=== PATIENT | female | born 1970 | race Caucasian/White ===

== ENCOUNTER 2016-04-27 09:11 | Inpatient (IN) | payer MEDICARE, OTHER ==
[2016-04-27 10:14] LABS: Hematocrit 50 % (35-47); Hemoglobin 16.3 g/dl (12.0-16.0); Mean Corpuscular HGB Conc 33 g/dl (31-36); Mean Corpuscular Hemoglobin 31 pg (27-31); Mean Corpuscular Volume 96 fL (80-97); Mean Platelet Volume 8 um3 (7.4-10.4); Red Blood Count 5.22 10^6/ul (4.0-5.4); Red Cell Distribution Width 15 % (10.5-15)
[2016-04-27 10:30] LABS: Troponin I 0.03 ng/mL (<0.04)
[2016-04-27 10:31] LABS: Albumin 3.7 g/dL (3.2-5.2); BUN/Creatinine Ratio 2.5 (8-20); Calcium 8.3 mg/dL (8.6-10.3); EGFR Non-African American 3.1 (>60); Potassium 3.8 mmol/L (3.5-5.0); Total Bilirubin 0.4 mg/dL (0.2-1.0); Total Protein 7.7 g/dL (6.4-8.9)
--- NOTE | 2016-04-27 10:35 | RAD ---
Indication: Cough. 2 views of the chest including dual energy PA views demonstrate no mediastinal shift. Heart is of normal size and configuration. Lung oneill are clear. When compared to previous exam of June 26, 2015 no significant change is noted. IMPRESSION: No active cardiopulmonary disease is noted.
[2016-04-27] MEDS ORDERED: Iodixanol* (CONTRAST) 320 MG/ML 100 ML SDV IV ONE (12:15)
--- NOTE | 2016-04-27 12:55 | RAD ---
Indication: Shortness of breath. CTA of the chest was performed after IV contrast administration. Coronal and sagittal reconstructed images were obtained. Administered 72.0 ml of VISAPAQUE 320 mgi/ml was given according to hospital protocol. Pulmonary arterial tree is well opacified. There are no filling defects present to suggest embolus. Inferior thyroid lobes are unremarkable. There is small mediastinal lymph nodes in the pretracheal space measuring 8 mm. Right hilar lymph nodes measure up to 14 mm. Infrahilar lymph nodes on the right measuring up to 8 mm. These were present previously and has not significantly changed. Heart is of normal size without pericardial effusion. Trachea and major bronchi appear patent. The lung oneill demonstrate no evidence of alveolar consolidation. No pleural fluid is identified. No definite evidence of interlobular septal thickening is noted. Heart demonstrates no pericardial effusion. The axilla demonstrates no evidence of abnormal adenopathy. Abdominal organs demonstrates a small amount of ascites. IMPRESSION: No evidence of pulmonary emboli is noted. Small mediastinal and right hilar lymph nodes are noted however this is unchanged from previous exam of June 24, 2013.
[2016-04-27] MEDS ORDERED: Albuterol 2.5 MG/3 ML NEB.SOL* (0.083%) INH PRN (13:45)
[2016-04-27] MEDS ORDERED: Benzocaine/Menthol LOZ* 1 LOZENGE MT PRN (13:45)
[2016-04-27] MEDS ORDERED: Ondansetron INJ* 2 MG/ML VIAL IV PRN (13:45)
[2016-04-27] MEDS ORDERED: Dextrose 50% Syringe 50 ML* 25 GM/50 ML SYRINGE IV PUSH PRN (13:52)
[2016-04-27] MEDS ORDERED: Carisoprodol TAB* 350 MG PO PRN (14:27)
[2016-04-27] MEDS ORDERED: diPHENhydraMINE PO* 25 MG PO PRN (14:27)
[2016-04-27] MEDS ORDERED: Zolpidem TAB* 10 MG PO PRN (14:27)
--- NOTE | 2016-04-27 16:05 | ED ---
Shanta Wells Adam, scribed for Aristeo Rogers MD on 04/27/16 at 1054 . Shortness of Breath - HPI Summary HPI Summary: A 45 y/o female presents to the ED c/o SOB for 3 days with associated rhinorrhea , sore throat, fever (99.0), and cough. Per patient, she thinks this is fluid overload (gained 7 pounds in the last week). She is a peritoneal dialysis patient and has been following instructions and not missing any sessions. She denies any abdominal pain or pain/edema in her lower extremities. - History of Current Complaint Chief Complaint: EDShortnessOfBreath Time Seen by Provider: 04/27/16 10:36 Hx Obtained From: Patient Onset/Duration: Gradual Onset, Lasting Days - 3 days Timing: Constant Current Severity: Moderate Dyspnea At: Rest Aggrevating Factors: Movement Associated Signs & Symptoms: Cough (Productive), Fever, Nasal Congestion - Allergy/Home Medications Allergies/Adverse Reactions: Allergies Allergy/AdvReac Type Severity Reaction Status Date / Time Metformin [From Glucophage] Allergy Severe See Comment Verified 05/29/15 13:22 Hydromorphone [From Dilaudid] Allergy Mild Itching Verified 05/29/15 13:22 Verapamil Allergy Hives Verified 05/29/15 13:22 Home Medications: Home Medications Atorvastatin* [Lipitor*] 10 mg PO DAILY 04/27/16 [History Confirmed 04/27/16] Cinacalcet TAB* [Sensipar TAB*] 30 mg PO DAILY 04/27/16 [History Confirmed 04/27] Clobetasol 0.05% OINT* 1 applic TOPICAL BID 04/27/16 [History Confirmed 04/27/16 ] Diphenhydramine HCl 25 mg PO BID 04/27/16 [History Confirmed 04/27/16] Hydrocodone W/ Homatropine [Tussigon 5-1.5 mg] 1 tab PO .Q4-6H PRN 04/27/16 [ History Confirmed 04/27/16] Insulin GLARGINE(*) [Lantus(*)] 25 units SUBCUT BEDTIME 04/27/16 [History Confirmed 04/27/16] Metoprolol Succinate XL TAB* [Toprol XL TAB*] 25 mg PO QPM 04/27/16 [History Confirmed 04/27/16] Nitroglycerin [Nitro-Bid] 0.4 % AR BID 04/27/16 [History Confirmed 04/27/16] Ondansetron HCl [Zofran] 4 mg PO BID PRN 04/27/16 [History Confirmed 04/27/16] Ropinirole TAB* [Requip TAB*] 0.5 mg PO QPM 04/27/16 [History Confirmed 04/27/16 ] Sodium Bicarbonate (ANTACID)* 650 mg PO BID 04/27/16 [History Confirmed 04/27/16 ] Triamcinolone 0.1% CREAM(NF) [Kenalog Cream 0.1%(NF)] 1 applic TOPICAL DAILY 08/08 [History Confirmed 04/27/16] amLODIPine TAB* [Norvasc TAB*] 2.5 mg PO DAILY 04/27/16 [History Confirmed 04/27] glipiZIDE TAB.XL* [Glucotrol XL*] 2.5 mg PO DAILY 04/27/16 [History Confirmed ] PMH/Surg Hx/FS Hx/Imm Hx Endocrine/Hematology History: Reports: Hx Anemia Denies: Hx Diabetes - Denies, Hx Thyroid Disease - Denies Cardiovascular History: Reports: Hx Angina, Hx Congenital Heart Disease, Hx Congestive Heart Failure, Hx Coronary Artery Disease, Hx Hypercholesterolemia, Hx Hypertension, Hx Myocardial Infarction, Hx Peripheral Vascular Disease Denies: Hx Pacemaker/ICD, Hx Valvular Heart Disease, Other Cardiovascular Problems/Disorders Respiratory History: Reports: Hx Chronic Bronchitis Denies: Hx Asthma, Hx Chronic Obstructive Pulmonary Disease (COPD) GI History: Reports: Hx Gall Bladder Disease, Hx Gastroesophageal Reflux Disease , Other GI Disorders - PANCREATITIS History: Reports: Hx Chronic Renal Failure, Hx Dialysis - ESRD WITH PD, Hx Renal Disease, Other Problems/Disorders Musculoskeletal History: Reports: Hx Arthritis, Hx Back Problems Denies: Other Musculoskeletal History Sensory History: Reports: Hx Contacts or Glasses Denies: Hx Hearing Aid Opthamlomology History: Reports: Hx Contacts or Glasses Neurological History: Reports: Hx Migraine Psychiatric History: Denies: Hx Panic Disorder - Cancer History Hx Chemotherapy: No Hx Radiation Therapy: No Hx Palliative Cancer Treatment: No - Surgical History Surgery Procedure, Year, and Place: 05/2011- GALLBLADDER REMOVED. PD CATHETER PLACEMENT. HEART STENT 06/08 Hx Anesthesia Reactions: No - Immunization History Date of Tetanus Vaccine: Up to date Date of Influenza Vaccine: 2013 Infectious Disease History: No Infectious Disease History: Denies: Traveled Outside the [place] in Last 30 Days - Family History Known Family History: Positive: Cardiac Disease - Social History Alcohol Use: None Substance Use Type: Reports: None Smoking Status (MU): Heavy Every Day Tobacco Smoker Type: Cigarettes Amount Used/How Often: 1-2 PPD Length of Time of Smoking/Using Tobacco: 23yrs Have You Smoked in the Last Year: Yes Review of Systems Positive: Fever. Negative: Chills Eyes: Negative Negative: Erythema Positive: Sore Throat, Nasal Discharge Cardiovascular: Negative Negative: Chest Pain Positive: Shortness Of Breath, Cough Gastrointestinal: Negative Negative: Abdominal Pain, Vomiting, Nausea Genitourinary: Negative Negative: dysuria, hematuria Musculoskeletal: Negative Negative: Myalgia Skin: Negative Negative: Rash Neurological: Negative, Other - Negative: Dizziness Psychological: Normal All Other Systems Reviewed And Are Negative: Yes Physical Exam - Summary Physical Exam Summary: Constitutional: Well-developed, Well-nourished, Alert. (-) Distressed Skin: Warm, Dry HENT: Normocephalic; Atraumatic Eyes: Conjunctiva normal Neck: Musculoskeletal ROM normal neck. (-) JVD, (-) Stridor, (-) Tracheal deviation Cardio: Rhythm regular, rate normal, Heart sounds normal; Intact distal pulses; The pedal pulses are 2+ and symmetric. Radial pulses are 2+ and symmetric. (-) Murmur Pulmonary/Chest wall: Effort normal. (-) Respiratory distress, (-) Wheezes, (-) Rales Abd: Soft, (-) Tenderness, Distension with abdominal ascites, (-) Guarding, (-) Rebound Musculoskeletal: (-) Edema Lymph: (-) Cervical adenopathy Neuro: Alert, Oriented x3 Psych: Mood and affect Normal Vital Signs On Initial Exam: Initial Vitals Temp Pulse Resp BP Pulse Ox 97.1 F 95 24 112/64 94 04/27/16 09:12 04/27/16 09:12 04/27/16 09:12 04/27/16 09:12 04/27/16 09:12 - Breanna Coma Scale Coma Scale Total: 15 Diagnostics - Vital Signs Vital Signs Temp Pulse Resp BP Pulse Ox 04/27/16 09:12 97.1 F 95 24 112/64 94 - Laboratory Lab Results: Lab Results 04/27/16 04/27/16 04/27/16 Range/Units 10:00 10:00 10:00 WBC 16.0 H (3.5-10.8) 10^3/ul RBC 5.22 (4.0-5.4) 10^6/ul Hgb 16.3 H (12.0-16.0) g/dl Hct 50 H (35-47) % MCV 96 (80-97) fL MCH 31 (27-31) pg MCHC 33 (31-36) g/dl RDW 15 (10.5-15) % Plt Count 383 (150-450) 10^3/ul MPV 8 (7.4-10.4) um3 Neut % (Auto) 74.8 (38-83) % Lymph % (Auto) 15.4 L (25-47) % [place] % (Auto) 8.2 (1-9) % Eos % (Auto) 0.5 (0-6) % Baso % (Auto) 1.1 (0-2) % Absolute Neuts (auto) 12.0 H (1.5-7.7) 10^3/ul Absolute Lymphs (auto) 2.5 (1.0-4.8) 10^3/ul Absolute Monos (auto) 1.3 H (0-0.8) 10^3/ul Absolute Eos (auto) 0.1 (0-0.6) 10^3/ul Absolute Basos (auto) 0.2 (0-0.2) 10^3/ul Absolute Nucleated RBC 0 10^3/ul Nucleated RBC % 0 INR (Anticoag Therapy) (0.89-1.11) Sodium 132 L (133-145) mmol/L Potassium 3.8 (3.5-5.0) mmol/L Chloride 86 L (101-111) mmol/L Carbon Dioxide 24 (22-32) mmol/L Anion Gap 22 H (2-11) mmol/L BUN 32 H (6-24) mg/dL Creatinine 12.98 H (0.51-0.95) mg/dL Est GFR ( Amer) 4.0 (>60) Est GFR (Non-Af Amer) 3.1 (>60) BUN/Creatinine Ratio 2.5 L (8-20) Glucose 145 H (70-100) mg/dL Calcium 8.3 L (8.6-10.3) mg/dL Total Bilirubin 0.40 (0.2-1.0) mg/dL AST 7 L (13-39) U/L ALT 7 (7-52) U/L Alkaline Phosphatase 112 H (34-104) U/L Troponin I 0.03 (<0.04) ng/mL B-Natriuretic Peptide 42 ( - 100) pg/mL Total Protein 7.7 (6.4-8.9) g/dL Albumin 3.7 (3.2-5.2) g/dL Globulin 4.0 (2-4) g/dL Albumin/Globulin Ratio 0.9 L (1-3) 04/27/16 Range/Units 10:00 WBC (3.5-10.8) 10^3/ul RBC (4.0-5.4) 10^6/ul Hgb (12.0-16.0) g/dl Hct (35-47) % MCV (80-97) fL MCH (27-31) pg MCHC (31-36) g/dl RDW (10.5-15) % Plt Count (150-450) 10^3/ul MPV (7.4-10.4) um3 Neut % (Auto) (38-83) % Lymph % (Auto) (25-47) % [place] % (Auto) (1-9) % Eos % (Auto) (0-6) % Baso % (Auto) (0-2) % Absolute Neuts (auto) (1.5-7.7) 10^3/ul Absolute Lymphs (auto) (1.0-4.8) 10^3/ul Absolute Monos (auto) (0-0.8) 10^3/ul Absolute Eos (auto) (0-0.6) 10^3/ul Absolute Basos (auto) (0-0.2) 10^3/ul Absolute Nucleated RBC 10^3/ul Nucleated RBC % INR (Anticoag Therapy) 0.97 (0.89-1.11) Sodium (133-145) mmol/L Potassium (3.5-5.0) mmol/L Chloride (101-111) mmol/L Carbon Dioxide (22-32) mmol/L Anion Gap (2-11) mmol/L BUN (6-24) mg/dL Creatinine (0.51-0.95) mg/dL Est GFR ( Amer) (>60) Est GFR (Non-Af Amer) (>60) BUN/Creatinine Ratio (8-20) Glucose (70-100) mg/dL Calcium (8.6-10.3) mg/dL Total Bilirubin (0.2-1.0) mg/dL AST (13-39) U/L ALT (7-52) U/L Alkaline Phosphatase (34-104) U/L Troponin I (<0.04) ng/mL B-Natriuretic Peptide ( - 100) pg/mL Total Protein (6.4-8.9) g/dL Albumin (3.2-5.2) g/dL Globulin (2-4) g/dL Albumin/Globulin Ratio (1-3) Result Diagrams: 04/27/16 10:00 04/27/16 10:00 Lab Statement: Any lab studies that have been ordered have been reviewed, and results considered in the medical decision making process. - Radiology CXR Xray Interpretation: No Acute Changes Radiology Interpretation Completed By: Radiologist - CT Chest/Thorac CTA CT Interpretation: No Acute Changes CT Interpretation Completed By: Radiologist - EKG 09:19 Cardiac Rate: NL - 93 EKG Interpretation: Biphasic T-waves in V3-V6. Q waves in V1-V2. No STEMI Course/Dx - Diagnoses Provider Diagnoses: Fluid overload, Shortness of breath - Physician Notifications Discussed Care of Patient With: Dr. Dunlap (Nephrology, 10:45) - States patient can receive IV contrast if necessary. Discharge - Discharge Plan Condition: Guarded Disposition: ADMITTED TO [facility] documentation as recorded by the Shanta barber Adam accurately reflects the service I personally performed and the decisions made by , Aristeo Rogers MD.
[2016-04-27] MEDS: Albuterol/Ipratropium NEB.SOL* Albuterol 2.5 MG/Ipratropium 0.5 MG 3 ML INH SCH ×2 (16:27→19:16)
[2016-04-27] MEDS: Heparin VIAL(*) 5000 UNITS/ML VIAL (FIVE THOUSAND) SUBCUT SCH ×2 (16:34→21:52)
[2016-04-27] MEDS: Azithromycin IV(*) 500 MG in NS 0.9% 250 ML* 250 ML IVPB SCH (16:35)
[2016-04-27] MEDS: Ropinirole TAB* 0.5 MG TAB PO SCH (17:16)
[2016-04-27] MEDS: Metoprolol Succinate XL TAB* 25 MG PO SCH (17:16)
[2016-04-27] MEDS: Acetaminophen TAB* 325 MG PO PRN (17:17)
[2016-04-27] MEDS: Insulin LISPRO* 1 UNITS UNIT SUBCUT SCH (17:26)
--- NOTE | 2016-04-27 18:43 | HP ---
HISTORY AND PHYSICAL: DATE OF ADMISSION: 04/27/16 PRIMARY CARE PROVIDER: Dr. Pan. MY ATTENDING PHYSICIAN WHILE IN THE HOSPITAL: Dr. Tangela Doan* (report being dictated by Kathe Montoya NP). CONSULTING MACHINE SHOP REPAIR TECHNICIAN: Dr. Abarca. CHIEF COMPLAINT: 1. Dyspnea on exertion. 2. Cough. HISTORY OF PRESENTING ILLNESS: Ms. Chavez is a 45-year-old female patient who since Lenore time has been having upper respiratory symptoms. She carries a history of end-stage renal disease, on peritoneal dialysis; history of diabetes ; hypertension; GERD; uremic pericarditis; history of CAD, she had a stent placed in the LAD; she has a history of pancreatitis; history of hyperlipidemia. She states that around Lenore time, she started out with rhinorrhea, sore throat, had a nonproductive cough. She was around her grandchildren who had similar illnesses and symptoms. She says that the cough has progressed and it is becoming worse. She is now noticed that she is having trouble coughing up the phlegm. She says that she has not had any fever but she does admit to feeling chills at times. She does state that her breathing has gotten worse. She has had more progressive worsening shortness of breath particularly with exertion. She said up until about last week, she was continuing to smoke about a half a pack a day. She denied having any chest discomfort. She says she has not any swelling in her legs. She says that she always sleeps on 2 pillows and this has not changed. She says that her dialysate has been clear. She has not had any abdominal discomfort whatsoever. She denies having any nausea or vomiting. She decided to come into the ER today because the cough was not getting any better and she was noticing she was having more dyspnea on exertion and she was coughing all last night. She came into the ER, was evaluated by Dr. Rogers. There was concern for possible fluid overload or URI. Hospitalist service was asked to evaluate for admission. PAST MEDICAL HISTORY: Significant for: 1. End-stage renal disease. 2. Diabetes. 3. Hypertension. 4. GERD. 5. Uremic pericarditis. 6. Coronary artery disease. 7. Pancreatitis. 8. Hyperlipidemia. PAST SURGICAL HISTORY: 1. The patient has had a cardiac catheterization. 2. Laparoscopic cholecystectomy. 3. Peritoneal dialysis catheter. MEDICATIONS: Her home meds are unknown. The last list I have on the computer includes: 1. Requip 2 mg p.o. at bedtime. 2. Benadryl 25 mg every 6 hours as needed. 3. Ambien 10 mg at bedtime as needed. 4. Brilinta 90 mg p.o. b.i.d. 5. Crestor 10 mg p.o. daily. 6. Zofran 4 mg p.o. every 6 hours as needed for nausea or vomiting. 7. [place]-3 fatty acids 1000 mg p.o. b.i.d. 8. Bactroban 1 application topically daily. 9. Metoprolol 50 mg a day. 10. Imodium 2 mg p.o. daily as needed. 11. Glipizide 2.5 mg p.o. daily. 12. Gabapentin 100 mg p.o. b.i.d. 13. Ferric citrate 630 mg p.o. t.i.d. with meals. 14. Nexium 40 mg p.o. b.i.d. 15. B12 1000 mcg p.o. daily. 16. Soma 350 mg p.o. every 8 hours as needed. 17. Calcitriol 0.25 mcg p.o. daily. 18. Aspirin 81 mg daily. 19. Tylenol with Codeine 1 tablet p.o. every 6 hours as needed. ALLERGIES TO MEDICATIONS: Include METFORMIN, VERAPAMIL, and DILAUDID. FAMILY HISTORY: Mother had a history of renal cell carcinoma. Father had a history of diabetes with lung cancer. SOCIAL HISTORY: She is avpc-r-erck-a-day smoker. Surrogate decision maker is Beltran You. She does not drink alcohol. REVIEW OF SYSTEMS: There is no documented fever. She admits to having chills. No significant weight change. There is no double vision. There is no ear discharge. There was rhinorrhea. There was sore throat. There was cough. There is no chest pain. No orthopnea, no nocturnal dyspnea. No abdominal pain. No nausea, no vomiting. No dysuria, no frequency. No loss of consciousness. No pruritus and no skin ulcerations. Review of 14 systems completed, all others negative. PHYSICAL EXAMINATION GENERAL: At this time, Ms. Chavez is a 45-year-old female patient. She is chronically ill-appearing. She does not appear to be in any acute distress. She is sitting in the ER stretcher. VITAL SIGNS: Reveal blood pressure 103/86, pulse 98, respirations 22, O2 sat 98 %, temperature 97.1. HEENT: Head: Atraumatic, normocephalic. Eyes: EOMs are intact. Sclerae are anicteric, not pale. Throat: Oral mucosa appears to be dry. No oropharyngeal erythema. NECK: Supple. LUNGS: She did have upper respiratory rhonchi with wheeze. In the upper lobe, she had equal diaphragmatic expansion. HEART: Heart sounds S1, S2. Regular rate and rhythm. No murmurs, rubs, or gallops. ABDOMEN: Soft, it was flat, nontender. Bowel sounds were present. The PD catheter site appeared to be benign. There was no erythema or discharge noted. EXTREMITIES: Pulses were 2+ throughout. She was able to move all 4 extremities with 5/5 strength. She had no peripheral edema. NEUROLOGIC: She is awake, she is alert, she is oriented x3. Her tongue is midline. She had no gross focal deficits. SKIN: Intact. DIAGNOSTIC STUDIES/LAB DATA: Labs today revealed WBC of 16.0, RBC of 5.22, hemoglobin of platelet count 383. INR was 0.97. Her sodium was 132, potassium 3.8, chloride 86, bicarb 24, BUN 32, creatinine 12.98, glucose 145, lactate 1.8 , calcium 8.3. Total bili 0.4, AST 7, ALT 7, alk phos 112. Troponin 0.03. BNP 42. Albumin is 3.7. Serology was negative for flu. She did have a chest thorax CTA which revealed no evidence of pulmonary emboli is noted. Small mediastinal and right hilar lymph nodes are noted; however, this is unchanged from previous exam. She had a chest x-ray as well which revealed no cardiopulmonary disease is noted. She had an EKG as well which showed a normal sinus rhythm. She had flattening in lead I, V3, V2, and V1, and T waves but no ST elevation. It was reviewed to the previous EKG, the flattening of V3 is now new, but otherwise appears to be unchanged. There was an echo which showed EF 50% to 55% and that was done in 2013. Old medical records were reviewed. ASSESSMENT AND PLAN: Ms. Chavez is 45-year-old female patient coming into the ER today with complaints of cough, dyspnea on exertion. On evaluation on my exam, she appeared to have rhonchi in the upper lobes. In addition to this, did have some upper respiratory wheezing. She will be admitted under observation status for: 1. Upper respiratory infection. I suspect she has laryngitis or bronchitis. She has been having symptoms now for almost 2 weeks. With her underlying medical problems, I think she warrants antibiotics, at least azithromycin. In addition to this, she does have a history of smoking. So, I think Dulera is warranted, and nebs around the clock. I am going to hold off on steroids at this point, because I do not want to cause hyperglycemia and we will continue to monitor her. When she does overcome this illness, I would recommend probably getting PFTs in the outpatient setting. 2. End-stage renal disease. I did touch base with Dr. Abarca. He is in agreement. He will be evaluating the patient at this point. 3. Leukocytosis. I suspect this is leukemoid reaction secondary to the bronchitis. We have pancultured her. She has no abdominal discomfort. Her dialysate appears to be clear. I have a low suspicion that she has peritonitis from the PD dialysis. I will continue to monitor. If she starts spiking fevers or having abdominal discomfort, obviously we will need to reevaluate this. 4. Diabetes. Continue lispro sliding scale. 5. Hypertension. Continue meds as prescribed. 6. Coronary artery disease. We will continue her current medical regime. She is not having any chest discomfort. 7. Gastroesophageal reflux disease. Continue PPI therapy. 8. Pancreatitis. Again, no abdominal pain at this point and we can follow. 9. Hyperlipidemia. Continue meds prescribed. 10. DVT prophylaxis. We will go ahead and place her on heparin subcu. 11. Code status. Full code. 12. Fluids, electrolytes, and nutrition. She will be placed on a heart- healthy diet. TIME SPENT: On this admission was 60 minutes; , greater than half the time was spent [id number] with the patient, obtaining my history of physical; the other half time was spent going over the plan of care with the patient and implementing plan of care. I did discuss the plan of care with my attending, Dr. Doan; she is in agreement. KATHE MONTOYA NP ADDENDUM TO HISTORY AND PHYSICAL: DATE OF ADMISSION: 04/27/16 Mrs. Chavez is a 45-year-old female with history of end-stage renal disease on peritoneal dialysis who presents with bronchitis. The patient is going to be placed on overnight observation and treated for bronchitis with antibiotics. For further details of the patient's presentation and plan, please see history and physical dictated by Kathe Montoya NP, on 04/27/16 with which I agree. Tangela Doan MD CC: Dr. Pan; Dr. Abarca* [id number]/[facility] #: [id number]/[facility] #: [id number] MTDD
[2016-04-27] MEDS: Insulin GLARGINE(*) 1 UNITS UNIT SUBCUT SCH (20:56)
[2016-04-27] MEDS: Sodium Bicarbonate (ANTACID)* 650 MG TAB PO SCH (20:56)
[2016-04-27] MEDS: Gabapentin CAP(*) 100 MG PO SCH (20:56)
[2016-04-27] MEDS: Ticagrelor* 90 MG TAB PO SCH (20:56)
[2016-04-27] MEDS: Omeprazole CAP* 20 MG PO SCH (20:56)
--- NOTE | 2016-04-27 21:12 | HP ---
HISTORY AND PHYSICAL: ADDENDUM: DATE OF ADMISSION: 04/27/16 Mrs. Chavez is a 45-year-old female with history of end-stage renal disease on peritoneal dialysis who presents with bronchitis. The patient is going to be placed on overnight observation and treated f or bronchitis with antibiotics. For further details of the patient's presentation and plan, please see history and physical dictated by Pancho Montoya NP, on 04/27/16 with which I agree. [id number]/[id number] #: [id number]
[2016-04-27] MEDS: Mometasone/Formoter 200/5 MDI INH SCH (21:57)
[2016-04-28] MEDS: Albuterol/Ipratropium NEB.SOL* Albuterol 2.5 MG/Ipratropium 0.5 MG 3 ML INH SCH ×7 (00:07→23:37)
[2016-04-28] MEDS ORDERED: NS 0.9% 1000 ML* 1,000 ML IV ONE (00:27)
[2016-04-28] MEDS: Heparin VIAL(*) 5000 UNITS/ML VIAL (FIVE THOUSAND) SUBCUT SCH ×3 (05:54→21:30)
[2016-04-28 06:47] LABS: Hematocrit 40 % (35-47); Hemoglobin 13.1 g/dl (12.0-16.0); Mean Corpuscular HGB Conc 33 g/dl (31-36); Mean Corpuscular Hemoglobin 32 pg (27-31); Mean Corpuscular Volume 96 fL (80-97); Mean Platelet Volume 8 um3 (7.4-10.4); Red Blood Count 4.16 10^6/ul (4.0-5.4); Red Cell Distribution Width 15 % (10.5-15); White Blood Count 20.4 10^3/ul (3.5-10.8)
[2016-04-28 06:49] LABS: Add Diff/Slide Review? Slide Review Added; Comments Flag Yes
[2016-04-28 07:00] LABS: BUN/Creatinine Ratio 2.5 (8-20); Calcium 7.4 mg/dL (8.6-10.3); EGFR African American 3.9 (>60); Potassium 3.5 mmol/L (3.5-5.0)
[2016-04-28] MEDS: Insulin LISPRO* 1 UNITS UNIT SUBCUT SCH ×3 (07:37→17:22)
[2016-04-28 08:05] LABS: Eosinophils % 1 % (0-6); Immature Granulocytes 1 % (0-9); Neutrophil % 75 % (38-83)
[2016-04-28 08:06] LABS: RBC Morphology Normal (Normal)
[2016-04-28] MEDS: Mometasone/Formoter 200/5 MDI INH SCH ×2 (08:32→20:59)
--- NOTE | 2016-04-28 10:13 | PN ---
Subjective Date of Service: 04/28/16 Interval History: Pt is feeling better but still SOB with exertion. She states her throat is still very sore. Objective Active Medications: Acetaminophen (Tylenol Tab*) 650 mg PO Q4H PRN PRN Reason: FEVER/PAIN Last Admin: 04/27/16 17:17 Dose: 650 mg Albuterol (Ventolin 2.5 Mg/3 Ml Neb.Jade*) 2.5 mg INH Q2H PRN PRN Reason: SOB/WHEEZING Albuterol/Ipratropium (Duoneb Neb.Jade*) 1 neb INH [id number] AWAKE [facility] Last Admin: 04/28/16 08:32 Dose: 1 neb Amlodipine Besylate (Norvasc Tab*) 2.5 mg PO DAILY [facility] Aspirin (Aspirin Ec Low Dose*) 81 mg PO DAILY [facility] Atorvastatin Calcium (Lipitor*) 10 mg PO DAILY [facility] Calcitriol (Rocaltrol Cap*) 0.25 mcg PO DAILY [facility] Carisoprodol (Soma Tab*) 350 mg PO Q8HR PRN PRN Reason: SPASMS - MUSCLE Cinacalcet (Sensipar Tab*) 30 mg PO DAILY [facility] Dextrose (D50w Syringe 50 Ml*) 12.5 gm IV PUSH .FOR FS < 60 - SS PRN PRN Reason: FS < 60 Diphenhydramine HCl (Benadryl Po*) 25 mg PO Q6HR PRN PRN Reason: Allergy Symptoms Gabapentin (Neurontin Cap(*)) 100 mg PO BID [facility] Last Admin: 04/27/16 20:56 Dose: 100 mg Heparin Sodium (Porcine) (Heparin Vial(*)) 5,000 units SUBCUT Q8HR [facility] Last Admin: 04/28/16 05:54 Dose: 5,000 units Azithromycin 500 mg/ Sodium (Chloride) 250 mls @ 250 mls/hr IVPB Q24H [facility] Last Admin: 04/27/16 16:35 Dose: 250 mls/hr Insulin Glargine (Lantus(*)) 25 units SUBCUT BEDTIME [facility] Last Admin: 04/27/16 20:56 Dose: 25 units Insulin Human Lispro (Humalog*) 0 units SUBCUT AC [facility] PRN Reason: Protocol Last Admin: 04/28/16 07:37 Dose: Not Given Metoprolol Succinate (Toprol Xl Tab*) 50 mg PO DAILY [facility] Metoprolol Succinate (Toprol Xl Tab*) 25 mg PO QPM [facility] Last Admin: 04/27/16 17:16 Dose: 25 mg Mometasone Furoate/Formoterol Fumar (Dulera 200/5 Mdi*) 2 puff INH BID [facility] Last Admin: 04/28/16 08:32 Dose: 2 puff Omeprazole (Prilosec Cap*) 20 mg PO BID [facility] PRN Reason: Protocol Last Admin: 04/27/16 20:56 Dose: 20 mg Ondansetron HCl (Zofran Inj*) 4 mg IV Q6H PRN PRN Reason: NAUSEA Ropinirole HCl (Requip Tab*) 0.5 mg PO QPM [facility] Last Admin: 04/27/16 17:16 Dose: 0.5 mg Sodium Bicarbonate (Sodium Bicarbonate (Antacid)*) 650 mg PO BID [facility] Last Admin: 04/27/16 20:56 Dose: 650 mg Throat Lozenges (Chloraseptic Jered*) 1 jered MT Q6H PRN PRN Reason: SORE THROAT Last Admin: 04/27/16 16:34 Dose: 1 jered Ticagrelor (Brilinta*) 90 mg PO BID [facility] Last Admin: 04/27/16 20:56 Dose: 90 mg Zolpidem Tartrate (Ambien Tab*) 10 mg PO BEDTIME PRN PRN Reason: SLEEP Vital Signs 04/27/16 04/27/16 04/27/16 16:20 16:29 16:31 Temperature 100.8 F Pulse Rate 100 92 Respiratory 20 18 Rate Blood Pressure 119/71 (mmHg) O2 Sat by Pulse 94 100 97 Oximetry 04/27/16 04/27/16 04/27/16 17:46 19:17 19:39 Temperature 98.2 F Pulse Rate 92 95 Respiratory 20 16 18 Rate Blood Pressure 102/55 (mmHg) O2 Sat by Pulse 97 96 Oximetry 04/27/16 04/27/16 04/27/16 20:00 20:56 22:56 Temperature Pulse Rate 103 Respiratory 16 15 15 Rate Blood Pressure (mmHg) O2 Sat by Pulse 98 Oximetry 04/28/16 04/28/16 04/28/16 00:00 00:19 02:01 Temperature 98.5 F Pulse Rate 103 105 Respiratory 16 Rate Blood Pressure 88/51 93/61 (mmHg) O2 Sat by Pulse 97 96 Oximetry 04/28/16 04/28/16 03:24 08:33 Temperature 97.5 F Pulse Rate 106 100 Respiratory 16 16 Rate Blood Pressure 109/54 (mmHg) O2 Sat by Pulse 95 95 Oximetry Oxygen Devices in Use Now: None Appearance: Middle aged female standing next to the bed, NAD Eyes: No Scleral Icterus Ears/Nose/Mouth/Throat: Mucous Membranes Moist Respiratory: Symmetrical Chest Expansion and Respiratory Effort, - - diminished breath sounds in all lung oneill Cardiovascular: NL Sounds; No Murmurs; No JVD, RRR, No Edema Abdominal: - - BS+ soft, NT, ND Extremities: No Clubbing, Cyanosis Skin: No Rash or Ulcers, No Nodules or Sclerosis Neurological: Alert and Oriented x 3 Result Diagrams: 04/28/16 06:12 04/28/16 06:12 Additional Lab and Data: Lab Results 04/27/16 04/27/16 04/27/16 Range/Units 10:00 10:00 10:00 WBC 16.0 H (3.5-10.8) 10^3/ul RBC 5.22 (4.0-5.4) 10^6/ul Hgb 16.3 H (12.0-16.0) g/dl Hct 50 H (35-47) % MCV 96 (80-97) fL MCH 31 (27-31) pg MCHC 33 (31-36) g/dl RDW 15 (10.5-15) % Plt Count 383 (150-450) 10^3/ul MPV 8 (7.4-10.4) um3 Neut % (Auto) 74.8 (38-83) % Lymph % (Auto) 15.4 L (25-47) % [place] % (Auto) 8.2 (1-9) % Eos % (Auto) 0.5 (0-6) % Baso % (Auto) 1.1 (0-2) % Absolute Neuts (auto) 12.0 H (1.5-7.7) 10^3/ul Absolute Lymphs (auto) 2.5 (1.0-4.8) 10^3/ul Absolute Monos (auto) 1.3 H (0-0.8) 10^3/ul Absolute Eos (auto) 0.1 (0-0.6) 10^3/ul Absolute Basos (auto) 0.2 (0-0.2) 10^3/ul Absolute Nucleated RBC 0 10^3/ul Nucleated RBC % 0 INR (Anticoag Therapy) (0.89-1.11) Sodium 132 L (133-145) mmol/L Potassium 3.8 (3.5-5.0) mmol/L Chloride 86 L (101-111) mmol/L Carbon Dioxide 24 (22-32) mmol/L Anion Gap 22 H (2-11) mmol/L BUN 32 H (6-24) mg/dL Creatinine 12.98 H (0.51-0.95) mg/dL Est GFR ( Amer) 4.0 (>60) Est GFR (Non-Af Amer) 3.1 (>60) BUN/Creatinine Ratio 2.5 L (8-20) Glucose 145 H (70-100) mg/dL Calcium 8.3 L (8.6-10.3) mg/dL Total Bilirubin 0.40 (0.2-1.0) mg/dL AST 7 L (13-39) U/L ALT 7 (7-52) U/L Alkaline Phosphatase 112 H (34-104) U/L Troponin I 0.03 (<0.04) ng/mL B-Natriuretic Peptide 42 ( - 100) pg/mL Total Protein 7.7 (6.4-8.9) g/dL Albumin 3.7 (3.2-5.2) g/dL Globulin 4.0 (2-4) g/dL Albumin/Globulin Ratio 0.9 L (1-3) 04/27/16 Range/Units 10:00 WBC (3.5-10.8) 10^3/ul RBC (4.0-5.4) 10^6/ul Hgb (12.0-16.0) g/dl Hct (35-47) % MCV (80-97) fL MCH (27-31) pg MCHC (31-36) g/dl RDW (10.5-15) % Plt Count (150-450) 10^3/ul MPV (7.4-10.4) um3 Neut % (Auto) (38-83) % Lymph % (Auto) (25-47) % [place] % (Auto) (1-9) % Eos % (Auto) (0-6) % Baso % (Auto) (0-2) % Absolute Neuts (auto) (1.5-7.7) 10^3/ul Absolute Lymphs (auto) (1.0-4.8) 10^3/ul Absolute Monos (auto) (0-0.8) 10^3/ul Absolute Eos (auto) (0-0.6) 10^3/ul Absolute Basos (auto) (0-0.2) 10^3/ul Absolute Nucleated RBC 10^3/ul Nucleated RBC % INR (Anticoag Therapy) 0.97 (0.89-1.11) Sodium (133-145) mmol/L Potassium (3.5-5.0) mmol/L Chloride (101-111) mmol/L Carbon Dioxide (22-32) mmol/L Anion Gap (2-11) mmol/L BUN (6-24) mg/dL Creatinine (0.51-0.95) mg/dL Est GFR ( Amer) (>60) Est GFR (Non-Af Amer) (>60) BUN/Creatinine Ratio (8-20) Glucose (70-100) mg/dL Calcium (8.6-10.3) mg/dL Total Bilirubin (0.2-1.0) mg/dL AST (13-39) U/L ALT (7-52) U/L Alkaline Phosphatase (34-104) U/L Troponin I (<0.04) ng/mL B-Natriuretic Peptide ( - 100) pg/mL Total Protein (6.4-8.9) g/dL Albumin (3.2-5.2) g/dL Globulin (2-4) g/dL Albumin/Globulin Ratio (1-3) Microbiology and Other Data: Microbiology 04/27/16 20:06 Group A Streptococcus Rapid Screen - Final Throat Specimen received for Rapid Strep A Molecular testing Assess/Plan/Problems-Billing Ms Chavez is a 45 yo F who has a h/o ESRD on PD, DM, HTN and CAD who presented to the ER with c/o cough and SOB. - Patient Problems (1) Bronchitis Current Visit: Yes Status: Acute Code(s): J40 - BRONCHITIS, NOT SPECIFIED ACUTE OR CHRONIC SNOMED Code(s): 38919004 Comment: No pna on CXR. Continue azithromycin. Recheck CBC tomorrow AM. Her breathing is improved but still not quite back to baseline. (2) Type 2 diabetes mellitus Current Visit: No Status: Chronic Comment: Sugars are under good control. Continue lantus and lispro sliding scale. (3) CAD (coronary artery disease) Current Visit: Yes Status: Acute Code(s): I25.10 - ATHSCL HEART DISEASE OF [place] CORONARY ARTERY W/O ANG PCTRS SNOMED Code(s): 76474816 Comment: Asymptomatic. Continue brilinta and aspirin. (4) Hypertension Current Visit: Yes Status: Acute Code(s): I10 - ESSENTIAL (PRIMARY) HYPERTENSION SNOMED Code(s): 36728585 Comment: BP is under good control. Continue to monitor. (5) ESRD on peritoneal dialysis Current Visit: Yes Status: Chronic Code(s): N18.6 - END STAGE RENAL DISEASE ; Z99.2 - DEPENDENCE ON RENAL DIALYSIS SNOMED Code(s): 57103123 Comment: Continue PD. (6) DVT prophylaxis Current Visit: Yes Status: Acute Code(s): ENN8794 - SNOMED Code(s): 725879846 Comment: Heparin SQ (7) Full code status Current Visit: Yes Status: Acute Code(s): Z78.9 - OTHER SPECIFIED HEALTH STATUS SNOMED Code(s): 430482813
[2016-04-28] MEDS: Gabapentin CAP(*) 100 MG PO SCH ×2 (10:40→20:58)
[2016-04-28] MEDS: Sodium Bicarbonate (ANTACID)* 650 MG TAB PO SCH ×2 (10:40→20:57)
[2016-04-28] MEDS: Metoprolol Succinate XL TAB* 50 MG PO SCH (10:41)
[2016-04-28] MEDS: Aspirin EC Low Dose* 81 MG TAB.EC PO SCH (10:41)
[2016-04-28] MEDS: Ticagrelor* 90 MG TAB PO SCH ×2 (10:42→20:58)
[2016-04-28] MEDS: amLODIPine TAB* 5 MG PO SCH (10:42)
[2016-04-28] MEDS: Calcitriol CAP* 0.25 MCG PO SCH (10:42)
[2016-04-28] MEDS: Cinacalcet TAB* 30 MG PO SCH (10:42)
[2016-04-28] MEDS: Atorvastatin* 10 MG TAB PO SCH (10:42)
[2016-04-28] MEDS: Omeprazole CAP* 20 MG PO SCH ×2 (10:42→20:57)
[2016-04-28] MEDS: Acetaminophen TAB* 325 MG PO PRN (11:44)
[2016-04-28] MEDS ORDERED: Benzonatate CAP* 100 MG PO PRN (12:20)
[2016-04-28] MEDS ORDERED: Nicotine Inhaler* 10 MG AMP INH PRN (16:42)
[2016-04-28] MEDS ORDERED: Mouth Piece, Nicotine* 1 EACH CARTRIDGE INH PRN (16:42)
[2016-04-28] MEDS: Metoprolol Succinate XL TAB* 25 MG PO SCH (17:36)
[2016-04-28] MEDS: Azithromycin IV(*) 500 MG in NS 0.9% 250 ML* 250 ML IVPB SCH (17:36)
[2016-04-28] MEDS: Ropinirole TAB* 0.5 MG TAB PO SCH (17:36)
[2016-04-28] MEDS: Insulin GLARGINE(*) 1 UNITS UNIT SUBCUT SCH (21:02)
[2016-04-29] MEDS: Albuterol/Ipratropium NEB.SOL* Albuterol 2.5 MG/Ipratropium 0.5 MG 3 ML INH SCH ×3 (03:27→10:58)
[2016-04-29] MEDS: Heparin VIAL(*) 5000 UNITS/ML VIAL (FIVE THOUSAND) SUBCUT SCH (05:19)
[2016-04-29 06:57] LABS: Hematocrit 39 % (35-47); Hemoglobin 12.8 g/dl (12.0-16.0); Mean Corpuscular HGB Conc 33 g/dl (31-36); Mean Corpuscular Hemoglobin 31 pg (27-31); Mean Corpuscular Volume 95 fL (80-97); Mean Platelet Volume 8 um3 (7.4-10.4); Red Blood Count 4.11 10^6/ul (4.0-5.4); Red Cell Distribution Width 15 % (10.5-15); White Blood Count 15.5 10^3/ul (3.5-10.8)
[2016-04-29] MEDS: Mometasone/Formoter 200/5 MDI INH SCH (07:39)
[2016-04-29] MEDS: Ticagrelor* 90 MG TAB PO SCH (08:07)
[2016-04-29] MEDS: Aspirin EC Low Dose* 81 MG TAB.EC PO SCH (08:07)
[2016-04-29] MEDS: Omeprazole CAP* 20 MG PO SCH (08:07)
[2016-04-29] MEDS: Sodium Bicarbonate (ANTACID)* 650 MG TAB PO SCH (08:07)
[2016-04-29] MEDS: amLODIPine TAB* 5 MG PO SCH (08:07)
[2016-04-29] MEDS: Cinacalcet TAB* 30 MG PO SCH (08:07)
[2016-04-29] MEDS: Atorvastatin* 10 MG TAB PO SCH (08:07)
[2016-04-29] MEDS: Calcitriol CAP* 0.25 MCG PO SCH (08:07)
[2016-04-29] MEDS: Gabapentin CAP(*) 100 MG PO SCH (08:07)
[2016-04-29] MEDS: Insulin LISPRO* 1 UNITS UNIT SUBCUT SCH ×2 (08:08→12:14)
[2016-04-29] MEDS: Metoprolol Succinate XL TAB* 50 MG PO SCH (08:10)
--- NOTE | 2016-04-29 11:00 | PN ---
Subjective Date of Service: 04/29/16 Interval History: Pt is feeling well. Breathing is improved. She states that last night she had some abdominal pain and diarrhea but nothing further. Objective Active Medications: Acetaminophen (Tylenol Tab*) 650 mg PO Q4H PRN PRN Reason: FEVER/PAIN Last Admin: 04/28/16 11:44 Dose: 650 mg Albuterol (Ventolin 2.5 Mg/3 Ml Neb.Jade*) 2.5 mg INH Q2H PRN PRN Reason: SOB/WHEEZING Albuterol/Ipratropium (Duoneb Neb.Jade*) 1 neb INH [id number] AWAKE [facility] Last Admin: 04/29/16 07:39 Dose: 1 neb Amlodipine Besylate (Norvasc Tab*) 2.5 mg PO DAILY [facility] Last Admin: 04/29/16 08:07 Dose: 2.5 mg Aspirin (Aspirin Ec Low Dose*) 81 mg PO DAILY [facility] Last Admin: 04/29/16 08:07 Dose: 81 mg Atorvastatin Calcium (Lipitor*) 10 mg PO DAILY [facility] Last Admin: 04/29/16 08:07 Dose: 10 mg Benzonatate (Tessalon Cap*) 200 mg PO TID PRN PRN Reason: cough Last Admin: 04/28/16 14:08 Dose: 200 mg Calcitriol (Rocaltrol Cap*) 0.25 mcg PO DAILY [facility] Last Admin: 04/29/16 08:07 Dose: 0.25 mcg Carisoprodol (Soma Tab*) 350 mg PO Q8HR PRN PRN Reason: SPASMS - MUSCLE Cinacalcet (Sensipar Tab*) 30 mg PO DAILY [facility] Last Admin: 04/29/16 08:07 Dose: 30 mg Device (Nicotine Mouth Piece*) 1 each INH .USE WITH NICOTROL PRN PRN Reason: CRAVING Last Admin: 04/28/16 17:37 Dose: 1 each Dextrose (D50w Syringe 50 Ml*) 12.5 gm IV PUSH .FOR FS < 60 - SS PRN PRN Reason: FS < 60 Diphenhydramine HCl (Benadryl Po*) 25 mg PO Q6HR PRN PRN Reason: Allergy Symptoms Gabapentin (Neurontin Cap(*)) 100 mg PO BID [facility] Last Admin: 04/29/16 08:07 Dose: 100 mg Heparin Sodium (Porcine) (Heparin Vial(*)) 5,000 units SUBCUT Q8HR [facility] Last Admin: 04/29/16 05:19 Dose: 5,000 units Azithromycin 500 mg/ Sodium (Chloride) 250 mls @ 250 mls/hr IVPB Q24H [facility] Last Admin: 04/28/16 17:36 Dose: 250 mls/hr Insulin Glargine (Lantus(*)) 25 units SUBCUT BEDTIME [facility] Last Admin: 04/28/16 21:02 Dose: 25 units Insulin Human Lispro (Humalog*) 0 units SUBCUT AC [facility] PRN Reason: Protocol Last Admin: 04/29/16 08:08 Dose: Not Given Metoprolol Succinate (Toprol Xl Tab*) 50 mg PO DAILY [facility] Last Admin: 04/29/16 08:10 Dose: 50 mg Metoprolol Succinate (Toprol Xl Tab*) 25 mg PO QPM [facility] Last Admin: 04/28/16 17:36 Dose: 25 mg Mometasone Furoate/Formoterol Fumar (Dulera 200/5 Mdi*) 2 puff INH BID [facility] Last Admin: 04/29/16 07:39 Dose: 2 puff Nicotine (Nicotine Inhaler*) 10 mg INH Q2H PRN PRN Reason: CRAVING Last Admin: 04/28/16 17:37 Dose: 10 mg Omeprazole (Prilosec Cap*) 20 mg PO BID [facility] PRN Reason: Protocol Last Admin: 04/29/16 08:07 Dose: 20 mg Ondansetron HCl (Zofran Inj*) 4 mg IV Q6H PRN PRN Reason: NAUSEA Last Admin: 04/28/16 21:29 Dose: 4 mg Ropinirole HCl (Requip Tab*) 0.5 mg PO QPM [facility] Last Admin: 04/28/16 17:36 Dose: 0.5 mg Sodium Bicarbonate (Sodium Bicarbonate (Antacid)*) 650 mg PO BID [facility] Last Admin: 04/29/16 08:07 Dose: 650 mg Throat Lozenges (Chloraseptic Jered*) 1 jered MT Q6H PRN PRN Reason: SORE THROAT Last Admin: 04/27/16 16:34 Dose: 1 jered Ticagrelor (Brilinta*) 90 mg PO BID [facility] Last Admin: 01/06/17 08:07 Dose: 90 mg Zolpidem Tartrate (Ambien Tab*) 10 mg PO BEDTIME PRN PRN Reason: SLEEP Vital Signs 04/28/16 04/28/16 04/28/16 12:07 12:08 12:40 Temperature Pulse Rate 96 Respiratory 18 20 Rate Blood Pressure (mmHg) O2 Sat by Pulse 100 99 Oximetry 04/28/16 04/28/16 04/28/16 15:08 16:13 20:00 Temperature 97.9 F Pulse Rate 97 68 91 Respiratory 16 18 Rate Blood Pressure 123/65 (mmHg) O2 Sat by Pulse 93 100 94 Oximetry 04/28/16 04/28/16 04/28/16 20:58 22:58 23:41 Temperature 98.6 F Pulse Rate 92 Respiratory 18 17 18 Rate Blood Pressure 121/75 (mmHg) O2 Sat by Pulse 94 Oximetry 04/29/16 04/29/16 04/29/16 00:00 03:27 04:10 Temperature 98.5 F Pulse Rate 90 93 Respiratory 16 16 Rate Blood Pressure 106/55 (mmHg) O2 Sat by Pulse 94 99 99 Oximetry 04/29/16 04/29/16 07:44 08:07 Temperature Pulse Rate 93 Respiratory 16 18 Rate Blood Pressure (mmHg) O2 Sat by Pulse 98 Oximetry Oxygen Devices in Use Now: None Appearance: Middle aged female standing in her room, NAD Eyes: No Scleral Icterus Ears/Nose/Mouth/Throat: Mucous Membranes Moist Respiratory: Symmetrical Chest Expansion and Respiratory Effort, - - few scattered wheezes and ronchi Cardiovascular: NL Sounds; No Murmurs; No JVD, RRR, No Edema Abdominal: - - BS+ soft, ND, NT-pt is insitilling her dialysate at this time Extremities: No Clubbing, Cyanosis Skin: No Rash or Ulcers, No Nodules or Sclerosis Neurological: Alert and Oriented x 3 Result Diagrams: 04/29/16 05:41 04/28/16 06:12 Additional Lab and Data: Lab Results 04/27/16 04/27/16 04/27/16 Range/Units 10:00 10:00 10:00 WBC 16.0 H (3.5-10.8) 10^3/ul RBC 5.22 (4.0-5.4) 10^6/ul Hgb 16.3 H (12.0-16.0) g/dl Hct 50 H (35-47) % MCV 96 (80-97) fL MCH 31 (27-31) pg MCHC 33 (31-36) g/dl RDW 15 (10.5-15) % Plt Count 383 (150-450) 10^3/ul MPV 8 (7.4-10.4) um3 Neut % (Auto) 74.8 (38-83) % Lymph % (Auto) 15.4 L (25-47) % [place] % (Auto) 8.2 (1-9) % Eos % (Auto) 0.5 (0-6) % Baso % (Auto) 1.1 (0-2) % Absolute Neuts (auto) 12.0 H (1.5-7.7) 10^3/ul Absolute Lymphs (auto) 2.5 (1.0-4.8) 10^3/ul Absolute Monos (auto) 1.3 H (0-0.8) 10^3/ul Absolute Eos (auto) 0.1 (0-0.6) 10^3/ul Absolute Basos (auto) 0.2 (0-0.2) 10^3/ul Absolute Nucleated RBC 0 10^3/ul Nucleated RBC % 0 INR (Anticoag Therapy) (0.89-1.11) Sodium 132 L (133-145) mmol/L Potassium 3.8 (3.5-5.0) mmol/L Chloride 86 L (101-111) mmol/L Carbon Dioxide 24 (22-32) mmol/L Anion Gap 22 H (2-11) mmol/L BUN 32 H (6-24) mg/dL Creatinine 12.98 H (0.51-0.95) mg/dL Est GFR ( Amer) 4.0 (>60) Est GFR (Non-Af Amer) 3.1 (>60) BUN/Creatinine Ratio 2.5 L (8-20) Glucose 145 H (70-100) mg/dL Calcium 8.3 L (8.6-10.3) mg/dL Total Bilirubin 0.40 (0.2-1.0) mg/dL AST 7 L (13-39) U/L ALT 7 (7-52) U/L Alkaline Phosphatase 112 H (34-104) U/L Troponin I 0.03 (<0.04) ng/mL B-Natriuretic Peptide 42 ( - 100) pg/mL Total Protein 7.7 (6.4-8.9) g/dL Albumin 3.7 (3.2-5.2) g/dL Globulin 4.0 (2-4) g/dL Albumin/Globulin Ratio 0.9 L (1-3) 04/27/16 Range/Units 10:00 WBC (3.5-10.8) 10^3/ul RBC (4.0-5.4) 10^6/ul Hgb (12.0-16.0) g/dl Hct (35-47) % MCV (80-97) fL MCH (27-31) pg MCHC (31-36) g/dl RDW (10.5-15) % Plt Count (150-450) 10^3/ul MPV (7.4-10.4) um3 Neut % (Auto) (38-83) % Lymph % (Auto) (25-47) % [place] % (Auto) (1-9) % Eos % (Auto) (0-6) % Baso % (Auto) (0-2) % Absolute Neuts (auto) (1.5-7.7) 10^3/ul Absolute Lymphs (auto) (1.0-4.8) 10^3/ul Absolute Monos (auto) (0-0.8) 10^3/ul Absolute Eos (auto) (0-0.6) 10^3/ul Absolute Basos (auto) (0-0.2) 10^3/ul Absolute Nucleated RBC 10^3/ul Nucleated RBC % INR (Anticoag Therapy) 0.97 (0.89-1.11) Sodium (133-145) mmol/L Potassium (3.5-5.0) mmol/L Chloride (101-111) mmol/L Carbon Dioxide (22-32) mmol/L Anion Gap (2-11) mmol/L BUN (6-24) mg/dL Creatinine (0.51-0.95) mg/dL Est GFR ( Amer) (>60) Est GFR (Non-Af Amer) (>60) BUN/Creatinine Ratio (8-20) Glucose (70-100) mg/dL Calcium (8.6-10.3) mg/dL Total Bilirubin (0.2-1.0) mg/dL AST (13-39) U/L ALT (7-52) U/L Alkaline Phosphatase (34-104) U/L Troponin I (<0.04) ng/mL B-Natriuretic Peptide ( - 100) pg/mL Total Protein (6.4-8.9) g/dL Albumin (3.2-5.2) g/dL Globulin (2-4) g/dL Albumin/Globulin Ratio (1-3) Microbiology and Other Data: Microbiology 04/27/16 20:06 Group A Streptococcus Rapid Screen - Final Throat Specimen received for Rapid Strep A Molecular testing Assess/Plan/Problems-Billing Ms Chavez is a 45 yo F who has a h/o ESRD on PD, DM, HTN and CAD who presented to the ER with c/o cough and SOB. - Patient Problems (1) Bronchitis Current Visit: Yes Status: Acute Code(s): J40 - BRONCHITIS, NOT SPECIFIED ACUTE OR CHRONIC SNOMED Code(s): 14544971 Comment: No pna on CXR. Continue azithromycin to treat for 5 days total. Leukocytosis is improved though not normalized today. Breathing is improved today. (2) Type 2 diabetes mellitus Current Visit: Yes Status: Chronic Comment: Sugars are under good control. Continue lantus and lispro sliding scale. (3) CAD (coronary artery disease) Current Visit: Yes Status: Acute Code(s): I25.10 - ATHSCL HEART DISEASE OF [place] CORONARY ARTERY W/O ANG PCTRS SNOMED Code(s): 76704883 Comment: Asymptomatic. Continue brilinta and aspirin. (4) Hypertension Current Visit: Yes Status: Acute Code(s): I10 - ESSENTIAL (PRIMARY) HYPERTENSION SNOMED Code(s): 55178545 Comment: BP is under good control. Continue to monitor. (5) ESRD on peritoneal dialysis Current Visit: Yes Status: Chronic Code(s): N18.6 - END STAGE RENAL DISEASE ; Z99.2 - DEPENDENCE ON RENAL DIALYSIS SNOMED Code(s): 10700502 Comment: Continue PD. (6) DVT prophylaxis Current Visit: Yes Status: Acute Code(s): MGM9692 - SNOMED Code(s): 230212597 Comment: Heparin SQ (7) Full code status Current Visit: Yes Status: Acute Code(s): Z78.9 - OTHER SPECIFIED HEALTH STATUS SNOMED Code(s): 959018661 Status and Disposition: d/c home
[2016-04-29 11:13] VITALS: BP 103/60
--- NOTE | 2016-04-30 15:41 | DS ---
DISCHARGE SUMMARY: DATE OF ADMISSION: 04/27/16 DATE OF DISCHARGE: 04/29/16 PRIMARY CARE PROVIDER: Dr. Pan. RETAIL LEADER: Dr. Abarca. PRINCIPAL DIAGNOSIS: Bronchitis. SECONDARY DIAGNOSES: 1. Type 2 diabetes. 2. End-stage renal disease, on peritoneal dialysis. 3. Tobacco abuse. 4. Probable chronic obstructive pulmonary disease. 5. Coronary artery disease. DISCHARGE MEDICATIONS: 1. Triamcinolone cream apply topically daily. 2. Vitamin B12 1000 mcg SL daily. 3. Sodium bicarbonate 650 mg p.o. b.i.d. 4. Soma 350 mg p.o. q.8 hours p.r.n. spasm. 5. Requip 0.5 mg p.o. daily. 6. Sensipar 30 mg p.o. daily. 7. Zofran 4 mg p.o. b.i.d. p.r.n. nausea. 8. Nitroglycerin 0.4% p.r. b.i.d. 9. Mupirocin 2% ointment apply topically daily p.r.n. 10. Metoprolol XL 50 mg p.o. q.a.m., 25 mg p.o. q.p.m. 11. Nexium 40 mg p.o. b.i.d. 12. Imodium 2 mg p.o. daily p.r.n. diarrhea. 13. Lantus 25 units subcutaneous q.h.s. 14. Tussigon 1 tab p.o. q.4 to 6 hours p.r.n. pain. 15. Glipizide XL 2.5 mg p.o. daily. 16. [place]-3 fatty acid 1000 mg p.o. b.i.d. 17. Gabapentin 100 mg p.o. b.i.d. 18. Diphenhydramine 25 mg p.o. b.i.d. and 25 mg p.o. q.6 hours p.r.n. itching. 19. Clobetasol apply topically b.i.d. 20. Brilinta 90 mg p.o. b.i.d. 21. Calcitriol 0.25 mcg p.o. daily. 22. Amlodipine 2.5 mg p.o. daily. 23. Lipitor 10 mg p.o. daily. 24. Ambien 10 mg p.o. q.h.s. p.r.n. insomnia. 25. Aspirin 81 mg p.o. daily. 26. Tessalon 200 mg p.o. t.i.d. p.r.n. cough (new). 27. Azithromycin 250 mg p.o. daily x3 doses. 28. Albuterol HFA 2 puffs inhaled q.4 hours p.r.n. shortness of breath (new). 29. Albuterol 1 neb inhaled q.2 hours p.r.n. shortness of breath (new). HOSPITAL COURSE: Ms. Chavez is a 45-year-old female with history of type 2 diabetes, coronary artery disease, and end-stage renal disease, as well as tobacco abuse up until approximately [id number] weeks ago, who presents to the emergency room with complaints of shortness of breath. The patient was evaluated by a chest x-ray and not found to have an infiltrate. She was admitted for presumed bronchitis. The patient did have leukocytosis of 16,000 on admission. This was up to 20.4 on 04/28/16, and because of this and continued shortness of breath, the patient was monitored again overnight and on 04/29/16, her white blood cell count was down to 15.5. The patient's breathing is much improved. At this point, she feels that she is stable for discharge home. The patient has been given prescriptions for albuterol, both MDI and neb. The patient may benefit from pulmonary evaluation to determine if she has COPD and if so, the degree of COPD. FOLLOWUP CONCERNS: The patient is being discharged home today, 04/29/16. ACTIVITY LEVEL: As tolerated. DIET: Diabetic, renal. CONDITION ON DISCHARGE: Stable. The patient is to follow up with Dr. Pan on 05/04/16 at 11 a.m. TIME SPENT: Thirty-five minutes was spent discharging this patient. CC: Dr. Pan; Dr. Abarca * [id number]/[facility] #: [id number] MTDD
== END 2016-04-29 13:45 | disposition home or self-care (01) | DRG 190 ==
LOC: ED 09:11 → MED 13:41 → OBSVTOIN 04-28 10:18
PROVIDERS: ADMIT Internal Medicine; ATTEND Hospitalist
PROC: 3E1M39Z Irrigation of Peritoneal Cavity using Dialysate, Percutaneous Approach (ICD-10-PCS; principal; 2016-04-27)
DX: J44.0 Chronic obstructive pulmonary disease with (acute) lower respiratory infection (principal); N18.6 End stage renal disease; I13.2 Hypertensive heart and chronic kidney disease with heart failure and with stage 5 chronic kidney disease, or end stage renal disease; E11.22 Type 2 diabetes mellitus with diabetic chronic kidney disease; I25.10 Atherosclerotic heart disease of native coronary artery without angina pectoris; J44.9 Chronic obstructive pulmonary disease, unspecified; D72.829 Elevated white blood cell count, unspecified; J20.9 Acute bronchitis, unspecified; I50.9 Heart failure, unspecified; E11.51 Type 2 diabetes mellitus with diabetic peripheral angiopathy without gangrene; K21.9 Gastro-esophageal reflux disease without esophagitis; M19.90 Unspecified osteoarthritis, unspecified site; G43.909 Migraine, unspecified, not intractable, without status migrainosus; F17.210 Nicotine dependence, cigarettes, uncomplicated; E78.5 Hyperlipidemia, unspecified; Z99.2 Dependence on renal dialysis; Z79.82 Long term (current) use of aspirin; Z88.8 Allergy status to other drugs, medicaments and biological substances; Z88.5 Allergy status to narcotic agent; I25.2 Old myocardial infarction; Z95.5 Presence of coronary angioplasty implant and graft; Z82.49 Family history of ischemic heart disease and other diseases of the circulatory system; Z85.528 Personal history of other malignant neoplasm of kidney; Z83.3 Family history of diabetes mellitus; Z80.1 Family history of malignant neoplasm of trachea, bronchus and lung; Z79.4 Long term (current) use of insulin; Z79.02 Long term (current) use of antithrombotics/antiplatelets
CPT/HCPCS: 36415; 71020; 71275; 80048; 80053; 83605; 83880; 84484; 85025; 85610; 87040; 87502; 87651; 90945; 93005; 94640; 94760; 99285; 99406; A9270-GY; G0257; G0378; J0456; J1644; J2405; Q9967

== ENCOUNTER 2016-11-04 17:44 | Inpatient (IN) | payer MEDICARE, OTHER ==
[2016-11-04] MEDS ORDERED: Morphine INJ* 2 MG/ML 1 ML SYRINGE IV ONE (20:05)
[2016-11-04] MEDS ORDERED: Ondansetron INJ* 2 MG/ML VIAL IV ONE (20:05)
[2016-11-04] MEDS ORDERED: NS 0.9% 1000 ML* 1,000 ML IV ONE (20:05)
[2016-11-04 20:35] LABS: Hematocrit 46 % (35-47); Hemoglobin 15.2 g/dl (12.0-16.0); Mean Corpuscular HGB Conc 33 g/dl (31-36); Mean Corpuscular Hemoglobin 32 pg (27-31); Mean Corpuscular Volume 97 fL (80-97); Mean Platelet Volume 8 um3 (7.4-10.4); Red Blood Count 4.69 10^6/ul (4.0-5.4); Red Cell Distribution Width 15 % (10.5-15)
--- NOTE | 2016-11-04 20:42 | ED ---
Audelia Wells [place], scribed for Twan Douglas MD on 11/04/16 at 2009 . Complex/Multi-Sys Presentation - HPI Summary HPI Summary: Patient is a 46 y/o F who presents to the ED with concern of pancreatitis. She reports a hx of frequent pancreatitis, approximately twice a year. She states that she seen at her PCPs office yesterday (Danelle), had blood work done, and diagnosed with pancreatitis and hypokalemia. She reports vomiting bile and nausea. Pt receives peritoneal dialysis. - History Of Current Complaint Chief Complaint: EDAbdPain Time Seen by Provider: 11/04/16 20:07 Hx Obtained From: Patient Onset/Duration: Gradual Onset, Still Present Timing: Constant Severity Currently: Moderate Severity Initially: Moderate Aggravating Factor(s): Nothing. Alleviating Factor(s): Nothing. Associated Signs And Symptoms: Positive: Nausea, Vomiting - Allergies/Home Medications Allergies/Adverse Reactions: Allergies Allergy/AdvReac Type Severity Reaction Status Date / Time Metformin [From Glucophage] Allergy Severe See Comment Verified 05/29/15 13:22 Hydromorphone [From Dilaudid] Allergy Mild Itching Verified 05/29/15 13:22 Verapamil Allergy Hives Verified 05/29/15 13:22 Home Medications: Home Medications Ciprofloxacin TAB* [Cipro 750 MG Tab*] 750 mg PO DAILY PRN 11/04/16 [History Confirmed 11/04/16] Lactobacillus [Probiotic] 1 cap PO DAILY 11/04/16 [History Confirmed 11/04/16] Lorcet 5-325 mg 5 - 325 mg PO Q4HR PRN 11/04/16 [History Confirmed 11/04/16] Nystatin SUSPENSION* [Nystatin*] 100,000 unit MT QID 11/04/16 [History Confirmed 11/04/16] PMH/Surg Hx/FS Hx/Imm Hx Endocrine/Hematology History: Reports: Hx Diabetes, Hx Anemia Denies: Hx Thyroid Disease - Denies Cardiovascular History: Reports: Hx Angina, Hx Congenital Heart Disease, Hx Congestive Heart Failure, Hx Coronary Artery Disease, Hx Hypercholesterolemia, Hx Hypertension, Hx Myocardial Infarction, Hx Peripheral Vascular Disease Denies: Hx Pacemaker/ICD, Hx Valvular Heart Disease, Other Cardiovascular Problems/Disorders Respiratory History: Reports: Hx Chronic Bronchitis Denies: Hx Asthma, Hx Chronic Obstructive Pulmonary Disease (COPD) GI History: Reports: Hx Gall Bladder Disease, Hx Gastroesophageal Reflux Disease , Other GI Disorders - PANCREATITIS History: Reports: Hx Chronic Renal Failure, Hx Dialysis - ESRD WITH PD, Hx Renal Disease, Other Problems/Disorders Musculoskeletal History: Reports: Hx Arthritis, Hx Back Problems Denies: Other Musculoskeletal History Sensory History: Reports: Hx Contacts or Glasses Denies: Hx Hearing Aid Opthamlomology History: Reports: Hx Contacts or Glasses Neurological History: Reports: Hx Migraine Psychiatric History: Denies: Hx Panic Disorder - Cancer History Hx Chemotherapy: No Hx Radiation Therapy: No Hx Palliative Cancer Treatment: No - Surgical History Surgery Procedure, Year, and Place: 05/2011- GALLBLADDER REMOVED. PD CATHETER PLACEMENT. HEART STENT 06/08 Hx Anesthesia Reactions: No - Immunization History Date of Tetanus Vaccine: Up to date Date of Influenza Vaccine: 2012 Infectious Disease History: Denies: Traveled Outside the [place] in Last 30 Days - Family History Known Family History: Positive: Cardiac Disease - Social History Alcohol Use: Rare Hx Substance Use: No Substance Use Type: Reports: None Hx Tobacco Use: Yes Smoking Status (MU): Heavy Every Day Tobacco Smoker Type: Cigarettes Amount Used/How Often: 1-2 PPD Length of Time of Smoking/Using Tobacco: 23yrs Have You Smoked in the Last Year: Yes Review of Systems Positive: Other - Hypokalemia. Positive: Vomiting, Nausea, Other - Pancreatitis. All Other Systems Reviewed And Are Negative: Yes Physical Exam Triage Information Reviewed: Yes Vital Signs On Initial Exam: Initial Vitals Temp Pulse Resp BP Pulse Ox 99.0 F 95 20 104/54 98 11/04/16 17:51 11/04/16 17:51 11/04/16 17:51 11/04/16 17:51 11/04/16 17:51 Vital Signs Reviewed: Yes Appearance: Positive: Well-Appearing, Pain Distress - moderate discomfort Skin: Positive: Warm Head/Face: Positive: Normal Head/Face Inspection Eyes: Positive: PINA ENT: Positive: Hearing grossly normal Neck: Positive: Supple Respiratory/Lung Sounds: Positive: Breath Sounds Present Cardiovascular: Positive: RRR Abdomen Description: Positive: Soft, Other: - mild diffuse upper abd tenderness. Negative: Distended, Guarding Bowel Sounds: Positive: Present Musculoskeletal: Positive: Strength/ROM Intact Neurological: Positive: Alert, Oriented to Person Place, Time Diagnostics - Vital Signs Vital Signs Temp Pulse Resp BP Pulse Ox 11/04/16 19:15 98.8 F 95 16 96/60 97 11/04/16 18:46 99.1 F 90 102/56 99 11/04/16 17:51 99.0 F 95 20 104/54 98 - Laboratory Lab Results: Lab Results 11/04/16 Range/Units 20:25 WBC 19.0 H (3.5-10.8) 10^3/ul RBC 4.69 (4.0-5.4) 10^6/ul Hgb 15.2 (12.0-16.0) g/dl Hct 46 (35-47) % MCV 97 (80-97) fL MCH 32 H (27-31) pg MCHC 33 (31-36) g/dl RDW 15 (10.5-15) % Plt Count 376 (150-450) 10^3/ul MPV 8 (7.4-10.4) um3 Neut % (Auto) 80.9 (38-83) % Lymph % (Auto) 11.7 L (25-47) % [place] % (Auto) 6.0 (1-9) % Eos % (Auto) 1.2 (0-6) % Baso % (Auto) 0.2 (0-2) % Absolute Neuts (auto) 15.3 H (1.5-7.7) 10^3/ul Absolute Lymphs (auto) 2.2 (1.0-4.8) 10^3/ul Absolute Monos (auto) 1.1 H (0-0.8) 10^3/ul Absolute Eos (auto) 0.2 (0-0.6) 10^3/ul Absolute Basos (auto) 0 (0-0.2) 10^3/ul Absolute Nucleated RBC 0 10^3/ul Nucleated RBC % 0 Result Diagrams: 11/04/16 20:25 11/04/16 20:25 Diagnostic Studies Comment: Lactic acid: 2.4 Lab Statement: Any lab studies that have been ordered have been reviewed, and results considered in the medical decision making process. - CT Abd/pelvis CT Interpretation Completed By: Radiologist - IMPRESSION: 1. There is scattered ascites throughout the abdomen with more confluent ascites at the low midline abdomen adjacent to the patient's peritoneal dialysis catheter. This was not seen on the previous CT examination. 2. There is hypodensity at the head of the pancreas consistent with cystic change versus edema, but overall this area has decreased in size when compared to the previous CT examination. In addition there are scattered pancreatic calcifications consistent with a history of pancreatitis. 3. Additional chronic, degenerative and iatrogenic findings described in the body the report. Re-Evaluation - Re-Evaluation First Eval Change: Improved - results d/w pt, case d/w hospitalist Complex Multi-Symp Course/Dx Course Of Treatment: 46 y/o F presents with concern of pancreatitis. She reports a hx of frequent pancreatitis, approximately twice a year. She states that she seen at her PCPs office yesterday (Danelle), had blood work done, and diagnosed with pancreatitis and hypokalemia. She reports vomiting bile and nausea. She received fluids, Morphine, and Zofran in ED course. CT abd/pelvis shows, per radiology, IMPRESSION: 1. There is scattered ascites throughout the abdomen with more confluent ascites at the. low midline abdomen adjacent to the patient's peritoneal dialysis catheter. This was not. seen on the previous CT examination. 2. There is hypodensity at the head of the pancreas consistent with cystic change versus edema, but overall this area has decreased in size when compared to the previous CT. examination. In addition there are scattered pancreatic calcifications consistent with a. history of pancreatitis. 3. Additional chronic, degenerative and iatrogenic findings described in the body the. report. Discussed with Dr. Maya. Pt will be admitted. - Diagnoses Provider Diagnoses: Pancreatitis - Physician Notifications Discussed Care Of Patient With: Herman Maya Time Discussed With Above Provider: 22:00 Instructed by Provider To: Admit As Inpatient Admit/Transition Orders Completed By ED Provider: Yes Discharge - Discharge Plan Condition: Fair Disposition: ADMITTED TO [facility] documentation as recorded by the Audelia barber [place] accurately reflects the service I personally performed and the decisions made by , Twan Douglas MD.
[2016-11-04 20:50] LABS: Albumin 3.2 g/dL (3.2-5.2); BUN/Creatinine Ratio 2.9 (8-20); Calcium 8.4 mg/dL (8.6-10.3); EGFR African American 4.6 (>60); EGFR Non-African American 3.6 (>60); Globulin 3.5 g/dL (2-4); Potassium 2.9 mmol/L (3.5-5.0); Total Bilirubin 0.5 mg/dL (0.2-1.0); Total Protein 6.7 g/dL (6.4-8.9)
[2016-11-04] MEDS ORDERED: Iodixanol* (CONTRAST) 320 MG/ML 100 ML SDV IV ONE (21:13)
[2016-11-04] MEDS: KCL 10 MEQ/50 ML IVPREMIX* 10 MEQ/50 ML BAG IV SCH ×2 (22:03→23:25)
--- NOTE | 2016-11-04 22:20 | RAD ---
CLINICAL HISTORY: Nausea and abdominal pain. Relevant surgical history includes cholecystectomy and placement of a peritoneal dialysis catheter COMPARISON: CT abdomen pelvis dated January 10, 2014 TECHNIQUE: Contrast enhanced CT examination of the abdomen and pelvis from the lung bases through the initial tuberosities. The patient received 91 mL Visipaque 320 intravenously prior to imaging.The patient received oral contrast as well prior to imaging. FINDINGS: VISUALIZED LUNG BASES: The visualized lung bases are grossly clear. There is no pleural effusion. ABDOMEN AND PELVIS: Scattered ascites includes perihepatic fluid, perisplenic fluid as well as additional foci of ascites in the upper abdomen. There is a larger collection of ascites in the lower abdomen in the vicinity of the patient's appropriately positioned peritoneal dialysis catheter. The liver, spleen and adrenal glands are grossly normal in appearance. At the body of the pancreas there is a 7 mm hypodensity stable compared to the previous CT examination. At the head of the pancreas there is heterogeneous low-density material along the posterior peripheral margin of the head of the pancreas. A similar appearance was seen on the previous CT examination but the volume has decreased in the interval. There is scattered calcification throughout the pancreas. The gallbladder is surgically absent. The kidneys are atrophic and do not exhibit any cortical enhancement or contrast excretion. The small and large bowel are not distended. The patient's normal appendix is identified in the right lower quadrant with gas in the lumen (coronal image 55). There is no gross retroperitoneal or mesenteric lymphadenopathy. The pelvic viscera is normal in appearance. There is calcified atherosclerosis of the infrarenal abdominal aorta. Calcified atherosclerosis extends into the bilateral common iliac arteries and is also seen at the bilateral femoral arteries. Degenerative changes include multilevel loss of intervertebral disc height involving the lower thoracic and lumbar spine.There are no sinister bone lesions. IMPRESSION: 1. There is scattered ascites throughout the abdomen with more confluent ascites at the low midline abdomen adjacent to the patient's peritoneal dialysis catheter. This was not seen on the previous CT examination. 2. There is hypodensity at the head of the pancreas consistent with cystic change versus edema, but overall this area has decreased in size when compared to the previous CT examination. In addition there are scattered pancreatic calcifications consistent with a history of pancreatitis. 3. Additional chronic, degenerative and iatrogenic findings described in the body the report.
[2016-11-04] MEDS ORDERED: Ondansetron INJ* 2 MG/ML VIAL IV PRN (23:20)
[2016-11-04] MEDS ORDERED: Albuterol HFA INHALER* 8 gm MDI INH PRN (23:34)
[2016-11-04] MEDS ORDERED: Dextrose 50% Syringe 50 ML* 25 GM/50 ML SYRINGE IV PUSH PRN (23:36)
[2016-11-05] MEDS: KCL 10 MEQ/50 ML IVPREMIX* 10 MEQ/50 ML BAG IV SCH (00:46)
[2016-11-05] MEDS: Morphine INJ* 2 MG/ML 1 ML SYRINGE IV PRN ×5 (00:46→21:40)
[2016-11-05] MEDS: Insulin LISPRO* 1 UNITS UNIT SUBCUT SCH ×5 (01:17→17:44)
[2016-11-05] MEDS: Insulin GLARGINE(*) 1 UNITS UNIT SUBCUT SCH ×2 (01:17→23:36)
[2016-11-05] MEDS: NS 0.9% w/ 20 Meq KCL 1000 ML* 1,000 ML IV SCH ×4 (02:19→18:11)
[2016-11-05] MEDS: diPHENhydraMINE IV* 50 MG/ML 1 ml VIAL (BENADRYL) IV PRN ×2 (03:38→15:48)
[2016-11-05 06:13] LABS: Hematocrit 40 % (35-47); Hemoglobin 13.5 g/dl (12.0-16.0); Mean Corpuscular HGB Conc 34 g/dl (31-36); Mean Corpuscular Hemoglobin 33 pg (27-31); Mean Corpuscular Volume 97 fL (80-97); Mean Platelet Volume 8 um3 (7.4-10.4); Red Blood Count 4.13 10^6/ul (4.0-5.4); Red Cell Distribution Width 15 % (10.5-15); White Blood Count 17.3 10^3/ul (3.5-10.8)
[2016-11-05 06:30] LABS: BUN/Creatinine Ratio 2.9 (8-20); Calcium 7.9 mg/dL (8.6-10.3); EGFR African American 4.5 (>60); EGFR Non-African American 3.5 (>60); Magnesium 1.9 mg/dL (1.9-2.7); Potassium 3.7 mmol/L (3.5-5.0)
--- NOTE | 2016-11-05 12:15 | PN ---
Subjective Date of Service: 11/05/16 Interval History: pt reports she feels much better today with less abdominal pain. no nausea. no fever or chills. Denies CP or SOB. She hopes to go home tomorrow. Objective Active Medications: Albuterol (Ventolin Hfa Inhaler*) 2 puff INH Q4H PRN PRN Reason: SOB/WHEEZING Dextrose (D50w Syringe 50 Ml*) 12.5 gm IV PUSH .FOR FS < 60 - SS PRN PRN Reason: FS < 60 Diphenhydramine HCl (Benadryl Iv*) 25 mg IV Q12H PRN PRN Reason: PRURITIS Last Admin: 11/05/16 03:38 Dose: 25 mg Potassium Chloride/Sodium Chloride (Ns 0.9% W/ 20 Meq Kcl 1000 Ml*) 1,000 mls @ 175 mls/hr IV PER RATE EMILY Last Admin: 11/05/16 09:12 Dose: 175 mls/hr Insulin Glargine (Lantus(*)) 12 units SUBCUT Q24H EMILY Last Admin: 11/05/16 01:17 Dose: 12 unit Insulin Human Lispro (Humalog*) 0 units SUBCUT Q6HR EMILY PRN Reason: Protocol Last Admin: 11/05/16 11:48 Dose: Not Given Morphine Sulfate (Morphine Inj (Syringe)*) 2 mg IV Q3H PRN PRN Reason: PAIN Last Admin: 11/05/16 11:42 Dose: 2 mg Mupirocin (Bactroban 2 % Oint*) 1 applic TOPICAL DAILY [facility] Ondansetron HCl (Zofran Inj*) 4 mg IV Q6H PRN PRN Reason: NAUSEA Vital Signs 11/05/16 11/05/16 11/05/16 00:02 00:32 00:40 Temperature 98.4 F 98.8 F Pulse Rate 88 87 Respiratory 16 16 16 Rate Blood Pressure 102/66 110/72 (mmHg) O2 Sat by Pulse 94 100 Oximetry 11/05/16 11/05/16 11/05/16 00:45 00:46 01:46 Temperature 98.8 F Pulse Rate 87 Respiratory 16 16 16 Rate Blood Pressure 110/72 (mmHg) O2 Sat by Pulse 100 Oximetry 11/05/16 11/05/16 11/05/16 03:38 04:38 07:27 Temperature 98.7 F Pulse Rate 85 Respiratory 16 16 18 Rate Blood Pressure 70/37 (mmHg) O2 Sat by Pulse 90 Oximetry 11/05/16 11/05/16 11/05/16 07:29 08:00 09:22 Temperature Pulse Rate 86 Respiratory 18 Rate Blood Pressure 82/40 89/53 (mmHg) O2 Sat by Pulse 95 Oximetry 11/05/16 11:42 Temperature Pulse Rate Respiratory 18 Rate Blood Pressure (mmHg) O2 Sat by Pulse Oximetry Oxygen Devices in Use Now: None Appearance: A+O x3 very pleasent chronically ill female in NAD Eyes: No Scleral Icterus, PERRLA Ears/Nose/Mouth/Throat: NL Teeth, Lips, Gums, Clear Oropharnyx, Mucous Membranes Moist Neck: NL Appearance and Movements; NL JVP Respiratory: Symmetrical Chest Expansion and Respiratory Effort, Clear to Auscultation Cardiovascular: NL Sounds; No Murmurs; No JVD, RRR, No Edema Abdominal: NL Sounds; No Tenderness; No Distention Extremities: No Edema, No Clubbing, Cyanosis Skin: No Rash or Ulcers, No Nodules or Sclerosis Neurological: Alert and Oriented x 3, NL Sensation, NL Muscle Strength and Tone Lines/Tubes/Other Access: Clean, Dry and Intact Peripheral IV, Clean, Dry and Intact Other Access - PD cath intact, no noted erythema or drainage aorund site Nutrition: - - NPO Result Diagrams: 11/05/16 05:55 11/05/16 05:55 Additional Lab and Data: Lab Results 11/04/16 Range/Units 20:25 WBC 19.0 H (3.5-10.8) 10^3/ul RBC 4.69 (4.0-5.4) 10^6/ul Hgb 15.2 (12.0-16.0) g/dl Hct 46 (35-47) % MCV 97 (80-97) fL MCH 32 H (27-31) pg MCHC 33 (31-36) g/dl RDW 15 (10.5-15) % Plt Count 376 (150-450) 10^3/ul MPV 8 (7.4-10.4) um3 Neut % (Auto) 80.9 (38-83) % Lymph % (Auto) 11.7 L (25-47) % [place] % (Auto) 6.0 (1-9) % Eos % (Auto) 1.2 (0-6) % Baso % (Auto) 0.2 (0-2) % Absolute Neuts (auto) 15.3 H (1.5-7.7) 10^3/ul Absolute Lymphs (auto) 2.2 (1.0-4.8) 10^3/ul Absolute Monos (auto) 1.1 H (0-0.8) 10^3/ul Absolute Eos (auto) 0.2 (0-0.6) 10^3/ul Absolute Basos (auto) 0 (0-0.2) 10^3/ul Absolute Nucleated RBC 0 10^3/ul Nucleated RBC % 0 Assess/Plan/Problems-Billing Assessment: Ms. Chavez is a 46 yo female with a PMH ESRD with peritoneal dialysis , Type 2 DM, tobacco abuse, COPD, CAD, hx of recurrent pancreatitis who presented with abdominal pain - Patient Problems (1) Pancreatitis Comment: Recurrent pancreatitis. Abdomen CT showing "scattered ascites throughout abdomen, hypodensity at the head of pancreas consistent with cystic changes vs edema, overall decreased in size compared to previous CT" Lipase trending down. Pain greatly improved but still mildly present. Clinically stable and doing well. Continue NPO. Morphine PRN. Decrease IVF to NS @ 100 ml/hr check labs in am Pt will need f/u with GI as an outpt (2) ESRD on peritoneal dialysis Comment: Continue PD. Normal SBP 80-100. Dialysis nurse following. (3) CAD (coronary artery disease) Comment: s/p stent placement. Asymptomatic. continue Brilinta, ASA, BB (4) Type 2 diabetes mellitus Comment: FSBG Q6 hr, Continue lantus and lispro sliding scale. (5) DVT prophylaxis Comment: Heparin SQ (6) Full code status Status and Disposition: inpatient with Pancreatitis. Home when stable
[2016-11-05] MEDS: Heparin VIAL(*) 5000 UNITS/ML VIAL (FIVE THOUSAND) SUBCUT SCH ×2 (13:50→21:39)
--- NOTE | 2016-11-05 14:47 | HP ---
CC: Dr. Pan; Dr. Abarca * ADMISSION HISTORY AND PHYSICAL: DATE OF ADMISSION: 11/04/16 CHIEF COMPLAINT: Abdominal pain. HISTORY OF PRESENT ILLNESS: Ms. Chavez is a 46-year-old woman with history of recurrent pancreatitis and endstage renal disease who developed epigastric pain , which radiated to her right side of her chest and to her back about four days prior to admission. She states this pain begins with a feeling of something stuck in her stomach and then progresses to radiating pain. She has had this pain at other times since she has had pancreatitis. Pancreatitis seems to occur about every six months. She did see her primary care doctor one day prior to admission and there was some suspicion of constipation as a cause of the pain. However, labs drawn that day, one day prior to admission, showed hypokalemia and elevated lipase. The patient was referred to the emergency department by primary care due to pancreatitis. The patient has had nausea constantly as well as anorexia and some vomiting daily. Last bowel movement was more than 3 days ago. PAST MEDICAL HISTORY: Includes endstage renal disease on peritoneal dialysis, renal failure was due to diabetes. She has been on dialysis for 3 years. She also has recurrent pancreatitis not due to hyperlipidemia or alcohol. She has had extensive workup with gastroenterology including MRCP. She has diabetes mellitus type 2 since age 16. She was managed with oral medications for a time , but now takes insulin. She has GERD; coronary artery disease, status post coronary stent three years ago. She also has hypertension, hyperlipidemia. PAST SURGICAL HISTORY: Laparoscopic cholecystectomy and PV catheter placement. MEDICATIONS ON ADMISSION: 1. Lorcet t.i.d. p.r.n. for pain. 2. Albuterol nebulizer as needed. 3. Albuterol MDI 2 puffs q. 4 hours p.r.n. 4. Aspirin 81 mg p.o. daily. 5. Atorvastatin 10 mg p.o. q.h.s. 6. Calcitriol 0.25 mcg p.o. q.a.m. 7. Soma 350 mg p.o. q. 8 hours p.r.n. 8. Sensipar 30 mg p.o. daily. 9. Cipro 750 mg p.o. daily. 10. Clobetasol ointment topically as needed. 11. Vitamin B12 at 1000 mcg sublingual daily. 12. Nexium 40 mg p.o. b.i.d. 13. Gabapentin 100 mg p.o. b.i.d. 14. Insulin Lantus 25 units subcu q. p.m. 15. Probiotic 1 tab p.o. daily. 16. Loperamide 2 mg p.o. daily. 17. Toprol XL 25 mg p.o. q.a.m. 18. Mupirocin ointment topically as needed. 19. Nystatin suspension 100,000 units/mL swish and swallow 5 times a day as needed for thrush. 20. Omeg-3 fatty acid 1000 mg p.o. daily. 21. Zofran 4 mg p.o. b.i.d. p.r.n. nausea. 22. Ropinirole 0.5 mg p.o. q. p.m. 23. Sodium bicarbonate 650 mg p.o. b.i.d. 24. Brilinta 90 mg p.o. b.i.d. 25. Zolpidem 10 mg p.o. q.h.s. 26. Benadryl 50 mg p.o. q. p.m. 27. Glipizide SL 2.5 mg p.o. daily. ALLERGIES: 1. METFORMIN. 2. VERAPAMIL. 3. DILAUDID. FAMILY HISTORY: Notable for mother and father with diabetes. Mother had kidney cancer. Mother also had hypertension. SOCIAL HISTORY: She is disabled for the last 2 years. She is single. She has no children. She smokes one pack per day. No alcohol or drug use. REVIEW OF SYSTEMS: The patient denies any fevers or weight loss. She has anorexia. The patient denies any cough or shortness of breath. The patient denies any chest pain or palpitations. Remainder of her 14-point review of systems is negative other than that mentioned in the HPI. PHYSICAL EXAMINATION GENERAL: She is well appearing, middle-aged woman in no acute distress. VITAL SIGNS: Temperature is 37.3, pulse 79, respirations 16, blood pressure 118 /76, O2 saturation is 97%. HEENT: Head is normocephalic, atraumatic. Sclerae anicteric. Pupils are equal , round and reactive to light and accommodation. Oropharynx is moist, no lesions. NECK: No JVD. No carotid bruit. No thyromegaly. LUNGS: Clear to auscultation and percussion bilaterally. HEART: Regular rate and rhythm. No murmurs or gallops. ABDOMEN: Soft. There is a PV catheter in the umbilicus. Abdomen is tender in the epigastric and right upper quadrant area. There are no masses. No rigidity. No CVA tenderness. EXTREMITIES: No peripheral edema. Dorsalis pedis pulses are 2+ bilaterally. NEUROLOGIC: Cranial nerves II through XII are intact. Motor strength is 5/5 throughout. Deep tendon reflexes are symmetric. SKIN: No rashes. PSYCHIATRIC: She is alert and oriented x3. No anxiety or depression. LABORATORY DATA: Sodium 123, potassium 2.9, chloride 82, bicarbonate 23, BUN 33, creatinine 11.43, glucose 313, calcium 8.4. AST 6, ALT 6, bilirubin 0.5. Lactic acid 3.4. Lipase is 1274. White count is 19.0, hemoglobin 15.2, hematocrit 46%, and platelets 376. CT abdomen and pelvis shows scattered ascites, pancreatic edema versus cyst in the head. No necrosis. ASSESSMENT AND PLAN: A 46-year-old woman with recurrent pancreatitis which is idiopathic. She will be admitted to the hospital for intravenous fluids, bowel rest as well as antiemetics and pain control. Consideration should be made of referring her to a tertiary or quaternary care center such as [facility] for further workup of pancreatitis. She may have an unusual situation such as a pancreatic divisum or accessory pancreatic duct that is causing recurrent problems. For endstage renal disease, we will continue her on her peritoneal dialysis. I will consult Dr. Topete in the morning to help with management of this. For diabetes, it appears to be type 2, but she may have overlap type 1 given her pancreatic disease. In any case she will be n.p.o., so we will give her half dose of her Lantus and sliding scale Humalog, filling out a dose for insulin sensitive patients. This can be titrated as needed given her positive fingersticks. For electrolytes, she has hyponatremia probably pseudohyponatremia due to the elevated blood sugar. She also has hypokalemia, which will be treated with repletion and rechecking in the morning. Her electrolytes problems will improve also with dialysis. The patient's elevated white count, which she has had in the past with episodes of pancreatitis. I do not believe she is septic with bacterial infection and no antibiotics are indicated. DVT prophylaxis, she is at low risk and she will have HARRIETT stockings and early ambulation for prevention. Code status is full. [id number]/CPS #: [id number] MTDD
[2016-11-05 15:32] LABS: Hematocrit 42 % (35-47); Hemoglobin 13.8 g/dl (12.0-16.0); Mean Corpuscular HGB Conc 33 g/dl (31-36); Mean Corpuscular Hemoglobin 33 pg (27-31); Mean Corpuscular Volume 98 fL (80-97); Mean Platelet Volume 8 um3 (7.4-10.4); Red Blood Count 4.24 10^6/ul (4.0-5.4); Red Cell Distribution Width 16 % (10.5-15); White Blood Count 14.4 10^3/ul (3.5-10.8)
[2016-11-05 15:46] LABS: BUN/Creatinine Ratio 2.8 (8-20); Calcium 8.2 mg/dL (8.6-10.3); EGFR African American 4.9 (>60); EGFR Non-African American 3.8 (>60); Globulin 3.2 g/dL (2-4); Magnesium 1.8 mg/dL (1.9-2.7); Potassium 3.3 mmol/L (3.5-5.0); Total Bilirubin 0.5 mg/dL (0.2-1.0); Total Protein 6.2 g/dL (6.4-8.9)
[2016-11-05] MEDS ORDERED: KCL 10 MEQ/50 ML IVPREMIX* 10 MEQ/50 ML BAG IV ONE (16:46)
[2016-11-05] MEDS ORDERED: NS 0.9% w/ 20 Meq KCL 1000 ML* 1,000 ML IV SCH (19:19)
[2016-11-05] MEDS: Ticagrelor* 90 MG TAB PO SCH (21:41)
[2016-11-06] MEDS: Insulin LISPRO* 1 UNITS UNIT SUBCUT SCH ×4 (00:55→17:31)
[2016-11-06] MEDS: Morphine INJ* 2 MG/ML 1 ML SYRINGE IV PRN (04:34)
[2016-11-06] MEDS: Heparin VIAL(*) 5000 UNITS/ML VIAL (FIVE THOUSAND) SUBCUT SCH ×2 (06:05→16:42)
[2016-11-06 08:46] LABS: Hematocrit 39 % (35-47); Hemoglobin 13.1 g/dl (12.0-16.0); Mean Corpuscular HGB Conc 34 g/dl (31-36); Mean Corpuscular Hemoglobin 32 pg (27-31); Mean Corpuscular Volume 97 fL (80-97); Mean Platelet Volume 8 um3 (7.4-10.4); Red Blood Count 4.04 10^6/ul (4.0-5.4); Red Cell Distribution Width 15 % (10.5-15); White Blood Count 13.3 10^3/ul (3.5-10.8)
[2016-11-06 08:58] LABS: Albumin 2.9 g/dL (3.2-5.2); BUN/Creatinine Ratio 2.8 (8-20); Calcium 8.3 mg/dL (8.6-10.3); EGFR African American 4.9 (>60); EGFR Non-African American 3.8 (>60); Globulin 3.1 g/dL (2-4); Potassium 3.1 mmol/L (3.5-5.0); Total Bilirubin 0.6 mg/dL (0.2-1.0)
[2016-11-06] MEDS ORDERED: Mupirocin 2% OINT* TUBE TOPICAL SCH (09:00)
[2016-11-06] MEDS ORDERED: Aspirin EC Low Dose* 81 MG TAB.EC PO SCH (09:00)
[2016-11-06] MEDS ORDERED: Potassium Chlor TAB* 20 MEQ TAB.ER PO ONE (09:40)
[2016-11-06] MEDS: Ticagrelor* 90 MG TAB PO SCH (09:42)
[2016-11-06] MEDS ORDERED: HYDROcodone/ACETAMIN 5-325 MG* 1 TAB PO PRN ×2 (11:11→11:30)
--- NOTE | 2016-11-06 11:12 | PN ---
Subjective Date of Service: 11/06/16 Interval History: Patient reports abdominal pain is much improved today but continues to have some mild pain across the top of her abdomen. She denies fever or chills. Reports she has been tolerating clears well and would like to go home. She reports she has managed pancreatitis at home several times with bowel rest and pain medications. No nausea, vomiting diarrhea. She reports she has been ambulating and up OOB all day. She denies SOB, orthopnea, cough or CP. at bedside during exam Objective Active Medications: Albuterol (Ventolin Hfa Inhaler*) 2 puff INH Q4H PRN PRN Reason: SOB/WHEEZING Aspirin (Aspirin Ec Low Dose*) 81 mg PO DAILY [facility] Last Admin: 11/06/16 09:42 Dose: 81 mg Dextrose (D50w Syringe 50 Ml*) 12.5 gm IV PUSH .FOR FS < 60 - SS PRN PRN Reason: FS < 60 Diphenhydramine HCl (Benadryl Iv*) 25 mg IV Q12H PRN PRN Reason: PRURITIS Last Admin: 11/05/16 15:48 Dose: 25 mg Heparin Sodium (Porcine) (Heparin Vial(*)) 5,000 units SUBCUT Q8HR [facility] Last Admin: 11/06/16 06:05 Dose: 5,000 units Insulin Glargine (Lantus(*)) 12 units SUBCUT Q24H [facility] Last Admin: 11/05/16 23:36 Dose: 12 unit Insulin Human Lispro (Humalog*) 0 units SUBCUT Q6HR [facility] PRN Reason: Protocol Last Admin: 11/06/16 06:24 Dose: Not Given Mupirocin (Bactroban 2 % Oint*) 1 applic TOPICAL DAILY [facility] Last Admin: 11/06/16 09:43 Dose: Not Given Ondansetron HCl (Zofran Inj*) 4 mg IV Q6H PRN PRN Reason: NAUSEA Last Admin: 11/05/16 15:04 Dose: 4 mg Ticagrelor (Brilinta*) 90 mg PO BID [facility] Last Admin: 11/06/16 09:42 Dose: 90 mg Vital Signs 11/05/16 11/05/16 11/05/16 11:18 11:42 12:42 Temperature 98.8 F Pulse Rate 87 Respiratory 18 18 18 Rate Blood Pressure 106/62 (mmHg) O2 Sat by Pulse 97 Oximetry 11/05/16 11/05/16 11/05/16 15:03 15:48 15:54 Temperature Pulse Rate Respiratory 18 18 18 Rate Blood Pressure (mmHg) O2 Sat by Pulse Oximetry 11/05/16 11/05/16 11/05/16 16:05 16:48 18:24 Temperature 98.8 F Pulse Rate 92 Respiratory 16 12 18 Rate Blood Pressure 118/71 (mmHg) O2 Sat by Pulse 99 Oximetry 11/05/16 11/05/16 11/05/16 19:24 19:40 20:00 Temperature 98.9 F Pulse Rate 93 Respiratory 16 16 16 Rate Blood Pressure 117/65 (mmHg) O2 Sat by Pulse 94 Oximetry 11/05/16 11/05/16 11/05/16 21:40 22:40 23:19 Temperature 98.7 F Pulse Rate 92 Respiratory 16 16 17 Rate Blood Pressure 95/41 (mmHg) O2 Sat by Pulse 99 Oximetry 11/06/16 11/06/16 11/06/16 03:20 03:42 04:34 Temperature 98.2 F Pulse Rate 92 Respiratory 17 18 Rate Blood Pressure 122/70 161/101 (mmHg) O2 Sat by Pulse 99 Oximetry 11/06/16 11/06/16 11/06/16 05:34 07:23 08:00 Temperature 99.1 F Pulse Rate 82 Respiratory 16 16 16 Rate Blood Pressure 121/72 (mmHg) O2 Sat by Pulse 100 Oximetry Oxygen Devices in Use Now: None Appearance: chronically ill appearing female A+O x3 in NAD. Eyes: No Scleral Icterus, PERRLA Ears/Nose/Mouth/Throat: NL Teeth, Lips, Gums, Mucous Membranes Moist Neck: NL Appearance and Movements; NL JVP Respiratory: Symmetrical Chest Expansion and Respiratory Effort, Clear to Auscultation Cardiovascular: NL Sounds; No Murmurs; No JVD, RRR, No Edema Abdominal: - - LUQ mild tenderness to palpation; no guarding, soft - NL BS throughout - PD catheter intact and benign Extremities: No Edema Neurological: Alert and Oriented x 3, NL Sensation, NL Gait, NL Muscle Strength and Tone Lines/Tubes/Other Access: Clean, Dry and Intact Peripheral IV Nutrition: - - ice chips - sips of clear Result Diagrams: 11/06/16 08:26 11/06/16 08:26 Additional Lab and Data: Lab Results 11/04/16 Range/Units 20:25 WBC 19.0 H (3.5-10.8) 10^3/ul RBC 4.69 (4.0-5.4) 10^6/ul Hgb 15.2 (12.0-16.0) g/dl Hct 46 (35-47) % MCV 97 (80-97) fL MCH 32 H (27-31) pg MCHC 33 (31-36) g/dl RDW 15 (10.5-15) % Plt Count 376 (150-450) 10^3/ul MPV 8 (7.4-10.4) um3 Neut % (Auto) 80.9 (38-83) % Lymph % (Auto) 11.7 L (25-47) % [place] % (Auto) 6.0 (1-9) % Eos % (Auto) 1.2 (0-6) % Baso % (Auto) 0.2 (0-2) % Absolute Neuts (auto) 15.3 H (1.5-7.7) 10^3/ul Absolute Lymphs (auto) 2.2 (1.0-4.8) 10^3/ul Absolute Monos (auto) 1.1 H (0-0.8) 10^3/ul Absolute Eos (auto) 0.2 (0-0.6) 10^3/ul Absolute Basos (auto) 0 (0-0.2) 10^3/ul Absolute Nucleated RBC 0 10^3/ul Nucleated RBC % 0 Assess/Plan/Problems-Billing Assessment: Ms. Chavez is a 46 yo female with a PMH ESRD with peritoneal dialysis , Type 2 DM, tobacco abuse, COPD, CAD, hx of recurrent pancreatitis who presented with abdominal pain - Patient Problems (1) Pancreatitis Comment: Recurrent pancreatitis. Abdomen CT showing "scattered ascites throughout abdomen, hypodensity at the head of pancreas consistent with cystic changes vs edema, overall decreased in size compared to previous CT" Leukocytosis trending down, low grade temp (per pt her temp runs 99); Lipase trending down. Pain greatly improved but still mildly present. Clinically stable and doing well - noted to be ambulating in room. Pt will need f/u with GI as an outpt - she plans on following up with PCP and will be referred to Danelle MADRIGAL - we discussed the importance of f/u and she agrees - Hypokalemia - was given oral replacement - plan to check labs tomorrow. (2) ESRD on peritoneal dialysis Comment: Continue PD. Normal SBP 80-100. Dialysis nurse following. (3) CAD (coronary artery disease) Comment: s/p stent placement. Asymptomatic. continue Brilinta, ASA, BB (4) Type 2 diabetes mellitus Comment: FSBG ACHS Continue lantus and lispro sliding scale. (5) DVT prophylaxis Comment: Heparin SQ (6) Full code status Status and Disposition: inpatient with Pancreatitis. Possible DC to home this evening, with close f/u with PCP this week (referral to Danelle MADRIGAL).
[2016-11-06 15:22] VITALS: BP 142/67
--- NOTE | 2016-11-07 04:39 | DS ---
CC: Dr. Pan; Dr. Abarca * DISCHARGE SUMMARY: DATE OF ADMISSION: 11/04/16 DATE OF DISCHARGE: 11/06/16 PROVIDER: MAKENZIE Kaur. ATTENDING PHYSICIAN: Dr. Carrizales * (report dictated by Mecca Dee NP). PRIMARY CARE PROVIDER: Dr. Pan. CHEMICAL PROCESSING SUPERVISOR: Dr. Abarca. DISCHARGE DIAGNOSES: 1. Recurrent pancreatitis. 2. End-stage renal disease, on peritoneal dialysis. 3. Type 2 diabetes. SECONDARY DIAGNOSES: 1. Gastroesophageal reflux disease. 2. History of coronary artery disease, status post stent placement. 3. Hypertension. 4. Hyperlipidemia. DISCHARGE MEDICATIONS: 1. Albuterol nebulizer p.r.n. 2. Aspirin 81 mg p.o. daily. 3. Atorvastatin 10 mg p.o. q.h.s. 4. Calcitriol 0.25 mcg p.o. q.a.m. 5. Soma 350 mg p.o. q.8 hours p.r.n. 6. Sensipar 30 mg p.o. daily. 7. Vitamin B12 1000 mcg daily. 8. Nexium 40 mg p.o. b.i.d. 9. Gabapentin 100 mg p.o. b.i.d. 10. Insulin Lantus 12 units subcu q.p.m. (please note this is cut in half from home dose of 25 units subcu q.p.m., may resume when diet is advanced to full diet). 11. Probiotic 1 tab p.o. daily. 12. Loperamide 2 mg p.o. daily p.r.n. diarrhea. 13. Toprol-XL 25 mg p.o. q.a.m. 14. [place]-3 fatty acid 1000 mg p.o. daily. 15. Zofran 4 mg p.o. b.i.d. p.r.n. nausea. 16. Ropinirole 0.5 mg p.o. q.p.m. 17. Sodium bicarbonate 650 mg p.o. b.i.d. 18. Brilinta 90 mg p.o. b.i.d. 19. Zolpidem 10 mg p.o. q.h.s. 20. Benadryl 50 mg p.o. q.p.m. 21. Glipizide XL 2.5 mg p.o. daily. ALLERGIES: METFORMIN, VERAPAMIL, DILAUDID. HISTORY OF PRESENT ILLNESS AND HOSPITAL COURSE: Please see history and physical by Dr. Herman Maya for full admission details, but in summary, this is a 46-year- old female with a past medical history as stated above, who presents to the emergency department on 11/04/16 with complaints of abdominal pain. She has a history of recurrent pancreatitis. She reports she developed abdominal pain several days prior to presenting to the emergency department and was seen by a physician clinical education assistant in her primary care's office, who elda some labs and noted that her lipase was elevated and referred the patient to the emergency department for further evaluation. On evaluation, the patient was noted to have a lipase of 1274. She was admitted to the hospitalist service. She was started on IV fluids and continued on peritoneal dialysis. She underwent an abdomen and pelvis CT, which showed: "1. There is scattered ascites throughout the abdomen with more confluent ascites at the low midline abdomen adjacent to the patient's peritoneal dialysis catheter. This was not seen on the previous CT examination. 2. There is hypodensity at the head of the pancreas consistent with cystic changes, worse edema, but overall this area has decreased in size when compared to previous CT examination. In addition, there are scattered pancreatic calcifications consistent with a history of pancreatitis. 3. Additional chronic degenerative and iatrogenic findings described in the body of the report." The patient prior to admission had nausea as well as anorexia and vomiting. That resolved the day after admission. Yesterday, I saw the patient and she was doing much better since admission per her report. She wanted to go home yesterday; however, she did stay another night due to her lipase only trending down to 1144 and continued to complain of some abdominal pain. Her IV fluids were weaned to off this morning. She tolerated them well and does not appear to be fluid overloaded. She continued her peritoneal dialysis and has been quite stable. She has had some noted hypokalemia and she was given careful replacement. Her abdominal pain has much improved. She has mild abdominal pain in her left upper quad today. No nausea and has had no fevers or chills. She is noted to be up and ambulating around her room, is in good spirits, appears well and would like to be discharged home today. I think it is reasonable as the patient has been off IV fluids and is tolerating clear liquids. Per the patient, she has managed pancreatitis at home multiple times with her PCP prescribing pain medications and places herself on ice chips. I discussed with the patient that she should follow up with a GI specialist as she has not done since the last time she had pancreatitis, and she should be evaluated if there are any other options for her to avoid pancreatitis in the future. She agrees with this plan of care and will discuss with Dr. Pan this week on her followup to refer her to a [facility] physician. Today, the patient 's lipase is down to 500. Her leukocytosis on admission was 19,000 down to 13, 000 today. Her temperature is noted to be between 98 and 99, which the patient reports is her baseline. In regards to her blood sugars, these have been monitored closely. Her Lantus was cut in half to 12 units q.p.m. and she is continued on the Lantus sliding scale. I have discharged the patient home on half her dosage and she is to monitor her fingerstick closely and as she advances her diet and is on a full diet, may resume her full dose Lantus. The patient reports that she feels very comfortable doing this and has done this before in the past when she has experienced pancreatitis. The patient is stable for discharge to home. Followup tomorrow with labs to be drawn. Per the patient, she has her labs drawn at Dr. Abarca's office. CBC and a BMP to be drawn with results to Dr. Abarca and Dr. Pan to monitor electrolytes. Plan for followup with Dr. Pan this week. The patient was instructed to return to the emergency department with any worsening symptoms. The patient states understanding. TIME SPENT: Approximately 60 minutes was spent on this discharge. This case was discussed with attending physician, Dr. Carrizales, who agrees with the plan of care. MECCA DEE, JOSELINE [id number]/[facility] #: [id number] MTDD
== END 2016-11-06 15:45 | disposition home or self-care (01) | DRG 438 ==
LOC: ED 17:44 → MED 23:18
PROVIDERS: ADMIT Internal Medicine; ATTEND Hospitalist
PROC: 3E1M39Z Irrigation of Peritoneal Cavity using Dialysate, Percutaneous Approach (ICD-10-PCS; principal; 2016-11-05)
DX: K86.1 Other chronic pancreatitis (principal); N18.6 End stage renal disease; E11.22 Type 2 diabetes mellitus with diabetic chronic kidney disease; I13.11 Hypertensive heart and chronic kidney disease without heart failure, with stage 5 chronic kidney disease, or end stage renal disease; I25.10 Atherosclerotic heart disease of native coronary artery without angina pectoris; E78.5 Hyperlipidemia, unspecified; K21.9 Gastro-esophageal reflux disease without esophagitis; E87.6 Hypokalemia; Z79.82 Long term (current) use of aspirin; Z95.5 Presence of coronary angioplasty implant and graft; Z99.2 Dependence on renal dialysis; Z79.4 Long term (current) use of insulin; Z79.899 Other long term (current) drug therapy; Z88.8 Allergy status to other drugs, medicaments and biological substances; Z83.3 Family history of diabetes mellitus; Z82.49 Family history of ischemic heart disease and other diseases of the circulatory system; Z80.51 Family history of malignant neoplasm of kidney; F17.210 Nicotine dependence, cigarettes, uncomplicated
CPT/HCPCS: 36415; 74177; 80048; 80053; 83036; 83605; 83690; 83735; 85025; A9270-GY; J1200; J1644; J2270; J2405; J3480; Q9967

== ENCOUNTER 2017-05-09 11:45 | Inpatient (IN) | payer MEDICARE, OTHER ==
[2017-05-09] MEDS ORDERED: NS 0.9% 250 ML* 250 ML IV ONE (13:51)
[2017-05-09] MEDS ORDERED: Ondansetron INJ* 2 MG/ML VIAL IV ONE (13:51)
[2017-05-09] MEDS ORDERED: Morphine INJ* 4 MG/ML 1 ML CARPUJECT IV ONE ×3 (13:51→16:52)
[2017-05-09 14:01] LABS: ABS Basophils 0.1 10^3/ul (0-0.2); ABS Eosinophils 0.3 10^3/ul (0-0.6); ABS Lymphocytes 2.2 10^3/ul (1.0-4.8); ABS Monocytes 0.8 10^3/ul (0-0.8); ABS Neutrophils 13.8 10^3/ul (1.5-7.7); ABS Nucleated RBC 0 10^3/ul; Hematocrit 32 % (35-47); Hemoglobin 11.2 g/dl (12.0-16.0); Lymphocyte % 12.8 % (25-47); Mean Corpuscular HGB Conc 35 g/dl (31-36); Mean Corpuscular Hemoglobin 32 pg (27-31); Mean Corpuscular Volume 89 fL (80-97); Mean Platelet Volume 7 um3 (7.4-10.4); Nucleated Red Blood Cells % 0; Platelet Count 530 10^3/ul (150-450); Red Blood Count 3.55 10^6/ul (4.0-5.4); Red Cell Distribution Width 13 % (10.5-15); White Blood Count 17.4 10^3/ul (3.5-10.8)
[2017-05-09 14:10] LABS: EGFR Non-African American 3.6 (>60)
[2017-05-09] MEDS ORDERED: KCL 20 MEQ/100 ML IVPREMIX* 20 MEQ/100 ML BAG IV SCH (15:00)
[2017-05-09] MEDS: KCL premix 10MEQ/50 ML x 3 RUNS IV SCH ×4 (15:27→23:13)
[2017-05-09] MEDS ORDERED: Morphine INJ* 4 MG/ML 1 ML CARPUJECT IV PRN (17:03)
[2017-05-09] MEDS: NS 0.9% 1000 ML* 1,000 ML IV SCH (17:21)
[2017-05-09] MEDS: Ondansetron INJ* 2 MG/ML VIAL IV SCH ×2 (17:51→21:19)
[2017-05-09] MEDS: Metoprolol Tartrate IV* 1 MG/ML 5 ML VIAL IV SCH (17:52)
[2017-05-09] MEDS: Insulin GLARGINE(*) 1 UNITS UNIT SUBCUT SCH (21:49)
[2017-05-09] MEDS ORDERED: diPHENhydraMINE PO* 50 MG PO ONE (22:00)
[2017-05-09] MEDS: fentaNYL* 50 MCG/ML 2 ML VIAL (100 MCG VIAL) IV SLOW PU PRN (23:08)
[2017-05-10 00:49] LABS: EGFR Non-African American 3.4 (>60)
[2017-05-10] MEDS: fentaNYL* 50 MCG/ML 2 ML VIAL (100 MCG VIAL) IV SLOW PU PRN ×7 (01:30→21:42)
[2017-05-10] MEDS: Metoprolol Tartrate IV* 1 MG/ML 5 ML VIAL IV SCH ×4 (02:16→16:57)
[2017-05-10] MEDS: Ondansetron INJ* 2 MG/ML VIAL IV SCH ×6 (02:19→22:01)
--- NOTE | 2017-05-10 03:05 | HP ---
ADMISSION HISTORY AND PHYSICAL: DATE OF ADMISSION: 05/09/17 PRIMARY CARE DOCTOR: Dr. Jacob Pan. MY ATTENDING WHILE IN THE HOSPITAL: Dr. Lawrence Rosales.* (DICTATED BY [employer]ER) SENIOR ADMINISTRATIVE ASSISTANT: Dr. Tyrell Abarca. CHIEF COMPLAINT: Abdominal pain since late yesterday. HISTORY OF PRESENT ILLNESS: Ms. Chavez is a 46-year-old female with past medical history significant for recurrent pancreatitis, end-stage renal disease with peritoneal dialysis, poorly controlled diabetes mellitus type 2, GERD, coronary artery disease status post stenting, hypertension, hyperlipidemia, history of uremic pericarditis, who presents to the emergency department with 1 day of pain in her upper abdomen, wrapping around her back and radiating up into her chest. The patient states this pain does not feels like previous episodes of pancreatitis, does not feel like her previous episodes of myocardial infarction. The patient denies fevers, chills. The patient has been vomiting of yellow oily material with no food. The patient has not been able to take anything by mouth. The patient has no appetite. The patient has no recent weight loss or weight gain. The patient has no recent changes in her medications, diet, or oral intake. The patient rates the pain as severe and describes it as burning. The patient denies palliating factors. Provoking factor is eating, which the patient has been avoiding. The patient has had 2 small bowel movements this morning that were formed, which is abnormal for her. She usually has numerous oily bowel movements. The patient is not on any pancreatic replacement therapy. The patient has significant pain at the time of examination from her infusion of potassium. The patient also complains of the cramping pain in her neck and leg similar to when she has previously had low potassium. PAST MEDICAL HISTORY: 1. ESRD with peritoneal dialysis. 2. Recurrent pancreatitis, unknown cause. 3. Diabetes mellitus type 2, uncontrolled on insulin. 4. GERD. 5. Coronary artery disease with stent. 6. Hypertension. 7. Hyperlipidemia. 8. History of uremic pericarditis. PAST SURGICAL HISTORY: 1. Cholecystectomy. 2. Peritoneal dialysis catheter. MEDICATIONS: 1. Brilinta 90 mg p.o. b.i.d. 2. Aspirin low dose 81 mg p.o. daily. 3. Gabapentin 200 mg p.o. b.i.d. 4. Vitamin B12 1000 mcg sublingual daily. 5. Ropinirole 0.5 mg p.o. at bedtime. 6. Sensipar 30 mg p.o. at bedtime. 7. Metoprolol 50 mg p.o. at bedtime. 8. Glipizide 2.5 mg p.o. daily. 9. Loperamide 2 mg p.o. q.a.m. 10. Atorvastatin 10 mg p.o. at bedtime. 11. Benadryl 50 mg p.o. at bedtime. 12. Sodium bicarbonate 650 mg p.o. b.i.d. 13. Calcitriol 2.5 mg p.o. daily. 14. Insulin glargine 30 units subcutaneous at bedtime. ALLERGIES: The patient has allergies to METFORMIN, DILAUDID, and VERAPAMIL. FAMILY HISTORY: The patient's father had lung cancer, diabetes mellitus, and coronary artery disease. The patient's mother had diabetes mellitus, kidney cancer, and hypertension as well as brain cancer. The patient's sister has recurrent lung and colon cancer. SOCIAL HISTORY: The patient is a current 1-pack a day smoker, which was increased recently due to a stress from this pain. The patient does not drink alcohol. Denies illicit drugs. She is disabled, used to work in [employer] , has never and never had any kids. The patient has a partner of 27 years who she would like to be her healthcare proxy. REVIEW OF SYSTEMS: A 14-point review of systems was reviewed and is negative except as stated above. PHYSICAL EXAMINATION GENERAL: The patient is a 46-year-old female, who appears stated age and sitting in the bed doubled over in pain. VITAL SIGNS: Temperature 98.5, pulse rate 74, respiratory rate 16, oxygen saturation 99% on room air, blood pressure 136/82. HEENT: Head: Normocephalic and atraumatic. Sclerae anicteric. No conjunctival injection. Nasal mucosa is moist. Oral mucosa moist. No pharyngeal erythema or discharge. RESPIRATORY: Clear to auscultation bilaterally, diminished. No adventitious lung sounds. CARDIAC: Regular rate and rhythm. No clicks, murmurs, gallops, or rubs. Pulses 2+ in the bilateral dorsalis pedis, posterior tibialis, and radial areas. No edema noted in the bilateral lower extremities. ABDOMEN: Soft. Bowel sounds present and normoactive in all 4 quadrants. No hepatosplenomegaly. Severe tenderness to palpation over the right and left upper quadrants. No abdominal bruits auscultated. Nondistended. GENITOURINARY: No suprapubic tenderness or CVA tenderness. SKIN: Clean, dry, and intact. The patient has a petechial rash on the upper aspect of her left upper extremity from where she was having her blood pressure taken, which the patient states was not there previously. No other rash. NEURO: Cranial nerves II through XII grossly intact. No weakness. No focal deficits. Alert and oriented x3. PSYCHIATRIC: Pleasant and cooperative and markedly anxious with regards to her pain. LABORATORY DATA: White blood cell count 17.4, hemoglobin 11.2, hematocrit 32, MCH 32, RDW 13, platelet count 530, MPV 7. Sodium 127, potassium 2.6, chloride 88, carbon dioxide 25, anion gap 14, BUN 32, creatinine 1.36, glucose 2.4, lactic acid 1.2, calcium 7.7. Bilirubin 0.4, AST 6, ALT 6, alkaline phosphatase 94. CRP 58.81. Total protein 6.3, albumin 3.0, globulin 3.3, albumin-globulin ratio 0.9, lipase . DIAGNOSTIC STUDIES: Electrocardiogram shows normal sinus rhythm, normal axis. No hypertrophy or enlargement. No ST segment changes. No U-waves. No other abnormalities. QTc of 497. IMPRESSION: The patient is a 46-year-old female with a past medical history significant for end-stage renal disease, recurrent pancreatitis, diabetes mellitus type 2, coronary artery disease, who presents with episode of pancreatitis with stereotypical upper abdominal pain and metabolic abnormalities with hypokalemia and the lipase of 2360. The patient does not appear to have an active infection, will be admitted to the hospital n.p.o. for supportive care. ASSESSMENT AND PLAN: 1. Pancreatitis. The patient has a lipase of 2360, we will trend this. The patient will be n.p.o., what medications are able to be converted to IV will be done, appreciate Nephrology consult. The patient will be drained tonight and have her peritoneal dialysis restarted tomorrow. The patient has no signs of necrosis or pseudocyst formation or infection at this time. We will trend CRP, lipase, and white blood cell count and repeat abdominal imaging as needed. We will monitor the patient's vital signs closely. 2. End-stage renal disease. The patient will be continued on peritoneal dialysis while in the hospital. The patient has had no complications with her catheter or from her kidney function recently. The patient does not need to be on buffered at this time. The patient is moderately elevated anion gap likely due to her increased BUN, will be on strict I and O and daily weights. The patient will have fluids at 50 and will not have excessive fluids to avoid pulmonary edema and cardiac overload. 3. Diabetes mellitus type 2. The patient's current blood glucose is 240. The patient will be resumed on 9 units of glargine, which is 30% of her home dose. The patient will also have blood glucose monitoring in q.4 hours with no sliding scale at this point as she is n.p.o. We will check a hemoglobin A1c and adjust medications based on the patient's blood glucose readings. 4. Coronary artery disease. We will hold the patient's Brilinta and aspirin at this time and resume when the patient is no longer n.p.o. The patient has no EKG or physical exam findings suggestive of coronary artery disease at this time. The patient has no signs of congestive heart failure. 5. Gastroesophageal reflux disease. The patient is no longer on antacid medication except for her sodium bicarbonate. We will monitor for signs for gastroesophageal reflux disease and reinstitute as needed. 6. Hypertension. We will change the patient's metoprolol to IV to avoid rebound hypertension. 7. Pancreatic insufficiency. The patient describes numerous bowel movements daily that are oily and frequent. We will consider a pancreatic lipase for the patient on discharge to avoid hypokalemia and other metabolic abnormalities associated with diarrhea. 8. FEN: The patient will be on normal saline at 50 mL an hour. The patient will be n.p.o. 9. DVT prophylaxis: The patient will have SCDs for DVT prophylaxis. She is low risk. 10. Code status: The patient is a full code. The patient's surrogate decision maker is her long time partner. 11. Disposition: The patient is admitted inpatient with an estimated length of stay longer than 2 midnights. TIME SPENT: Approximately 75 minutes was spent on this admission, 30 of which was spent [id number] with the patient obtaining history and physical and discussing treatment plan. MART WEAVER [id number]/[facility] #: [id number] ZHENG
[2017-05-10 05:05] LABS: ABS Basophils 0.2 10^3/ul (0-0.2); ABS Eosinophils 0.3 10^3/ul (0-0.6); ABS Lymphocytes 3.2 10^3/ul (1.0-4.8); ABS Monocytes 1.2 10^3/ul (0-0.8); ABS Neutrophils 12.2 10^3/ul (1.5-7.7); ABS Nucleated RBC 0 10^3/ul; Hematocrit 29 % (35-47); Lymphocyte % 18.6 % (25-47); Mean Corpuscular HGB Conc 34 g/dl (31-36); Mean Corpuscular Hemoglobin 31 pg (27-31); Mean Corpuscular Volume 90 fL (80-97); Mean Platelet Volume 7 um3 (7.4-10.4); Nucleated Red Blood Cells % 0; Platelet Count 493 10^3/ul (150-450); Red Blood Count 3.26 10^6/ul (4.0-5.4); Red Cell Distribution Width 13 % (10.5-15); White Blood Count 17.1 10^3/ul (3.5-10.8)
[2017-05-10 05:19] LABS: EGFR Non-African American 3.4 (>60)
[2017-05-10] MEDS ORDERED: Sodium Bicarbonate (ANTACID)* 650 MG TAB PO SCH (12:00)
[2017-05-10] MEDS: HYDROcodone/ACETAMIN 5-325 MG* 1 TAB PO PRN ×2 (12:11→18:29)
[2017-05-10] MEDS: KCL 10 MEQ/50 ML IVPREMIX* 10 MEQ/50 ML BAG IV SCH ×2 (12:14→14:39)
[2017-05-10] MEDS ORDERED: Mouth Piece, Nicotine* 1 EACH CARTRIDGE INH PRN (14:10)
[2017-05-10] MEDS: Nicotine Inhaler* 10 MG AMP INH PRN (16:56)
[2017-05-10] MEDS: NS 0.9% 1000 ML* 1,000 ML IV SCH (16:56)
[2017-05-10] MEDS: Insulin GLARGINE(*) 1 UNITS UNIT SUBCUT SCH (21:45)
--- NOTE | 2017-05-10 21:51 | PN ---
Subjective Date of Service: 05/10/17 Interval History: Patient complains of continued pain in abdomen which is decreasing but constant in nature and does not fluctuate. Patient in much less distress than yesterday. Patient denies F/C, SOB, CP, MONK, Changes in vision, or other pain. Patient states that she usually takes [place] for this pain and that Morphine was not working but that Fentanyl does, but worries her because she is told it can lower your blood pressure. Patient states she would much rathe be at home if her pain isn't going to be adequately controlled. Family History: Unchanged from Admission Social History: Unchanged from Admission Past Medical History: Unchanged from Admission Objective Active Medications: Hydrocodone Bitart/Acetaminophen ([place] 5-325 Tab*) 1 tab PO Q3H PRN PRN Reason: PAIN - MODERATE Last Admin: 05/10/17 18:29 Dose: 1 tab Device (Nicotine Mouth Piece*) 1 each INH .USE WITH NICOTROL PRN PRN Reason: CRAVING Last Admin: 05/10/17 16:56 Dose: 1 each Diphenhydramine HCl (Benadryl Iv*) 25 mg IV Q6H PRN PRN Reason: PRURITIS Fentanyl Citrate (Fentanyl*) 25 mcg IV SLOW PU Q2H PRN PRN Reason: PAIN Last Admin: 05/10/17 16:57 Dose: 25 mcg Sodium Chloride (Ns 0.9% 1000 Ml*) 1,000 mls @ 50 mls/hr IV .PER RATE [facility] Last Admin: 05/10/17 16:56 Dose: 50 mls/hr Insulin Glargine (Lantus(*)) 9 units SUBCUT BEDTIME [facility] Last Admin: 05/09/17 21:49 Dose: 9 unit Metoprolol Tartrate (Lopressor Iv*) 5 mg IV Q6H [facility] Last Admin: 05/10/17 16:57 Dose: 5 mg Nicotine (Nicotine Inhaler*) 10 mg INH Q2H PRN PRN Reason: CRAVING Last Admin: 05/10/17 16:56 Dose: 10 mg Ondansetron HCl (Zofran Inj*) 4 mg IV Q4H [facility] Last Admin: 05/10/17 16:57 Dose: 4 mg Vital Signs - 8 hr 05/10/17 05/10/17 05/10/17 13:52 14:40 15:04 Temperature Pulse Rate 70 Respiratory 16 20 20 Rate Blood Pressure 128/69 (mmHg) O2 Sat by Pulse 98 Oximetry 05/10/17 05/10/17 05/10/17 15:23 16:57 18:29 Temperature 99.0 F Pulse Rate 74 Respiratory 16 22 18 Rate Blood Pressure 164/81 (mmHg) O2 Sat by Pulse 96 Oximetry 05/10/17 18:31 Temperature Pulse Rate Respiratory 18 Rate Blood Pressure (mmHg) O2 Sat by Pulse Oximetry Oxygen Devices in Use Now: None Appearance: Patient is a 46yo female who appears older than stated age and is sitting in the bed in moderate distress from pain. Eyes: No Scleral Icterus, PERRLA Ears/Nose/Mouth/Throat: NL Teeth, Lips, Gums, Clear Oropharnyx, - - Dry mucus membranes. Neck: NL Appearance and Movements; NL JVP, Trachea Midline Respiratory: Symmetrical Chest Expansion and Respiratory Effort, Clear to Auscultation Cardiovascular: NL Sounds; No Murmurs; No JVD, RRR, No Edema Abdominal: No Hepatosplenomegaly, - - Tenderness to palpation over the B/L Upper quadrants. PD catheter covered by bandage in lower abdomen. Lymphatic: No Cervical Adenopathy Extremities: No Edema, No Clubbing, Cyanosis Skin: No Rash or Ulcers, No Nodules or Sclerosis Neurological: Alert and Oriented x 3, NL Sensation, NL Muscle Strength and Tone Result Diagrams: 05/10/17 04:59 05/10/17 04:59 Assess/Plan/Problems-Billing Assessment: Patient is a 46yo female with a PMH for Recurrent idiopathic pancreatitis, ESRD on PD, DM II, CAD and GERD who presents with pancreatitis and is improving slightly. - Patient Problems (1) Pancreatitis Current Visit: No Status: Acute Code(s): K85.9 - ACUTE PANCREATITIS, UNSPECIFIED * DO NOT USE * SNOMED Code(s): 38693219 Comment: Recurrent pancreatitis. Idiopathic. Leukocytosis trending down, low grade temp (per pt her temp runs 99); Lipase trending down. Pain still severe, continue [place] and Fentanyl. Continued nausea. Failed trial of clears. Anorexia. Continue to monitor. Patient has chronic diarrhea outpatient with oily stool. Consider enzyme replacement at D/C. Likely insufficiency from chronic pancreatitis. (2) CAD (coronary artery disease) Current Visit: No Status: Chronic Code(s): I25.10 - ATHSCL HEART DISEASE OF [place] CORONARY ARTERY W/O ANG PCTRS SNOMED Code(s): 53670864 Comment: s/p stent placement. Asymptomatic. Continue, BB. Hold ASA and Brilinta due to NPO. (3) ESRD on peritoneal dialysis Current Visit: No Status: Chronic Code(s): N18.6 - END STAGE RENAL DISEASE; Z99.2 - DEPENDENCE ON RENAL DIALYSIS SNOMED Code(s): 44481179 Comment: Continue PD daily. Normotensive. Appreciate Nephrology input. MOnitor and replace electrolytes as needed. (4) Hypertension Current Visit: No Status: Chronic Code(s): I10 - ESSENTIAL (PRIMARY) HYPERTENSION SNOMED Code(s): 12642951 Comment: BP under good control. COntinue IV metoprolol. (5) Type 2 diabetes mellitus Current Visit: No Status: Chronic Comment: FSBG ACHS. No SS. COntinue lantus. BS controlled (6) DVT prophylaxis Current Visit: No Status: Acute Code(s): QJD0681 - SNOMED Code(s): 850974521 Comment: Heparin SQ (7) Full code status Current Visit: No Status: Acute Code(s): Z78.9 - OTHER SPECIFIED HEALTH STATUS SNOMED Code(s): 675908066 Status and Disposition: Patient is admitted inpatient. Discharge when able.
[2017-05-10] MEDS: diPHENhydraMINE IV* 50 MG/ML 1 ml VIAL (BENADRYL) IV PRN (21:58)
[2017-05-11] MEDS: Metoprolol Tartrate IV* 1 MG/ML 5 ML VIAL IV SCH ×3 (00:07→13:25)
[2017-05-11] MEDS: Ondansetron INJ* 2 MG/ML VIAL IV SCH ×6 (02:00→21:30)
[2017-05-11] MEDS: fentaNYL* 50 MCG/ML 2 ML VIAL (100 MCG VIAL) IV SLOW PU PRN ×4 (02:08→19:44)
[2017-05-11] MEDS: HYDROcodone/ACETAMIN 5-325 MG* 1 TAB PO PRN ×7 (04:19→23:32)
[2017-05-11 06:27] LABS: ABS Basophils 0.1 10^3/ul (0-0.2); ABS Eosinophils 0.5 10^3/ul (0-0.6); ABS Lymphocytes 2.5 10^3/ul (1.0-4.8); ABS Neutrophils 9.4 10^3/ul (1.5-7.7); ABS Nucleated RBC 0 10^3/ul; Eosinophil % 3.7 % (0-6); Hematocrit 29 % (35-47); Hemoglobin 9.5 g/dl (12.0-16.0); Lymphocyte % 18.7 % (25-47); Mean Corpuscular HGB Conc 33 g/dl (31-36); Mean Corpuscular Hemoglobin 30 pg (27-31); Mean Corpuscular Volume 91 fL (80-97); Mean Platelet Volume 7 um3 (7.4-10.4); Nucleated Red Blood Cells % 0; Platelet Count 440 10^3/ul (150-450); Red Blood Count 3.15 10^6/ul (4.0-5.4); Red Cell Distribution Width 13 % (10.5-15); White Blood Count 13.4 10^3/ul (3.5-10.8)
[2017-05-11 06:43] LABS: EGFR Non-African American 3.8 (>60)
[2017-05-11] MEDS: KCL 10 MEQ/50 ML IVPREMIX* 10 MEQ/50 ML BAG IV SCH ×4 (15:09→22:31)
--- NOTE | 2017-05-11 15:24 | PN ---
Subjective Date of Service: 05/11/17 Interval History: Pt feeling somewhat improved. Some back pain. Lipase improving. asking for fentanyl IV and norco po frequently. did PD yesterday. Has appointment with Shelley Mcclendon) on Monday05/16/17. Scratching herself. Denies every trying creon as an outpatient. Eats "whatever she wants". Family History: Unchanged from Admission Social History: Unchanged from Admission Past Medical History: Unchanged from Admission Objective Active Medications: Hydrocodone Bitart/Acetaminophen ([place] 5-325 Tab*) 1 tab PO Q3H PRN PRN Reason: PAIN - MODERATE Last Admin: 05/11/17 13:31 Dose: 1 tab Device (Nicotine Mouth Piece*) 1 each INH .USE WITH NICOTROL PRN PRN Reason: CRAVING Last Admin: 05/10/17 16:56 Dose: 1 each Diphenhydramine HCl (Benadryl Iv*) 25 mg IV Q6H PRN PRN Reason: PRURITIS Last Admin: 05/10/17 21:58 Dose: 25 mg Fentanyl Citrate (Fentanyl*) 25 mcg IV SLOW PU Q2H PRN PRN Reason: PAIN Last Admin: 05/11/17 10:07 Dose: 25 mcg Sodium Chloride (Ns 0.9% 1000 Ml*) 1,000 mls @ 50 mls/hr IV .PER RATE [facility] Last Admin: 05/10/17 16:56 Dose: 50 mls/hr Potassium Chloride (Potassium Chloride 10 Meq/50 Ml Ivpremix*) 10 meq in 50 mls @ 50 mls/hr IV Q1H [facility] Stop: 05/11/17 18:59 Last Admin: 05/11/17 15:09 Dose: 50 mls/hr Insulin Glargine (Lantus(*)) 9 units SUBCUT BEDTIME [facility] Last Admin: 05/10/17 21:45 Dose: 9 unit Metoprolol Tartrate (Lopressor Iv*) 5 mg IV Q6H [facility] Last Admin: 05/11/17 13:25 Dose: 5 mg Nicotine (Nicotine Inhaler*) 10 mg INH Q2H PRN PRN Reason: CRAVING Last Admin: 05/10/17 16:56 Dose: 10 mg Ondansetron HCl (Zofran Inj*) 4 mg IV Q4H [facility] Last Admin: 05/11/17 13:26 Dose: 4 mg Vital Signs - 8 hr 05/11/17 05/11/17 05/11/17 07:45 08:00 08:42 Temperature 98.2 F Pulse Rate 69 Respiratory 16 16 18 Rate Blood Pressure 119/65 (mmHg) O2 Sat by Pulse 98 Oximetry 05/11/17 05/11/17 05/11/17 10:07 10:08 11:22 Temperature 98.5 F Pulse Rate 75 Respiratory 18 18 16 Rate Blood Pressure 102/62 (mmHg) O2 Sat by Pulse 99 Oximetry 05/11/17 05/11/17 05/11/17 13:16 13:31 15:15 Temperature Pulse Rate Respiratory 18 18 16 Rate Blood Pressure (mmHg) O2 Sat by Pulse Oximetry Oxygen Devices in Use Now: None Appearance: NAD, smiling. Neck: NL Appearance and Movements; NL JVP Respiratory: Symmetrical Chest Expansion and Respiratory Effort, Clear to Auscultation Cardiovascular: NL Sounds; No Murmurs; No JVD, RRR Abdominal: No Hepatosplenomegaly, - - slight epigastric tenderness. No rebound/ guarding. soft, nondistended. Extremities: No Edema, No Clubbing, Cyanosis Skin: - - excoriations diffusely Neurological: Alert and Oriented x 3, NL Sensation, NL Muscle Strength and Tone Result Diagrams: 05/11/17 06:07 05/11/17 06:07 Additional Lab and Data: Laboratory Results - last 24 hr 05/10/17 05/10/17 05/11/17 17:21 21:26 04:39 WBC RBC Hgb Hct MCV MCH MCHC RDW Plt Count MPV Neut % (Auto) Lymph % (Auto) [place] % (Auto) Eos % (Auto) Baso % (Auto) Absolute Neuts (auto) Absolute Lymphs (auto) Absolute Monos (auto) Absolute Eos (auto) Absolute Basos (auto) Absolute Nucleated RBC Nucleated RBC % Sodium Potassium Chloride Carbon Dioxide Anion Gap BUN Creatinine Est GFR ( Amer) Est GFR (Non-Af Amer) BUN/Creatinine Ratio Glucose POC Glucose (mg/dL) 159 H 173 H 105 H Calcium Magnesium Total Bilirubin AST ALT Alkaline Phosphatase C-Reactive Protein Total Protein Albumin Globulin Albumin/Globulin Ratio Triglycerides Cholesterol LDL Cholesterol HDL Cholesterol Lipase 05/11/17 05/11/17 05/11/17 06:07 06:07 07:50 WBC 13.4 H RBC 3.15 L Hgb 9.5 L Hct 29 L MCV 91 MCH 30 MCHC 33 RDW 13 Plt Count 440 MPV 7 L Neut % (Auto) 70.0 Lymph % (Auto) 18.7 L [place] % (Auto) 7.1 Eos % (Auto) 3.7 Baso % (Auto) 0.5 Absolute Neuts (auto) 9.4 H Absolute Lymphs (auto) 2.5 Absolute Monos (auto) 1.0 H Absolute Eos (auto) 0.5 Absolute Basos (auto) 0.1 Absolute Nucleated RBC 0 Nucleated RBC % 0 Sodium 132 L Potassium 3.0 L Chloride 94 L Carbon Dioxide 25 Anion Gap 13 H BUN 31 H Creatinine 11.00 H Est GFR ( Amer) 4.8 Est GFR (Non-Af Amer) 3.8 BUN/Creatinine Ratio 2.8 L Glucose 108 H POC Glucose (mg/dL) 94 Calcium 7.9 L Magnesium 2.0 Total Bilirubin 0.40 AST 6 L ALT 5 L Alkaline Phosphatase 94 C-Reactive Protein 113.31 H Total Protein 6.1 L Albumin 2.9 L Globulin 3.2 Albumin/Globulin Ratio 0.9 L Triglycerides 174 Cholesterol 101 LDL Cholesterol 46 HDL Cholesterol 20.2 Lipase 809 H 05/11/17 11:51 WBC RBC Hgb Hct MCV MCH MCHC RDW Plt Count MPV Neut % (Auto) Lymph % (Auto) [place] % (Auto) Eos % (Auto) Baso % (Auto) Absolute Neuts (auto) Absolute Lymphs (auto) Absolute Monos (auto) Absolute Eos (auto) Absolute Basos (auto) Absolute Nucleated RBC Nucleated RBC % Sodium Potassium Chloride Carbon Dioxide Anion Gap BUN Creatinine Est GFR ( Amer) Est GFR (Non-Af Amer) BUN/Creatinine Ratio Glucose POC Glucose (mg/dL) 105 H Calcium Magnesium Total Bilirubin AST ALT Alkaline Phosphatase C-Reactive Protein Total Protein Albumin Globulin Albumin/Globulin Ratio Triglycerides Cholesterol LDL Cholesterol HDL Cholesterol Lipase Assess/Plan/Problems-Billing Assessment: 46yo female with a PMH for Recurrent idiopathic pancreatitis, ESRD on PD, HLD, HTN, IDDM II, CAD s/p stent, s/p cholecystectomy and GERD who presents with acute on chroinc pancreatitis. TG wnl. Previous w/u included multiple negative RENEE, negative IgG4. No new meds but is on statins which can cause pancreatitis. - Patient Problems (1) Pancreatitis Current Visit: No Status: Acute Code(s): K85.9 - ACUTE PANCREATITIS, UNSPECIFIED * DO NOT USE * SNOMED Code(s): 02143148 Comment: Recurrent pancreatitis. Idiopathic. Leukocytosis trending down, low grade temp (per pt her temp runs 99); Lipase trending down. Pain seems improving but still wanting both [place] and Fentanyl. ADAT to clears again Patient has chronic diarrhea outpatient with oily stool. Will add creon enzyme replacement as tolerates solids. Has never tried. Lipid panel with TG only 174. Has had negative RENEE and IgG4 in past. No new meds. gently IVF given ESRD on HD. GI f/u with Danelle Braga on Monday05/16/17 (2) CAD (coronary artery disease) Current Visit: No Status: Chronic Code(s): I25.10 - ATHSCL HEART DISEASE OF [place] CORONARY ARTERY W/O ANG PCTRS SNOMED Code(s): 02522672 Comment: s/p stent placement. Asymptomatic. Restart metoprolol 50mg po daily (home med), stop IV metop q6 restart ASA 81mg daily and Brilinta BID. (3) ESRD on peritoneal dialysis Current Visit: No Status: Chronic Code(s): N18.6 - END STAGE RENAL DISEASE; Z99.2 - DEPENDENCE ON RENAL DIALYSIS SNOMED Code(s): 54398016 Comment: Continue PD daily. Normotensive. Monitor and replace electrolytes as needed. (4) Hypertension Current Visit: No Status: Chronic Code(s): I10 - ESSENTIAL (PRIMARY) HYPERTENSION SNOMED Code(s): 18454348 Comment: BP under good control. switch to po metoprolol. (5) Type 2 diabetes mellitus Current Visit: No Status: Chronic Comment: FSBG ACHS. Continue at reduced 9U lantus. BS controlled (6) HLD (hyperlipidemia) Current Visit: Yes Status: Acute Code(s): E78.5 - HYPERLIPIDEMIA, UNSPECIFIED SNOMED Code(s): 70198408 Comment: continue to hold home atorvastatin 10mg po daily. Status and Disposition: medicine inpatient.Suspect d/c 05/13 Attending: Michoacano Tom
[2017-05-11] MEDS: Aspirin EC Low Dose* 81 MG TAB.EC PO SCH (16:22)
[2017-05-11] MEDS: NS 0.9% 1000 ML* 1,000 ML IV SCH (19:45)
[2017-05-11] MEDS: Metoprolol Succinate XL TAB* 50 MG PO SCH (21:29)
[2017-05-11] MEDS: Cinacalcet TAB* 30 MG PO SCH (21:29)
[2017-05-11] MEDS: Ticagrelor* 90 MG TAB PO SCH (21:29)
[2017-05-11] MEDS: Insulin GLARGINE(*) 1 UNITS UNIT SUBCUT SCH (21:30)
[2017-05-11] MEDS: diPHENhydraMINE IV* 50 MG/ML 1 ml VIAL (BENADRYL) IV PRN (21:36)
[2017-05-12] MEDS: fentaNYL* 50 MCG/ML 2 ML VIAL (100 MCG VIAL) IV SLOW PU PRN ×7 (01:47→22:28)
[2017-05-12] MEDS: HYDROcodone/ACETAMIN 5-325 MG* 1 TAB PO PRN ×5 (03:23→22:27)
[2017-05-12] MEDS: Ondansetron INJ* 2 MG/ML VIAL IV SCH ×2 (03:24→06:07)
[2017-05-12 06:08] LABS: ABS Basophils 0.1 10^3/ul (0-0.2); ABS Eosinophils 0.6 10^3/ul (0-0.6); ABS Lymphocytes 3.4 10^3/ul (1.0-4.8); ABS Monocytes 1.1 10^3/ul (0-0.8); ABS Neutrophils 8.5 10^3/ul (1.5-7.7); ABS Nucleated RBC 0 10^3/ul; Eosinophil % 4.3 % (0-6); Hematocrit 29 % (35-47); Hemoglobin 9.9 g/dl (12.0-16.0); Lymphocyte % 24.7 % (25-47); Mean Corpuscular HGB Conc 34 g/dl (31-36); Mean Corpuscular Hemoglobin 31 pg (27-31); Mean Corpuscular Volume 90 fL (80-97); Mean Platelet Volume 7 um3 (7.4-10.4); Nucleated Red Blood Cells % 0.1; Platelet Count 456 10^3/ul (150-450); Red Cell Distribution Width 14 % (10.5-15); White Blood Count 13.7 10^3/ul (3.5-10.8)
[2017-05-12 06:23] LABS: EGFR Non-African American 3.8 (>60)
[2017-05-12] MEDS ORDERED: Dextrose 50% Syringe 50 ML* 25 GM/50 ML SYRINGE IV PUSH PRN (07:37)
[2017-05-12] MEDS: Ticagrelor* 90 MG TAB PO SCH ×2 (08:22→20:22)
[2017-05-12] MEDS: Ondansetron INJ* 2 MG/ML VIAL IV PRN ×2 (08:22→19:26)
[2017-05-12] MEDS: Aspirin EC Low Dose* 81 MG TAB.EC PO SCH (08:22)
[2017-05-12] MEDS: Insulin LISPRO* 1 UNITS UNIT SUBCUT SCH ×3 (12:40→20:33)
--- NOTE | 2017-05-12 13:02 | RAD ---
INDICATION: Abdominal and flank pain. History of pancreatitis. End-stage renal disease on peritoneal dialysis. COMPARISON: November 04, 2016 TECHNIQUE: Multidetector CT images were obtained from the lung bases to the ischial tuberosities. Evaluation of the viscera is limited without IV contrast. Multiplanar reformation. REPORT: Images through the inferior thorax are remarkable for extensive coronary artery calcifications and mild bibasilar subsegmental atelectasis. Post cholecystectomy. No focal hepatic lesions or suggestion of intrahepatic biliary dilatation. Ill-defined pancreas with multiple calcifications. Mild inflammatory stranding in the peripancreatic fat. No loculated retroperitoneal fluid collection evident. Small splenule inferior to the dominant normal size spleen. Negative for CT abnormality of the upper GI, small bowel, retrocecal appendix, colon. Tip of the peritoneal dialysis catheter is at the LEFT para midline posterior pelvis. Moderate diffuse ascites. No loculated peritoneal fluid collection evident. Negative for free air or hernias. Normal adrenal glands. Moderately atrophic kidneys with extensive vascular calcifications. Negative for hydronephrosis. No suspicious finding along the course of the nondilated ureters. Decompressed urinary bladder limiting assessment without gross abnormality. Small periaortic lymph nodes measuring up to 0.7 cm short axis within normal limits without change. Atherosclerotic calcification of normal diameter abdominal aorta and iliac arteries. Physiologic distention of the IVC. Negative for suspicious osseous lesions. IMPRESSION: 1. While assessment is limited without IV contrast inflammatory stranding surrounding the pancreas favors acute pancreatitis superimposed on stigmata of chronic pancreatitis. No peripancreatic retroperitoneal fluid collections evident. Correlate with clinical and laboratory assessment. 2. Post cholecystectomy. No biliary dilatation evident. 3. Peritoneal fluid and peritoneal dialysis catheter.
[2017-05-12] MEDS ORDERED: Nicotine Inhaler* 10 MG AMP INH PRN (15:37)
[2017-05-12] MEDS ORDERED: Mouth Piece, Nicotine* 1 EACH CARTRIDGE INH PRN (15:37)
[2017-05-12] MEDS: Nicotine PATCH 21 MG/24 HR* PATCH TRANSDERM SCH (15:57)
--- NOTE | 2017-05-12 16:03 | ED ---
Jakub Wells Gabriel scribed for Aristeo Rogers MD on 05/09/17 at 1350 . Abdominal Pain/Female - HPI Summary HPI Summary: This patient is a 46 year old F presenting to [facility] accompanied by her with a chief complaint of ABD pain since yesterday morning. The patient rates the pain 10/10 in severity. Patient reports vomiting up bile, inability to eat, and nausea. Patient states she gets pancreatitis a couple times a year and believes she has it currently. She had her gallbladder removed in an attempt to stop these episodes of pancreatitis but it has been unsuccessful. She has DM and gets peritoneal dialysis. - History of Current Complaint Chief Complaint: EDAbdPain Stated Complaint: CHEST/ABD PAIN Time Seen by Provider: 05/09/17 13:29 Hx Obtained From: Patient Onset/Duration: Lasting Days - 2, Still Present Timing: Constant Severity Initially: Severe Severity Currently: Severe Pain Intensity: 10 Pain Scale Used: 0-10 Numeric Location: Epigastric Radiates: No Associated Signs and Symptoms: Positive: Decreased Appetite, Nausea, Vomiting Allergies/Adverse Reactions: Allergies Allergy/AdvReac Type Severity Reaction Status Date / Time Metformin [From Glucophage] Allergy Severe See Comment Verified 05/29/15 13:22 Hydromorphone [From Dilaudid] Allergy Mild Itching Verified 05/29/15 13:22 Verapamil Allergy Hives Verified 05/29/15 13:22 Home Medications: Home Medications Albuterol/Ipratropium NEB.KRISH* [Duoneb (Albuterol 2.5 MG/Ipratropium 0.5 MG)] 1 neb INH BID 05/09/17 [History Confirmed 05/09/17] Ferric Citrate TAB(NF) 210 mg PO TID 05/09/17 [History Confirmed 05/09/17] HYDROcodone/ACETAMIN 5-325 MG* [[place] 5-325 TAB*] 1 tab PO Q6HR PRN MDD 4 tablets 05/09/17 [History Confirmed 05/09/17] Insulin GLARGINE(*) [Lantus(*)] 30 units SUBCUT BID 05/09/17 [History Confirmed 05/09/17] Lidocaine 5% OINT* [Xylocaine 5% Oint*] 1 applic TOPICAL DAILY 05/09/17 [ History Confirmed 05/09/17] Triamcinolone 0.1% CREAM (NF) [Kenalog 0.1% Cream (NF)] 1 - 2 gra TOPICAL BID [History Confirmed 05/09/17] PMH/Surg Hx/FS Hx/Imm Hx Endocrine/Hematology History: Reports: Hx Diabetes, Hx Anemia Denies: Hx Thyroid Disease - Denies Cardiovascular History: Reports: Hx Angina, Hx Congenital Heart Disease, Hx Congestive Heart Failure, Hx Coronary Artery Disease, Hx Hypercholesterolemia, Hx Hypertension, Hx Myocardial Infarction, Hx Peripheral Vascular Disease Denies: Hx Pacemaker/ICD, Hx Valvular Heart Disease, Other Cardiovascular Problems/Disorders Respiratory History: Reports: Hx Chronic Bronchitis Denies: Hx Asthma, Hx Chronic Obstructive Pulmonary Disease (COPD) GI History: Reports: Hx Gall Bladder Disease, Hx Gastroesophageal Reflux Disease , Other GI Disorders - PANCREATITIS History: Reports: Hx Chronic Renal Failure, Hx Dialysis - ESRD WITH PD, Hx Renal Disease, Other Problems/Disorders Musculoskeletal History: Reports: Hx Arthritis, Hx Back Problems Denies: Other Musculoskeletal History Sensory History: Reports: Hx Contacts or Glasses Denies: Hx Hearing Aid Opthamlomology History: Reports: Hx Contacts or Glasses Neurological History: Reports: Hx Migraine Psychiatric History: Denies: Hx Panic Disorder - Cancer History Hx Chemotherapy: No Hx Radiation Therapy: No Hx Palliative Cancer Treatment: No - Surgical History Surgery Procedure, Year, and Place: 05/2011- GALLBLADDER REMOVED. PD CATHETER PLACEMENT. HEART STENT 06/08 Hx Anesthesia Reactions: No - Immunization History Date of Tetanus Vaccine: Up to date Date of Influenza Vaccine: 2012 Infectious Disease History: Unable to Obtain/Confirm Infectious Disease History: Denies: Traveled Outside the [place] in Last 30 Days - Family History Known Family History: Positive: Cardiac Disease - Social History Lives: With Family Alcohol Use: None Hx Substance Use: No Substance Use Type: Reports: None Hx Tobacco Use: Yes Smoking Status (MU): Heavy Every Day Tobacco Smoker Type: Cigarettes Amount Used/How Often: 1-2 PPD Length of Time of Smoking/Using Tobacco: 23yrs Have You Smoked in the Last Year: Yes Review of Systems Positive: Other - decreased appetite . Negative: Fever, Chills Negative: Erythema Negative: Sore Throat Negative: Chest Pain Negative: Shortness Of Breath, Cough Positive: Abdominal Pain, Vomiting, Nausea. Negative: Diarrhea Negative: dysuria, hematuria Negative: Myalgia, Edema Negative: Rash Neurological: Negative - dizziness All Other Systems Reviewed And Are Negative: Yes Physical Exam - Summary Physical Exam Summary: Constitutional: Well-developed, Well-nourished, Alert. (-) Distressed Skin: Warm, Dry HENT: Normocephalic; Atraumatic Eyes: Conjunctiva normal Neck: Musculoskeletal ROM normal neck. (-) JVD, (-) Stridor, (-) Tracheal deviation Cardio: Rhythm regular, rate normal, Heart sounds normal; Intact distal pulses; The pedal pulses are 2+ and symmetric. Radial pulses are 2+ and symmetric. (-) Murmur Pulmonary/Chest wall: Effort normal. (-) Respiratory distress, (-) Wheezes, (-) Rales Abd: Soft, (-) Distension, (-) Guarding, (-) Rebound, tenderness in epigastrium and LUQ Musculoskeletal: (-) Edema Lymph: (-) Cervical adenopathy Neuro: Alert, Oriented x3 Psych: Mood and affect Normal Triage Information Reviewed: Yes Vital Signs On Initial Exam: Initial Vitals Temp Pulse Resp BP Pulse Ox 98.5 F 74 16 136/82 99 05/09/17 12:54 05/09/17 12:54 05/09/17 12:54 05/09/17 12:54 05/09/17 12:54 Vital Signs Reviewed: Yes Diagnostics - Vital Signs Vital Signs Temp Pulse Resp BP Pulse Ox 05/09/17 13:30 72 175/86 96 05/09/17 13:23 71 98 05/09/17 13:21 157/59 05/09/17 12:54 98.5 F 74 16 136/82 99 - Laboratory Result Diagrams: 05/09/17 13:44 05/09/17 13:44 Lab Statement: Any lab studies that have been ordered have been reviewed, and results considered in the medical decision making process. - EKG 12:13 Cardiac Rate: NL EKG Rhythm: Sinus Rhythm - at 77 BPM EKG Interpretation: no STEMI Abdominal Pain Fem Course/Dx - Course Course Of Treatment: This patient is a 46 year old F presenting to [facility] accompanied by her with a chief complaint of ABD pain since yesterday morning. The patient rates the pain 10/10 in severity. Patient reports vomiting up bile, inability to eat, and nausea. Patient states she gets pancreatitis a couple times a year and believes she has it currently. She had her gallbladder removed in an attempt to stop these episodes of pancreatitis but it has been unsuccessful. She has DM and gets peritoneal dialysis. An EKG reveals NSR. Test results with no significant abnormalities except for a potassium of 2.6 and a lipase of 2,360. I do not suspect a bowel infection. In the ED course the patient was given Zofran, morphine, and IV fluids. We discussed patient care with Dr. Rosales and he accepted the patient for admission. Patient will be admitted. The patient is agreeable with this plan. - Diagnoses Provider Diagnoses: Pancreatitis, Hypokalemia - Provider Notifications Discussed Care Of Patient With: Lawrence Rosales Time Discussed With Above Provider: 15:00 Instructed by Provider To: Admit As Inpatient - Critical Care Time Critical Care Time: 30-74 min Discharge - Discharge Plan Condition: Fair Disposition: ADMITTED TO [facility] Referrals: Jacob Pan MD [Primary Care Provider] - The documentation as recorded by the Jakub barber Gabriel accurately reflects the service I personally performed and the decisions made by me, Aristeo Rogers MD.
[2017-05-12] MEDS: Nicotine Inhaler* 10 MG AMP INH PRN (16:07)
[2017-05-12] MEDS: NS 0.9% 1000 ML* 1,000 ML IV SCH (17:26)
--- NOTE | 2017-05-12 17:47 | PN ---
Subjective Date of Service: 05/12/17 Interval History: Pt with continued abdominal pain and some right flank pain. Did not drink much clear liquids throughout the day. CT abd/pelvis noncontrast demonstrated acute on chronic pancreatitis, no evidence of hydronephrosis or nephrolithiasis. Had one episode of generalized pruritis previously that was attributed to hyperphosphatemia. Family History: Unchanged from Admission Social History: Unchanged from Admission Past Medical History: Unchanged from Admission Objective Active Medications: Hydrocodone Bitart/Acetaminophen ([place] 5-325 Tab*) 1 tab PO Q3H PRN PRN Reason: PAIN - MODERATE Last Admin: 05/12/17 14:44 Dose: 1 tab Aspirin (Aspirin Ec Low Dose*) 81 mg PO DAILY [facility] Last Admin: 05/12/17 08:22 Dose: 81 mg Cinacalcet (Sensipar Tab*) 30 mg PO BEDTIME [facility] Last Admin: 05/11/17 21:29 Dose: 30 mg Device (Nicotine Mouth Piece*) 1 each INH .USE WITH NICOTROL PRN PRN Reason: CRAVING Last Admin: 05/10/17 16:56 Dose: 1 each Device (Nicotine Mouth Piece*) 1 each INH .USE WITH NICOTROL PRN PRN Reason: CRAVING Dextrose (D50w Syringe 50 Ml*) 12.5 gm IV PUSH .FOR FS < 60 - SS PRN PRN Reason: FS < 60 Diphenhydramine HCl (Benadryl Po*) 25 mg PO Q6H PRN PRN Reason: ITCHING Fentanyl Citrate (Fentanyl*) 25 mcg IV SLOW PU Q2H PRN PRN Reason: PAIN Last Admin: 05/12/17 15:51 Dose: 25 mcg Sodium Chloride (Ns 0.9% 1000 Ml*) 1,000 mls @ 50 mls/hr IV .PER RATE [facility] Last Admin: 05/12/17 17:26 Dose: 50 mls/hr Insulin Human Lispro (Humalog*) 0 units SUBCUT ACHS [facility] PRN Reason: Protocol Last Admin: 05/12/17 12:40 Dose: Not Given Metoprolol Succinate (Toprol Xl Tab*) 50 mg PO BEDTIME [facility] Last Admin: 05/11/17 21:29 Dose: 50 mg Nicotine (Nicotine Inhaler*) 10 mg INH Q2H PRN PRN Reason: CRAVING Last Admin: 05/12/17 16:07 Dose: 10 mg Nicotine (Nicotine Inhaler*) 10 mg INH Q2H PRN PRN Reason: CRAVING Nicotine (Nicotine Patch 21 Mg/24 Hr*) 1 patch TRANSDERM DAILY [facility] Last Admin: 05/12/17 15:57 Dose: 1 patch Ondansetron HCl (Zofran Inj*) 4 mg IV Q4H PRN PRN Reason: NAUSEA Last Admin: 05/12/17 08:22 Dose: 4 mg Pharmacy Profile Note (Nicotine Patch Removal Note*) 1 note PATCH OFF 2099 [facility] Ticagrelor (Brilinta*) 90 mg PO BID [facility] Last Admin: 05/12/17 08:22 Dose: 90 mg Vital Signs - 8 hr 05/12/17 05/12/17 05/12/17 09:42 10:57 11:52 Temperature 98.0 F Pulse Rate 71 Respiratory 16 18 16 Rate Blood Pressure 144/74 (mmHg) O2 Sat by Pulse 100 Oximetry 05/12/17 05/12/17 05/12/17 13:05 14:44 15:46 Temperature Pulse Rate 69 Respiratory 16 16 18 Rate Blood Pressure 140/75 (mmHg) O2 Sat by Pulse 100 Oximetry 05/12/17 05/12/17 15:51 15:59 Temperature 98.0 F Pulse Rate Respiratory 18 Rate Blood Pressure (mmHg) O2 Sat by Pulse Oximetry Oxygen Devices in Use Now: None Appearance: Smiling, does not appear to be in acute distress but itching. Eyes: No Scleral Icterus, PERRLA Ears/Nose/Mouth/Throat: NL Teeth, Lips, Gums Neck: NL Appearance and Movements; NL JVP, Trachea Midline Respiratory: Symmetrical Chest Expansion and Respiratory Effort, Clear to Auscultation Cardiovascular: NL Sounds; No Murmurs; No JVD Abdominal: - - slight epigastric tenderness, no rebound or guarding. peritoneal dialysis cath. Extremities: No Edema, No Clubbing, Cyanosis Skin: - - exoriations Neurological: Alert and Oriented x 3, NL Sensation, NL Muscle Strength and Tone Result Diagrams: 05/12/17 05:39 05/12/17 05:39 Additional Lab and Data: Laboratory Results - last 24 hr 05/11/17 05/12/17 05/12/17 20:44 05:39 05:39 WBC 13.7 H RBC 3.20 L Hgb 9.9 L Hct 29 L MCV 90 MCH 31 MCHC 34 RDW 14 Plt Count 456 H MPV 7 L Neut % (Auto) 62.2 Lymph % (Auto) 24.7 L [place] % (Auto) 8.1 Eos % (Auto) 4.3 Baso % (Auto) 0.7 Absolute Neuts (auto) 8.5 H Absolute Lymphs (auto) 3.4 Absolute Monos (auto) 1.1 H Absolute Eos (auto) 0.6 Absolute Basos (auto) 0.1 Absolute Nucleated RBC 0 Nucleated RBC % 0.1 Sodium 134 Potassium 3.1 L Chloride 97 L Carbon Dioxide 25 Anion Gap 12 H BUN 29 H Creatinine 10.78 H Est GFR ( Amer) 4.9 Est GFR (Non-Af Amer) 3.8 BUN/Creatinine Ratio 2.7 L Glucose 67 L POC Glucose (mg/dL) 153 H Calcium 8.0 L TSH 1.48 05/12/17 05/12/17 05/12/17 06:48 08:05 11:16 WBC RBC Hgb Hct MCV MCH MCHC RDW Plt Count MPV Neut % (Auto) Lymph % (Auto) [place] % (Auto) Eos % (Auto) Baso % (Auto) Absolute Neuts (auto) Absolute Lymphs (auto) Absolute Monos (auto) Absolute Eos (auto) Absolute Basos (auto) Absolute Nucleated RBC Nucleated RBC % Sodium Potassium Chloride Carbon Dioxide Anion Gap BUN Creatinine Est GFR ( Amer) Est GFR (Non-Af Amer) BUN/Creatinine Ratio Glucose POC Glucose (mg/dL) 75 74 98 Calcium TSH Assess/Plan/Problems-Billing Assessment: 46yo female with a PMH for Recurrent idiopathic pancreatitis, ESRD on PD, HLD, HTN, IDDM II, CAD s/p stent, s/p cholecystectomy and GERD who presents with acute on chroinc pancreatitis. TG wnl. Previous w/u included multiple negative RENEE, negative IgG4. No new meds but is on statins which can cause pancreatitis. - Patient Problems (1) Pancreatitis Current Visit: No Status: Acute Code(s): K85.9 - ACUTE PANCREATITIS, UNSPECIFIED * DO NOT USE * SNOMED Code(s): 74066738 Comment: Recurrent pancreatitis. Idiopathic. Leukocytosis trending down, low grade temp (per pt her temp runs 99); Lipase trending down. Pain seems improving but still wanting both Lincoln and Fentanyl. clear liquids but pretty skittish to attempt much Patient has chronic diarrhea outpatient with oily stool. Will add creon enzyme replacement as tolerates solids. Has never tried. Lipid panel with TG only 174. Has had negative RENEE and IgG4 in past. No new meds. gently IVF given ESRD on HD. GI f/u with Danelle Shelley Braga on Monday05/16/17 CT abd/pelvis w/o e/o of psuedocyts or kidney stones. e/o calcifications and ascites. (2) CAD (coronary artery disease) Current Visit: No Status: Chronic Code(s): I25.10 - ATHSCL HEART DISEASE OF [place] CORONARY ARTERY W/O ANG PCTRS SNOMED Code(s): 17332223 Comment: s/p stent placement. Asymptomatic. Continue metoprolol 50mg po daily (home med), stop IV metop q6 continue ASA 81mg daily and Brilinta BID. (3) ESRD on peritoneal dialysis Current Visit: No Status: Chronic Code(s): N18.6 - END STAGE RENAL DISEASE; Z99.2 - DEPENDENCE ON RENAL DIALYSIS SNOMED Code(s): 17946560 Comment: Continue PD daily. Normotensive. Monitor and replace electrolytes as needed. (4) Hypertension Current Visit: No Status: Chronic Code(s): I10 - ESSENTIAL (PRIMARY) HYPERTENSION SNOMED Code(s): 55278280 Comment: BP under good control. continue po metoprolol. (5) Type 2 diabetes mellitus Current Visit: No Status: Chronic Comment: FSBG ACHS. stop lantus 9U due to hypoglycemia and poor po intake. SSI started (6) HLD (hyperlipidemia) Current Visit: Yes Status: Acute Code(s): E78.5 - HYPERLIPIDEMIA, UNSPECIFIED SNOMED Code(s): 83787378 Comment: continue to hold home atorvastatin 10mg po daily. Status and Disposition: medicine inpatient. Attending: Michoacano Tom
[2017-05-12] MEDS: Cinacalcet TAB* 30 MG PO SCH (20:22)
[2017-05-12] MEDS: diPHENhydraMINE PO* 25 MG PO PRN (20:22)
[2017-05-12] MEDS: Metoprolol Succinate XL TAB* 50 MG PO SCH (20:22)
[2017-05-13] MEDS: Ondansetron INJ* 2 MG/ML VIAL IV PRN ×2 (00:26→12:41)
[2017-05-13] MEDS: fentaNYL* 50 MCG/ML 2 ML VIAL (100 MCG VIAL) IV SLOW PU PRN ×4 (00:26→08:20)
[2017-05-13] MEDS: HYDROcodone/ACETAMIN 5-325 MG* 1 TAB PO PRN ×2 (03:21→07:32)
[2017-05-13] MEDS: diPHENhydraMINE PO* 25 MG PO PRN ×4 (03:22→22:14)
[2017-05-13] MEDS: Insulin LISPRO* 1 UNITS UNIT SUBCUT SCH ×4 (08:10→22:07)
[2017-05-13 08:12] LABS: ABS Basophils 0 10^3/ul (0-0.2); ABS Eosinophils 0.6 10^3/ul (0-0.6); ABS Lymphocytes 2.8 10^3/ul (1.0-4.8); ABS Monocytes 0.9 10^3/ul (0-0.8); ABS Neutrophils 7.3 10^3/ul (1.5-7.7); ABS Nucleated RBC 0 10^3/ul; Eosinophil % 5.5 % (0-6); Hematocrit 28 % (35-47); Hemoglobin 9.7 g/dl (12.0-16.0); Lymphocyte % 23.9 % (25-47); Mean Corpuscular HGB Conc 34 g/dl (31-36); Mean Corpuscular Hemoglobin 31 pg (27-31); Mean Corpuscular Volume 90 fL (80-97); Mean Platelet Volume 7 um3 (7.4-10.4); Nucleated Red Blood Cells % 0; Platelet Count 460 10^3/ul (150-450); Red Blood Count 3.13 10^6/ul (4.0-5.4); Red Cell Distribution Width 14 % (10.5-15); White Blood Count 11.7 10^3/ul (3.5-10.8)
[2017-05-13] MEDS: Nicotine PATCH 21 MG/24 HR* PATCH TRANSDERM SCH (08:20)
[2017-05-13] MEDS: Ticagrelor* 90 MG TAB PO SCH ×2 (08:20→21:10)
[2017-05-13] MEDS: Aspirin EC Low Dose* 81 MG TAB.EC PO SCH (08:20)
[2017-05-13 08:24] LABS: EGFR Non-African American 3.9 (>60)
[2017-05-13] MEDS ORDERED: oxyCODONE TAB* 5 MG TAB PO PRN (08:55)
[2017-05-13] MEDS: Morphine INJ* 2 MG/ML 1 ML SYRINGE (TWO MG - NEW SYRINGE VERSION) IV PRN ×4 (11:28→21:03)
[2017-05-13] MEDS ORDERED: Hydrocodone/Acetamin 10/325 1 TAB PO PRN (13:47)
[2017-05-13] MEDS: Gabapentin CAP(*) 100 MG PO SCH ×2 (14:28→21:10)
[2017-05-13] MEDS: Docusate CAP* 100 MG PO SCH (14:29)
[2017-05-13] MEDS: Senna TAB PO SCH (14:29)
--- NOTE | 2017-05-13 14:38 | PN ---
Subjective Date of Service: 05/13/17 Interval History: slept better. itching after benadryl wears off after ~3 hours. Got fentanyl ATC overnight and felt better controlled pain. no vaginal bleeding (had spotting 2 days ago) which had been unusual for her. Wanted trial of morphine instead of fentanyl. Not drinking much of anything. Vomited shortly after got oxycodone 10mg. Family History: Unchanged from Admission Social History: Unchanged from Admission Past Medical History: Unchanged from Admission Objective Active Medications: Hydrocodone Bitart/Acetaminophen ([place] 10/325 (Nf)) 1 tab PO Q6H PRN PRN Reason: PAIN Aspirin (Aspirin Ec Low Dose*) 81 mg PO DAILY [facility] Last Admin: 05/13/17 08:20 Dose: 81 mg Cinacalcet (Sensipar Tab*) 30 mg PO BEDTIME [facility] Last Admin: 05/12/17 20:22 Dose: 30 mg Device (Nicotine Mouth Piece*) 1 each INH .USE WITH NICOTROL PRN PRN Reason: CRAVING Last Admin: 05/10/17 16:56 Dose: 1 each Device (Nicotine Mouth Piece*) 1 each INH .USE WITH NICOTROL PRN PRN Reason: CRAVING Dextrose (D50w Syringe 50 Ml*) 12.5 gm IV PUSH .FOR FS < 60 - SS PRN PRN Reason: FS < 60 Diphenhydramine HCl (Benadryl Po*) 25 mg PO Q6H PRN PRN Reason: ITCHING Last Admin: 05/13/17 09:13 Dose: 25 mg Docusate Sodium (Colace Cap*) 100 mg PO DAILY [facility] Last Admin: 05/13/17 14:29 Dose: 100 mg Gabapentin (Neurontin Cap(*)) 100 mg PO BID [facility] Last Admin: 05/13/17 14:28 Dose: 100 mg Potassium Chloride (Potassium Chloride 10 Meq/50 Ml Ivpremix*) 10 meq in 50 mls @ 50 mls/hr IV Q1H [facility] Stop: 05/13/17 18:59 Insulin Human Lispro (Humalog*) 0 units SUBCUT ACHS [facility] PRN Reason: Protocol Last Admin: 05/13/17 12:01 Dose: Not Given Metoprolol Succinate (Toprol Xl Tab*) 50 mg PO BEDTIME [facility] Last Admin: 05/12/17 20:22 Dose: 50 mg Morphine Sulfate (Morphine Inj (Syringe)*) 2 mg IV Q3H PRN PRN Reason: PAIN - BREAKTHROUGH Last Admin: 05/13/17 14:30 Dose: 2 mg Nicotine (Nicotine Inhaler*) 10 mg INH Q2H PRN PRN Reason: CRAVING Last Admin: 05/12/17 16:07 Dose: 10 mg Nicotine (Nicotine Inhaler*) 10 mg INH Q2H PRN PRN Reason: CRAVING Nicotine (Nicotine Patch 21 Mg/24 Hr*) 1 patch TRANSDERM DAILY [facility] Last Admin: 05/13/17 08:20 Dose: 1 patch Omeprazole (Prilosec Cap*) 20 mg PO BID [facility] Ondansetron HCl (Zofran Inj*) 4 mg IV Q4H PRN PRN Reason: NAUSEA Last Admin: 05/13/17 12:41 Dose: 4 mg Pharmacy Profile Note (Nicotine Patch Removal Note*) 1 note PATCH OFF 2100 [facility] Senna (Senokot Tab*) 1 tab PO DAILY [facility] Last Admin: 05/13/17 14:29 Dose: 1 tab Ticagrelor (Brilinta*) 90 mg PO BID [facility] Last Admin: 05/13/17 08:20 Dose: 90 mg Vital Signs - 8 hr 05/13/17 05/13/17 05/13/17 07:30 07:32 07:33 Temperature Pulse Rate Respiratory 18 18 18 Rate Blood Pressure (mmHg) O2 Sat by Pulse Oximetry 05/13/17 05/13/17 05/13/17 07:50 08:20 09:13 Temperature 98.3 F Pulse Rate 72 Respiratory 16 18 16 Rate Blood Pressure 156/83 (mmHg) O2 Sat by Pulse 100 Oximetry 05/13/17 05/13/17 05/13/17 09:15 11:21 11:28 Temperature 98.2 F Pulse Rate 72 Respiratory 16 16 16 Rate Blood Pressure 139/78 (mmHg) O2 Sat by Pulse 100 Oximetry 05/13/17 05/13/17 05/13/17 11:34 12:40 14:28 Temperature Pulse Rate Respiratory 16 18 18 Rate Blood Pressure (mmHg) O2 Sat by Pulse Oximetry 05/13/17 14:30 Temperature Pulse Rate Respiratory 18 Rate Blood Pressure (mmHg) O2 Sat by Pulse Oximetry Oxygen Devices in Use Now: None Appearance: NAD, smiling. Eyes: No Scleral Icterus, PERRLA Ears/Nose/Mouth/Throat: NL Teeth, Lips, Gums Respiratory: Symmetrical Chest Expansion and Respiratory Effort, Clear to Auscultation Cardiovascular: NL Sounds; No Murmurs; No JVD, RRR Abdominal: - - referred tenderness to epigastric area. Extremities: No Edema, No Clubbing, Cyanosis Skin: - - exoriations diffusely. Neurological: Alert and Oriented x 3, NL Sensation, NL Muscle Strength and Tone Result Diagrams: 05/13/17 08:00 05/13/17 08:00 Additional Lab and Data: Laboratory Results - last 24 hr 05/12/17 05/12/17 05/13/17 17:37 19:57 07:27 WBC RBC Hgb Hct MCV MCH MCHC RDW Plt Count MPV Neut % (Auto) Lymph % (Auto) [place] % (Auto) Eos % (Auto) Baso % (Auto) Absolute Neuts (auto) Absolute Lymphs (auto) Absolute Monos (auto) Absolute Eos (auto) Absolute Basos (auto) Absolute Nucleated RBC Nucleated RBC % Sodium Potassium Chloride Carbon Dioxide Anion Gap BUN Creatinine Est GFR ( Amer) Est GFR (Non-Af Amer) BUN/Creatinine Ratio Glucose POC Glucose (mg/dL) 111 H 95 103 H Calcium Phosphorus 05/13/17 05/13/17 05/13/17 08:00 08:00 11:32 WBC 11.7 H RBC 3.13 L Hgb 9.7 L Hct 28 L MCV 90 MCH 31 MCHC 34 RDW 14 Plt Count 460 H MPV 7 L Neut % (Auto) 62.5 Lymph % (Auto) 23.9 L [place] % (Auto) 7.9 Eos % (Auto) 5.5 Baso % (Auto) 0.2 Absolute Neuts (auto) 7.3 Absolute Lymphs (auto) 2.8 Absolute Monos (auto) 0.9 H Absolute Eos (auto) 0.6 Absolute Basos (auto) 0 Absolute Nucleated RBC 0 Nucleated RBC % 0 Sodium 134 Potassium 2.9 L Chloride 98 L Carbon Dioxide 22 Anion Gap 14 H BUN 27 H Creatinine 10.60 H Est GFR ( Amer) 5.0 Est GFR (Non-Af Amer) 3.9 BUN/Creatinine Ratio 2.5 L Glucose 98 POC Glucose (mg/dL) 121 H Calcium 7.7 L Phosphorus 6.4 H Assess/Plan/Problems-Billing Assessment: 46yo female with a PMH for Recurrent idiopathic pancreatitis, ESRD on PD, HLD, HTN, IDDM II, CAD s/p stent, s/p cholecystectomy and GERD who presents with acute on chroinc pancreatitis. TG wnl. Previous w/u included multiple negative RENEE, negative IgG4. No new meds but is on statins which can cause pancreatitis. - Patient Problems (1) Pancreatitis Current Visit: No Status: Acute Code(s): K85.9 - ACUTE PANCREATITIS, UNSPECIFIED * DO NOT USE * SNOMED Code(s): 42369451 Comment: Recurrent pancreatitis. Idiopathic. Leukocytosis trending down, afebrile. Lipase trended down. Pain seems slowly improving but still wanting IV meds (now trial of morphine instead of fentanyl). clear liquids but pretty skittish to attempt much of anything Patient has chronic diarrhea outpatient with oily stool. Will add creon enzyme replacement as tolerates solids. Has never tried. Lipid panel with TG only 174. Has had negative RENEE and IgG4 in past. No new meds. stop IVF today. GI f/u with Danelle Braga on Monday05/16/17 CT abd/pelvis w/o e/o of psuedocyts or kidney stones. e/o calcifications and ascites. (2) CAD (coronary artery disease) Current Visit: No Status: Chronic Code(s): I25.10 - ATHSCL HEART DISEASE OF [place] CORONARY ARTERY W/O ANG PCTRS SNOMED Code(s): 05984840 Comment: s/p stent placement. Asymptomatic. Continue metoprolol 50mg po daily (home med) continue ASA 81mg daily and Brilinta BID. (3) ESRD on peritoneal dialysis Current Visit: No Status: Chronic Code(s): N18.6 - END STAGE RENAL DISEASE; Z99.2 - DEPENDENCE ON RENAL DIALYSIS SNOMED Code(s): 32300997 Comment: Continue PD daily. Normotensive. Monitor and replace electrolytes as needed. (4) Hypertension Current Visit: No Status: Chronic Code(s): I10 - ESSENTIAL (PRIMARY) HYPERTENSION SNOMED Code(s): 35284154 Comment: BP under good control. continue po metoprolol. (5) Type 2 diabetes mellitus Current Visit: No Status: Chronic Comment: FSBG ACHS. off lantus 9U due to hypoglycemia and poor po intake. continue SSI (6) HLD (hyperlipidemia) Current Visit: Yes Status: Acute Code(s): E78.5 - HYPERLIPIDEMIA, UNSPECIFIED SNOMED Code(s): 72858507 Comment: continue to hold home atorvastatin 10mg po daily. Status and Disposition: medicine inpatient. Attending: Michoacano Tom
[2017-05-13] MEDS: KCL 10 MEQ/50 ML IVPREMIX* 10 MEQ/50 ML BAG IV SCH ×4 (14:58→21:08)
[2017-05-13] MEDS ORDERED: hydrALAZINE IV* 20 MG/ML VIAL IV SLOW PU PRN (16:10)
[2017-05-13] MEDS ORDERED: Gabapentin CAP(*) 100 MG PO SCH (21:00)
[2017-05-13] MEDS ORDERED: Nicotine Patch Removal NOTE PATCH OFF SCH (21:00)
[2017-05-13] MEDS: Omeprazole CAP* 20 MG PO SCH (21:10)
[2017-05-13] MEDS: Metoprolol Succinate XL TAB* 50 MG PO SCH (21:10)
[2017-05-13] MEDS: Cinacalcet TAB* 30 MG PO SCH (22:07)
[2017-05-14 06:17] LABS: ABS Basophils 0.1 10^3/ul (0-0.2); ABS Eosinophils 0.7 10^3/ul (0-0.6); ABS Nucleated RBC 0 10^3/ul; Eosinophil % 6.6 % (0-6); Hematocrit 30 % (35-47); Hemoglobin 10.3 g/dl (12.0-16.0); Lymphocyte % 18.5 % (25-47); Mean Corpuscular HGB Conc 34 g/dl (31-36); Mean Corpuscular Hemoglobin 31 pg (27-31); Mean Corpuscular Volume 92 fL (80-97); Mean Platelet Volume 7 um3 (7.4-10.4); Nucleated Red Blood Cells % 0; Platelet Count 473 10^3/ul (150-450); Red Blood Count 3.29 10^6/ul (4.0-5.4); Red Cell Distribution Width 14 % (10.5-15); White Blood Count 10.7 10^3/ul (3.5-10.8)
[2017-05-14 06:28] LABS: EGFR Non-African American 4.2 (>60)
[2017-05-14] MEDS: Insulin LISPRO* 1 UNITS UNIT SUBCUT SCH ×2 (09:04→12:02)
[2017-05-14] MEDS: Ticagrelor* 90 MG TAB PO SCH (09:05)
[2017-05-14] MEDS: Aspirin EC Low Dose* 81 MG TAB.EC PO SCH (09:05)
[2017-05-14] MEDS: Gabapentin CAP(*) 100 MG PO SCH (09:05)
[2017-05-14] MEDS: Senna TAB PO SCH (09:05)
[2017-05-14] MEDS: Omeprazole CAP* 20 MG PO SCH (09:06)
[2017-05-14] MEDS: Docusate CAP* 100 MG PO SCH (09:06)
[2017-05-14] MEDS: Nicotine PATCH 21 MG/24 HR* PATCH TRANSDERM SCH (09:09)
[2017-05-14] MEDS ORDERED: Pancrelipase CAP* 5,000 UNITS CAP PO SCH (12:00)
[2017-05-14] MEDS: Morphine INJ* 2 MG/ML 1 ML SYRINGE (TWO MG - NEW SYRINGE VERSION) IV PRN (13:01)
[2017-05-14] MEDS: diPHENhydraMINE PO* 25 MG PO PRN (13:22)
[2017-05-14 14:40] VITALS: BP 147/77
--- NOTE | 2017-05-15 05:16 | DS ---
DISCHARGE SUMMARY: DATE OF ADMISSION: 05/09/17 DATE OF DISCHARGE: 05/14/17 ADMITTING PROVIDER: MART Vega. ATTENDING PHYSICIAN: Michoacano Tom MD. PRIMARY CARE DOCTOR: Jacob Pan MD. CHIEF COMPLAINT: Abdominal pain. PRINCIPAL DIAGNOSIS: [id number] pancreatitis, idiopathic. HISTORY OF PRESENT ILLNESS AND HOSPITAL COURSE: Mali Chavez is a 46-year-old female with PMH of recurrent idiopathic pancreatitis, end-stage renal disease, on peritoneal dialysis, insulin-dependent diabetes mellitus type 2, GERD, coronary artery disease, status post stent, hypertension, hyperlipidemia, history of uremic pericarditis, who presented with 1-day of pain in the upper abdomen, wrapping into her bilateral flanks and up in the chest. Denied fever or chills. She also had vomiting of yellow, oily material, with no food. She was unable to tolerate eating by mouth and had no appetite. Pain was severe and burning in nature. She had not been on any pancreatic enzyme replacement therapy. She had a significant number of oily loose stools with eating, and she does not moderate her diet in any way for her history of CAD, pancreatitis, or end-stage renal disease. She is a current smoker. She was found to have elevated lipase of 2360, white count of 17.4, afebrile, normotensive. She was admitted for [id number] pancreatitis. On May 12, she had a CT abdomen and pelvis without contrast, which showed inflammatory stranding surrounding the pancreas, favoring acute pancreatitis superimposed on stigmata of chronic pancreatitis. No peripancreatic retroperitoneal fluid collections were evident. No biliary dilatation was seen. She is status post cholecystectomy. No hydronephrosis or nephrolithiasis. She was put on a modest IV fluid rate given her end-stage renal disease, on peritoneal dialysis; required IV pain medications and Zofran. Pain slowly improved and was able to start tolerating clear liquid diet with sometimes the thought of solid foods made her cramping worse. She was very pruritic and had many excoriations on her skin similar to her previous episode, which have been attributed to hyperphosphatemia; here her phosphorus was 6.4, and she was continued on her Sensipar. She was given nicotine patch given her smoking history, continued on her Brilinta, gabapentin, and given Prilosec exchange for her home Nexium. She is being discharged with instructions to follow with Dr. Pan, and also had an already prearranged appointment on 05/16/17, with Shelley Braga NP., of the [facility]. The patient's lipid levels were checked, triglycerides were 174. The patient has had numerous workup for pancreatitis etiologies in the past, including negative RENEE and IgG for subclass levels. The patient was held on her atorvastatin 20 mg daily while in the hospital, which can rarely cause pancreatitis. She should discuss with Dr. Pan and Shelley Braga given the fact that she has had elevated triglycerides and cholesterol in the past, was recommended to continue it on discharge until further discussion. Her highest triglyceride level was in the 600s back in spring. DISCHARGE MEDICATIONS: Include: 1. Aspirin 81 mg daily. 2. Sensipar 30 mg p.o. q.h.s. 3. Metoprolol succinate 50 mg p.o. q.h.s. 4. Nicotine patch 20 mg daily. 5. Prilosec b.i.d. 6. Brilinta 9 mg p.o. daily. 7. Senna 1 tab p.o. daily p.r.n. 8. Lipitor 10 mg p.o. q.h.s. 9. Calcitriol 0.25 mcg p.o. daily. 10. Vitamin B12 1000 mcg sublingual daily. 11. Benadryl 50 mg p.o. q.h.s. 12. Colace 100 mg p.o. daily. 13. Gabapentin 100 mg p.o. b.i.d. (reduced from 200 mg p.o. b.i.d.) 14. Lantus 30 units subcutaneous q.h.s. (but holding until diet recovers). 15. Creon 1 capsule 6000 units t.i.d. 16. Ropinirole 0.5 mg p.o. b.i.d. 17. Sodium bicarbonate 650 mg p.o. b.i.d. DISCHARGE DIET: Urged to follow a heart-healthy, end-stage renal disease diet, with low fat. ACTIVITY LEVEL: No restrictions. FOLLOWUP: Please follow with Dr. Jacob Pan within 3 to 5 days of discharge and Shelley Braga NP., [facility] of [place], on 05/16/17. [id number]/CPS #: [id number] [facility]
== END 2017-05-14 14:00 | disposition home or self-care (01) | DRG 438 ==
LOC: ED 11:45 → MEDTELE 16:49
PROVIDERS: ADMIT Internal Medicine; ATTEND Internal Medicine
PROC: 3E1M39Z Irrigation of Peritoneal Cavity using Dialysate, Percutaneous Approach (ICD-10-PCS; principal; 2017-05-10)
DX: K85.00 Idiopathic acute pancreatitis without necrosis or infection (principal); N18.6 End stage renal disease; E11.22 Type 2 diabetes mellitus with diabetic chronic kidney disease; I13.11 Hypertensive heart and chronic kidney disease without heart failure, with stage 5 chronic kidney disease, or end stage renal disease; K86.1 Other chronic pancreatitis; K21.9 Gastro-esophageal reflux disease without esophagitis; I25.10 Atherosclerotic heart disease of native coronary artery without angina pectoris; E78.5 Hyperlipidemia, unspecified; F17.210 Nicotine dependence, cigarettes, uncomplicated; E83.39 Other disorders of phosphorus metabolism; E11.65 Type 2 diabetes mellitus with hyperglycemia; Z79.4 Long term (current) use of insulin; Z99.2 Dependence on renal dialysis; I25.2 Old myocardial infarction; Z95.5 Presence of coronary angioplasty implant and graft; Z79.82 Long term (current) use of aspirin; Z79.899 Other long term (current) drug therapy; Z88.8 Allergy status to other drugs, medicaments and biological substances; Z80.1 Family history of malignant neoplasm of trachea, bronchus and lung; Z80.51 Family history of malignant neoplasm of kidney; Z80.0 Family history of malignant neoplasm of digestive organs; Z80.8 Family history of malignant neoplasm of other organs or systems; Z83.3 Family history of diabetes mellitus; Z82.49 Family history of ischemic heart disease and other diseases of the circulatory system; E87.6 Hypokalemia
CPT/HCPCS: 36415; 74176; 80048; 80053; 80061; 83036; 83605; 83690; 83735; 84100; 84443; 85025; 86140; 90945; 93005; 99284; 99406; A9270-GY; G0257; J1200; J2270; J2405; J3010; J3480; J3490

== ENCOUNTER 2018-05-15 12:21 | Emergency (ER) | payer MEDICARE, OTHER ==
[2018-05-15 12:59] LABS: ABS Basophils 0.2 10^3/ul (0-0.2); ABS Eosinophils 0.2 10^3/ul (0-0.6); ABS Lymphocytes 2.6 10^3/ul (1.0-4.8); ABS Monocytes 0.8 10^3/ul (0-0.8); ABS Nucleated RBC 0 10^3/ul; Eosinophil % 1.5 %; Hematocrit 35 % (35-47); Hemoglobin 11.8 g/dl (12.0-16.0); Lymphocyte % 19.1 %; Mean Corpuscular HGB Conc 34 g/dl (31-36); Mean Corpuscular Hemoglobin 29 pg (27-31); Mean Corpuscular Volume 87 fL (80-97); Mean Platelet Volume 7.1 fL (7.4-10.4); Nucleated Red Blood Cells % 0; Platelet Count 522 10^3/ul (150-450); Red Blood Count 4.02 10^6/ul (4.00-5.40); Red Cell Distribution Width 15 % (10.5-15); White Blood Count 13.7 10^3/ul (3.5-10.8)
[2018-05-15] MEDS ORDERED: Albuterol/Ipratropium NEB.SOL* Albuterol 2.5 MG/Ipratropium 0.5 MG 3 ML INH ONE (13:13)
[2018-05-15] MEDS ORDERED: DOXYcycline CAP(*) 100 MG PO ONE (13:13)
[2018-05-15 13:21] LABS: Activated Partial Thrombo Time 30.1 seconds (26.0-36.3); INR 0.92 (0.77-1.02)
[2018-05-15 13:23] LABS: Albumin 4.1 g/dL (3.2-5.2); Albumin/Globulin Ratio 1.1 (1-3); BUN/Creatinine Ratio 3.8 (8-20); Calcium 9.4 mg/dL (8.6-10.3); EGFR Non-African American 3.5 (>60); Globulin 3.7 g/dL (2-4); Potassium 3.8 mmol/L (3.5-5.0); Total Bilirubin 0.4 mg/dL (0.2-1.0); Total Protein 7.8 g/dL (6.4-8.9)
--- NOTE | 2018-05-15 13:27 | ED ---
Shortness of Breath - HPI Summary HPI Summary: This patient is a 47 year old female presenting to the ED c/o SOB that began this morning. The patient states she felt mildly SOB this morning while in the shower and used 2L of O2 for a short amount of time which alleviated sx. She states she has not had to use her O2 in about a year. She is a dialysis patient and was sent down this morning due to her SOB. She has been receiving peritoneal dialysis for 5 years and states she does it at home and that her fluid has been clear. She has had DM since she was a teenager is not IDDM. She also c/o fever, chills, fatigue, and rhinorrhea. She denies recent illness, palpitations, cough, weight gain, and n/v/d. She does not make urine and was at dialysis this morning for fluid on her belly. She is a heavy smoker and smokes 2 PPD, additionally she states her last A1C was 6.4. NKDA. - History of Current Complaint Chief Complaint: EDShortnessOfBreath Time Seen by Provider: 05/15/18 12:58 Hx Obtained From: Patient Onset/Duration: Lasting Hours, Still Present Current Severity: Mild Alleviating Factors: Oxygen Associated Signs & Symptoms: Fever, Chills, Nasal Congestion - Allergy/Home Medications Allergies/Adverse Reactions: Allergies Allergy/AdvReac Type Severity Reaction Status Date / Time hydromorphone [From Dilaudid] Allergy Itching Verified 05/15/18 12:27 metformin Allergy Hives Verified 05/15/18 12:23 verapamil Allergy Hives Verified 05/15/18 12:27 PMH/Surg Hx/FS Hx/Imm Hx Endocrine/Hematology History: Reports: Hx Diabetes, Hx Anemia Denies: Hx Thyroid Disease - Denies Cardiovascular History: Reports: Hx Angina, Hx Congenital Heart Disease, Hx Congestive Heart Failure, Hx Coronary Artery Disease, Hx Hypercholesterolemia, Hx Hypertension, Hx Myocardial Infarction, Hx Peripheral Vascular Disease Denies: Hx Cardiac Arrest, Hx Pacemaker/ICD, Hx Valvular Heart Disease, Other Cardiovascular Problems/Disorders Respiratory History: Reports: Hx Chronic Bronchitis Denies: Hx Asthma, Hx Chronic Obstructive Pulmonary Disease (COPD) GI History: Reports: Hx Gall Bladder Disease, Hx Gastroesophageal Reflux Disease , Other GI Disorders - PANCREATITIS Denies: Hx Diverticulosis History: Reports: Hx Chronic Renal Failure, Hx Dialysis - ESRD WITH PD, Hx Renal Disease, Other Problems/Disorders Musculoskeletal History: Reports: Hx Arthritis, Hx Back Problems Denies: Other Musculoskeletal History Sensory History: Reports: Hx Contacts or Glasses Denies: Hx Eye Injury, Hx Glaucoma, Hx Vision Problem, Hx Hearing Aid Opthamlomology History: Reports: Hx Contacts or Glasses Denies: Hx Eye Injury, Hx Glaucoma, Hx Vision Problem Neurological History: Reports: Hx Migraine Denies: Hx Dementia, Hx Spinal Cord Injury, Hx Transient Ischemic Attacks ( TIA) Psychiatric History: Denies: Hx Panic Disorder, Hx Suicide Attempt - Cancer History Hx Chemotherapy: No Hx Radiation Therapy: No Hx Palliative Cancer Treatment: No - Surgical History Surgery Procedure, Year, and Place: 05/2011- GALLBLADDER REMOVED. PD CATHETER PLACEMENT. HEART STENT 06/08 Hx Anesthesia Reactions: No - Immunization History Date of Tetanus Vaccine: Up to date Date of Influenza Vaccine: 2012 Infectious Disease History: No Infectious Disease History: Denies: Hx Clostridium Difficile, Hx Hepatitis, Hx of Known/Suspected MRSA, Hx Shingles, Hx Tuberculosis, Hx Known/Suspected VRSA, Traveled Outside the [place] in Last 30 Days - Family History Known Family History: Positive: Cardiac Disease - Social History Lives: With Family Alcohol Use: None Hx Substance Use: No Substance Use Type: Reports: None Hx Tobacco Use: Yes Smoking Status (MU): Heavy Every Day Tobacco Smoker Type: Cigarettes Amount Used/How Often: 1-2 PPD Length of Time of Smoking/Using Tobacco: 23yrs Have You Smoked in the Last Year: Yes Review of Systems Positive: Fever, Chills, Fatigue Positive: Nasal Discharge Negative: Palpitations, Chest Pain Positive: Shortness Of Breath. Negative: Cough Gastrointestinal: Negative - weight gain Negative: Vomiting, Diarrhea, Nausea All Other Systems Reviewed And Are Negative: Yes Physical Exam - Summary Physical Exam Summary: Appearance: Well appearing, no pain distress Skin: warm, dry, reflects adequate perfusion Head/face: normal Eyes: EOMI, PINA ENT: clear nasal d/c. Neck: supple, non-tender, no JVD Respiratory: CTA, breath sounds present Cardiovascular: RRR, pulses symmetrical Abdomen: non-tender, soft, PE cath in LLQ, no significant ascites Bowel Sounds: present Musculoskeletal: normal, strength/ROM intact, no LE edema Neuro: normal, sensory motor intact, A&Ox3 Triage Information Reviewed: Yes Vital Signs On Initial Exam: Initial Vitals Temp Pulse Resp BP Pulse Ox 97.9 F 86 16 120/91 100 05/15/18 12:23 05/15/18 12:23 05/15/18 12:23 05/15/18 12:23 05/15/18 12:23 Vital Signs Reviewed: Yes Diagnostics - Vital Signs Vital Signs Temp Pulse Resp BP Pulse Ox 05/15/18 12:23 97.9 F 86 16 120/91 100 - Laboratory Lab Results: Lab Results 05/15/18 05/15/18 Range/Units 12:44 12:47 WBC 13.7 H (3.5-10.8) 10^3/ul RBC 4.02 (4.00-5.40) 10^6/ul Hgb 11.8 L (12.0-16.0) g/dl Hct 35 (35-47) % MCV 87 (80-97) fL MCH 29 (27-31) pg MCHC 34 (31-36) g/dl RDW 15 (10.5-15) % Plt Count 522 H (150-450) 10^3/ul MPV 7.1 L (7.4-10.4) fL Neut % (Auto) 72.7 % Lymph % (Auto) 19.1 % [place] % (Auto) 5.5 % Eos % (Auto) 1.5 % Baso % (Auto) 1.2 % Absolute Neuts (auto) 10.0 H (1.5-7.7) 10^3/ul Absolute Lymphs (auto) 2.6 (1.0-4.8) 10^3/ul Absolute Monos (auto) 0.8 (0-0.8) 10^3/ul Absolute Eos (auto) 0.2 (0-0.6) 10^3/ul Absolute Basos (auto) 0.2 (0-0.2) 10^3/ul Absolute Nucleated RBC 0 10^3/ul Nucleated RBC % 0 Influenza A (Rapid) Negative (Negative) Influenza B (Rapid) Negative (Negative) Result Diagrams: 05/15/18 12:44 05/15/18 12:44 Lab Statement: Any lab studies that have been ordered have been reviewed, and results considered in the medical decision making process. - Radiology CXR Radiology Interpretation Completed By: Radiologist Summary of Radiographic Findings: No active cardiopulmonary disease. ED physician has reviewed this report. Re-Evaluation - Re-Evaluation First Eval Re-Evaluation Time: 13:43 Change: Improved Comment: The patient feels better after breathing tx. Course/Dx - Course Course Of Treatment: Patient with history of end-stage renal disease with also history of dyspnea not diagnosis COPD. She does have home oxygen to use as needed and nebulizer. She was much improved here after nebulizers. She has not been checking blood sugars which are mildly elevated. She has not evidence for pulmonary edema or fluid overload. There is no infiltrate. She is discharged in good condition on nebulizers. Assessment/Plan: Nurses note reviewed. - Diagnoses Differential Diagnosis/HQI/PQRI: Positive: Bronchitis, CHF, COPD Exacerbation, Pneumonia Provider Diagnoses: Dyspnea, End stage renal disease on dialysis Discharge - Sign-Out/Discharge Documenting (check all that apply): Patient Departure - Discharge Plan Condition: Improved Disposition: HOME Prescriptions: Albuterol 2.5MG/3ML (0.083%)* [Ventolin 2.5 MG/3 ML NEB.KRISH*] 2.5 mg INH Q4H #1 box Doxycycline Hyclate 100 mg PO BID #20 tablet Patient Education Materials: Dyspnea (ED) Referrals: Jacob Pan MD [Primary Care Provider] - Additional Instructions: Oxygen as needed. Return with fever, increased difficulty breathing, worse, new symptoms or other concerns. Call your family doctor first thing in the morning to schedule prompt follow-up. - Billing Disposition and Condition Condition: IMPROVED Disposition: Home - Attestation Statements Document Initiated by Toni: Yes Documenting Scribe: Dur Call Provider For Whom Toni is Documenting (Include Credential): Mendez Duarte MD Scribe Attestation: Dru Wells scribed for Mendez Duarte MD on 05/15/18 at 1507. Scribe Documentation Reviewed: Yes Provider Attestation: The documentation as recorded by the Dru barber accurately reflects the service I personally performed and the decisions made by me, Mendez Duarte MD Status of Scribe Document: Viewed
[2018-05-15 14:04] VITALS: BP 135/83
== END 2018-05-15 14:03 | disposition home or self-care (01) ==
LOC: ED 12:21
DX: I12.0 Hypertensive chronic kidney disease with stage 5 chronic kidney disease or end stage renal disease (principal); N18.6 End stage renal disease; Z99.2 Dependence on renal dialysis; I50.9 Heart failure, unspecified; I25.10 Atherosclerotic heart disease of native coronary artery without angina pectoris; E78.00 Pure hypercholesterolemia, unspecified; I25.2 Old myocardial infarction; I73.9 Peripheral vascular disease, unspecified; F17.210 Nicotine dependence, cigarettes, uncomplicated; Z79.84 Long term (current) use of oral hypoglycemic drugs; D64.9 Anemia, unspecified
CPT/HCPCS: 36415; 71046; 80053; 83605; 84484; 85025; 85610; 85730; 87040; 99282; A9270-GY

== ENCOUNTER → 2018-05-18 12:37 | Emergency (ER) | payer MEDICARE, OTHER ==
[~2018-05-18 12:37] MED LIST: Ondansetron ODT TAB* 4 MG PO ONE; diPHENhydraMINE PO* 50 MG PO ONE; hydrOXYzine IM* 50 MG/ML VIAL IM ONE; predniSONE TAB* 20 MG PO ONE
--- NOTE | 2018-05-18 15:37 | ED ---
Neurological HPI - HPI Summary HPI Summary: A 47 y/o female accompanied by her presents to the ED c/o vomiting, nausea and itching. She has had these symptoms since Monday evening since she came home from [facility] ED. As per triage, "Pt states she thinks she is weak and dehydrated, states n/v since 05/15. Pt states she does Periteneal dialysis and last time was last night. Pt also states she feels like she can't get her air". According to the patient, she was the at [facility] ED the other day for breathing, however, it has not cleared up. She thinks she is having something like an allergic reaction as she is itching all over. She is also not vomiting and has nausea. She denies any sores, bumps, rash or diarrhea, but her itching feels like a bee sting and she has never had this before. She is on no medications. She has been taking her nebulizer except today. - History of Current Complaint Chief Complaint: EDGeneral Stated Complaint: SOB/POSS ALLERGIC REACTION Time Seen by Provider: 05/18/18 14:19 Hx Obtained From: Patient Onset/Duration: Sudden Onset, Started days ago, Still Present Timing: Constant Current Severity: None Number of Seizures: 0 Pain Intensity: 0 Pain Scale Used: 0-10 Numeric Character: Weak Syncope Timin Number of Episodes: 0 Aggravating: Nothing Alleviating: Nothing Associated Signs and Symptoms: Positive: Weakness, Nausea/Vomiting. Negative: Diarrhea - Additional Pertinent History Primary Care Physician: JOHN - Allergy/Home Medications Allergies/Adverse Reactions: Allergies Allergy/AdvReac Type Severity Reaction Status Date / Time doxycycline Allergy Itching Verified 05/18/18 19:13 hydromorphone [From Dilaudid] Allergy Itching Verified 05/18/18 14:15 metformin Allergy Hives Verified 05/18/18 14:15 verapamil Allergy Hives Verified 05/18/18 14:15 Home Medications: Home Medications Esomeprazole(NF) [NexIUM(NF)] 40 mg PO DAILY 05/18/18 [History Confirmed ] Metoprolol Tartrate [Lopressor] 50 mg PO DAILY 05/18/18 [History Confirmed 05/18] [place]-3 Fatty Acids/Fish Oil [[place] 3] 1 cap PO BID 05/18/18 [History Confirmed 05/18/18] Ondansetron ODT TAB* [Zofran 4 MG Odt TAB*] 8 mg PO Q12HR PRN 05/18/18 [History Confirmed 05/18/18] Potassium Chlor TAB* [Klor Con ER TAB*] 20 meq PO BID 05/18/18 [History Confirmed 05/18/18] Zolpidem Tartrate [Ambien] 10 mg PO SEE INSTRUCTIONS PRN 05/18/18 [History Confirmed 05/18/18] PMH/Surg Hx/FS Hx/Imm Hx Endocrine/Hematology History: Reports: Hx Diabetes, Hx Anemia Denies: Hx Thyroid Disease - Denies Cardiovascular History: Reports: Hx Angina, Hx Congenital Heart Disease, Hx Congestive Heart Failure, Hx Coronary Artery Disease, Hx Hypercholesterolemia, Hx Hypertension, Hx Myocardial Infarction, Hx Peripheral Vascular Disease Denies: Hx Cardiac Arrest, Hx Pacemaker/ICD, Hx Valvular Heart Disease, Other Cardiovascular Problems/Disorders Respiratory History: Reports: Hx Chronic Bronchitis Denies: Hx Asthma, Hx Chronic Obstructive Pulmonary Disease (COPD) GI History: Reports: Hx Gall Bladder Disease, Hx Gastroesophageal Reflux Disease , Other GI Disorders - PANCREATITIS Denies: Hx Diverticulosis History: Reports: Hx Chronic Renal Failure, Hx Dialysis - ESRD WITH PD, Hx Renal Disease, Other Problems/Disorders Musculoskeletal History: Reports: Hx Arthritis, Hx Back Problems Denies: Other Musculoskeletal History Sensory History: Reports: Hx Contacts or Glasses Denies: Hx Eye Injury, Hx Glaucoma, Hx Vision Problem, Hx Hearing Aid Opthamlomology History: Reports: Hx Contacts or Glasses Denies: Hx Eye Injury, Hx Glaucoma, Hx Vision Problem Neurological History: Reports: Hx Migraine Denies: Hx Dementia, Hx Spinal Cord Injury, Hx Transient Ischemic Attacks ( TIA) Psychiatric History: Denies: Hx Panic Disorder, Hx Suicide Attempt - Cancer History Hx Chemotherapy: No Hx Radiation Therapy: No Hx Palliative Cancer Treatment: No - Surgical History Surgery Procedure, Year, and Place: 05/2011- GALLBLADDER REMOVED. PD CATHETER PLACEMENT. HEART STENT 06/08 Hx Anesthesia Reactions: No - Immunization History Date of Tetanus Vaccine: Up to date Date of Influenza Vaccine: 2012 Infectious Disease History: No Infectious Disease History: Denies: Hx Clostridium Difficile, Hx Hepatitis, Hx of Known/Suspected MRSA, Hx Shingles, Hx Tuberculosis, Hx Known/Suspected VRSA, Traveled Outside the [place] in Last 30 Days - Family History Known Family History: Positive: Cardiac Disease - Social History Alcohol Use: None Hx Substance Use: No Substance Use Type: Reports: Marijuana Substance Use Comment - Amount & Last Used: evening Hx Tobacco Use: Yes Smoking Status (MU): Heavy Every Day Tobacco Smoker Type: Cigarettes Amount Used/How Often: 1-2 PPD Length of Time of Smoking/Using Tobacco: 23yrs Have You Smoked in the Last Year: Yes Review of Systems Negative: Fever, Chills Negative: Erythema Negative: Sore Throat Negative: Chest Pain Positive: Shortness Of Breath Positive: Vomiting, Nausea. Negative: Abdominal Pain, Diarrhea Negative: dysuria, hematuria Negative: Myalgia, Edema Skin: Other - NEGATIVE: SORES AND BUMPS. Negative: Rash Neurological: Other - NEGATIVE: DIZZINESS Positive: Weakness All Other Systems Reviewed And Are Negative: Yes Physical Exam - Summary Physical Exam Summary: Constitutional: Well-developed, Well-nourished, Alert. (-) Distressed Skin: Warm, Dry HENT: Normocephalic; Atraumatic Eyes: Conjunctiva normal Neck: Musculoskeletal ROM normal neck. (-) JVD, (-) Stridor, (-) Tracheal deviation Cardio: Rhythm regular, rate normal, Heart sounds normal; Intact distal pulses; The pedal pulses are 2+ and symmetric. Radial pulses are 2+ and symmetric. (-) Murmur Pulmonary/Chest wall: Effort normal. (-) Respiratory distress, (-) Wheezes, (-) Rales Abd: Soft, (-) epigastric tenderness, (-) Distension, (-) Guarding, (-) Rebound Musculoskeletal: (-) Edema Lymph: (-) Cervical adenopathy Neuro: Alert, Oriented x3 Psych: Mood and affect Normal Triage Information Reviewed: Yes Vital Signs On Initial Exam: Initial Vitals Temp Pulse Resp BP Pulse Ox 98.1 F 100 20 135/96 100 05/18/18 12:43 05/18/18 12:43 05/18/18 12:43 05/18/18 12:43 05/18/18 12:43 Vital Signs Reviewed: Yes Diagnostics - Vital Signs Vital Signs Temp Pulse Resp BP Pulse Ox 05/18/18 15:26 99.3 F 05/18/18 14:18 87 10 97 05/18/18 14:17 147/86 05/18/18 12:43 98.1 F 100 20 135/96 100 - Laboratory Result Diagrams: 05/18/18 17:06 05/18/18 17:06 Lab Statement: Any lab studies that have been ordered have been reviewed, and results considered in the medical decision making process. Re-Evaluation - Re-Evaluation First Eval Re-Evaluation Time: 19:00 Change: Unchanged Comment: PATIENT IS STILL ITCHING. Course/Dx - Course Course Of Treatment: A 47 y/o female accompanied by her presents to the ED c/o vomiting, nausea and itching. According to the patient, she was the at [facility] ED the other day for breathing, however, it has not cleared up. She thinks she is having something like an allergic reaction as she is itching all over. She is also not vomiting and has nausea. She denies any sores, bumps, rash or diarrhea, but her itching feels like a bee sting and she has never had this before. Physical examination was unremarkable. No laboratory scans were done. Hematology and Chemistry screens were done. No significant laboratory abnormalities were found except hyperglycemia of 140 mg/dL. In the ED course, the patient received Benadryl, Hydroxyzine, Zofran, and Deltasone. During re- evaluation, the patient indicated that she has Zofran at home. The patient agrees to Prednisone and Benadryl as she is still itching. The patient revealed multiple times that she would like to go home. The patients elevated WBC count is chronic. Patient reports respiratory symptoms has resolved. I suspect COPD exacerbation has been resolved from visit with Dr. Duarte. Patient will be discharged with a diagnosis of antibiotic rash. Patient will be sent home with prescriptions for Benadryl and Deltasone. She is to take medications as prescribed. Patient is advised to continue her Doxycycline. Patient is to follow up with primary care provider in 3 days. Patient is to return to the ED for any new or worsening symptoms. Patient is agreeable with this plan. - Diagnoses Provider Diagnoses: Antibiotic rash Discharge - Sign-Out/Discharge Documenting (check all that apply): Patient Departure - DISCHARGE - Discharge Plan Condition: Stable Disposition: HOME Prescriptions: diPHENhydraMINE PO* [Benadryl PO 50 MG CAP*] 50 mg PO Q6H PRN #20 cap PRN Reason: Itching predniSONE TAB* [Deltasone 20 MG TAB*] 20 mg PO DAILY #4 tab Patient Education Materials: Acute Rash (ED) Referrals: Jacob Pan MD [Primary Care Provider] - 3 Days Additional Instructions: FOLLOW UP WITH PRIMARY CARE PROVIDER IN 3 DAYS. CONTINUE DOXYCYCLINE. TAKE DELTASONE AND BENADRYL PRESCRIBED. RETURN TO THE ED FOR ANY NEW OR WORSENING SYMPTOMS. - Attestation Statements Document Initiated by Scribe: Yes Documenting Scribe: Jono Casiano Provider For Whom Scribe is Documenting (Include Credential): Aristeo Rogers MD Scribe Attestation: Jono Wells, scribed for Aristeo Rogers MD on 05/18/18 at 1915. Status of Scribe Document: Ready
[2018-05-18 17:17] LABS: Hematocrit 33 % (35-47); Hemoglobin 11.1 g/dl (12.0-16.0); Mean Corpuscular HGB Conc 34 g/dl (31-36); Mean Corpuscular Hemoglobin 29 pg (27-31); Mean Corpuscular Volume 87 fL (80-97); Mean Platelet Volume 7.1 fL (7.4-10.4); Platelet Count 461 10^3/ul (150-450); Red Blood Count 3.81 10^6/ul (4.00-5.40); Red Cell Distribution Width 14 % (10.5-15); White Blood Count 13.1 10^3/ul (3.5-10.8)
[2018-05-18 17:31] LABS: Albumin 3.7 g/dL (3.2-5.2); Albumin/Globulin Ratio 1.1 (1-3); BUN/Creatinine Ratio 4.1 (8-20); Calcium 9.1 mg/dL (8.6-10.3); EGFR African American 4.5 (>60); EGFR Non-African American 3.7 (>60); Globulin 3.4 g/dL (2-4); Potassium 3.9 mmol/L (3.5-5.0); Total Bilirubin 0.3 mg/dL (0.2-1.0); Total Protein 7.1 g/dL (6.4-8.9)
[2018-05-18 19:26] VITALS: BP 0/0
== END | disposition home or self-care (01) ==
LOC: ED 12:37
DX: R21 Rash and other nonspecific skin eruption (principal); R53.1 Weakness; R11.2 Nausea with vomiting, unspecified; F17.210 Nicotine dependence, cigarettes, uncomplicated; R06.02 Shortness of breath
CPT/HCPCS: 36415; 80053; 85027; 99283; A9270-GY; J3410; J7512

== ENCOUNTER 2018-05-31 14:27 | Observation (INO) | payer MEDICARE, OTHER ==
[2018-05-31] MEDS ORDERED: Metoclopramide IV* 5 MG/ML 2 ML VIAL IV ONE (14:59)
[2018-05-31] MEDS ORDERED: Meclizine TAB* 12.5 MG PO ONE (14:59)
[2018-05-31] MEDS ORDERED: NS 0.9% 500 ML* 500 ML IV ONE (14:59)
[2018-05-31] MEDS ORDERED: Nicotine PATCH 21 MG/24 HR* PATCH TRANSDERM ONE (15:00)
--- NOTE | 2018-05-31 15:00 | ED ---
GI/ HPI - HPI Summary HPI Summary: This patient is a 47 year old female presenting to [facility] with a CC of light headedness accompanied by nausea. Pt performs peritoneal dialysis at home and follows up with Dr. Abarca. She states she was seen in the ED on 05-28-18 for the same sx. For the last couple weeks the patient has had increased n/v/d and was given zofran by Dr Abarca, this did not work so the patient pt was given Reglan with relief. She currently has these sx with light headedness. She denies CP, SOB, and palpitations. She took Reglan at 1230 without relief. - History of Current Complaint Time Seen by Provider: 05/31/18 14:39 Stated Complaint: NAUSEA/LIGHT HEADED Hx Obtained From: Patient Onset/Duration: Started Days Ago, Still Present Timing: Constant Severity: Moderate Current Severity: Moderate Pain Intensity: 0 Associated Signs and Symptoms: Positive: Negative - fever, Nausea, Vomiting, Other: - light headedness - Additional Pertinent History Primary Care Physician: JOHN - Allergy/Home Medications Allergies/Adverse Reactions: Allergies Allergy/AdvReac Type Severity Reaction Status Date / Time doxycycline Allergy Itching Verified 05/31/18 14:45 hydromorphone [From Dilaudid] Allergy Itching Verified 05/31/18 14:45 metformin Allergy Hives Verified 05/31/18 14:45 verapamil Allergy Hives Verified 05/31/18 14:45 PMH/Surg Hx/FS Hx/Imm Hx Endocrine/Hematology History: Reports: Hx Diabetes, Hx Anemia Denies: Hx Thyroid Disease - Denies Cardiovascular History: Reports: Hx Angina, Hx Congenital Heart Disease, Hx Congestive Heart Failure, Hx Coronary Artery Disease, Hx Hypercholesterolemia, Hx Hypertension, Hx Myocardial Infarction, Hx Peripheral Vascular Disease Denies: Hx Cardiac Arrest, Hx Pacemaker/ICD, Hx Valvular Heart Disease, Other Cardiovascular Problems/Disorders Respiratory History: Reports: Hx Chronic Bronchitis Denies: Hx Asthma, Hx Chronic Obstructive Pulmonary Disease (COPD) GI History: Reports: Hx Gall Bladder Disease, Hx Gastroesophageal Reflux Disease , Other GI Disorders - PANCREATITIS Denies: Hx Diverticulosis History: Reports: Hx Chronic Renal Failure, Hx Dialysis - ESRD WITH PD, Hx Renal Disease, Other Problems/Disorders Musculoskeletal History: Reports: Hx Arthritis, Hx Back Problems Denies: Other Musculoskeletal History Sensory History: Reports: Hx Contacts or Glasses Denies: Hx Eye Injury, Hx Glaucoma, Hx Vision Problem, Hx Hearing Aid Opthamlomology History: Reports: Hx Contacts or Glasses Denies: Hx Eye Injury, Hx Glaucoma, Hx Vision Problem Neurological History: Reports: Hx Migraine Denies: Hx Dementia, Hx Spinal Cord Injury, Hx Transient Ischemic Attacks ( TIA) Psychiatric History: Denies: Hx Panic Disorder, Hx Suicide Attempt - Cancer History Hx Chemotherapy: No Hx Radiation Therapy: No Hx Palliative Cancer Treatment: No - Surgical History Surgery Procedure, Year, and Place: 05/2011- GALLBLADDER REMOVED. PD CATHETER PLACEMENT. HEART STENT 06/08 Hx Anesthesia Reactions: No - Immunization History Date of Tetanus Vaccine: Up to date Date of Influenza Vaccine: 2012 Infectious Disease History: No Infectious Disease History: Denies: Hx Clostridium Difficile, Hx Hepatitis, Hx of Known/Suspected MRSA, Hx Shingles, Hx Tuberculosis, Hx Known/Suspected VRSA, Traveled Outside the [place] in Last 30 Days - Family History Known Family History: Positive: Cardiac Disease - Social History Alcohol Use: Rare Hx Substance Use: No Substance Use Type: Reports: Marijuana Substance Use Comment - Amount & Last Used: evening Hx Tobacco Use: Yes Smoking Status (MU): Heavy Every Day Tobacco Smoker Type: Cigarettes Amount Used/How Often: 1-2 PPD Length of Time of Smoking/Using Tobacco: 23yrs Have You Smoked in the Last Year: Yes Review of Systems Negative: Palpitations, Chest Pain Negative: Shortness Of Breath Positive: Vomiting, Diarrhea, Nausea Neurological: Other - light headedness All Other Systems Reviewed And Are Negative: Yes Physical Exam - Summary Physical Exam Summary: VITAL SIGNS: Reviewed. GENERAL: Patient is a well-developed and nourished female who is lying comfortable in the stretcher. Patient is not in any acute respiratory distress. HEAD AND FACE: No signs of trauma. No ecchymosis, hematomas or skull depressions. No sinus tenderness. EYES: PERRLA, EOMI x 2, No injected conjunctiva, no nystagmus. EARS: Hearing grossly intact. Ear canals and tympanic membranes are within normal limits. MOUTH: Oropharynx within normal limits. NECK: Supple, trachea is midline, no adenopathy, no JVD, no carotid bruit, no c- spine tenderness, neck with full ROM. CHEST: Symmetric, no tenderness at palpation LUNGS: Clear to auscultation bilaterally. No wheezing or crackles. CVS: Regular rate and rhythm, S1 and S2 present, no murmurs or gallops appreciated. ABDOMEN: Soft, non-tender. No signs of distention. No rebound no guarding, and no masses palpated. Bowel sounds are normal. In lower ABD there is a peritoneal port EXTREMITIES: FROM in all major joints, no edema, no cyanosis or clubbing. NEURO: Alert and oriented x 3. No acute neurological deficits. Speech is normal and follows commands. SKIN: Dry and warm Triage Information Reviewed: Yes Vital Signs On Initial Exam: Initial Vitals Temp Pulse Resp BP Pulse Ox 98.8 F 98 14 153/86 100 05/31/18 14:43 05/31/18 14:43 05/31/18 14:43 05/31/18 14:43 05/31/18 14:43 Vital Signs Reviewed: Yes Diagnostics - Vital Signs Vital Signs Temp Pulse Resp BP Pulse Ox 05/31/18 14:43 98.8 F 98 14 153/86 100 - Laboratory Result Diagrams: 06/01/18 05:58 06/01/18 05:58 Lab Statement: Any lab studies that have been ordered have been reviewed, and results considered in the medical decision making process. - EKG 1611 Cardiac Rate: Tachycardia EKG Rhythm: Sinus Tachycardia - at 105 BPM Summary of EKG Findings: no st elevations, nml axis Re-Evaluation - Re-Evaluation First Eval Re-Evaluation Time: 18:38 Comment: I reviewed the CXR that the patient recieived on 05-28-18. CXR reveals, per radiology, No evidence for acute intrathoracic disease. Small volume of free air is noted beneath the RIGHT hemidiaphragm likely a normal. iatrogenic finding secondary to peritoneal dialysis. Correlate with clinical assessment. GIGU Course/Dx - Course Course Of Treatment: I reviewed the CXR that the patient recieived on 05-28-18. CXR reveals, per radiology, No evidence for acute intrathoracic disease. Small volume of free air is noted beneath the RIGHT hemidiaphragm likely a normal. iatrogenic finding secondary to peritoneal dialysis. Correlate with clinical assessment. Assessment/Plan: Blood work without any significant abnormality except for WBCs of 16.2, hemoglobin 9.9, hematocrit is 30 which is consistent with her usual anemia. 7 about 133, chloride 96, BUN is 34 and creatinine 9.15 similar to her usual end-stage renal disease. Glucose is 190. CRP is 19.7 which has significantly decreased from a previous visit 3 days ago. In the ED course the patient was given IV fluids, Zofran and Reglan for the nausea and vomiting. At this point I discussed my physical exam and findings with and Dr. Abarca and he recommends for the patient to be admitted to the hospital services and she will consult tomorrow morning. I discussed my physical exam and findings with and Dr. Solitario from the hospitalist services who accepted the patient for admission. Patient is hemodynamically stable alert oriented x3. - Diagnoses Provider Diagnoses: Intractable nausea and vomiting - Physician Notifications Discussed Care Of Patient With: Tyrell Abarca Time Discussed With Above Provider: 18:35 Instructed by Provider To: Other - He recommends admission Discharge - Sign-Out/Discharge Documenting (check all that apply): Patient Departure All imaging exams completed and their final reports reviewed: No Patient Received Moderate/Deep Sedation with Procedure: No - Discharge Plan Condition: Guarded Disposition: ADMITTED TO [facility] - Billing Disposition and Condition Condition: GUARDED Disposition: Admitted to [facility] - Attestation Statements Document Initiated by Toni: Yes Documenting Scribe: Dru Call Provider For Whom Vijaye is Documenting (Include Credential): Floyd Whaley MD Scribe Attestation: I, Dru Call , scribed for Floyd Whaley MD on 06/01/18 at 2052. Scribe Documentation Reviewed: Yes Provider Attestation: The documentation as recorded by the Dru barber accurately reflects the service I personally performed and the decisions made by me, Floyd Whaley MD Status of Scribe Document: Viewed Consult Consult: 184: I discussed patient care with Dr zhang and he has agreed to admit the patient
[2018-05-31 16:11] LABS: ABS Basophils 0.1 10^3/ul (0-0.2); ABS Eosinophils 0.3 10^3/ul (0-0.6); ABS Lymphocytes 3.9 10^3/ul (1.0-4.8); ABS Monocytes 1.1 10^3/ul (0-0.8); ABS Neutrophils 10.8 10^3/ul (1.5-7.7); ABS Nucleated RBC 0 10^3/ul; Eosinophil % 1.8 %; Hematocrit 30 % (35-47); Hemoglobin 9.9 g/dl (12.0-16.0); Mean Corpuscular HGB Conc 34 g/dl (31-36); Mean Corpuscular Hemoglobin 29 pg (27-31); Mean Corpuscular Volume 86 fL (80-97); Mean Platelet Volume 6.3 fL (7.4-10.4); Nucleated Red Blood Cells % 0.1; Platelet Count 473 10^3/ul (150-450); Red Blood Count 3.44 10^6/ul (4.00-5.40); Red Cell Distribution Width 14 % (10.5-15); White Blood Count 16.2 10^3/ul (3.5-10.8)
[2018-05-31 16:40] LABS: ALT 15 U/L (7-52); AST 12 U/L (13-39); Albumin 3.2 g/dL (3.2-5.2); Albumin/Globulin Ratio 1.2 (1-3); Alkaline Phosphatase 65 U/L (34-104); Amylase < 10 U/L (29-103); Anion Gap 10 mmol/L (2-11); BUN/Creatinine Ratio 3.7 (8-20); Blood Urea Nitrogen 34 mg/dL (6-24); C Reactive Protein 19.76 mg/L (<8.01); CO2 Carbon Dioxide 27 mmol/L (22-32); Calcium 8.6 mg/dL (8.6-10.3); Chloride 96 mmol/L (101-111); EGFR African American 5.6 (>60); EGFR Non-African American 4.6 (>60); Globulin 2.6 g/dL (2-4); Glucose 190 mg/dL (70-100); Magnesium 1.9 mg/dL (1.9-2.7); Potassium 3.9 mmol/L (3.5-5.0); Sodium 133 mmol/L (135-145); Total Protein 5.8 g/dL (6.4-8.9)
[2018-05-31] MEDS ORDERED: Ondansetron INJ* 2 MG/ML VIAL IV ONE (17:23)
[2018-05-31] MEDS ORDERED: Ondansetron INJ* 2 MG/ML VIAL IV PRN (19:26)
[2018-05-31] MEDS ORDERED: Magnesium Hydroxide LIQ* 30 ML UDC PO PRN (19:26)
[2018-05-31] MEDS ORDERED: Loperamide CAP* 2 MG PO PRN (19:31)
[2018-05-31] MEDS ORDERED: Albuterol HFA INHALER* 8 gm MDI INH PRN (19:31)
[2018-05-31] MEDS ORDERED: Zolpidem TAB* 10 MG PO PRN (19:31)
[2018-05-31] MEDS ORDERED: Metoclopramide IV* 5 MG/ML 2 ML VIAL IV PRN (19:35)
[2018-05-31] MEDS ORDERED: LORazepam TAB(*) 0.5 MG PO PRN (19:49)
[2018-05-31] MEDS ORDERED: Ondansetron INJ* 2 MG/ML VIAL IV SCH (20:00)
[2018-05-31] MEDS ORDERED: hydrALAZINE IV* 20 MG/ML VIAL IV SLOW PU PRN (20:33)
[2018-05-31] MEDS ORDERED: Dextrose 50% Syringe 50 ML* 25 GM/50 ML SYRINGE IV PUSH PRN (20:58)
[2018-05-31] MEDS: amLODIPine TAB* 5 MG PO SCH ×2 (21:00)
[2018-05-31] MEDS: Atorvastatin* 10 MG TAB PO SCH (21:01)
[2018-05-31] MEDS: Gabapentin CAP(*) 300 MG PO SCH (21:01)
[2018-05-31] MEDS: HYDROcodone/ACETAMIN 5-325 MG* 1 TAB PO PRN (21:02)
[2018-05-31] MEDS: diPHENhydraMINE PO* 50 MG PO PRN (21:02)
[2018-05-31] MEDS: Sodium Bicarbonate (ANTACID)* 650 MG TAB PO SCH (21:02)
[2018-05-31] MEDS: Loperamide CAP* 2 MG PO PRN (21:03)
[2018-05-31] MEDS: Potassium Chlor TAB* 20 MEQ TAB.ER PO SCH (21:03)
[2018-05-31] MEDS: Ticagrelor* 90 MG TAB PO SCH (21:03)
[2018-05-31] MEDS: Ropinirole TAB* 0.5 MG TAB PO SCH (21:03)
[2018-05-31] MEDS: Heparin VIAL(*) 5000 UNITS/ML VIAL (FIVE THOUSAND) SUBCUT SCH (21:04)
[2018-05-31] MEDS: Insulin LISPRO* 1 UNITS UNIT SUBCUT SCH (21:14)
[2018-05-31] MEDS: Cinacalcet TAB* 30 MG PO SCH (21:16)
--- NOTE | 2018-06-01 00:48 | HP ---
CC: Dr. Jacob Pan; Dr. Tyrell Abarca * ADMISSION HISTORY AND PHYSICAL: DATE OF ADMISSION: 05/31/18 PRIMARY CARE PROVIDER: Dr. Jacob Pan. ATTENDING FOR THIS ADMISSION: Dr. Zaidi.* (DICTATED BY MANFRED ELIZABETH NP) HEEL PRICKER: Dr. Tyrell Abarca. CHIEF COMPLAINT: Intractable nausea and vomiting. HISTORY OF PRESENT ILLNESS: This is a 47-year-old female patient who has had several visits to the ER in the past few days with a complaint of intractable nausea and vomiting. The patient states that she had received Reglan and some fluids in the emergency department twice and was discharged back to home; however, she still feels she is not able to hold on any food and continues with her symptoms. She also reports subjectively some diarrhea, but she does have soft stools at baseline. The patient does not make urine. She has an end- stage renal disease and on peritoneal dialysis. Again, the patient of Dr. Abarca. Because the patient has has had several visits to ER for the same symptoms, the emergency room reached out to Dr. Abarca, who recommended admission. For these reasons, we were asked to evaluate the patient. PAST MEDICAL HISTORY: 1. Inclusive of end-stage renal disease, on peritoneal dialysis since 2013. 2. Recurrent pancreatitis. 3. 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 4. History of GERD. 5. History of coronary artery disease with stenting. 6. History of hypertension. 7. History of hyperlipidemia. 8. Restless legs syndrome. PAST SURGICAL HISTORY: Cholecystectomy and insertion of PD catheter. HOME MEDICATIONS: Include: 1. Albuterol 2 puffs inhale q.6 hours as needed. 2. Norvasc 2.5 mg b.i.d. plus 10 mg at bedtime. 3. Aspirin 81 mg p.o. daily. 4. Lipitor 10 mg at bedtime. 5. Rocaltrol capsule 0.25 mcg p.o. daily. 6. Sensipar 30 mg p.o. at bedtime. 7. B12 1000 mcg p.o. daily. 8. Benadryl 50 mg p.o. q.6 hours as needed for itching. 9. Gabapentin 300 mg p.o. b.i.d. scheduled. 10. Glipizide 2.5 mg p.o. daily. 11. Ropinirole 0.5 mg at bedtime. 12. Bicarb 650 mg p.o. b.i.d. 13. Brilinta 90 mg p.o. b.i.d. 14. Zolpidem 10 mg p.o. at bedtime as needed. 15. K-Jess 20 mEq p.o. b.i.d. 16. Zofran 4 mg p.o. q.8 hours as needed. 17. [place]-3 fatty acids 1000 mg p.o. daily. 18. Metoprolol tartrate 50 mg p.o. in the evening. 19. Reglan 5 mg p.o. q.6 hours as needed. 20. Imodium 2 mg p.o. in the morning as needed. 21. [place] 5/325 1 tab p.o. q.6 hours as needed. 22. Nexium 40 mg p.o. daily. 23. Auryxia 1 g p.o. t.i.d. with meals. ALLERGIES: The patient states she has allergies to METFORMIN, DILAUDID, VERAPAMIL, and DOXYCYCLINE. FAMILY HISTORY: Father with lung cancer and diabetes. Mother also with diabetes, renal carcinoma, and brain cancer. Sister has lung and colon cancer. SOCIAL HISTORY: The patient is a 1 to 2 packs per day smoker for 23 years. The patient denies alcohol. States she smokes marijuana infrequently. She is currently disabled. Her partner, significant other, is her healthcare proxy. REVIEW OF SYSTEMS: The patient denies any fever, fatigue, or chills. She is complaining of intractable nausea. No current vomiting. Some soft stools. No headache. No chest pains and no further constitutional complaints. PHYSICAL EXAMINATION GENERAL: The patient is alert and not in any current distress. VITAL SIGNS: Blood pressure 177/103, heart rate 108, respiratory rate 16, O2 saturation 100% on room air; temperature 97.8. HEENT: The patient is atraumatic, normocephalic. PERRLA with nonicteric sclerae. Oral mucosa is dry. Tongue is midline. NECK: Supple, nontender. No JVD noted. No carotid bruits auscultated. No thyromegaly appreciated. LUNGS: Clear bilaterally with good air entry. No wheezing, rhonchi, or rales noted. CARDIOVASCULAR: S1, S2 present. Rate is tachycardic. Rhythm is regular. ABDOMEN: Soft, nontender, nondistended. Somewhat obese. Peritoneal dialysis catheter is in place. Dressing is dry and intact. : Deferred. MUSCULOSKELETAL: There is no clubbing, no cyanosis, and no edema. She has +2 distal pulses palpable. She is currently having some spasm-like pain. Tender to palpation, diffuse slightly across her lower extremities. NEUROLOGIC: Grossly intact with no focal deficits. PSYCHIATRIC: Cooperative and appropriate. DIAGNOSTIC STUDIES/LAB DATA: WBCs 16.2, RBCs 3.44, hemoglobin 9.9, hematocrit 30, platelets 473,000. Sodium 133, potassium 3.9, chloride 96, CO2 of 27, BUN 34, creatinine 9.15. GFR is 4.6, glucose 190, lactic acid 1.2, calcium 8.6, magnesium 1.9, bilirubin 0.30, AST 12, ALT 15, alk phos 65, CRP 19.76, BNP is 93 , total protein 5.8, albumin 3.2, globulin 2.6, albumin globulin ratio was 1.2. Amylase is less than 10, lipase is 29. Imaging: The patient did not have imaging at this visit. IMPRESSION: This is a 47-year-old female with a very complex medical history including end-stage renal disease, and coronary artery disease that presents with intractable nausea and vomiting. DIAGNOSES: 1. Intractable nausea, vomiting, and now diarrhea. Per the recommendation of Dr. Abarca, we have admitted the patient. She has received a small bolus of 500 mL of normal saline. We will alternate Zofran and Reglan IV, place her on clear liquid diet. We will advance her diet as tolerated and look to Dr. Abarca for any additional recommendations. 2. History of end-stage renal disease, on peritoneal dialysis. Again, consult has been placed for Dr. Abarca; however, she will have her peritoneal dialysis exchanged in the morning. We will continue her dialysis medications as ordered. 3. History of coronary artery disease with stenting. We will continue her Brilinta and her aspirin. 4. Diabetes mellitus type 2. The patient is currently not taking insulin at home. This will be clarified with her. It seems that at her last admission, she was taking long acting and sliding scale. For now, because the patient is only on clears, we will do Accu-Checks a.c. and h.s., and lispro sliding scale. I am more concerned about putting her on glargine if she is not eating. Again , monitor her blood glucose readings a.c. and h.s. 5. For history of gastroesophageal reflux disease, continue her PPI. 6. History of hypertension. The patient is currently taking metoprolol and amlodipine. She remains hypertensive. We have added hydralazine p.r.n. and we will continue to monitor. 7. Fluid, electrolytes, and nutrition. Again, she has received normal saline bolus. At this point, she does not appear dry. We will continue to give her clears as tolerated. 8. DVT prophylaxis. She will be placed on heparin subcu. 9. Code status: The patient is a full code. 10. Disposition: The patient will be admitted to observation stay. TIME SPENT: 60 minutes interfacing with patient and planning admission plan of care. This plan of care has been discussed with Dr. Zaidi, who is in agreement with the plan. MANFRED ELIZABETH, DIRECTOR OF MANUFACTURING OPERATIONS [id number]/CPS #: [id number] ZHENG
[2018-06-01] MEDS: Heparin VIAL(*) 5000 UNITS/ML VIAL (FIVE THOUSAND) SUBCUT SCH ×3 (04:51→23:35)
[2018-06-01] MEDS: HYDROcodone/ACETAMIN 5-325 MG* 1 TAB PO PRN ×3 (04:52→23:32)
[2018-06-01] MEDS: Loperamide CAP* 2 MG PO PRN (04:52)
[2018-06-01 06:07] LABS: ABS Basophils 0.1 10^3/ul (0-0.2); ABS Eosinophils 0.3 10^3/ul (0-0.6); ABS Lymphocytes 3.2 10^3/ul (1.0-4.8); ABS Monocytes 1.1 10^3/ul (0-0.8); ABS Neutrophils 11.6 10^3/ul (1.5-7.7); ABS Nucleated RBC 0 10^3/ul; Hematocrit 29 % (35-47); Hemoglobin 9.7 g/dl (12.0-16.0); Lymphocyte % 19.6 %; Mean Corpuscular HGB Conc 34 g/dl (31-36); Mean Corpuscular Hemoglobin 29 pg (27-31); Mean Corpuscular Volume 86 fL (80-97); Mean Platelet Volume 6.3 fL (7.4-10.4); Nucleated Red Blood Cells % 0; Platelet Count 460 10^3/ul (150-450); Red Blood Count 3.37 10^6/ul (4.00-5.40); Red Cell Distribution Width 14 % (10.5-15); White Blood Count 16.3 10^3/ul (3.5-10.8)
[2018-06-01 06:25] LABS: Albumin 2.9 g/dL (3.2-5.2); Albumin/Globulin Ratio 1.2 (1-3); BUN/Creatinine Ratio 3.7 (8-20); Calcium 8.7 mg/dL (8.6-10.3); EGFR African American 4.9 (>60); Globulin 2.4 g/dL (2-4); Potassium 4.7 mmol/L (3.5-5.0); Total Bilirubin 0.3 mg/dL (0.2-1.0); Total Protein 5.3 g/dL (6.4-8.9)
[2018-06-01] MEDS: Aspirin EC TAB* 81 MG TAB.EC PO SCH (08:03)
[2018-06-01] MEDS: Potassium Chlor TAB* 20 MEQ TAB.ER PO SCH ×2 (08:03→23:28)
[2018-06-01] MEDS: Sodium Bicarbonate (ANTACID)* 650 MG TAB PO SCH ×2 (08:03→23:28)
[2018-06-01] MEDS: Ticagrelor* 90 MG TAB PO SCH ×2 (08:03→23:30)
[2018-06-01] MEDS: Pantoprazole TAB * 40 MG TAB PO SCH (08:03)
[2018-06-01] MEDS: Cyanocobalamin TAB* 500 MCG PO SCH (08:04)
[2018-06-01] MEDS: Gabapentin CAP(*) 300 MG PO SCH ×2 (08:04→23:33)
[2018-06-01] MEDS: diPHENhydraMINE PO* 50 MG PO PRN ×2 (08:04→23:32)
[2018-06-01] MEDS: FERRIC CITRATE 210 MG PO SCH ×4 (08:04→17:40)
[2018-06-01] MEDS: amLODIPine TAB* 5 MG PO SCH ×3 (08:18→23:34)
[2018-06-01] MEDS: glipiZIDE TAB.XL* 2.5 MG PO SCH (08:18)
[2018-06-01] MEDS: Calcitriol CAP* 0.25 MCG PO SCH (08:18)
[2018-06-01] MEDS: Insulin LISPRO* 1 UNITS UNIT SUBCUT SCH ×4 (08:29→23:34)
[2018-06-01] MEDS: Nicotine PATCH 21 MG/24 HR* PATCH TRANSDERM SCH (11:30)
--- NOTE | 2018-06-01 12:22 | PN ---
Subjective Date of Service: 06/01/18 Interval History: Pt continues to have diarrhea, but states that it is resolved with immodium. She states that her stools are regularly loose and are black to brown. Nausea x1 today, but was relieved with IV medication. Has not vomited [id number]. She was able to eat and keep down jello this morning. Denies CP, SOB, pain in extremities, swelling. She denies abdominal pain and states that her peritoneal dialysis fluid has been clear recently. She denies exposure to ill contacts and denies recent travel. Pt relays that sister at age 49 of colon cancer. Pt saw Dr. Lindsey in the past for diarrhea and had sigmoidoscopy. Pt has h/o chronic pancreatitis and take Creon prn. Spoke with Dr. Abarca regarding peritoneal fluid sample, which revealed + culture with gram positive bacilli. He states that this could be anthrax peritonitis, c perfringes peritonitis, or juan bacterium, although all of this are very unlikely. White cell count was 400, 38% lymph. He states that diabetic gastroparesis is higher on the differential than peritonitis. Objective Active Medications: Hydrocodone Bitart/Acetaminophen ([place] 5-325 Tab*) 1 tab PO Q6H PRN Albuterol (Ventolin Hfa Inhaler*) 2 puff INH Q6H PRN Amlodipine Besylate (Norvasc Tab*) 2.5 mg PO BID EMILY Amlodipine Besylate (Norvasc Tab*) 10 mg PO BEDTIME EMILY Aspirin (Aspirin Ec Tab*) 81 mg PO DAILY SCHg Atorvastatin Calcium (Lipitor*) 10 mg PO BEDTIME EMILY Calcitriol (Rocaltrol Cap*) 0.25 mcg PO DAILY EMILY Cinacalcet (Sensipar Tab*) 30 mg PO BEDTIME EMILY Cyanocobalamin (Vitamin B12 Tab*) 1,000 mcg PO DAILY EMILY Dextrose (D50w Syringe 50 Ml*) 12.5 gm IV PUSH .FOR FS < 60 - SS PRN Diphenhydramine HCl (Benadryl Po*) 50 mg PO Q6H PRN Ferric Citrate (Ferric Citrate Tab(Nf)) 210 mg PO TID WITH MEALS EMILY Gabapentin (Neurontin Cap(*)) 300 mg PO BID EMILY Glipizide (Glucotrol Xl*) 2.5 mg PO DAILY EMILY Heparin Sodium (Porcine) (Heparin Vial(*)) 5,000 units SUBCUT Q8HR EMILY Hydralazine HCl (Apresoline Iv*) 5 mg IV SLOW PU Q6H PRN Insulin Human Lispro (Humalog*) 0 units SUBCUT ACHS EMILY; Protocol Loperamide HCl (Imodium Cap*) 2 mg PO Q6H PRN Lorazepam (Ativan Tab(*)) 0.5 mg PO Q8H PRN Magnesium Hydroxide (Milk Of Magnesia Liq*) 30 ml PO Q4H PRN Metoclopramide HCl (Reglan Iv*) 5 mg IV Q6H PRN Metoprolol Tartrate (Lopressor Tab*) 50 mg PO QPM EMILY Nicotine (Nicotine Patch 21 Mg/24 Hr*) 1 patch TRANSDERM DAILY EMILY Ondansetron HCl (Zofran Inj*) 4 mg IV Q4H PRN Pantoprazole Sodium (Protonix Tab*) 40 mg PO DAILY EMILY; Protocol Pharmacy Profile Note (Nicotine Patch Removal Note*) 1 note FOLLOW UP 2100 EMILY Potassium Chloride (Klor Con Er Tab*) 20 meq PO BID EMILY Ropinirole HCl (Requip Tab*) 0.5 mg PO BEDTIME EMILY Sodium Bicarbonate (Sodium Bicarbonate (Antacid)*) 650 mg PO BID EMILY Ticagrelor (Brilinta*) 90 mg PO BID EMILY Zolpidem Tartrate (Ambien Tab*) 10 mg PO BEDTIME PRN Vital Signs: Temp Pulse Resp BP Pulse Ox 98.5 F 91 18 149/80 100 06/01/18 11:44 06/01/18 11:44 06/01/18 11:44 06/01/18 11:44 06/01/18 11:44 Oxygen Devices in Use Now: None Appearance: Pt is sitting up in bed resting. She appears well. She is receiving peritoneal dialysis at the time of interview. She is in no acute distress. Eyes: No Scleral Icterus, PERRLA Ears/Nose/Mouth/Throat: NL Teeth, Lips, Gums, Clear Oropharnyx, Mucous Membranes Moist Neck: NL Appearance and Movements; NL JVP, Trachea Midline Respiratory: Symmetrical Chest Expansion and Respiratory Effort, Clear to Auscultation Cardiovascular: NL Sounds; No Murmurs; No JVD, RRR, No Edema Abdominal: NL Sounds; No Tenderness; No Distention, No Hepatosplenomegaly, - - LLQ access site for peritoneal dialysis in place. Extremities: No Edema, No Clubbing, Cyanosis, - - Radial pulses weak b/l, pedal pulses 2+ b/l. Neurological: Alert and Oriented x 3 Result Diagrams: 06/01/18 05:58 06/01/18 05:58 Assess/Plan/Problems-Billing Assessment: Pt is a 47yof with PMHx ESRD, recurrent pancreatitis, DM, GERD, CAD with stend, HTN, HLD, and RLS who is admitted for nausea, vomiting, diarrhea. - Patient Problems (1) Nausea & vomiting Comment: -No vomiting x24h, nausea controlled with rx; white count elevated, but appears to be pt's baseline. Differential is ggastroenteritis, diabetic gastroparesis. Bacterial peritonitis unlikely- see History section of this note re: discussion w/Dr. Abarca -Advance diet- renal, low residue -Continue to monitor (2) Diarrhea Comment: -FOB test ordered for personal h/o black stools and FHx colon cancer -Restart Creon with meals (3) End stage renal disease Comment: -Peritoneal dialysis today (4) Diabetes mellitus Comment: -High 179 -Continue glipizide, humalog (5) Hypertension Comment: -BP moderately elevated, SBP high of 149 in last 12h -Continue metoprolol, amlodipine (6) GERD (gastroesophageal reflux disease) Comment: -Protonix (7) DVT prophylaxis Comment: -Heparin SQ (8) Full code status Status and Disposition: Observation. Discharge once medically stable.
[2018-06-01] MEDS: PANCRELIPASE 6000 UNIT PO SCH (17:40)
[2018-06-01] MEDS ORDERED: Metoprolol Tartrate TAB* 50 mg PO SCH (18:00)
[2018-06-01] MEDS ORDERED: Nicotine Patch Removal NOTE FOLLOW UP SCH (21:00)
[2018-06-01] MEDS: Ropinirole TAB* 0.5 MG TAB PO SCH (23:27)
[2018-06-01] MEDS: Cinacalcet TAB* 30 MG PO SCH (23:27)
[2018-06-01] MEDS: Atorvastatin* 10 MG TAB PO SCH (23:31)
[2018-06-02] MEDS: Heparin VIAL(*) 5000 UNITS/ML VIAL (FIVE THOUSAND) SUBCUT SCH (06:07)
[2018-06-02 07:24] VITALS: BP 122/53
[2018-06-02] MEDS: Insulin LISPRO* 1 UNITS UNIT SUBCUT SCH (07:24)
[2018-06-02] MEDS: Nicotine PATCH 21 MG/24 HR* PATCH TRANSDERM SCH (08:45)
[2018-06-02] MEDS: FERRIC CITRATE 210 MG PO SCH (08:45)
[2018-06-02] MEDS: Cyanocobalamin TAB* 500 MCG PO SCH (08:46)
[2018-06-02] MEDS: Gabapentin CAP(*) 300 MG PO SCH (08:46)
[2018-06-02] MEDS: amLODIPine TAB* 5 MG PO SCH (08:46)
[2018-06-02] MEDS: Ticagrelor* 90 MG TAB PO SCH (08:46)
[2018-06-02] MEDS: Potassium Chlor TAB* 20 MEQ TAB.ER PO SCH (08:46)
[2018-06-02] MEDS: Pantoprazole TAB * 40 MG TAB PO SCH (08:46)
[2018-06-02] MEDS: Sodium Bicarbonate (ANTACID)* 650 MG TAB PO SCH (08:46)
[2018-06-02] MEDS: Calcitriol CAP* 0.25 MCG PO SCH (08:46)
[2018-06-02] MEDS: glipiZIDE TAB.XL* 2.5 MG PO SCH (08:47)
[2018-06-02] MEDS: PANCRELIPASE 6000 UNIT PO SCH (08:47)
[2018-06-02] MEDS: Aspirin EC TAB* 81 MG TAB.EC PO SCH (08:47)
--- NOTE | 2018-06-02 12:52 | DS ---
CC: Dr. Pan; Dr. Abarca; Dr. Garzon, Gastroenterology, [place]; Dr. Howard * DISCHARGE SUMMARY: DATE OF ADMISSION: 05/31/18 DATE OF DISCHARGE: 06/02/18 PRIMARY CARE PROVIDER: Dr. Pan. DISCHARGE DIAGNOSIS: Intractable nausea, vomiting, and diarrhea as well as abdominal pain likely due to gastroenteritis. SECONDARY DIAGNOSES: 1. History of end-stage renal disease with peritoneal dialysis. 2. History of recurrent idiopathic pancreatitis with subsequent pancreatic deficiency. 3. History of diabetes type 2. 4. Gastroesophageal reflux disease. 5. Coronary artery disease with stenting in the past. 6. Hypertension. 7. Hyperlipidemia. 8. History of uremic pancreatitis in the past. 9. The patient has peritoneal dialysis catheter in place. 10. The patient is status post cholecystectomy. MEDICATIONS AT DISCHARGE: Unchanged from admission apart from addition of nicotine patch. 1. Nicotine patch 21 mg transdermally daily. 2. Albuterol 2 inhalations every 6 hours p.r.n. 3. Norvasc 10 mg at bedtime and 2.5 mg b.i.d. 4. Aspirin 81 mg daily. 5. Lipitor 10 mg daily. 6. Auryxia 1 g 3 times a day with meals. 7. Sensipar 30 mg at bedtime. 8. Calcitriol 0.25 mcg daily. 9. Vitamin B12 1000 mcg daily. 10. Benadryl on a p.r.n. basis. 11. Nexium 40 mg daily. 12. Gabapentin 300 mg b.i.d. 13. Glipizide XL 2.5 mg daily. 14. Hydrocodone/acetaminophen 5/325 mg 1 tablet every 6 hours p.r.n. 15. Imodium 2 mg on a p.r.n. basis. 16. Metoprolol tartrate 50 mg q.p.m. 17. [place]-3 fatty acids 1000 mg daily. 18. Potassium chloride 20 mEq b.i.d. 19. ReQuip 0.5 mg at bedtime. 20. Sodium bicarbonate 650 mg b.i.d. 21. Brilinta 90 mg b.i.d. 22. Ambien 10 mg at bedtime. 23. Zofran ODT 4 mg every 8 hours p.r.n. The patient is also recommended to continue her pancrelipase/pancreatic enzyme supplement as previously taken at home. The patient does not remember the doses of the pancrelipase she was on at 3 times a day. LABORATORY DATA PERFORMED DURING THE HOSPITAL STAY: Included white blood cell count of 16.3, hemoglobin of 9.7, hematocrit of 29, and platelets of 460. Sodium 133, potassium 4.7, chloride 98, carbon dioxide 38, creatinine of 10.3. Liver function tests, AST of 10, ALT of 14, alkaline phosphatase of 70. The patient's lipase was 29 at admission. Microbiology studies was stool occult blood that was positive. HOSPITAL COURSE: Mali Chavez is a 47-year-old female with a history of end- stage renal disease, on peritoneal dialysis, who presented to the hospital complaining of nausea, vomiting, and diarrhea. The patient stated that initially she came into the hospital because "she couldn't breath" and that was approximately a week prior. She was prescribed an antibiotic and inhaler. She did well with that, but subsequently she developed nausea, vomiting, diarrhea, and some abdominal pain and that was on 05/28/18. She came back to the emergency department on 05/31/18 complaining of the same problems, and at the point, she was admitted. As per my discussion with Dr. Abarca, the patient had peritoneal fluid aspirated into several specimen bottles within the past week for analysis and cultures. That was performed at [facility]. One of the bottles was positive for gram-positive rods. The differential of the peritoneal fluid noted to have approximately 400 total of wbc's with 38% lymphocytes. The differential at that point included contamination or one of commensal organisms. The patient was admitted to the hospital and treated conservatively with antiemetics and intravenous fluids. She did well with her diarrhea resolving and she tolerated full renal diet by the time of discharge. On the day of discharge, her stool occult came back positive for blood. The patient denied any problems with melena or bright red blood per rectum. She did notice that her anus was very "sore" from profuse diarrhea and that she could have some mucosal injury there. The patient's hemoglobin and hematocrit remained stable throughout her hospital stay. Her hemoglobin overall ranges between 9 and 10 and that had been stable. At this point, the patient also is planning to follow up with Dr. Garzon from [place] for gastroenterology evaluation. She is not interested in any further procedures at this point. The patient is going to be discharged home with recommendation to follow up with Dr. Garzon. She is to come back to the hospital if her stool becomes black or bloody or any other worrisome symptoms develop. The patient also recommended to follow up with Dr. Abarca in regards to the patient's peritoneal fluid cultures next week. I asked for the patient to also follow up with Dr. Howard, but that will have to be in conjunction with the peritoneal fluid cultures resolving by that point. Once again, the patient is also recommended to follow up with Dr. Garzon. PHYSICAL EXAMINATION: At the time of discharge, blood pressure of 122/53, heart rate of 76 and regular, respiratory rate 18, oxygen saturation 100% on room air, temperature 98.2. General: The patient is a very pleasant 47-year- old female who is in no acute distress. Alert, awake, and oriented x3. HEENT: Head: Atraumatic, normocephalic. Eyes: Pupils equal, reactive to light and accommodation. Oropharynx is clear. Mucosa moist. Neck: Supple. No JVD. No bruits bilaterally. Cardiovascular: Regular rate and rhythm. No murmur. Respiratory: Clear to auscultation bilaterally. Abdomen: Soft, nontender. Bowel sounds are present in all 4 quadrants. Dialysis catheter in place with no evidence of skin infection at the point of insertion. Extremities: There is no edema. Pulses are +2 bilaterally. No clubbing or cyanosis. On neuro evaluation, speech is clear. Cranial nerves II through XII grossly intact. Motor strength is 5/5 bilaterally. Please note that this is a short summary of the patient's hospitalization. Please refer to further medical records for details. TIME SPENT: Approximately 40 minutes was spent on the patient's discharge. [id number]/[facility] #: [id number] [facility]
== END 2018-06-02 11:55 | disposition home or self-care (01) ==
LOC: ED 14:27 → MED 19:26
PROVIDERS: ADMIT Internal Medicine; ATTEND Internal Medicine
DX: R11.2 Nausea with vomiting, unspecified (principal); R19.7 Diarrhea, unspecified; R10.9 Unspecified abdominal pain; N18.6 End stage renal disease; Z99.2 Dependence on renal dialysis; K86.1 Other chronic pancreatitis; E11.9 Type 2 diabetes mellitus without complications; I25.10 Atherosclerotic heart disease of native coronary artery without angina pectoris; Z95.5 Presence of coronary angioplasty implant and graft; E78.5 Hyperlipidemia, unspecified; Z90.49 Acquired absence of other specified parts of digestive tract; Z79.82 Long term (current) use of aspirin; F17.210 Nicotine dependence, cigarettes, uncomplicated; K21.9 Gastro-esophageal reflux disease without esophagitis; R63.0 Anorexia; I50.9 Heart failure, unspecified; I11.0 Hypertensive heart disease with heart failure; E78.00 Pure hypercholesterolemia, unspecified; I25.2 Old myocardial infarction; I73.9 Peripheral vascular disease, unspecified
CPT/HCPCS: 36415; 80053; 82150; 82272; 83605; 83690; 83735; 83880; 85025; 85730; 86140; 93005; 96372; 96374; 96375; 99284; 99406; A9270-GY; G0378; J1644; J2405; J2765

== ENCOUNTER 2018-06-17 13:57 | Inpatient (IN) | payer MEDICARE, MEDICAID ==
--- NOTE | 2018-06-17 14:56 | ED ---
GI/ HPI - HPI Summary HPI Summary: This patient is a 47 year old F presenting to [facility] accompanied by a male with a chief complaint of weakness since one month ago. Patient reports dark-colored urine, pus-like discharge from dialysis bag, decreased appetite, dehydration, nausea, diffuse abdominal pain, nasal discharge, productive cough, chills, fever , diarrhea, and muscle spasms in the bilateral legs. The patient has dialysis every day and had it earlier today. She is currently carrying the fluid in her body and normally releases it in the evening. The patient has been into the ED several times for these symptoms. The patient gets bloodwork done every couple of weeks. Vitals in the room: HR 97 bpm BP 118/98. - History of Current Complaint Chief Complaint: EDWeakness Time Seen by Provider: 06/17/18 14:22 Stated Complaint: WEAK, LIGHT HEADED Hx Obtained From: Patient Onset/Duration: Started Weeks Ago - 4 Timing: Constant Pain Intensity: 0 Location of Pain: Diffuse Associated Signs and Symptoms: Positive: Weakness, Nausea, Diarrhea, Fever, Change in Appetite, Chills, Abdominal Pain, Cough - Additional Pertinent History Primary Care Physician: JOHN - Allergy/Home Medications Allergies/Adverse Reactions: Allergies Allergy/AdvReac Type Severity Reaction Status Date / Time doxycycline Allergy Itching Verified 05/31/18 14:45 hydromorphone [From Dilaudid] Allergy Itching Verified 05/31/18 14:45 metformin Allergy Hives Verified 05/31/18 14:45 verapamil Allergy Hives Verified 05/31/18 14:45 PMH/Surg Hx/FS Hx/Imm Hx Endocrine/Hematology History: Reports: Hx Diabetes, Hx Anemia Denies: Hx Thyroid Disease - Denies Cardiovascular History: Reports: Hx Angina, Hx Congenital Heart Disease, Hx Congestive Heart Failure, Hx Coronary Artery Disease, Hx Hypercholesterolemia, Hx Hypertension, Hx Myocardial Infarction, Hx Peripheral Vascular Disease Denies: Hx Cardiac Arrest, Hx Pacemaker/ICD, Hx Valvular Heart Disease, Other Cardiovascular Problems/Disorders Respiratory History: Reports: Hx Chronic Bronchitis Denies: Hx Asthma, Hx Chronic Obstructive Pulmonary Disease (COPD) GI History: Reports: Hx Gall Bladder Disease, Hx Gastroesophageal Reflux Disease , Other GI Disorders - PANCREATITIS Denies: Hx Diverticulosis History: Reports: Hx Chronic Renal Failure, Hx Dialysis - ESRD WITH PD, Hx Renal Disease, Other Problems/Disorders Musculoskeletal History: Reports: Hx Arthritis, Hx Back Problems Denies: Other Musculoskeletal History Sensory History: Reports: Hx Contacts or Glasses Denies: Hx Eye Injury, Hx Glaucoma, Hx Vision Problem, Hx Hearing Aid Opthamlomology History: Reports: Hx Contacts or Glasses Denies: Hx Eye Injury, Hx Glaucoma, Hx Vision Problem Neurological History: Reports: Hx Migraine Denies: Hx Dementia, Hx Spinal Cord Injury, Hx Transient Ischemic Attacks ( TIA) Psychiatric History: Denies: Hx Panic Disorder, Hx Suicide Attempt - Cancer History Hx Chemotherapy: No Hx Radiation Therapy: No Hx Palliative Cancer Treatment: No - Surgical History Surgery Procedure, Year, and Place: 05/2011- GALLBLADDER REMOVED. PD CATHETER PLACEMENT. HEART STENT 06/08 Hx Anesthesia Reactions: No - Immunization History Date of Tetanus Vaccine: Up to date Date of Influenza Vaccine: 2012 Infectious Disease History: No Infectious Disease History: Denies: Hx Clostridium Difficile, Hx Hepatitis, Hx of Known/Suspected MRSA, Hx Shingles, Hx Tuberculosis, Hx Known/Suspected VRSA, Traveled Outside the [place] in Last 30 Days - Family History Known Family History: Positive: Cardiac Disease - Social History Alcohol Use: Rare Hx Substance Use: No Substance Use Type: Reports: Marijuana Substance Use Comment - Amount & Last Used: evening Hx Tobacco Use: Yes Smoking Status (MU): Heavy Every Day Tobacco Smoker Type: Cigarettes Amount Used/How Often: 1-2 PPD Length of Time of Smoking/Using Tobacco: 23yrs Have You Smoked in the Last Year: Yes Review of Systems Positive: Fever, Chills Positive: Nasal Discharge Positive: Cough - productive Positive: Abdominal Pain, Diarrhea, Nausea Positive: discharge - dialysis bag, pus, other - dark urine, dehydration Neurological: Other - muscle spasms, legs All Other Systems Reviewed And Are Negative: Yes Physical Exam - Summary Physical Exam Summary: Appearance: The patient is well-nourished in no acute distress and in no acute pain. Skin: The skin is warm and dry and skin color reflects adequate perfusion. HEENT: The head is normocephalic and atraumatic. The pupils are equal and reactive. The conjunctivae are clear and without drainage. Nares are patent and without drainage. Mouth reveals moist mucous membranes and the throat is without erythema and exudate. The external ears are intact. The ear canals are patent and without drainage. The tympanic membranes are intact. Neck: The neck is supple with full range of motion and non-tender. There are no carotid bruits. There is no neck vein distension. Respiratory: Chest is non-tender. Lungs are clear to auscultation and breath sounds are symmetrical and equal. Cardiovascular: Heart is regular rate and rhythm. There is no murmur or rub auscultated. There is no peripheral edema and pulses are symmetrical and equal. Abdomen: The abdomen is soft. Mild epigastric tenderness palpated. There are normal bowel sounds heard in all four quadrants. Musculoskeletal: There is no back tenderness noted. Extremities are non-tender with full range of motion. There is good capillary refill. There is no peripheral edema or calf tenderness elicited. Neurological: Patient is alert and oriented to person, place and time. The patient has symmetrical motor strength in all four extremities. Cranial nerves are grossly intact. Deep tendon reflexes are symmetrical and equal in all four extremities. Psychiatric: The patient has an appropriate affect and does not exhibit any anxiety or depression Triage Information Reviewed: Yes Vital Signs On Initial Exam: Initial Vitals Temp Pulse Resp BP Pulse Ox 97.6 F 98 18 98/72 100 06/17/18 14:07 06/17/18 14:07 06/17/18 14:07 06/17/18 14:07 06/17/18 14:07 Vital Signs Reviewed: Yes Diagnostics - Vital Signs Vital Signs Temp Pulse Resp BP Pulse Ox 06/17/18 14:23 93 100 06/17/18 14:22 95 118/98 100 06/17/18 14:07 97.6 F 98 18 98/72 100 - Laboratory Result Diagrams: 06/17/18 15:08 06/17/18 15:08 Lab Statement: Any lab studies that have been ordered have been reviewed, and results considered in the medical decision making process. - Radiology CXR Radiology Interpretation Completed By: Radiologist Summary of Radiographic Findings: NO EVIDENCE FOR ACUTE DISEASE. ED physician has reviewed this report - Ultrasound No standard instances Ultrasound Interpretation Completed By: Radiologist Summary of Ultrasound Findings: Liver: 1. Likely hepatic cirrhosis. 2. There is moderate ascites in the right upper quadrant, likely related to. hepatic cirrhosis. 3. Suspected nonobstructive right nephrolithiasis. ED physician has reviewed this report. GIGU Course/Dx - Course Course Of Treatment: Ms. Chavez presented to the emergency department with a complaint of abdominal pain and a change in the appearance of her dialysis fluid. She was nontoxic in appearance but appeared to be in pain. Her vital signs are stable and her abdomen was only mild to moderately tender with no rebound. Labs were obtained and revealed a leukocytosis of 15.2 which is at her baseline. Her potassium was slightly elevated and it normally runs low. I asked the hospitalist to evaluate her for continued pain here in the emergency department in spite of treatment. A peritonitis is not out of the question. - Diagnoses Differential Diagnoses - Female: Other - possible peritonitis Provider Diagnoses: Abdominal pain - Physician Notifications Discussed Care Of Patient With: Amparo Smith Time Discussed With Above Provider: 19:12 Instructed by Provider To: Admit As Inpatient Discharge - Sign-Out/Discharge Documenting (check all that apply): Patient Departure - admission Patient Received Moderate/Deep Sedation with Procedure: No - Discharge Plan Condition: Fair Disposition: ADMITTED TO [facility] Referrals: Jacob Pan MD [Primary Care Provider] - - Billing Disposition and Condition Condition: FAIR Disposition: Admitted to [facility] - Attestation Statements Document Initiated by Toni: Yes Documenting Scribe: Edmund Ivey Provider For Whom Toni is Documenting (Include Credential): Carlos Tidwell MD Scribe Attestation: I, Edmund Ivey, scribed for Carlos Tidwell MD on 06/17/18 at 2010. Scribe Documentation Reviewed: Yes Provider Attestation: The documentation as recorded by the Edmund barber accurately reflects the service I personally performed and the decisions made by me, Carlos Tidwell MD Status of Scribe Document: Viewed
[2018-06-17 15:10] LABS: Influenza A Molecular NEGATIVE (Negative); Influenza B Molecular NEGATIVE (Negative)
[2018-06-17 15:16] LABS: ABS Basophils 0.2 10^3/ul (0-0.2); ABS Eosinophils 0.2 10^3/ul (0-0.6); ABS Lymphocytes 2.1 10^3/ul (1.0-4.8); ABS Monocytes 1.1 10^3/ul (0-0.8); ABS Neutrophils 11.8 10^3/ul (1.5-7.7); ABS Nucleated RBC 0 10^3/ul; Eosinophil % 1.1 %; Hematocrit 33 % (35-47); Hemoglobin 10.9 g/dl (12.0-16.0); Lymphocyte % 13.8 %; Mean Corpuscular HGB Conc 33 g/dl (31-36); Mean Corpuscular Hemoglobin 29 pg (27-31); Mean Corpuscular Volume 86 fL (80-97); Mean Platelet Volume 7.1 fL (7.4-10.4); Nucleated Red Blood Cells % 0; Platelet Count 697 10^3/ul (150-450); Red Blood Count 3.82 10^6/ul (4.00-5.40); Red Cell Distribution Width 14 % (10.5-15); White Blood Count 15.3 10^3/ul (3.5-10.8)
[2018-06-17 15:24] LABS: Activated Partial Thrombo Time 34.2 seconds (26.0-36.3); INR 1.02 (0.77-1.02)
[2018-06-17 15:33] LABS: Albumin 3.3 g/dL (3.2-5.2); BUN/Creatinine Ratio 4.3 (8-20); C Reactive Protein 26.67 mg/L (<8.01); Calcium 8.5 mg/dL (8.6-10.3); EGFR African American 7.2 (>60); EGFR Non-African American 5.9 (>60); Globulin 3.3 g/dL (2-4); Total Bilirubin 0.4 mg/dL (0.2-1.0); Total Protein 6.6 g/dL (6.4-8.9)
[2018-06-17 15:34] LABS: Troponin I 0.01 ng/mL (<0.04)
[2018-06-17 15:36] LABS: Potassium 5.4 mmol/L (3.5-5.0)
[2018-06-17] MEDS ORDERED: NS 0.9% 1000 ML** 1,000 ML IV ONE (16:24)
[2018-06-17] MEDS ORDERED: diPHENhydraMINE PO* 50 MG PO ONE (16:55)
[2018-06-17] MEDS ORDERED: diPHENhydraMINE IV* 50 MG/ML 1 ml VIAL (BENADRYL) IV ONE (20:18)
[2018-06-17] MEDS ORDERED: diPHENhydraMINE PO* 50 MG PO PRN (21:37)
[2018-06-17] MEDS ORDERED: NS 0.9% 1000 ML** 1,000 ML IV SCH (21:45)
--- NOTE | 2018-06-17 22:43 | HP ---
HISTORY AND PHYSICAL: DATE OF ADMISSION: 06/17/18 PRIMARY CARE PHYSICIAN: Dr. Jacob Pan. HEALTHCARE PROXY: Her significant other, Yaw. CODE STATUS: Full. CHIEF COMPLAINT: Abdominal pain. SOURCE OF INFORMATION: History is obtained from the patient as well as review of medical charts. The patient is an adequate historian. HISTORY OF PRESENT ILLNESS: A 47-year-old female with past medical history of ESRD, on peritoneal dialysis since 2013, ugi-lxxjmgc-esprohrjy diabetes with chronic nephropathy and gastroparesis, tobacco use, CAD, status post stenting, history of hypertension, history of hyperlipidemia, restless leg syndrome, and history of recurrent pancreatitis who presents to the emergency room with abdominal pain. She reports that for the last 2 to 3 days she has had tender, sore-feeling epigastric area, also has been accompanied by mild nausea without any vomiting. She has of note had several admissions in the last 6 weeks for nausea and vomiting, thought to be related to her gastroparesis though this time feels different because she states she has some epigastric abdominal pain. The patient also states that for the last few days she has had URI like symptoms with runny nose, sore throat, and a cough. She denies any chest pain, no hematemesis, no shortness of breath, no new rashes, no neurologic or MSK complaints. She does not make urine. She also reports that for the last one day, the dialysate that she removed after her nightly PD seemed cloudy and it was more painful to remove. She has subjective fevers and chills although she has been unable to measure her temperature at home. Secondary to all these symptoms, she decided to present to the emergency room, brought in by her significant other. EMERGENCY ROOM COURSE: Blood pressure is 99/55, she is in sinus tachycardia at 100, respiratory rate of 26, she is satting at 100% on room air. The patient had labs notable for white blood cell count of 15, a stable normocytic anemia, mild hyponatremia and hyperkalemia and elevated lactic acid to 2.4. She had a liver ultrasound done that showed evidence of ascites, though most likely this is peritoneal dialysis fluid. Blood cultures were obtained and stool cultures were obtained and we discussed the possibility of sending culture of dialysate as well as with cell count. The case was discussed with Dr. Abarca who thought it would be reasonable to rule the patient out for peritonitis. Above all, secondary to her lab findings and symptoms of abdominal pain, this recurrent nausea, subjective fevers and chills, the hospitalist team is asked to evaluate the patient. PAST MEDICAL HISTORY: 1. ESRD and PD since 2013. 2. Cqj-dnheund-yhbbwgyvr diabetes with neuropathy and gastroparesis. 3. Tobacco use. 4. CAD, status post stenting. 5. History of hypertension. 6. History of hyperlipidemia. 7. Restless leg syndrome. 8. History of recurrent chronic pancreatitis with low lipase levels. PAST SURGICAL HISTORY: She is status post cholecystectomy and peritoneal dialysis catheter placement. MEDICATIONS: 1. Amlodipine 5 mg p.o. q.h.s. 2. Aspirin 81 mg p.o. daily. 3. Atorvastatin 10 mg p.o. q.h.s. 4. Auryxia non-formulary medication 1 g p.o. t.i.d. with meals. 5. Calcitriol 0.25 mcg p.o. daily. 6. Sensipar 30 mg p.o. q.h.s. 7. Cyanocobalamin 1000 mcg sublingual daily. 8. Diphenhydramine 50 mg p.o. q. 6h. 9. Esomeprazole 40 mg p.o. daily. 10. Glipizide 2.5 mg p.o. daily. 11. Hydrocodone/acetaminophen 5/325 one tab p.o. q. 6 hours p.r.n. for pain. 12. Loperamide 2 mg p.o. q.a.m. 13. Metoprolol 50 mg p.o. q.p.m. 14. Ondansetron 4 mg p.o. q. 8 hours p.r.n. 15. Potassium chloride 20 mEq p.o. b.i.d. 16. Ropinirole 0.5 mg p.o. q.h.s. 17. Sodium bicarbonate 650 mg p.o. b.i.d. p.r.n. 18. Ticagrelor 90 mg p.o. b.i.d. 19. Zolpidem 10 mg p.o. q.h.s. p.r.n. ALLERGIES: She is allergic to METFORMIN, DILAUDID, VERAPAMIL, and DOXY. Unknown reactions to this. FAMILY HISTORY: Her father has lung cancer and diabetes. Her mother has diabetes and history of renal cell carcinoma. SOCIAL HISTORY: She is a tobacco user with one pack per day times last 25 years. She does not use alcohol. She uses intermittent marijuana 3 to 4 times a week. REVIEW OF SYSTEMS: Constitutional: Positive for subjective fevers and chills and malaise. HEENT: Denies vision changes, headaches, dysphagia. Cardiovascular: Denies chest pain, palpitations, or orthopnea, Respiratory: Does endorse scant nonproductive cough. Denies shortness of breath or pleuritic chest pain. GI: Does endorse nausea, soft stools, abdominal pain. Denies stefanie diarrhea or vomiting. : She is anuric and denies any dysuria, hematuria, or pelvic pain. Musculoskeletal: Denies myalgias or arthralgias. Does endorse weakness. Skin: Denies rashes or new lesions. Neurologic: She denies focal weakness or numbness. Psych: She denies new depression or anxiety. PHYSICAL EXAMINATION GENERAL: The patient is a well-developed, well-nourished woman in no acute distress, sitting in bed. VITAL SIGNS: At the time of exam, blood pressure 133/90, pulse rate sinus 97, respiratory rate 12, satting 100% on room air. HEENT: She has dry mucus membranes and fair dentition. Her oropharynx is clear. NECK: She has no supraclavicular lymphadenopathy. LUNGS: Clear to auscultation bilaterally. CARDIAC: She has regular rate and rhythm with no murmurs, rubs, or gallops. ABDOMEN: She has a PD catheter in place with the site clean, dry, intact. Her belly is soft, nondistended. Mildly tender to palpation, particularly in right upper and left upper quadrant. She has no rebound or guarding. No hepatosplenomegaly MUSCULOSKELETAL: She has full range of motion in all 4 extremities. NEURO: Cranial nerves II through XII are intact with no focal neurologic deficits. EXTREMITIES: She has 2+ pulses and no evidence of edema. DIAGNOSTIC STUDIES/LABORATORY DATA: She has CBC done with white blood cell count of 15.3, hemoglobin 10.9, hematocrit 33, platelets of 697. INR was done as 1.02. Chemistry shows sodium of 129, potassium 5.4, chloride 89, carbon dioxide 26. BUN 32, creatinine is 7.37. Glucose of 165. Lactic acid elevated at 2.6. Calcium 8.5. LFTs done. AST of 13, ALT of 17 and alkaline phosphatase of 108. CRP is elevated at 26. She had a rapid flu done that was negative. Imaging done on this hospitalization includes liver ultrasound which showed evidence of right upper quadrant ascites as well as hepatic parenchyma that appears nodular consistent with either cirrhosis or late fibrosis. No hepatomegaly. Furthermore, she has suspected non-obstructive right nephrolithiasis on right upper quadrant ultrasound. She also had a chest x-ray done which shows no evidence of acute cardiopulmonary disease. EKG was not obtained. Images are reviewed by myself. ASSESSMENT AND PLAN: This is a 47-year-old female with a past medical history of end stage renal disease, on peritoneal dialysis since 2013, non-insulin- dependent diabetes, coronary artery disease status post stenting, history of hypertension, hyperlipidemia, history of recurrent pancreatitis, who presents to the emergency room with abdominal pain in the setting of recent hospitalizations with nausea and vomiting. Differential diagnosis at this time is concerning for peritonitis given abdominal pain and cloudy dialysate fluid, could also consider chronic pancreatitis or gastroparesis though she has low lipase and is tolerating p.o., Furthermore, she has hyponatremia, hyperkalemia, and mild lactic acidosis. 1. Presumed peritonitis. In discussion with Dr. Abarca, we could offer culture with cell count, culture of dialysate, blood cultures, and discuss with peritoneal dialysis nurse if exchange as needed. We will need to arrange for peritoneal dialysis exchange either way plus/minus intraperitoneal antibiotics. 2. Electrolyte abnormalities as above in the setting of exchange. She does have mild dehydration and she is now status post 1 L of normal saline in the ER. We will hold on further fluids as she is euvolemic on my exam and can do as needed small boluses if hypotensive. 3. End stage renal disease on peritoneal dialysis. We will contact Nephrology and PD nurse to arrange for dialysate exchange. 4. Uew-cfyelvv-tihhdepkw diabetes. We will hold on home meds, plan of care glucose monitoring with lispro sliding scale. 5. Neuropathy. She has moderate pain control with home meds. 6. Coronary artery disease status post stenting. No evidence of new ischemia. Troponin is negative. We will continue with her home meds. She is optimized on a statin and dual antiplatelet therapy as well as beta-collette. 7. Hypertension. We can partially hold some of her home meds for now. 8. FEN. She is a renal diet. 9. DVT prophylaxis. We will continue on subcu heparin. 10. Code status. Full. 11. Disposition: Stable for the medical floor. All diagnoses, plan of care was discussed with the patient, nursing and they are in agreement with the plan. Primary care provider will be contacted. TIME SPENT: 40 minutes was spent in the planning and execution of this admission with over a half of that spent directly at the bedside providing direct care to the patient. [id number]/[facility] #: [id number] [place]ANDLERD
[2018-06-17 22:53] LABS: Body Fluid Mono 6 %
[2018-06-17 22:55] LABS: Body Fluid NRBC 1
[2018-06-17] MEDS ORDERED: Dextrose 50% Syringe 50 ML* 25 GM/50 ML SYRINGE IV PUSH PRN (23:29)
[2018-06-17] MEDS ORDERED: Vancomycin(*) 2,000 MG in NS 0.9% 500 ML* 500 ML IVPB ONE (23:30)
[2018-06-17] MEDS: Loperamide CAP* 2 MG PO PRN (23:46)
[2018-06-17] MEDS: HYDROcodone/ACETAMIN 5-325 MG* 1 TAB PO SCH (23:49)
[2018-06-17] MEDS: Ondansetron INJ* 2 MG/ML VIAL IV PRN (23:55)
[2018-06-17] MEDS: Heparin VIAL(*) 5000 UNITS/ML VIAL (FIVE THOUSAND) SUBCUT SCH (23:57)
[2018-06-18] MEDS ORDERED: Ropinirole TAB* 0.5 MG TAB ONE (00:41)
[2018-06-18] MEDS: Ropinirole TAB* 0.5 MG TAB PO SCH ×2 (00:47→20:13)
[2018-06-18] MEDS ORDERED: Morphine INJ* 2 MG/ML 1 ML SYRINGE (TWO MG - NEW SYRINGE VERSION) IV PRN (01:18)
[2018-06-18] MEDS: Cinacalcet TAB* 30 MG PO SCH ×2 (03:17→21:43)
[2018-06-18] MEDS: Metoprolol Tartrate TAB* 50 mg PO SCH ×2 (03:17→17:50)
[2018-06-18] MEDS: Ticagrelor* 90 MG TAB PO SCH ×3 (03:17→21:43)
[2018-06-18] MEDS: HYDROcodone/ACETAMIN 5-325 MG* 1 TAB PO SCH ×3 (05:27→21:45)
[2018-06-18] MEDS: Heparin VIAL(*) 5000 UNITS/ML VIAL (FIVE THOUSAND) SUBCUT SCH ×3 (05:28→21:44)
[2018-06-18 06:27] LABS: ABS Basophils 0.1 10^3/ul (0-0.2); ABS Eosinophils 0.2 10^3/ul (0-0.6); ABS Monocytes 1.1 10^3/ul (0-0.8); ABS Neutrophils 7.3 10^3/ul (1.5-7.7); ABS Nucleated RBC 0 10^3/ul; Eosinophil % 2.1 %; Hematocrit 26 % (35-47); Hemoglobin 8.5 g/dl (12.0-16.0); Lymphocyte % 25.9 %; Mean Corpuscular HGB Conc 33 g/dl (31-36); Mean Corpuscular Hemoglobin 29 pg (27-31); Mean Corpuscular Volume 87 fL (80-97); Mean Platelet Volume 6.8 fL (7.4-10.4); Nucleated Red Blood Cells % 0.1; Platelet Count 517 10^3/ul (150-450); Red Blood Count 2.99 10^6/ul (4.00-5.40); Red Cell Distribution Width 14 % (10.5-15); White Blood Count 11.7 10^3/ul (3.5-10.8)
[2018-06-18 06:47] LABS: BUN/Creatinine Ratio 4.2 (8-20); Calcium 7.7 mg/dL (8.6-10.3); EGFR Non-African American 5.8 (>60); Potassium 4.8 mmol/L (3.5-5.0)
[2018-06-18] MEDS: Insulin LISPRO* 1 UNITS UNIT SUBCUT SCH ×4 (08:14→20:16)
[2018-06-18] MEDS ORDERED: hydrOXYzine HCL TAB* 25 MG PO PRN (09:09)
[2018-06-18] MEDS: Sodium Bicarbonate (ANTACID)* 650 MG TAB PO SCH ×2 (09:52→20:13)
[2018-06-18] MEDS: Calcitriol CAP* 0.25 MCG PO SCH (09:53)
[2018-06-18] MEDS: Aspirin EC TAB* 81 MG TAB.EC PO SCH (09:53)
[2018-06-18] MEDS ORDERED: Heparin DIALYSIS ONLY(*) 1,000 UNITS/ML VIAL DIALYSIS ONE (10:00)
[2018-06-18] MEDS: Levofloxacin 250 MG IVPREMX(*) 250 MG/50 ML BAG IVPB SCH (10:33)
[2018-06-18] MEDS: Acetaminophen TAB* 325 MG PO PRN (10:39)
--- NOTE | 2018-06-18 13:46 | PN ---
Subjective Date of Service: 06/18/18 Interval History: Patient has had significant improvement in her abdominal pain overnight. Patient states he diarrhea has improved overnight and she has not had a BM in several hours at the time of interview. Patient denies F/C, N/V, CP, SOB. Patient makes no urine. Family History: Unchanged from Admission Social History: Unchanged from Admission Past Medical History: Unchanged from Admission Objective Active Medications: Acetaminophen (Tylenol Tab*) 650 mg PO Q6H PRN PRN Reason: FEVER/PAIN Last Admin: 06/18/18 10:39 Dose: 650 mg Hydrocodone Bitart/Acetaminophen ([place] 5-325 Tab*) 1 tab PO Q8HR [facility] Last Admin: 06/18/18 13:26 Dose: 1 tab Aspirin (Aspirin Ec Tab*) 81 mg PO DAILY [facility] Last Admin: 06/18/18 09:53 Dose: 81 mg Atorvastatin Calcium (Lipitor*) 10 mg PO BEDTIME [facility]ILY Calcitriol (Rocaltrol Cap*) 0.25 mcg PO DAILY [facility] Last Admin: 06/18/18 09:53 Dose: 0.25 mcg Cinacalcet (Sensipar Tab*) 30 mg PO BEDTIME [facility] Last Admin: 06/18/18 03:17 Dose: Not Given Dextrose (D50w Syringe 50 Ml*) 12.5 gm IV PUSH .FOR FS < 60 - SS PRN PRN Reason: FS < 60 Heparin Sodium (Porcine) (Heparin Vial(*)) 5,000 units SUBCUT Q8HR [facility] Last Admin: 06/18/18 13:35 Dose: 5,000 units Hydroxyzine HCl (Atarax Tab*) 25 mg PO Q6H PRN PRN Reason: pruritis Last Admin: 06/18/18 09:52 Dose: 25 mg Levofloxacin/Dextrose (Levaquin 250 Mg Ivpremx(*)) 250 mg in 50 mls @ 50 mls/ hr IVPB Q48H [facility] Last Admin: 06/18/18 10:33 Dose: 50 mls/hr Insulin Human Lispro (Humalog*) 0 units SUBCUT ACHS [facility]; Protocol Last Admin: 06/18/18 13:25 Dose: 4 units Loperamide HCl (Imodium Cap*) 2 mg PO TID PRN PRN Reason: LOOSE STOOLS Last Admin: 06/17/18 23:46 Dose: 2 mg Metoprolol Tartrate (Lopressor Tab*) 50 mg PO QPM [facility] Last Admin: 06/18/18 03:17 Dose: Not Given Morphine Sulfate (Morphine Inj ((Syringe))*) 2 mg IV UC ONCE PRN PRN Reason: PAIN Last Admin: 06/18/18 02:17 Dose: 2 mg Mupirocin (Bactroban 2 % Oint*) 1 applic TOPICAL DAILY [facility] Ondansetron HCl (Zofran Inj*) 4 mg IV Q6H PRN PRN Reason: NAUSEA Last Admin: 06/17/18 23:55 Dose: 4 mg Ropinirole HCl (Requip Tab*) 0.5 mg PO BEDTIME [facility] Last Admin: 06/18/18 00:47 Dose: 0.5 mg Sodium Bicarbonate (Sodium Bicarbonate (Antacid)*) 650 mg PO BID [facility] Last Admin: 06/18/18 09:52 Dose: 650 mg Ticagrelor (Brilinta*) 90 mg PO BID [facility] Last Admin: 06/18/18 09:53 Dose: 90 mg Zolpidem Tartrate (Ambien Tab*) 5 mg PO BEDTIME PRN PRN Reason: INSOMNIA Vital Signs - 8 hr 06/18/18 13:26 Respiratory 18 Rate Oxygen Devices in Use Now: None Appearance: Patient is a 47yo female who appears older than stated age and is sitting in the bed in [facility]. Eyes: No Scleral Icterus, PERRLA Ears/Nose/Mouth/Throat: NL Teeth, Lips, Gums, Clear Oropharnyx, Mucous Membranes Moist Neck: NL Appearance and Movements; NL JVP, Trachea Midline Respiratory: Symmetrical Chest Expansion and Respiratory Effort, Clear to Auscultation Cardiovascular: NL Sounds; No Murmurs; No JVD, RRR, No Edema Abdominal: No Hepatosplenomegaly, - - Distended, no rebound or guarding. PD cath in place, site benign. Lymphatic: No Cervical Adenopathy Extremities: No Edema, No Clubbing, Cyanosis Skin: No Rash or Ulcers, No Nodules or Sclerosis Neurological: Alert and Oriented x 3, NL Sensation, NL Muscle Strength and Tone , - - CN II-XII intact. Result Diagrams: 06/18/18 06:18 06/18/18 06:18 Microbiology and Other Data: Microbiology 06/17/18 21:30 Gram Stain - Final Body Fluid - Peritoneal 06/17/18 14:50 Influenza Types A,B Antigen - Final Nasal Specimen received for Influenza A/B Molecular testing Assess/Plan/Problems-Billing Assessment: Patient is a 47yo female with a PMH for ESRD, DM II, CAD, Chronic Pancreatitis, here with abdominal pain and changes in the consistency of her PD dialysate. Patient has bacteria in peritoneal fluid and is improving on antibiotics. - Patient Problems (1) Peritonitis Current Visit: Yes Status: Acute Code(s): K65.9 - PERITONITIS, UNSPECIFIED SNOMED Code(s): 65766616 Comment: - With abdominal pain and leukocytosis with neutrophilic predominance in peritoneal fluid - Gram Positive Bacilli in fluid - Has received Intraperitoneal vancomycin and systemic levaquin - Improvement in abdominal pain - Appreciate Nephrology input. - Lactic Acidosis Resolved. (2) CAD (coronary artery disease) Current Visit: No Status: Chronic Code(s): I25.10 - ATHSCL HEART DISEASE OF [place] CORONARY ARTERY W/O ANG PCTRS SNOMED Code(s): 35508521 Comment: - No Signs of ACS - History of stent placement - Continue metoprolol 25mg po daily (home med) - continue ASA 81mg daily and Brilinta BID. (3) ESRD on peritoneal dialysis Current Visit: No Status: Chronic Code(s): N18.6 - END STAGE RENAL DISEASE; Z99.2 - DEPENDENCE ON RENAL DIALYSIS SNOMED Code(s): 08245008 Comment: - Continue PD daily. Normotensive. - Monitor and replace electrolytes as needed. - Hydroxazine for itching and Sodium Bicarb PO (4) Hypertension Current Visit: No Status: Chronic Code(s): I10 - ESSENTIAL (PRIMARY) HYPERTENSION SNOMED Code(s): 46007884 Comment: - Borderline hypotensive on admission - Continue metoprolol at reduced dose, hold amlopidipine with active infectionl. (5) Type 2 diabetes mellitus Current Visit: No Status: Chronic Comment: - FSBG ACHS. - SSI and Lantus, Relatively good control. (6) DVT prophylaxis Current Visit: No Status: Acute Code(s): GXW2715 - SNOMED Code(s): 754842015 Comment: -Heparin SQ Status and Disposition: Inpatient for presumed peritonitis, awaiting culture results
[2018-06-18] MEDS: Mupirocin 2% OINT* TUBE TOPICAL SCH (14:15)
[2018-06-18] MEDS: Ondansetron INJ* 2 MG/ML VIAL IV PRN (19:39)
[2018-06-18] MEDS: hydrOXYzine HCL TAB* 50 MG PO PRN (20:12)
[2018-06-18] MEDS: Atorvastatin* 10 MG TAB PO SCH (21:43)
[2018-06-19] MEDS: HYDROcodone/ACETAMIN 5-325 MG* 1 TAB PO SCH ×3 (03:45→22:42)
[2018-06-19] MEDS: Ondansetron INJ* 2 MG/ML VIAL IV PRN ×4 (04:38→22:43)
[2018-06-19] MEDS: Heparin VIAL(*) 5000 UNITS/ML VIAL (FIVE THOUSAND) SUBCUT SCH ×3 (06:10→22:43)
[2018-06-19 07:44] LABS: BUN/Creatinine Ratio 3.7 (8-20); EGFR African American 6.7 (>60); EGFR Non-African American 5.6 (>60); Magnesium 1.5 mg/dL (1.9-2.7); Potassium 4.7 mmol/L (3.5-5.0)
[2018-06-19 07:46] LABS: ABS Basophils 0.1 10^3/ul (0-0.2); ABS Eosinophils 0.2 10^3/ul (0-0.6); ABS Lymphocytes 1.8 10^3/ul (1.0-4.8); ABS Monocytes 1.2 10^3/ul (0-0.8); ABS Neutrophils 9.1 10^3/ul (1.5-7.7); ABS Nucleated RBC 0 10^3/ul; Eosinophil % 1.3 %; Hematocrit 26 % (35-47); Hemoglobin 8.4 g/dl (12.0-16.0); Lymphocyte % 14.9 %; Mean Corpuscular HGB Conc 33 g/dl (31-36); Mean Corpuscular Hemoglobin 28 pg (27-31); Mean Corpuscular Volume 87 fL (80-97); Mean Platelet Volume 7.3 fL (7.4-10.4); Nucleated Red Blood Cells % 0; Platelet Count 539 10^3/ul (150-450); Red Blood Count 2.97 10^6/ul (4.00-5.40); Red Cell Distribution Width 14 % (10.5-15); White Blood Count 12.3 10^3/ul (3.5-10.8)
[2018-06-19] MEDS ORDERED: Magnesium Sulfate 2 GM IV* 2 GM/50 ML BAG IVPB ONE (08:46)
[2018-06-19] MEDS: Insulin LISPRO* 1 UNITS UNIT SUBCUT SCH ×4 (09:36→20:51)
[2018-06-19] MEDS: Calcitriol CAP* 0.25 MCG PO SCH (09:49)
[2018-06-19] MEDS: Aspirin EC TAB* 81 MG TAB.EC PO SCH (09:49)
[2018-06-19] MEDS: Ticagrelor* 90 MG TAB PO SCH ×2 (09:50→20:49)
[2018-06-19] MEDS: Sodium Bicarbonate (ANTACID)* 650 MG TAB PO SCH ×2 (09:50→20:49)
[2018-06-19] MEDS: Mupirocin 2% OINT* TUBE TOPICAL SCH (09:50)
--- NOTE | 2018-06-19 14:21 | PN ---
Subjective Date of Service: 06/19/18 Interval History: Patient seen and examined. States she was nauseous with vomiting yesterday and feels dizzy today but otherwise improving. No fevers or chills, no SOB, no chest pain, no abdominal pain. Family History: Unchanged from Admission Social History: Unchanged from Admission Past Medical History: Unchanged from Admission Objective Active Medications: Acetaminophen (Tylenol Tab*) 650 mg PO Q6H PRN PRN Reason: FEVER/PAIN Last Admin: 06/18/18 10:39 Dose: 650 mg Hydrocodone Bitart/Acetaminophen ([place] 5-325 Tab*) 1 tab PO Q8HR [facility] Last Admin: 06/19/18 13:09 Dose: Not Given Aspirin (Aspirin Ec Tab*) 81 mg PO DAILY [facility] Last Admin: 06/19/18 09:49 Dose: 81 mg Atorvastatin Calcium (Lipitor*) 10 mg PO BEDTIME [facility] Last Admin: 06/18/18 21:43 Dose: 10 mg Calcitriol (Rocaltrol Cap*) 0.25 mcg PO DAILY [facility] Last Admin: 06/19/18 09:49 Dose: 0.25 mcg Cinacalcet (Sensipar Tab*) 30 mg PO BEDTIME [facility] Last Admin: 06/18/18 21:43 Dose: 30 mg Dextrose (D50w Syringe 50 Ml*) 12.5 gm IV PUSH .FOR FS < 60 - SS PRN PRN Reason: FS < 60 Heparin Sodium (Porcine) (Heparin Vial(*)) 5,000 units SUBCUT Q8HR [facility] Last Admin: 06/19/18 13:15 Dose: 5,000 units Hydroxyzine HCl (Atarax Tab*) 50 mg PO Q6H PRN PRN Reason: pruritis Last Admin: 06/18/18 20:12 Dose: 50 mg Levofloxacin/Dextrose (Levaquin 250 Mg Ivpremx(*)) 250 mg in 50 mls @ 50 mls/ hr IVPB Q48H [facility] Last Admin: 06/18/18 10:33 Dose: 50 mls/hr Insulin Human Lispro (Humalog*) 0 units SUBCUT ACHS [facility]; Protocol Last Admin: 06/19/18 13:15 Dose: 1 units Loperamide HCl (Imodium Cap*) 2 mg PO TID PRN PRN Reason: LOOSE STOOLS Last Admin: 06/17/18 23:46 Dose: 2 mg Metoprolol Tartrate (Lopressor Tab*) 50 mg PO QPM [facility] Last Admin: 06/18/18 17:50 Dose: 50 mg Morphine Sulfate (Morphine Inj ((Syringe))*) 2 mg IV UC ONCE PRN PRN Reason: PAIN Last Admin: 06/18/18 02:17 Dose: 2 mg Mupirocin (Bactroban 2 % Oint*) 1 applic TOPICAL DAILY [facility] Last Admin: 06/19/18 09:50 Dose: 1 applic Ondansetron HCl (Zofran Inj*) 4 mg IV Q6H PRN PRN Reason: NAUSEA Last Admin: 06/19/18 09:42 Dose: 4 mg Ropinirole HCl (Requip Tab*) 0.5 mg PO BEDTIME [facility] Last Admin: 06/18/18 20:13 Dose: 0.5 mg Sodium Bicarbonate (Sodium Bicarbonate (Antacid)*) 650 mg PO BID [facility] Last Admin: 06/19/18 09:50 Dose: 650 mg Ticagrelor (Brilinta*) 90 mg PO BID [facility] Last Admin: 06/19/18 09:50 Dose: 90 mg Zolpidem Tartrate (Ambien Tab*) 5 mg PO BEDTIME PRN PRN Reason: INSOMNIA Vital Signs - 8 hr 06/19/18 06/19/18 06/19/18 07:34 08:00 09:57 Temperature 98.9 F 98.0 F Pulse Rate 82 79 Respiratory 18 16 Rate Blood Pressure 125/62 142/67 (mmHg) O2 Sat by Pulse 100 100 Oximetry Oxygen Devices in Use Now: None Appearance: alert, NAD Eyes: No Scleral Icterus, PERRLA Ears/Nose/Mouth/Throat: NL Teeth, Lips, Gums, Clear Oropharnyx, Mucous Membranes Moist Neck: NL Appearance and Movements; NL JVP, Trachea Midline Respiratory: Symmetrical Chest Expansion and Respiratory Effort, Clear to Auscultation Cardiovascular: NL Sounds; No Murmurs; No JVD, RRR, No Edema Abdominal: NL Sounds; No Tenderness; No Distention, No Hepatosplenomegaly, - - PD cath dressed Extremities: No Edema, No Clubbing, Cyanosis Skin: No Rash or Ulcers, No Nodules or Sclerosis Neurological: Alert and Oriented x 3, NL Sensation, NL Gait Nutrition: Taking PO's Result Diagrams: 06/19/18 07:07 06/19/18 07:07 Microbiology and Other Data: Microbiology 06/17/18 21:30 Gram Stain - Final Body Fluid - Peritoneal 06/17/18 14:50 Influenza Types A,B Antigen - Final Nasal Specimen received for Influenza A/B Molecular testing Assess/Plan/Problems-Billing Assessment: Patient is a 47yo female with a PMH for ESRD, DM II, CAD, Chronic Pancreatitis, here with abdominal pain and changes in the consistency of her PD dialysate. Patient has bacteria in peritoneal fluid and is improving on antibiotics. - Patient Problems (1) Peritonitis Code(s): K65.9 - PERITONITIS, UNSPECIFIED SNOMED Code(s): 90043224 Comment: - With abdominal pain and leukocytosis - Gram Positive Bacilli in fluid - Has received Intraperitoneal vancomycin and systemic levaquin, appreciate additional recs from nephrology regarding preferred duration of treatment (2) Diabetes mellitus Code(s): E11.9 - TYPE 2 DIABETES MELLITUS WITHOUT COMPLICATIONS SNOMED Code(s) : 10446832 Comment: - Well controlled, continue glipizide and lispro (3) End stage renal disease Code(s): N18.6 - END STAGE RENAL DISEASE SNOMED Code(s): 93028292 Comment: - Continue PD exchanges per home schedule (4) Nausea & vomiting Code(s): R11.2 - NAUSEA WITH VOMITING, UNSPECIFIED SNOMED Code(s): 61452085 Comment: - Improved today, likely 2/2 acute infection - zofran PRN (5) CAD (coronary artery disease) Code(s): I25.10 - ATHSCL HEART DISEASE OF [place] CORONARY ARTERY W/O ANG PCTRS SNOMED Code(s): 52253508 Comment: - No Signs of ACS - continue metoprolol 25mg, ASA 81mg daily and Brilinta BID (6) Hypertension Code(s): I10 - ESSENTIAL (PRIMARY) HYPERTENSION SNOMED Code(s): 01630034 Comment: - Borderline hypotensive on admission - Continue metoprolol at reduced dose, consider restarting norvasc at DC (7) DVT prophylaxis Code(s): GVV7061 - SNOMED Code(s): 352575598 Comment: - Heparin SQ (8) Full code status Code(s): Z78.9 - OTHER SPECIFIED HEALTH STATUS SNOMED Code(s): 892281677 Status and Disposition: Inpatient for presumed peritonitis, DC home when medically stable
[2018-06-19] MEDS: hydrOXYzine HCL TAB* 50 MG PO PRN ×2 (14:34→20:48)
[2018-06-19] MEDS ORDERED: DIPHENHYDRAMINE 2% TOPICAL PRN (14:37)
[2018-06-19] MEDS: diPHENhydraMINE PO* 25 MG PO PRN ×2 (16:27→22:43)
[2018-06-19] MEDS: Metoprolol Tartrate TAB* 50 mg PO SCH (17:50)
[2018-06-19] MEDS: Atorvastatin* 10 MG TAB PO SCH (20:49)
[2018-06-19] MEDS: Ropinirole TAB* 0.5 MG TAB PO SCH (20:49)
[2018-06-19] MEDS: Cinacalcet TAB* 30 MG PO SCH (20:49)
[2018-06-19] MEDS: traMADol TAB* 50 MG PO PRN (22:45)
[2018-06-19] MEDS: Zolpidem TAB* 5 MG PO PRN (22:49)
[2018-06-19] MEDS ORDERED: traMADol TAB* 50 MG ONE (22:51)
[2018-06-20] MEDS: HYDROcodone/ACETAMIN 5-325 MG* 1 TAB PO SCH ×3 (06:25→22:36)
[2018-06-20] MEDS: Heparin VIAL(*) 5000 UNITS/ML VIAL (FIVE THOUSAND) SUBCUT SCH ×3 (06:25→21:55)
[2018-06-20] MEDS: Insulin LISPRO* 1 UNITS UNIT SUBCUT SCH ×4 (07:46→21:55)
[2018-06-20] MEDS: Ondansetron INJ* 2 MG/ML VIAL IV PRN (08:29)
[2018-06-20] MEDS: Calcitriol CAP* 0.25 MCG PO SCH (09:29)
[2018-06-20] MEDS: Sodium Bicarbonate (ANTACID)* 650 MG TAB PO SCH ×2 (09:29→21:55)
[2018-06-20] MEDS: Aspirin EC TAB* 81 MG TAB.EC PO SCH (09:29)
[2018-06-20] MEDS: Ticagrelor* 90 MG TAB PO SCH ×2 (09:29→21:55)
[2018-06-20] MEDS: Levofloxacin 250 MG IVPREMX(*) 250 MG/50 ML BAG IVPB SCH (09:34)
[2018-06-20] MEDS: Mupirocin 2% OINT* TUBE TOPICAL SCH (09:52)
[2018-06-20] MEDS ORDERED: Heparin DIALYSIS ONLY(*) 1,000 UNITS/ML VIAL DIALYSIS ONE (10:00)
[2018-06-20] MEDS: traMADol TAB* 50 MG PO PRN (10:21)
[2018-06-20] MEDS: diPHENhydraMINE PO* 25 MG PO PRN (11:40)
[2018-06-20] MEDS: Ropinirole TAB* 0.5 MG TAB PO SCH ×2 (11:41→21:55)
[2018-06-20] MEDS: PROCHLORPERAZINE INJ 5 MG/ML 2 ML VIAL IV PRN (12:34)
[2018-06-20] MEDS: hydrOXYzine HCL TAB* 50 MG PO PRN ×2 (13:05→22:35)
[2018-06-20] MEDS: Metoprolol Tartrate TAB* 50 mg PO SCH (17:07)
[2018-06-20] MEDS: Cinacalcet TAB* 30 MG PO SCH (21:55)
[2018-06-20] MEDS: Atorvastatin* 10 MG TAB PO SCH (21:55)
[2018-06-21] MEDS: HYDROcodone/ACETAMIN 5-325 MG* 1 TAB PO SCH ×3 (05:29→21:50)
[2018-06-21] MEDS: PROCHLORPERAZINE INJ 5 MG/ML 2 ML VIAL IV PRN ×2 (05:29→12:09)
[2018-06-21] MEDS: Heparin VIAL(*) 5000 UNITS/ML VIAL (FIVE THOUSAND) SUBCUT SCH ×3 (05:34→21:36)
[2018-06-21] MEDS: Ondansetron INJ* 2 MG/ML VIAL IV PRN ×2 (08:15→21:45)
[2018-06-21] MEDS: Insulin LISPRO* 1 UNITS UNIT SUBCUT SCH ×4 (10:20→21:22)
[2018-06-21] MEDS: Sodium Bicarbonate (ANTACID)* 650 MG TAB PO SCH ×2 (10:45→21:52)
[2018-06-21] MEDS: Aspirin EC TAB* 81 MG TAB.EC PO SCH (10:45)
[2018-06-21] MEDS: Ropinirole TAB* 0.5 MG TAB PO SCH ×2 (10:45→21:49)
[2018-06-21] MEDS: Ticagrelor* 90 MG TAB PO SCH ×2 (10:45→21:50)
[2018-06-21] MEDS: Calcitriol CAP* 0.25 MCG PO SCH (10:45)
[2018-06-21] MEDS: Mupirocin 2% OINT* TUBE TOPICAL SCH (10:51)
[2018-06-21] MEDS: traMADol TAB* 50 MG PO PRN (11:12)
[2018-06-21] MEDS: Loperamide CAP* 2 MG PO PRN ×2 (14:08→16:09)
--- NOTE | 2018-06-21 14:19 | PN ---
Progress Note - Progress Note Date of Service: 06/21/18 SOAP: Subjective: CC: Peritonitis HPI: Ms. Chavez is a 47 yo female with PMH significant for ESRD on peritoneal dialysis, DM, CAD, RLS, HTN, HLD, chronic pancreatitis, tobacco abuse. She presented to the emergency room with complaints of abdominal pain after recently being hospitalized for nausea and vomiting. She reported cloudy dialysis and increased abdominal discomfort during removal of dialysis fluid. Chest xray without acute findings. Liver US with likely hepatic cirrhosis, moderate ascites, suspected nonobstructive right nephrolithiasis. The peritoneal fluid grew Actinomyces Neuii, she has been treated with Denies fever, chills, shortness of breath, abdominal pain, urinary symptoms, or diarrhea. Objective: Vital Signs 06/21/18 11:42 Temperature 97.9 F Temperature Oral Source Pulse Rate 76 Respiratory 18 Rate Blood Pressure 151/68 (mmHg) Blood Pressure 90 Mean O2 Sat by Pulse 99 Oximetry Patient on Room Yes Air Physical Exam: General: NAD, laying in bed Neurological: Alert and Oriented x4 HEENT: Moist mucous membranes, no thrush Cardiovascular: Heart rate regular, no murmur Respiratory: Lung clear bilateral Abdominal: Bowel sounds present. Abdomen soft, tenderness with deep palpation near the PD cath site Skin: Dressing to PD cath site clean, dry and intact. There is also a dressing to the left of the PD cath site that is clean, dry and intact Laboratory Tests 06/17/18 06/17/18 06/19/18 14:58 21:30 07:07 WBC 12.3 H Hgb 8.4 L Hct 26 L Plt Count 539 H Sodium Potassium Chloride BUN Creatinine Glucose Fluid Source Dialysis fluid Fluid Volume 90 Fluid Color Colorless Fluid Appearance Cloudy Fluid WBC 2189 Fluid RBC 394 Fluid Tot Cell Count 100 Fluid Neutrophils 85 Fluid Lymphocytes 9 Fluid Monocytes 6 Fluid Nucleated RBCs 1 Influenza A (Rapid) Negative Influenza B (Rapid) Negative 06/19/18 07:07 WBC Hgb Hct Plt Count Sodium 133 L Potassium 4.7 Chloride 93 L BUN 29 H Creatinine 7.78 H Glucose 139 H Fluid Source Fluid Volume Fluid Color Fluid Appearance Fluid WBC Fluid RBC Fluid Tot Cell Count Fluid Neutrophils Fluid Lymphocytes Fluid Monocytes Fluid Nucleated RBCs Influenza A (Rapid) Influenza B (Rapid) Microbiology 06/21/18 08:33 Stool Stool Lactoferrin - Final 06/19/18 12:45 Abdomen Skin and Soft Tissue MRSA/MSSA (PCR - Final 06/19/18 12:45 Abdomen Gram Stain - Final Mrsa Negative S.aureus Negative 06/17/18 21:30 Peritoneal Fluid Sterile Body Fluid Culture - Final Actinomyces Neuii 06/17/18 21:30 Body Fluid - Peritoneal Gram Stain - Final 06/19/18 12:45 Abdomen Wound Culture - Preliminary Streptococcus Constellatus 06/17/18 21:30 Peritoneal Fluid Sterile Body Fluid Culture - Preliminary 06/17/18 21:30 Peritoneal Fluid No Growth Day 3 06/17/18 15:08 Blood Venous Aerobic Blood Culture - Preliminary 06/17/18 15:08 Blood Venous Anaerobic Blood Culture - Preliminary No Growth Day 3 No Growth Day 3 06/17/18 15:02 Blood Venous Aerobic Blood Culture - Preliminary 06/17/18 15:02 Blood Venous Anaerobic Blood Culture - Preliminary No Growth Day 3 No Growth Day 3 Assessment: 1. Peritonitis. The peritoneal fluid culture has grown Actinomyces Neuii. Afebrile and leukocytosis is improving. US to eval the PD cath has been completed, read is pending. Blood cultures with no growth on day 3. 2. Abdominal wound. Abdominal wound growing Streptococcus Constellatus. 3. End stage renal disease currently on PD 4. Diabetes Plan: 1. Continue Levaquin. Thank you for this consultation. <Renay Man - Last Filed: 06/21/18 14:12> - Progress Note SOAP: Patient seen, examined, and discussed with Debra Rivera NP. I agree with her full note. In addition, assuming catheter removal and no other deeper collection she can transition to PO amoxicillin for 6 week course for discharge . <Lee PEPE,Tello Jama - Last Filed: 06/25/18 09:21>
[2018-06-21] MEDS: hydrOXYzine HCL TAB* 50 MG PO PRN ×2 (16:09→21:51)
[2018-06-21] MEDS: Metoprolol Tartrate TAB* 50 mg PO SCH (17:42)
--- NOTE | 2018-06-21 18:34 | PN ---
Subjective Date of Service: 06/21/18 Interval History: Patient seen and examined. States her pain is improving, no fevers, no vomiting. Tolerating PD exchanges. No further complaints. Family History: Unchanged from Admission Social History: Unchanged from Admission Past Medical History: Unchanged from Admission Objective Active Medications: Acetaminophen (Tylenol Tab*) 650 mg PO Q6H PRN PRN Reason: FEVER/PAIN Last Admin: 06/18/18 10:39 Dose: 650 mg Hydrocodone Bitart/Acetaminophen ([place] 5-325 Tab*) 1 tab PO Q8HR [facility] Last Admin: 06/21/18 13:20 Dose: 1 tab Aspirin (Aspirin Ec Tab*) 81 mg PO DAILY [facility] Last Admin: 06/21/18 10:45 Dose: 81 mg Atorvastatin Calcium (Lipitor*) 10 mg PO BEDTIME [facility] Last Admin: 06/20/18 21:55 Dose: 10 mg Calcitriol (Rocaltrol Cap*) 0.25 mcg PO DAILY [facility] Last Admin: 06/21/18 10:45 Dose: 0.25 mcg Cinacalcet (Sensipar Tab*) 30 mg PO BEDTIME [facility] Last Admin: 06/20/18 21:55 Dose: 30 mg Dextrose (D50w Syringe 50 Ml*) 12.5 gm IV PUSH .FOR FS < 60 - SS PRN PRN Reason: FS < 60 Diphenhydramine HCl (Benadryl Po*) 25 mg PO Q6H PRN PRN Reason: ITCHING Last Admin: 06/20/18 11:40 Dose: 25 mg Heparin Sodium (Porcine) (Heparin Vial(*)) 5,000 units SUBCUT Q8HR [facility] Last Admin: 06/21/18 13:20 Dose: 5,000 units Hydroxyzine HCl (Atarax Tab*) 50 mg PO Q6H PRN PRN Reason: pruritis Last Admin: 06/21/18 16:09 Dose: 50 mg Levofloxacin/Dextrose (Levaquin 250 Mg Ivpremx(*)) 250 mg in 50 mls @ 50 mls/ hr IVPB Q48H [facility] Last Admin: 06/20/18 09:34 Dose: 50 mls/hr Insulin Human Lispro (Humalog*) 0 units SUBCUT ACHS [facility]; Protocol Last Admin: 06/21/18 17:42 Dose: 6 units Loperamide HCl (Imodium Cap*) 2 mg PO TID PRN PRN Reason: LOOSE STOOLS Last Admin: 06/21/18 16:09 Dose: 2 mg Metoprolol Tartrate (Lopressor Tab*) 50 mg PO QPM [facility] Last Admin: 06/21/18 17:42 Dose: 50 mg Morphine Sulfate (Morphine Inj ((Syringe))*) 2 mg IV UC ONCE PRN PRN Reason: PAIN Last Admin: 06/18/18 02:17 Dose: 2 mg Mupirocin (Bactroban 2 % Oint*) 1 applic TOPICAL DAILY [facility] Last Admin: 06/21/18 10:51 Dose: Not Given Ondansetron HCl (Zofran Inj*) 4 mg IV Q6H PRN PRN Reason: NAUSEA Last Admin: 06/21/18 08:15 Dose: 4 mg Prochlorperazine Edisylate (Compazine Inj*) 5 mg IV Q6H PRN PRN Reason: NAUSEA/VOMITING Last Admin: 06/21/18 12:09 Dose: 5 mg Ropinirole HCl (Requip Tab*) 0.5 mg PO BEDTIME [facility] Last Admin: 06/20/18 21:55 Dose: 0.5 mg Ropinirole HCl (Requip Tab*) 0.25 mg PO DAILY [facility] Last Admin: 06/21/18 10:45 Dose: 0.25 mg Sodium Bicarbonate (Sodium Bicarbonate (Antacid)*) 650 mg PO BID [facility] Last Admin: 06/21/18 10:45 Dose: 650 mg Ticagrelor (Brilinta*) 90 mg PO BID [facility] Last Admin: 06/21/18 10:45 Dose: 90 mg Tramadol HCl (Ultram*) 50 mg PO Q12H PRN PRN Reason: DISCOMFORT Last Admin: 06/21/18 11:12 Dose: 50 mg Zinc Acetate/Diphenhydramine (Banophen 2 % Cream (Nf)) 1 applic TOPICAL TID PRN ; Protocol PRN Reason: ITCHING Zolpidem Tartrate (Ambien Tab*) 5 mg PO BEDTIME PRN PRN Reason: INSOMNIA Last Admin: 06/19/18 22:49 Dose: 5 mg Vital Signs - 8 hr 06/21/18 06/21/18 06/21/18 10:51 11:12 11:42 Temperature 97.9 F Pulse Rate 76 Respiratory 16 16 18 Rate Blood Pressure 151/68 (mmHg) O2 Sat by Pulse 99 Oximetry 06/21/18 06/21/18 06/21/18 13:20 13:22 14:08 Temperature Pulse Rate Respiratory 16 18 16 Rate Blood Pressure (mmHg) O2 Sat by Pulse Oximetry 06/21/18 06/21/18 06/21/18 15:57 16:09 18:21 Temperature 97.8 F Pulse Rate 87 Respiratory 20 16 16 Rate Blood Pressure 139/62 (mmHg) O2 Sat by Pulse 100 Oximetry Oxygen Devices in Use Now: None Appearance: alert, NAD Eyes: No Scleral Icterus, PERRLA Ears/Nose/Mouth/Throat: Mucous Membranes Moist Neck: NL Appearance and Movements; NL JVP, Trachea Midline Respiratory: Symmetrical Chest Expansion and Respiratory Effort, - - diminished bases, no wheeze or rhonchi Cardiovascular: NL Sounds; No Murmurs; No JVD, RRR Abdominal: - - soft, non-tender, PD cath dressing CDI Extremities: No Edema, No Clubbing, Cyanosis Skin: No Rash or Ulcers, - - very dry ashy skin with some scratches on left upper arm, scabbed Neurological: Alert and Oriented x 3, NL Gait Nutrition: Taking PO's Result Diagrams: 06/19/18 07:07 06/19/18 07:07 Microbiology and Other Data: Microbiology 06/17/18 21:30 Gram Stain - Final Body Fluid - Peritoneal 06/17/18 14:50 Influenza Types A,B Antigen - Final Nasal Specimen received for Influenza A/B Molecular testing Assess/Plan/Problems-Billing Assessment: Patient is a 47yo female with a PMH for ESRD, DM II, CAD, Chronic Pancreatitis, admitted for bacterial peritonitis. - Patient Problems (1) Peritonitis Code(s): K65.9 - PERITONITIS, UNSPECIFIED SNOMED Code(s): 42784584 Comment: - With abdominal pain and leukocytosis - Actinomyces and Streptococcus in peritoneal fluid - Has received Intraperitoneal vancomycin and systemic levaquin, per ID continue renally dosed levaquin - No abscess on US around the PD cath - Per nephrology, catheter should be pulled tomorrow, then CVC cath inserted Monday in anticipation of starting hemodialysis (2) Diabetes mellitus Code(s): E11.9 - TYPE 2 DIABETES MELLITUS WITHOUT COMPLICATIONS SNOMED Code(s) : 36735230 Comment: - Well controlled, continue glipizide and lispro (3) End stage renal disease Code(s): N18.6 - END STAGE RENAL DISEASE SNOMED Code(s): 30765541 Comment: - Continue PD exchanges per home schedule, plan for HD to start next week (4) Nausea & vomiting Code(s): R11.2 - NAUSEA WITH VOMITING, UNSPECIFIED SNOMED Code(s): 13953154 Comment: - Continued improvement, likely 2/2 acute infection - zofran PRN (5) CAD (coronary artery disease) Code(s): I25.10 - ATHSCL HEART DISEASE OF [place] CORONARY ARTERY W/O ANG PCTRS SNOMED Code(s): 86524507 Comment: - No Signs of ACS - continue metoprolol 25mg, ASA 81mg daily and Brilinta BID (6) Hypertension Code(s): I10 - ESSENTIAL (PRIMARY) HYPERTENSION SNOMED Code(s): 07403615 Comment: - Borderline hypotensive on admission - Continue metoprolol at reduced dose, consider restarting norvasc at DC (7) DVT prophylaxis Code(s): ZII7541 - SNOMED Code(s): 246771886 Comment: - Heparin SQ, hold before having CVC cath inserted next week (8) Full code status Code(s): Z78.9 - OTHER SPECIFIED HEALTH STATUS SNOMED Code(s): 695628584 Status and Disposition: Inpatient for peritonitis, DC home when medically stable.
[2018-06-21] MEDS: Atorvastatin* 10 MG TAB PO SCH (21:37)
[2018-06-21] MEDS: Cinacalcet TAB* 30 MG PO SCH (21:48)
[2018-06-21] MEDS: Zolpidem TAB* 5 MG PO PRN (21:51)
[2018-06-22] MEDS: Heparin VIAL(*) 5000 UNITS/ML VIAL (FIVE THOUSAND) SUBCUT SCH ×3 (06:14→20:24)
[2018-06-22] MEDS: HYDROcodone/ACETAMIN 5-325 MG* 1 TAB PO SCH ×4 (06:14→20:18)
[2018-06-22] MEDS: Insulin LISPRO* 1 UNITS UNIT SUBCUT SCH ×4 (08:15→20:40)
[2018-06-22] MEDS: Ondansetron INJ* 2 MG/ML VIAL IV PRN (09:31)
[2018-06-22] MEDS: Aspirin EC TAB* 81 MG TAB.EC PO SCH (09:35)
[2018-06-22] MEDS: Calcitriol CAP* 0.25 MCG PO SCH (09:35)
[2018-06-22] MEDS: Ticagrelor* 90 MG TAB PO SCH (09:36)
[2018-06-22] MEDS: Ropinirole TAB* 0.5 MG TAB PO SCH ×3 (09:36→20:23)
[2018-06-22] MEDS: Sodium Bicarbonate (ANTACID)* 650 MG TAB PO SCH ×2 (09:36→20:24)
[2018-06-22] MEDS: Mupirocin 2% OINT* TUBE TOPICAL SCH (09:36)
[2018-06-22] MEDS: Levofloxacin 250 MG IVPREMX(*) 250 MG/50 ML BAG IVPB SCH (09:39)
[2018-06-22] MEDS: PROCHLORPERAZINE INJ 5 MG/ML 2 ML VIAL IV PRN ×2 (09:52→15:50)
--- NOTE | 2018-06-22 10:07 | PN ---
Subjective Date of Service: 06/22/18 Interval History: Ms. Chavez is a pleasant 47 yo female, seen in room, currently lying in bed. She endorses nausea but denies fever/chills, chest pain, trouble breathing. She is anxious about the plan of care and having to switch to hemodialysis. She understands the need to have peritoneal dialysis cath pulled today and is in agreement with this. Family History: Unchanged from Admission Social History: Unchanged from Admission Past Medical History: Unchanged from Admission Objective Active Medications: Acetaminophen (Tylenol Tab*) 650 mg PO Q6H PRN PRN Reason: FEVER/PAIN Last Admin: 06/18/18 10:39 Dose: 650 mg Hydrocodone Bitart/Acetaminophen ([place] 5-325 Tab*) 1 tab PO Q8HR [facility] Last Admin: 06/22/18 06:14 Dose: Not Given Aspirin (Aspirin Ec Tab*) 81 mg PO DAILY [facility] Last Admin: 06/22/18 09:35 Dose: Not Given Atorvastatin Calcium (Lipitor*) 10 mg PO BEDTIME [facility] Last Admin: 06/21/18 21:37 Dose: 10 mg Calcitriol (Rocaltrol Cap*) 0.25 mcg PO DAILY [facility] Last Admin: 06/22/18 09:35 Dose: Not Given Cinacalcet (Sensipar Tab*) 30 mg PO BEDTIME [facility] Last Admin: 06/21/18 21:48 Dose: 30 mg Dextrose (D50w Syringe 50 Ml*) 12.5 gm IV PUSH .FOR FS < 60 - SS PRN PRN Reason: FS < 60 Diphenhydramine HCl (Benadryl Po*) 25 mg PO Q6H PRN PRN Reason: ITCHING Last Admin: 06/20/18 11:40 Dose: 25 mg Heparin Sodium (Porcine) (Heparin Vial(*)) 5,000 units SUBCUT Q8HR [facility] Last Admin: 06/22/18 06:14 Dose: Not Given Hydroxyzine HCl (Atarax Tab*) 50 mg PO Q6H PRN PRN Reason: pruritis Last Admin: 06/21/18 21:51 Dose: 50 mg Levofloxacin/Dextrose (Levaquin 250 Mg Ivpremx(*)) 250 mg in 50 mls @ 50 mls/ hr IVPB Q48H [facility] Last Admin: 06/22/18 09:39 Dose: 50 mls/hr Insulin Human Lispro (Humalog*) 0 units SUBCUT ACHS [facility]; Protocol Last Admin: 06/22/18 08:15 Dose: Not Given Loperamide HCl (Imodium Cap*) 2 mg PO TID PRN PRN Reason: LOOSE STOOLS Last Admin: 06/21/18 16:09 Dose: 2 mg Metoprolol Tartrate (Lopressor Tab*) 50 mg PO QPM [facility] Last Admin: 06/21/18 17:42 Dose: 50 mg Morphine Sulfate (Morphine Inj ((Syringe))*) 2 mg IV UC ONCE PRN PRN Reason: PAIN Last Admin: 06/18/18 02:17 Dose: 2 mg Mupirocin (Bactroban 2 % Oint*) 1 applic TOPICAL DAILY [facility] Last Admin: 06/22/18 09:36 Dose: Not Given Ondansetron HCl (Zofran Inj*) 4 mg IV Q6H PRN PRN Reason: NAUSEA Last Admin: 06/22/18 09:31 Dose: 4 mg Prochlorperazine Edisylate (Compazine Inj*) 5 mg IV Q6H PRN PRN Reason: NAUSEA/VOMITING Last Admin: 06/22/18 09:52 Dose: 5 mg Ropinirole HCl (Requip Tab*) 0.5 mg PO BEDTIME [facility] Last Admin: 06/21/18 21:49 Dose: 0.5 mg Ropinirole HCl (Requip Tab*) 0.25 mg PO DAILY [facility] Last Admin: 06/22/18 09:36 Dose: Not Given Sodium Bicarbonate (Sodium Bicarbonate (Antacid)*) 650 mg PO BID [facility] Last Admin: 06/22/18 09:36 Dose: Not Given Ticagrelor (Brilinta*) 90 mg PO BID [facility] Last Admin: 06/22/18 09:36 Dose: Not Given Tramadol HCl (Ultram*) 50 mg PO Q12H PRN PRN Reason: DISCOMFORT Last Admin: 06/21/18 11:12 Dose: 50 mg Zinc Acetate/Diphenhydramine (Banophen 2 % Cream (Nf)) 1 applic TOPICAL TID PRN ; Protocol PRN Reason: ITCHING Zolpidem Tartrate (Ambien Tab*) 5 mg PO BEDTIME PRN PRN Reason: INSOMNIA Last Admin: 06/21/18 21:51 Dose: 5 mg Vital Signs - 8 hr 06/22/18 06/22/18 03:07 07:38 Temperature 97.6 F 98.5 F Pulse Rate 69 74 Respiratory 19 20 Rate Blood Pressure 153/75 161/78 (mmHg) O2 Sat by Pulse 100 99 Oximetry Oxygen Devices in Use Now: None Appearance: Mildly ill appearing female, lying in bed, NAD Eyes: No Scleral Icterus, PERRLA Ears/Nose/Mouth/Throat: Clear Oropharnyx, Mucous Membranes Moist Neck: NL Appearance and Movements; NL JVP Respiratory: Symmetrical Chest Expansion and Respiratory Effort, Clear to Auscultation - mildly diminished in bases Cardiovascular: NL Sounds; No Murmurs; No JVD, RRR, No Edema Abdominal: NL Sounds; No Tenderness; No Distention, - - PD cath to abdomen with c/d/i dressing, no surrounding erythema or drainage Extremities: No Clubbing, Cyanosis Skin: No Rash or Ulcers Neurological: Alert and Oriented x 3, NL Muscle Strength and Tone Lines/Tubes/Other Access: Clean, Dry and Intact Peripheral IV Result Diagrams: 06/19/18 07:07 06/19/18 07:07 Microbiology and Other Data: Microbiology 06/17/18 21:30 Gram Stain - Final Body Fluid - Peritoneal 06/17/18 14:50 Influenza Types A,B Antigen - Final Nasal Specimen received for Influenza A/B Molecular testing Assess/Plan/Problems-Billing Assessment: Ms. Chavez is a 47yo female with a PMH for ESRD, DM II, CAD, Chronic Pancreatitis , admitted for bacterial peritonitis. - Patient Problems (1) Peritonitis Code(s): K65.9 - PERITONITIS, UNSPECIFIED Comment: Plan for CT abd/pelvis today after peritoneal cath removed to evaluate for evidence of abscess Presented with abdominal pain and leukocytosis Actinomyces and Streptococcus in peritoneal fluid Has received Intraperitoneal vancomycin and systemic levaquin, per ID continue renally dosed levaquin No abscess on US around the PD cath Per nephrology, patient will need CVC cath inserted RADHA; CVC placement may be delayed 2/2 to patient being on Brilinta. Plan for cath placement, ideally on Monday so that she can have inpatient dialysis. (2) Diabetes mellitus Code(s): E11.9 - TYPE 2 DIABETES MELLITUS WITHOUT COMPLICATIONS Comment: Well controlled, continue Lispro sliding scale (3) End stage renal disease Code(s): N18.6 - END STAGE RENAL DISEASE Comment: Peritoneal dialysis cath to be pulled. Plan for HD to start next week. (4) Nausea & vomiting Code(s): R11.2 - NAUSEA WITH VOMITING, UNSPECIFIED Comment: Continued improvement, likely 2/2 acute infection Zofran and compazine PRN (5) CAD (coronary artery disease) Current Visit: No Status: Chronic Code(s): I25.10 - ATHSCL HEART DISEASE OF [place] CORONARY ARTERY W/O ANG PCTRS SNOMED Code(s): 05458379 Comment: No signs of ACS Continue metoprolol 25mg, ASA 81mg daily. Will need to hold Brilinta x 1 week (last dose 06/21) in anticipation of having CVC cath placed next week. (6) Hypertension Code(s): I10 - ESSENTIAL (PRIMARY) HYPERTENSION Comment: Borderline hypotensive on admission, now BP is trending back up Continue metoprolol at reduced dose, resume amlodipine with hold parameters (7) DVT prophylaxis Comment: Heparin SQ, hold before having CVC cath inserted next week Status and Disposition: Inpatient for peritonitis, DC home when medically stable. Attending: Jose D Heath
[2018-06-22] MEDS ORDERED: fentaNYL* 50 MCG/ML 2 ML VIAL (100 MCG VIAL) ONE (12:06)
[2018-06-22] MEDS ORDERED: Midazolam* 1 MG/ML 5 ML VIAL (5 MG) ONE (12:06)
--- NOTE | 2018-06-22 12:49 | PN ---
Progress Note - Progress Note Date of Service: 06/22/18 Note: PREOP NOTE 47 yo F with ESRD on PD was admitted with bacterial peritonitis. Pt needs catheter removed. Nature of procedure, I/R/B/A and option of no treatment discussed. Risks explained including, not limited to: bleeding, infection, scarring, pain, risks of anesthesia, blood clots and pneumonia. All questions were answered. She stated understanding and agreed to proceed.
[2018-06-22] MEDS ORDERED: Bupivacaine 0.25% W/EPI* 10 ML SDV ONE (13:02)
[2018-06-22] MEDS ORDERED: DiMENhydriNATE IV* 50 MG/ML VIAL ONE (13:38)
[2018-06-22] MEDS ORDERED: Lidocaine 2% PF * 5 ML VIAL ONE (13:38)
[2018-06-22] MEDS ORDERED: Propofol* 10 MG/ML 20 ML BTL ONE ×2 (13:38→13:39)
[2018-06-22] MEDS ORDERED: Metoprolol Tartrate IV* 1 MG/ML 5 ML VIAL ONE (13:43)
[2018-06-22] MEDS ORDERED: Naloxone* 0.4 MG/ML 1 ML VIAL IV PRN (14:17)
[2018-06-22] MEDS ORDERED: Acetaminophen TAB* 325 MG PO PRN (14:17)
[2018-06-22] MEDS: Metoprolol Tartrate TAB* 50 mg PO SCH (17:22)
[2018-06-22] MEDS ORDERED: Iodixanol* (CONTRAST) 320 MG/ML 100 ML SDV IV ONE (17:46)
[2018-06-22] MEDS: Atorvastatin* 10 MG TAB PO SCH (20:19)
[2018-06-22] MEDS: Loperamide CAP* 2 MG PO PRN (20:19)
[2018-06-22] MEDS: amLODIPine TAB* 5 MG PO SCH (20:20)
[2018-06-22] MEDS: hydrOXYzine HCL TAB* 50 MG PO PRN (20:23)
[2018-06-22] MEDS: Zolpidem TAB* 5 MG PO PRN (20:23)
[2018-06-22] MEDS: Cinacalcet TAB* 30 MG PO SCH (20:23)
--- NOTE | 2018-06-22 20:37 | OP ---
CC: Tyrell Abarca MD; Jacob Pan MD * DATE OF OPERATION: 06/22/18 - ROOM #419 DATE OF : 70 SURGEON: Maciej Rojas MD GRAIN ROASTER: None. ANESTHESIOLOGIST: Dr. Tejada. ANESTHESIA: Local MAC. PRE-OP DIAGNOSIS: Endstage renal disease with infection of peritoneal dialysis catheter. POST-OP DIAGNOSIS: Endstage renal disease with infection of peritoneal dialysis catheter. OPERATIVE PROCEDURE: Removal of peritoneal dialysis catheter. ESTIMATED BLOOD LOSS: Minimal. IV FLUIDS: Crystalloid. SPECIMENS: Wound culture from the peritoneal dialysis catheter tunnel. DRAINS: None. COMPLICATIONS: None. COUNTS: The instrument, needle, and sponge counts were correct. DESCRIPTION OF PROCEDURE: The patient was brought to the operating room, placed on the table supine. Sequential compression devices were placed on both lower extremities. Anesthesia was administered, intravenous sedation. She was prepped and draped in the usual sterile fashion. A time-out was performed. Local anesthetic was infiltrated into the skin and soft tissues overlying the course of the tunnel. During manipulation of the abdominal wall to palpate the catheter's course, pus began draining from the site of the previous scar. This appeared to be emanating from the tunnel of the catheter. It was cultured and submitted to Microbiology. The site was then opened in a transverse direction through the scar, enlarging it slightly to the medial aspect and then subcutaneous tissues were divided with cautery. Blunt and sharp dissections were used to the dissect out the subcutaneous . The catheter was cut within the tunnel and removed. The external portion of the catheter was removed. The tunnel was irrigated with saline until clear. Hemostasis was assured. The wound was packed with the quarter of a 4x4 gauze covered with additional 4x4 gauze and taped in place. The patient tolerated the procedure well, was awaken and transferred to Recovery in stable condition. [id number]/CPS #: [id number] [facility]Mel
[2018-06-23] MEDS: traMADol TAB* 50 MG PO PRN (01:16)
[2018-06-23] MEDS: diPHENhydraMINE PO* 25 MG PO PRN ×3 (01:16→21:58)
[2018-06-23] MEDS: HYDROcodone/ACETAMIN 5-325 MG* 1 TAB PO SCH ×3 (05:38→21:59)
[2018-06-23] MEDS: Heparin VIAL(*) 5000 UNITS/ML VIAL (FIVE THOUSAND) SUBCUT SCH ×3 (05:39→22:01)
[2018-06-23 07:36] LABS: ABS Basophils 0.1 10^3/ul (0-0.2); ABS Eosinophils 0.2 10^3/ul (0-0.6); ABS Lymphocytes 2.5 10^3/ul (1.0-4.8); ABS Monocytes 1.2 10^3/ul (0-0.8); ABS Neutrophils 6.4 10^3/ul (1.5-7.7); ABS Nucleated RBC 0 10^3/ul; Eosinophil % 2.2 %; Hematocrit 23 % (35-47); Hemoglobin 7.8 g/dl (12.0-16.0); Mean Corpuscular HGB Conc 34 g/dl (31-36); Mean Corpuscular Hemoglobin 28 pg (27-31); Mean Corpuscular Volume 84 fL (80-97); Mean Platelet Volume 6.6 fL (7.4-10.4); Nucleated Red Blood Cells % 0; Platelet Count 488 10^3/ul (150-450); Red Blood Count 2.73 10^6/ul (4.00-5.40); Red Cell Distribution Width 13 % (10.5-15); White Blood Count 10.3 10^3/ul (3.5-10.8)
[2018-06-23] MEDS: Insulin LISPRO* 1 UNITS UNIT SUBCUT SCH ×4 (07:56→22:00)
[2018-06-23] MEDS: Ondansetron INJ* 2 MG/ML VIAL IV PRN (09:40)
[2018-06-23] MEDS ORDERED: Morphine INJ* 2 MG/ML 1 ML SYRINGE (TWO MG - NEW SYRINGE VERSION) IV ONE (09:50)
[2018-06-23] MEDS ORDERED: Morphine INJ* 2 MG/ML 1 ML SYRINGE (TWO MG - NEW SYRINGE VERSION) ONE (09:55)
[2018-06-23] MEDS: Calcitriol CAP* 0.25 MCG PO SCH (10:01)
[2018-06-23] MEDS: Aspirin EC TAB* 81 MG TAB.EC PO SCH (10:02)
[2018-06-23] MEDS: Ropinirole TAB* 0.5 MG TAB PO SCH ×2 (10:02→21:59)
[2018-06-23] MEDS: Sodium Bicarbonate (ANTACID)* 650 MG TAB PO SCH ×2 (10:03→22:01)
[2018-06-23] MEDS: Mupirocin 2% OINT* TUBE TOPICAL SCH (10:07)
--- NOTE | 2018-06-23 12:02 | PN ---
Subjective Date of Service: 06/23/18 Interval History: Ms. Chavez seen and examined at bedside. Family in room. She is resting comfortably, reports earlier pain at abdominal site after surgeon changed dressing. She received one time dose of IV morphine with good effect. Reports abdominal tenderness near the surgical site but otherwise denies fever/chills, CP, SOB, or other complaint. Family History: Unchanged from Admission Social History: Unchanged from Admission Past Medical History: Unchanged from Admission Objective Active Medications: Acetaminophen (Tylenol Tab*) 650 mg PO Q6H PRN PRN Reason: FEVER/PAIN Last Admin: 06/18/18 10:39 Dose: 650 mg Hydrocodone Bitart/Acetaminophen ([place] 5-325 Tab*) 1 tab PO Q8HR [facility] Last Admin: 06/23/18 05:38 Dose: 1 tab Amlodipine Besylate (Norvasc Tab*) 5 mg PO BEDTIME [facility] Last Admin: 06/22/18 20:20 Dose: 5 mg Aspirin (Aspirin Ec Tab*) 81 mg PO DAILY [facility] Last Admin: 06/23/18 10:02 Dose: 81 mg Atorvastatin Calcium (Lipitor*) 10 mg PO BEDTIME [facility] Last Admin: 06/22/18 20:19 Dose: 10 mg Calcitriol (Rocaltrol Cap*) 0.25 mcg PO DAILY [facility] Last Admin: 06/23/18 10:01 Dose: 0.25 mcg Cinacalcet (Sensipar Tab*) 30 mg PO BEDTIME [facility] Last Admin: 06/22/18 20:23 Dose: 30 mg Dextrose (D50w Syringe 50 Ml*) 12.5 gm IV PUSH .FOR FS < 60 - SS PRN PRN Reason: FS < 60 Diphenhydramine HCl (Benadryl Po*) 25 mg PO Q6H PRN PRN Reason: ITCHING Last Admin: 06/23/18 01:16 Dose: 25 mg Heparin Sodium (Porcine) (Heparin Vial(*)) 5,000 units SUBCUT Q8HR [facility] Last Admin: 06/23/18 05:39 Dose: 5,000 units Hydroxyzine HCl (Atarax Tab*) 50 mg PO Q6H PRN PRN Reason: pruritis Last Admin: 06/22/18 20:23 Dose: 50 mg Levofloxacin/Dextrose (Levaquin 250 Mg Ivpremx(*)) 250 mg in 50 mls @ 50 mls/ hr IVPB Q48H [facility] Last Admin: 06/22/18 09:39 Dose: 50 mls/hr Insulin Human Lispro (Humalog*) 0 units SUBCUT ACHS [facility]; Protocol Last Admin: 06/23/18 07:56 Dose: Not Given Loperamide HCl (Imodium Cap*) 2 mg PO TID PRN PRN Reason: LOOSE STOOLS Last Admin: 06/22/18 20:19 Dose: 2 mg Metoprolol Tartrate (Lopressor Tab*) 50 mg PO QPM [facility] Last Admin: 06/22/18 17:22 Dose: 50 mg Morphine Sulfate (Morphine Inj ((Syringe))*) 2 mg IV UC ONCE PRN PRN Reason: PAIN Last Admin: 06/18/18 02:17 Dose: 2 mg Mupirocin (Bactroban 2 % Oint*) 1 applic TOPICAL DAILY [facility] Last Admin: 06/23/18 10:07 Dose: Not Given Ondansetron HCl (Zofran Inj*) 4 mg IV Q6H PRN PRN Reason: NAUSEA Last Admin: 06/23/18 09:40 Dose: 4 mg Prochlorperazine Edisylate (Compazine Inj*) 5 mg IV Q6H PRN PRN Reason: NAUSEA/VOMITING Last Admin: 06/22/18 15:50 Dose: 5 mg Ropinirole HCl (Requip Tab*) 0.5 mg PO BEDTIME [facility] Last Admin: 06/22/18 20:23 Dose: 0.5 mg Ropinirole HCl (Requip Tab*) 0.25 mg PO DAILY [facility] Last Admin: 06/23/18 10:02 Dose: 0.25 mg Sodium Bicarbonate (Sodium Bicarbonate (Antacid)*) 650 mg PO BID [facility] Last Admin: 06/23/18 10:03 Dose: 650 mg Tramadol HCl (Ultram*) 50 mg PO Q12H PRN PRN Reason: DISCOMFORT Last Admin: 06/23/18 01:16 Dose: 50 mg Zinc Acetate/Diphenhydramine (Banophen 2 % Cream (Nf)) 1 applic TOPICAL TID PRN ; Protocol PRN Reason: ITCHING Zolpidem Tartrate (Ambien Tab*) 5 mg PO BEDTIME PRN PRN Reason: INSOMNIA Last Admin: 06/22/18 20:23 Dose: 5 mg Vital Signs - 8 hr 06/23/18 06/23/18 06/23/18 05:38 07:57 08:00 Temperature Pulse Rate Respiratory 17 18 18 Rate Blood Pressure (mmHg) O2 Sat by Pulse Oximetry 06/23/18 06/23/18 09:46 09:59 Temperature 98.6 F Pulse Rate 74 Respiratory 16 16 Rate Blood Pressure 147/78 (mmHg) O2 Sat by Pulse 100 Oximetry Oxygen Devices in Use Now: None Appearance: Chronically ill appearing female, lying in bed, pleasant, NAD Eyes: No Scleral Icterus, PERRLA Ears/Nose/Mouth/Throat: Clear Oropharnyx, Mucous Membranes Moist Neck: NL Appearance and Movements; NL JVP Respiratory: Symmetrical Chest Expansion and Respiratory Effort, Clear to Auscultation - mildly diminished Cardiovascular: NL Sounds; No Murmurs; No JVD, RRR Abdominal: - - c/d/i dressing mid abdomen, no surrounding erythema. Mild tenderness to abdomen Extremities: No Edema, No Clubbing, Cyanosis Neurological: Alert and Oriented x 3, NL Muscle Strength and Tone Lines/Tubes/Other Access: Clean, Dry and Intact Peripheral IV Nutrition: Taking PO's Result Diagrams: 06/23/18 07:13 06/19/18 07:07 Microbiology and Other Data: Microbiology 06/17/18 21:30 Gram Stain - Final Body Fluid - Peritoneal 06/17/18 14:50 Influenza Types A,B Antigen - Final Nasal Specimen received for Influenza A/B Molecular testing Assess/Plan/Problems-Billing Assessment: Ms. Chavez is a 47yo female with a PMH for ESRD, DM II, CAD, Chronic Pancreatitis , admitted for bacterial peritonitis. - Patient Problems (1) Peritonitis Code(s): K65.9 - PERITONITIS, UNSPECIFIED Comment: Repeat CT abd/pelvis on 06/23/18 with no evidence of fluid collections or abscess. S/p peritoneal catheter removal, awaiting cultures from procedure. Initially presented with abdominal pain and leukocytosis Actinomyces and Streptococcus in peritoneal fluid Has received Intraperitoneal vancomycin and systemic levaquin, per ID continue renally dosed levaquin Per nephrology, patient will need CVC cath inserted RADHA CVC placement delayed due to patient being on Brilinta (now discontinued). Plan for cath placement, ideally on or by Monday so that she can have inpatient dialysis (only done MWF). (2) Diabetes mellitus Code(s): E11.9 - TYPE 2 DIABETES MELLITUS WITHOUT COMPLICATIONS Comment: Well controlled, continue Lispro sliding scale (3) End stage renal disease Code(s): N18.6 - END STAGE RENAL DISEASE Comment: Peritoneal dialysis cath pulled. Plan for HD to start next week, pending CVC placement. (4) Nausea & vomiting Code(s): R11.2 - NAUSEA WITH VOMITING, UNSPECIFIED Comment: Continued improvement, likely 2/2 acute infection Zofran and compazine PRN (5) CAD (coronary artery disease) Code(s): I25.10 - ATHSCL HEART DISEASE OF [place] CORONARY ARTERY W/O ANG PCTRS Comment: No signs of ACS Continue metoprolol 25mg, ASA 81mg daily. Will need to hold Brilinta for a minimum of 1 week (last dose 06/21) in anticipation of having CVC cath placed next week. (6) Hypertension Code(s): I10 - ESSENTIAL (PRIMARY) HYPERTENSION Comment: Borderline hypotensive on admission, now BP is trending back up Continue metoprolol, amlodipine restarted. Will add prn hydralazine; may require further medication titration until she can resume dialysis. (7) DVT prophylaxis Comment: Heparin SQ, hold before having CVC cath inserted next week Status and Disposition: Inpatient for peritonitis, DC home when medically stable. Attending: Jose D Heath
[2018-06-23 12:23] LABS: Hepatitis B Surface Antigen Nonreactive (Nonreactive)
--- NOTE | 2018-06-23 14:31 | PN ---
Progress Note - Progress Note Date of Service: 06/23/18 Note: Surgery Progress Note S: Patient feels well s/p removal of PD catheter yesterday. No complaints. Objecitve: Vital Signs: Temp Pulse Resp BP Pulse Ox 98.6 F 74 18 147/78 100 06/23/18 09:46 06/23/18 09:46 06/23/18 13:22 06/23/18 09:46 06/23/18 09:46 Laboratory Results - last 24 hr 06/21/18 06/22/18 06/22/18 19:00 14:23 17:02 WBC RBC Hgb Hct MCV MCH MCHC RDW Plt Count MPV Neut % (Auto) Lymph % (Auto) Millard % (Auto) Eos % (Auto) Baso % (Auto) Absolute Neuts (auto) Absolute Lymphs (auto) Absolute Monos (auto) Absolute Eos (auto) Absolute Basos (auto) Absolute Nucleated RBC Nucleated RBC % POC Glucose (mg/dL) 111 H 160 H Hep Bs Antigen Nonreactive 06/22/18 06/23/18 06/23/18 20:30 07:13 07:54 WBC 10.3 RBC 2.73 L Hgb 7.8 L Hct 23 L MCV 84 MCH 28 MCHC 34 RDW 13 Plt Count 488 H D MPV 6.6 L Neut % (Auto) 61.8 Lymph % (Auto) 24.0 Millard % (Auto) 11.4 Eos % (Auto) 2.2 Baso % (Auto) 0.6 Absolute Neuts (auto) 6.4 Absolute Lymphs (auto) 2.5 Absolute Monos (auto) 1.2 H Absolute Eos (auto) 0.2 Absolute Basos (auto) 0.1 Absolute Nucleated RBC 0 Nucleated RBC % 0 POC Glucose (mg/dL) 145 H 117 H Hep Bs Antigen 06/23/18 13:00 WBC RBC Hgb Hct MCV MCH MCHC RDW Plt Count MPV Neut % (Auto) Lymph % (Auto) Millard % (Auto) Eos % (Auto) Baso % (Auto) Absolute Neuts (auto) Absolute Lymphs (auto) Absolute Monos (auto) Absolute Eos (auto) Absolute Basos (auto) Absolute Nucleated RBC Nucleated RBC % POC Glucose (mg/dL) 180 H Hep Bs Antigen Physical exam: abdomen soft, tender around wound where catheter was removed, packing removed with s/s staining and no purulent fluid expressed A/P: 47 F post removal of infected PD catheter. - FU culture from PD catheter - Please have nurses perform daily wet to dry dressing changes to abdominal wound - Spoke to Dr. Burke cotter, who wishes to dialyze patient on Mon. Will tentatively plan for temporary HD catheter placement before that. Patient should remain off Brilanta.
[2018-06-23] MEDS ORDERED: hydrALAZINE IV* 20 MG/ML VIAL IV SLOW PU PRN (16:21)
[2018-06-23] MEDS: Metoprolol Tartrate TAB* 50 mg PO SCH (16:46)
[2018-06-23] MEDS: Zolpidem TAB* 5 MG PO PRN (21:57)
[2018-06-23] MEDS: Cinacalcet TAB* 30 MG PO SCH (21:58)
[2018-06-23] MEDS: amLODIPine TAB* 5 MG PO SCH (21:58)
[2018-06-23] MEDS: Atorvastatin* 10 MG TAB PO SCH (21:58)
[2018-06-24] MEDS: hydrOXYzine HCL TAB* 50 MG PO PRN ×4 (00:09→17:58)
[2018-06-24] MEDS: Heparin VIAL(*) 5000 UNITS/ML VIAL (FIVE THOUSAND) SUBCUT SCH ×3 (05:45→21:26)
[2018-06-24] MEDS: HYDROcodone/ACETAMIN 5-325 MG* 1 TAB PO SCH ×2 (05:48→13:04)
[2018-06-24] MEDS: Insulin LISPRO* 1 UNITS UNIT SUBCUT SCH ×3 (08:02→17:58)
[2018-06-24] MEDS: Aspirin EC TAB* 81 MG TAB.EC PO SCH (09:00)
[2018-06-24] MEDS: Calcitriol CAP* 0.25 MCG PO SCH (09:00)
[2018-06-24] MEDS: Ropinirole TAB* 0.5 MG TAB PO SCH ×2 (09:01→21:23)
[2018-06-24] MEDS: Sodium Bicarbonate (ANTACID)* 650 MG TAB PO SCH ×2 (09:01→21:25)
[2018-06-24] MEDS: Mupirocin 2% OINT* TUBE TOPICAL SCH (09:08)
[2018-06-24] MEDS: Levofloxacin 250 MG IVPREMX(*) 250 MG/50 ML BAG IVPB SCH (09:43)
[2018-06-24] MEDS: Ondansetron INJ* 2 MG/ML VIAL IV PRN (09:43)
[2018-06-24] MEDS: diPHENhydraMINE PO* 25 MG PO PRN ×2 (09:43→21:33)
[2018-06-24 10:12] LABS: Hepatitis B Surface AB Immune (Immune)
[2018-06-24] MEDS: PROCHLORPERAZINE INJ 5 MG/ML 2 ML VIAL IV PRN (13:04)
[2018-06-24] MEDS ORDERED: Senna TAB PO PRN (15:38)
--- NOTE | 2018-06-24 15:39 | PN ---
Subjective Date of Service: 06/24/18 Interval History: No overnight events. Patient sleeping and seems slow to respond to questions and not sure on timeline of events. Denies any pain. No CP or SOB. Not sure when she last had a BM. No abdominal pain. Family History: Unchanged from Admission Social History: Unchanged from Admission Past Medical History: Unchanged from Admission Objective Active Medications: Acetaminophen (Tylenol Tab*) 650 mg PO Q6H PRN PRN Reason: FEVER/PAIN Last Admin: 06/18/18 10:39 Dose: 650 mg Hydrocodone Bitart/Acetaminophen ([place] 5-325 Tab*) 1 tab PO Q12HR PRN PRN Reason: PAIN Amlodipine Besylate (Norvasc Tab*) 5 mg PO BEDTIME [facility] Last Admin: 06/23/18 21:58 Dose: 5 mg Aspirin (Aspirin Ec Tab*) 81 mg PO DAILY [facility] Last Admin: 06/24/18 09:00 Dose: 81 mg Atorvastatin Calcium (Lipitor*) 10 mg PO BEDTIME [facility] Last Admin: 06/23/18 21:58 Dose: 10 mg Calcitriol (Rocaltrol Cap*) 0.25 mcg PO DAILY [facility] Last Admin: 06/24/18 09:00 Dose: 0.25 mcg Cinacalcet (Sensipar Tab*) 30 mg PO BEDTIME [facility] Last Admin: 06/23/18 21:58 Dose: 30 mg Dextrose (D50w Syringe 50 Ml*) 12.5 gm IV PUSH .FOR FS < 60 - SS PRN PRN Reason: FS < 60 Diphenhydramine HCl (Benadryl Po*) 25 mg PO Q6H PRN PRN Reason: ITCHING Last Admin: 06/24/18 09:43 Dose: 25 mg Heparin Sodium (Porcine) (Heparin Vial(*)) 5,000 units SUBCUT Q8HR [facility] Last Admin: 06/24/18 13:03 Dose: 5,000 units Hydralazine HCl (Apresoline Iv*) 5 mg IV SLOW PU Q6H PRN PRN Reason: BLOOD PRESSURE Hydroxyzine HCl (Atarax Tab*) 50 mg PO Q6H PRN PRN Reason: pruritis Last Admin: 06/24/18 11:32 Dose: 50 mg Levofloxacin/Dextrose (Levaquin 250 Mg Ivpremx(*)) 250 mg in 50 mls @ 50 mls/ hr IVPB Q48H [facility] Last Admin: 06/24/18 09:43 Dose: 50 mls/hr Insulin Human Lispro (Humalog*) 0 units SUBCUT ACHS [facility]; Protocol Last Admin: 06/24/18 13:03 Dose: 4 units Loperamide HCl (Imodium Cap*) 2 mg PO TID PRN PRN Reason: LOOSE STOOLS Last Admin: 06/22/18 20:19 Dose: 2 mg Metoprolol Tartrate (Lopressor Tab*) 50 mg PO QPM [facility] Last Admin: 06/23/18 16:46 Dose: 50 mg Mupirocin (Bactroban 2 % Oint*) 1 applic TOPICAL DAILY [facility] Last Admin: 06/24/18 09:08 Dose: Not Given Ondansetron HCl (Zofran Inj*) 4 mg IV Q6H PRN PRN Reason: NAUSEA Last Admin: 06/24/18 09:43 Dose: 4 mg Prochlorperazine Edisylate (Compazine Inj*) 5 mg IV Q6H PRN PRN Reason: NAUSEA/VOMITING Last Admin: 06/24/18 13:04 Dose: 5 mg Ropinirole HCl (Requip Tab*) 0.5 mg PO BEDTIME [facility] Last Admin: 06/23/18 21:59 Dose: 0.5 mg Ropinirole HCl (Requip Tab*) 0.25 mg PO DAILY [facility] Last Admin: 06/24/18 09:01 Dose: 0.25 mg Sodium Bicarbonate (Sodium Bicarbonate (Antacid)*) 650 mg PO BID [facility] Last Admin: 06/24/18 09:01 Dose: 650 mg Tramadol HCl (Ultram*) 50 mg PO Q12H PRN PRN Reason: DISCOMFORT Last Admin: 06/23/18 01:16 Dose: 50 mg Zinc Acetate/Diphenhydramine (Banophen 2 % Cream (Nf)) 1 applic TOPICAL TID PRN ; Protocol PRN Reason: ITCHING Zolpidem Tartrate (Ambien Tab*) 5 mg PO BEDTIME PRN PRN Reason: INSOMNIA Last Admin: 06/23/18 21:57 Dose: 5 mg Vital Signs - 8 hr 06/24/18 06/24/18 06/24/18 08:11 08:44 09:43 Temperature 98.7 F Pulse Rate 81 Respiratory 14 16 16 Rate Blood Pressure 126/74 (mmHg) O2 Sat by Pulse 100 Oximetry 06/24/18 06/24/18 06/24/18 10:46 11:09 12:53 Temperature 98.8 F Pulse Rate 81 Respiratory 16 14 18 Rate Blood Pressure 156/80 (mmHg) O2 Sat by Pulse 100 98 Oximetry 06/24/18 06/24/18 13:04 15:36 Temperature Pulse Rate Respiratory 18 18 Rate Blood Pressure (mmHg) O2 Sat by Pulse Oximetry Oxygen Devices in Use Now: None Ears/Nose/Mouth/Throat: Mucous Membranes Moist Respiratory: Symmetrical Chest Expansion and Respiratory Effort, Clear to Auscultation Cardiovascular: - - systolic murmur, RRR Abdominal: NL Sounds; No Tenderness; No Distention, No Hepatosplenomegaly Extremities: No Edema Skin: - - abdominal wound with packing in place, bandage clean dry and intact Neurological: Alert and Oriented x 3, NL Muscle Strength and Tone, - - Slow to respond, sleepy Result Diagrams: 06/24/18 15:46 06/24/18 15:46 Microbiology and Other Data: Microbiology 06/17/18 21:30 Gram Stain - Final Body Fluid - Peritoneal 06/17/18 14:50 Influenza Types A,B Antigen - Final Nasal Specimen received for Influenza A/B Molecular testing Assess/Plan/Problems-Billing Assessment: Ms. Chavez is a 47yo female with a PMHx of ESRD on peritoneal dialysis who presented from home with weakness and generalized malaise found to have SBP on Abx. - Patient Problems (1) Peritonitis Current Visit: Yes Status: Acute Code(s): K65.9 - PERITONITIS, UNSPECIFIED SNOMED Code(s): 22762753 Comment: A. Peritoneal fluid - Actinomyces - On levaquin Peritoneal catheter removed on 06/22 Continue Levaquin Concern for her somnolence and will check labs now - may need dialysis sooner. Repeat CT abd/pelvis on 06/23/18 with no evidence of fluid collections or abscess. (2) HLD (hyperlipidemia) Current Visit: No Status: Acute Code(s): E78.5 - HYPERLIPIDEMIA, UNSPECIFIED SNOMED Code(s): 93036305 Comment: continue to hold home atorvastatin 10mg po daily. (3) CAD (coronary artery disease) Current Visit: No Status: Chronic Code(s): I25.10 - ATHSCL HEART DISEASE OF [place] CORONARY ARTERY W/O ANG PCTRS SNOMED Code(s): 78464397 Comment: No signs of ACS Continue metoprolol 25mg, ASA 81mg daily. Will need to hold Brilinta for a minimum of 1 week (last dose 06/21) in anticipation of having CVC cath placed next week. (4) Diabetes mellitus Current Visit: No Status: Chronic Code(s): E11.9 - TYPE 2 DIABETES MELLITUS WITHOUT COMPLICATIONS SNOMED Code(s): 56304359 Comment: Well controlled, continue Lispro sliding scale (5) End stage renal disease Current Visit: No Status: Chronic Code(s): N18.6 - END STAGE RENAL DISEASE SNOMED Code(s): 36116861 Comment: A. ESRD on PD - secondary to poorly controlled DM. PD catheter removed on 06/22. Per Surgery notes will place catheter prior to dialysis which is planned for 06/27 Concern she needs dialysis sooner than that as it will be a week before she gets dialysis. Checking labs now. If ok. Will repeat labs in AM. May need catheter and dialysis tomorrow. (6) Hypertension Current Visit: No Status: Chronic Code(s): I10 - ESSENTIAL (PRIMARY) HYPERTENSION SNOMED Code(s): 26376623 Comment: A. Slightly elevated Continue metoprolol and amlodipine (7) Type 2 diabetes mellitus Current Visit: No Status: Chronic Comment: Stable Continue Lispro sliding scale (8) Anemia Current Visit: Yes Status: Acute Code(s): D64.9 - ANEMIA, UNSPECIFIED SNOMED Code(s): 690379424 Comment: H/H slowly trickling down. Will check iron studies and hemoccult (not sure when her last BM was) May benefit from Epo - repeat results continued to trend down - spoke with Dr. Abarca, Epo ordered. Asymptomatic will hold off on blood at this time. Repeat labs in AM Will repeat H/H in AM (9) Full code status Current Visit: No Status: Acute Code(s): Z78.9 - OTHER SPECIFIED HEALTH STATUS SNOMED Code(s): 253343946 (10) DVT prophylaxis Current Visit: No Status: Acute Code(s): RCF8688 - SNOMED Code(s): 508576375 Comment: Order SCDs in setting of H/H dropping Status and Disposition: Inpatient for peritonitis, DC home when medically stable.
[2018-06-24 15:56] LABS: Hematocrit 20 % (35-47); Hemoglobin 6.8 g/dl (12.0-16.0)
[2018-06-24 16:14] LABS: Anion Gap 11 mmol/L (2-11); BUN/Creatinine Ratio 3.2 (8-20); Blood Urea Nitrogen 37 mg/dL (6-24); CO2 Carbon Dioxide 29 mmol/L (22-32); Calcium 7.6 mg/dL (8.6-10.3); Chloride 93 mmol/L (101-111); EGFR African American 4.3 (>60); EGFR Non-African American 3.5 (>60); Glucose 170 mg/dL (70-100); Magnesium 2.1 mg/dL (1.9-2.7); Potassium 4.4 mmol/L (3.5-5.0); Sodium 133 mmol/L (135-145)
[2018-06-24] MEDS ORDERED: EPOETIN ALFA-EPBX * 10,000 UNIT/ML VIAL SUBCUT ONE (16:30)
[2018-06-24 16:32] LABS: % Iron Saturation 36 % (15-55); Iron 57 ug/dL (50-212); Total Iron Binding Capacity 158 mcg/dL (250-450); Transferrin 113 mg/dL (203-362)
[2018-06-24] MEDS: traMADol TAB* 50 MG PO PRN (16:55)
[2018-06-24] MEDS: Metoprolol Tartrate TAB* 50 mg PO SCH (16:55)
[2018-06-24] MEDS: Atorvastatin* 10 MG TAB PO SCH (21:22)
[2018-06-24] MEDS: Cinacalcet TAB* 30 MG PO SCH (21:23)
[2018-06-24] MEDS: amLODIPine TAB* 5 MG PO SCH (21:24)
[2018-06-24] MEDS: Docusate CAP* 100 MG PO SCH (21:25)
[2018-06-24] MEDS: HYDROcodone/ACETAMIN 5-325 MG* 1 TAB PO PRN (21:33)
[2018-06-25] MEDS: Acetaminophen TAB* 325 MG PO PRN ×2 (02:05→23:10)
[2018-06-25] MEDS: hydrOXYzine HCL TAB* 50 MG PO PRN ×4 (02:08→21:01)
[2018-06-25] MEDS: Heparin VIAL(*) 5000 UNITS/ML VIAL (FIVE THOUSAND) SUBCUT SCH ×3 (05:50→21:07)
[2018-06-25 07:15] LABS: ABS Basophils 0.1 10^3/ul (0-0.2); ABS Eosinophils 0.4 10^3/ul (0-0.6); ABS Lymphocytes 2.8 10^3/ul (1.0-4.8); ABS Monocytes 1.3 10^3/ul (0-0.8); ABS Neutrophils 9.6 10^3/ul (1.5-7.7); ABS Nucleated RBC 0 10^3/ul; Eosinophil % 2.5 %; Hematocrit 23 % (35-47); Hemoglobin 7.7 g/dl (12.0-16.0); Lymphocyte % 19.9 %; Mean Corpuscular HGB Conc 34 g/dl (31-36); Mean Corpuscular Hemoglobin 29 pg (27-31); Mean Corpuscular Volume 85 fL (80-97); Mean Platelet Volume 6.3 fL (7.4-10.4); Nucleated Red Blood Cells % 0; Platelet Count 475 10^3/ul (150-450); Red Cell Distribution Width 13 % (10.5-15); White Blood Count 14.1 10^3/ul (3.5-10.8)
[2018-06-25 07:28] LABS: BUN/Creatinine Ratio 3.4 (8-20); Calcium 7.9 mg/dL (8.6-10.3); EGFR Non-African American 3.3 (>60); Magnesium 2.2 mg/dL (1.9-2.7)
[2018-06-25 07:30] LABS: Potassium 5.2 mmol/L (3.5-5.0)
[2018-06-25] MEDS: Ropinirole TAB* 0.5 MG TAB PO SCH ×2 (08:51→21:01)
[2018-06-25] MEDS: Docusate CAP* 100 MG PO SCH ×2 (08:51→20:58)
[2018-06-25] MEDS: Calcitriol CAP* 0.25 MCG PO SCH (08:52)
[2018-06-25] MEDS: Aspirin EC TAB* 81 MG TAB.EC PO SCH (08:52)
[2018-06-25] MEDS: Sodium Bicarbonate (ANTACID)* 650 MG TAB PO SCH ×2 (08:52→21:02)
[2018-06-25] MEDS: Insulin LISPRO* 1 UNITS UNIT SUBCUT SCH ×3 (08:52→17:22)
[2018-06-25] MEDS: Mupirocin 2% OINT* TUBE TOPICAL SCH (09:00)
--- NOTE | 2018-06-25 09:43 | PN ---
Subjective Date of Service: 06/25/18 Interval History: Patient seen and examined at bedside. Denies fever, chills, shortness of breath , chest discomfort, N/V/D. Family History: Unchanged from Admission Social History: Unchanged from Admission Past Medical History: Unchanged from Admission Objective Active Medications: Acetaminophen (Tylenol Tab*) 650 mg PO Q6H PRN Reason: FEVER/PAIN Hydrocodone Bitart/Acetaminophen ([place] 5-325 Tab*) 1 tab PO Q12HR PRN Reason: PAIN Amlodipine Besylate (Norvasc Tab*) 5 mg PO BEDTIME [facility] Aspirin (Aspirin Ec Tab*) 81 mg PO DAILY [facility] Atorvastatin Calcium (Lipitor*) 10 mg PO BEDTIME [facility] Calcitriol (Rocaltrol Cap*) 0.25 mcg PO DAILY [facility] Cinacalcet (Sensipar Tab*) 30 mg PO BEDTIME [facility] Dextrose (D50w Syringe 50 Ml*) 12.5 gm IV PUSH .FOR FS < 60 - SS PRN Reason: FS < 60 Diphenhydramine HCl (Benadryl Po*) 25 mg PO Q6H PRN Reason: ITCHING Docusate Sodium (Colace Cap*) 100 mg PO BID [facility] Heparin Sodium (Porcine) (Heparin Vial(*)) 5,000 units SUBCUT Q8HR [facility] Hydralazine HCl (Apresoline Iv*) 5 mg IV SLOW PU Q6H PRN Reason: BLOOD PRESSURE Hydroxyzine HCl (Atarax Tab*) 50 mg PO Q6H PRN Reason: pruritis Levofloxacin/Dextrose (Levaquin 250 Mg Ivpremx(*)) 250 mg in 50 mls @ 50 mls/ hr IVPB Q48H [facility] Insulin Human Lispro (Humalog*) 0 units SUBCUT AC [facility]; Protocol Loperamide HCl (Imodium Cap*) 2 mg PO TID PRN Reason: LOOSE STOOLS Metoprolol Tartrate (Lopressor Tab*) 50 mg PO QPM [facility] Mupirocin (Bactroban 2 % Oint*) 1 applic TOPICAL DAILY [facility] Ondansetron HCl (Zofran Inj*) 4 mg IV Q6H PRN Reason: NAUSEA Prochlorperazine Edisylate (Compazine Inj*) 5 mg IV Q6H PRN Reason: NAUSEA/ VOMITING Ropinirole HCl (Requip Tab*) 0.5 mg PO BEDTIME [facility] Ropinirole HCl (Requip Tab*) 0.25 mg PO DAILY [facility] Senna (Senokot Tab*) 1 tab PO BEDTIME PRN Reason: CONSTIPATION Sodium Bicarbonate (Sodium Bicarbonate (Antacid)*) 650 mg PO BID [facility] Tramadol HCl (Ultram*) 50 mg PO Q12H PRN Reason: DISCOMFORT Zinc Acetate/Diphenhydramine (Banophen 2 % Cream (Nf)) 1 applic TOPICAL TID PRN ; Protocol Reason: ITCHING Vital Signs - 8 hr 06/25/18 06/25/18 06/25/18 02:34 05:39 08:02 Temperature 98.5 F 98.0 F Pulse Rate 74 73 Respiratory 16 16 18 Rate Blood Pressure 152/71 141/63 (mmHg) O2 Sat by Pulse 97 98 98 Oximetry Oxygen Devices in Use Now: None Appearance: NAD, laying in bed Ears/Nose/Mouth/Throat: Mucous Membranes Moist Respiratory: Symmetrical Chest Expansion and Respiratory Effort, Clear to Auscultation Cardiovascular: NL Sounds; No Murmurs; No JVD, RRR Abdominal: NL Sounds; No Tenderness; No Distention Extremities: No Edema Skin: No Rash or Ulcers Neurological: Alert and Oriented x 3, NL Muscle Strength and Tone Nutrition: Taking PO's Result Diagrams: 06/25/18 06:43 06/26/18 05:58 Microbiology and Other Data: Microbiology 06/17/18 21:30 Gram Stain - Final Body Fluid - Peritoneal 06/17/18 14:50 Influenza Types A,B Antigen - Final Nasal Specimen received for Influenza A/B Molecular testing Assess/Plan/Problems-Billing Assessment: Ms. Chavez is a 47yo female with a PMHx of ESRD on peritoneal dialysis who presented from home with weakness and generalized malaise found to have SBP on Abx. - Patient Problems (1) Peritonitis Code(s): K65.9 - PERITONITIS, UNSPECIFIED SNOMED Code(s): 08053958 Comment: - Peritoneal fluid - Actinomyces - Peritoneal catheter removed on 06/22 - ID consult, input appreciated - Repeat CT abd/pelvis on 06/23/18 with no evidence of fluid collections or abscess - Continue Levaquin (2) End stage renal disease Code(s): N18.6 - END STAGE RENAL DISEASE SNOMED Code(s): 95460311 Comment: - ESRD secondary to poorly controlled DM, has been on PD - PD catheter removed on 06/22 - Per Surgery notes will place HD catheter tomorrow, prior to dialysis which is planned for 06/27 - Potassium is trending up, will recheck in the AM (3) Type 2 diabetes mellitus Comment: - Well controlled, glucose 130-170's - Continue Lispro sliding scale (4) GERD (gastroesophageal reflux disease) Code(s): K21.9 - GASTRO-ESOPHAGEAL REFLUX DISEASE WITHOUT ESOPHAGITIS SNOMED Code(s): 877909204 Comment: - Continue Protonix (5) HLD (hyperlipidemia) Code(s): E78.5 - HYPERLIPIDEMIA, UNSPECIFIED SNOMED Code(s): 57291258 Comment: - Continue to hold home atorvastatin (6) CAD (coronary artery disease) Code(s): I25.10 - ATHSCL HEART DISEASE OF [place] CORONARY ARTERY W/O ANG PCTRS SNOMED Code(s): 26931845 Comment: - No signs of ACS, denies chest pain - Continue to hold Brilinta for a minimum of 1 week (last dose 06/21) in anticipation of having CVC cath placed next week - Continue metoprolol 25mg, ASA 81mg daily (7) Hypertension Code(s): I10 - ESSENTIAL (PRIMARY) HYPERTENSION SNOMED Code(s): 20393268 Comment: - SBP 120-150's - Continue metoprolol and amlodipine (8) DVT prophylaxis Code(s): MNO2926 - SNOMED Code(s): 291378197 Comment: - SCDs in setting of H/H dropping, hold chemical DVT prophylaxis (9) DNR (do not resuscitate) Status and Disposition: Inpatient for peritonitis, DC home when medically stable.
[2018-06-25] MEDS: diPHENhydraMINE PO* 25 MG PO PRN ×2 (10:49→17:21)
[2018-06-25] MEDS: Ondansetron INJ* 2 MG/ML VIAL IV PRN (12:01)
[2018-06-25] MEDS: HYDROcodone/ACETAMIN 5-325 MG* 1 TAB PO PRN ×2 (12:13→21:02)
--- NOTE | 2018-06-25 12:53 | PN ---
Progress Note - Progress Note Date of Service: 06/25/18 Note: Surgery Progress Note Per discussion with Dr. Abarca last week patient requires hemodialysis on . Plan for temporary vs. tunnelled catheter to be placed tomorrow in OR, time is pending as case is an add on. Please make patient NPO after midnight. Case to be done by Dr. Martell or available surgeon. Discussed plan with hospitalist team.
[2018-06-25] MEDS: traMADol TAB* 50 MG PO PRN (13:35)
[2018-06-25] MEDS: Metoprolol Tartrate TAB* 50 mg PO SCH (17:21)
[2018-06-25] MEDS: amLODIPine TAB* 5 MG PO SCH (21:01)
[2018-06-25] MEDS: Atorvastatin* 10 MG TAB PO SCH (21:01)
[2018-06-25] MEDS: Cinacalcet TAB* 30 MG PO SCH (21:45)
[2018-06-26] MEDS: Zolpidem TAB* 5 MG PO PRN ×2 (00:43→23:19)
[2018-06-26] MEDS: diPHENhydraMINE PO* 25 MG PO PRN ×3 (00:43→22:01)
[2018-06-26] MEDS: traMADol TAB* 50 MG PO PRN (00:44)
[2018-06-26] MEDS: Heparin VIAL(*) 5000 UNITS/ML VIAL (FIVE THOUSAND) SUBCUT SCH ×3 (06:15→22:03)
[2018-06-26 06:35] LABS: BUN/Creatinine Ratio 3.2 (8-20); Calcium 7.9 mg/dL (8.6-10.3); EGFR African American 3.5 (>60); EGFR Non-African American 2.9 (>60); Potassium 4.9 mmol/L (3.5-5.0)
[2018-06-26] MEDS: Insulin LISPRO* 1 UNITS UNIT SUBCUT SCH ×3 (07:49→16:48)
[2018-06-26] MEDS: Ondansetron INJ* 2 MG/ML VIAL IV PRN ×2 (08:58→14:33)
[2018-06-26] MEDS: Levofloxacin 250 MG IVPREMX(*) 250 MG/50 ML BAG IVPB SCH (10:16)
[2018-06-26] MEDS: Docusate CAP* 100 MG PO SCH ×2 (10:17→21:58)
[2018-06-26] MEDS: Sodium Bicarbonate (ANTACID)* 650 MG TAB PO SCH ×2 (10:17→21:58)
[2018-06-26] MEDS: PROCHLORPERAZINE INJ 5 MG/ML 2 ML VIAL IV PRN ×3 (10:17→23:19)
[2018-06-26] MEDS: Aspirin EC TAB* 81 MG TAB.EC PO SCH (10:17)
[2018-06-26] MEDS: Ropinirole TAB* 0.5 MG TAB PO SCH ×2 (10:17→21:58)
[2018-06-26] MEDS: Calcitriol CAP* 0.25 MCG PO SCH (10:21)
[2018-06-26] MEDS: Mupirocin 2% OINT* TUBE TOPICAL SCH (10:47)
--- NOTE | 2018-06-26 13:16 | PN ---
Subjective Date of Service: 06/26/18 Interval History: Patient seen and examined at bedside. Denies fever, chills, shortness of breath , chest discomfort, N/V/D. She states that she has not moved her bowels since Monday, 3 days. Family History: Unchanged from Admission Social History: Unchanged from Admission Past Medical History: Unchanged from Admission Objective Active Medications: Acetaminophen (Tylenol Tab*) 650 mg PO Q6H PRN Reason: FEVER/PAIN Hydrocodone Bitart/Acetaminophen ([place] 5-325 Tab*) 1 tab PO Q8HR PRN Reason: PAIN Amlodipine Besylate (Norvasc Tab*) 5 mg PO BEDTIME [facility]ILY Aspirin (Aspirin Ec Tab*) 81 mg PO DAILY [facility]ILY Atorvastatin Calcium (Lipitor*) 10 mg PO BEDTIME [facility] Calcitriol (Rocaltrol Cap*) 0.25 mcg PO DAILY [facility]ILY Cinacalcet (Sensipar Tab*) 30 mg PO BEDTIME [facility]ILY Dextrose (D50w Syringe 50 Ml*) 12.5 gm IV PUSH .FOR FS < 60 - SS PRN Reason: FS < 60 Diphenhydramine HCl (Benadryl Po*) 25 mg PO Q6H PRN Reason: ITCHING Docusate Sodium (Colace Cap*) 100 mg PO BID EMILY Heparin Sodium (Porcine) (Heparin Vial(*)) 5,000 units SUBCUT Q8HR [facility] Hydralazine HCl (Apresoline Iv*) 5 mg IV SLOW PU Q6H PRN Reason: BLOOD PRESSURE Hydroxyzine HCl (Atarax Tab*) 50 mg PO Q6H PRN Reason: pruritis Levofloxacin/Dextrose (Levaquin 250 Mg Ivpremx(*)) 250 mg in 50 mls @ 50 mls/ hr IVPB Q48H [facility] Insulin Human Lispro (Humalog*) 0 units SUBCUT AC EMILY; Protocol Loperamide HCl (Imodium Cap*) 2 mg PO TID PRN Reason: LOOSE STOOLS Metoprolol Tartrate (Lopressor Tab*) 50 mg PO QPM [facility]ILY Mupirocin (Bactroban 2 % Oint*) 1 applic TOPICAL DAILY [facility] Ondansetron HCl (Zofran Inj*) 4 mg IV Q6H PRN Reason: NAUSEA Prochlorperazine Edisylate (Compazine Inj*) 5 mg IV Q6H PRN Reason: NAUSEA/ VOMITING Ropinirole HCl (Requip Tab*) 0.5 mg PO BEDTIME EMILY Ropinirole HCl (Requip Tab*) 0.25 mg PO DAILY EMILY Senna (Senokot Tab*) 1 tab PO BEDTIME PRN Reason: CONSTIPATION Sodium Bicarbonate (Sodium Bicarbonate (Antacid)*) 650 mg PO BID EMILY Tramadol HCl (Ultram*) 50 mg PO Q12H PRN Reason: DISCOMFORT Zinc Acetate/Diphenhydramine (Banophen 2 % Cream (Nf)) 1 applic TOPICAL TID PRN ; Protocol Reason: ITCHING Zolpidem Tartrate (Ambien Tab*) 5 mg PO BEDTIME PRN Reason: INSOMNIA Vital Signs - 8 hr 06/26/18 06/26/18 06/26/18 06:30 07:25 09:12 Temperature 98.1 F Pulse Rate 69 Respiratory 16 18 16 Rate Blood Pressure 150/72 (mmHg) O2 Sat by Pulse 96 Oximetry 06/26/18 06/26/18 09:30 11:51 Temperature 98.4 F Pulse Rate 73 Respiratory 16 16 Rate Blood Pressure 133/61 (mmHg) O2 Sat by Pulse 96 100 Oximetry Oxygen Devices in Use Now: None Appearance: NAD, laying in bed Ears/Nose/Mouth/Throat: Mucous Membranes Moist Respiratory: Symmetrical Chest Expansion and Respiratory Effort, Clear to Auscultation Cardiovascular: NL Sounds; No Murmurs; No JVD, RRR Abdominal: NL Sounds; No Tenderness; No Distention Extremities: No Edema Skin: No Rash or Ulcers Neurological: Alert and Oriented x 3, NL Muscle Strength and Tone Nutrition: Taking PO's Result Diagrams: 06/25/18 06:43 06/26/18 05:58 Microbiology and Other Data: Microbiology 06/17/18 21:30 Gram Stain - Final Body Fluid - Peritoneal 06/17/18 14:50 Influenza Types A,B Antigen - Final Nasal Specimen received for Influenza A/B Molecular testing Assess/Plan/Problems-Billing Assessment: Ms. Chavez is a 47yo female with a PMHx of ESRD on peritoneal dialysis who presented from home with weakness and generalized malaise found to have SBP on Abx. - Patient Problems (1) Peritonitis Code(s): K65.9 - PERITONITIS, UNSPECIFIED SNOMED Code(s): 32175237 Comment: - Peritoneal fluid - Actinomyces - Peritoneal catheter removed on 06/22 - ID consult, input appreciated - Repeat CT abd/pelvis on 06/23/18 with no evidence of fluid collections or abscess - Discussed with ID and recommend Amoxicillin for 4 weeks (500 mg PO daily) - Change from Levaquin to Amoxicillin (2) End stage renal disease Code(s): N18.6 - END STAGE RENAL DISEASE SNOMED Code(s): 30857575 Comment: - ESRD secondary to poorly controlled DM, has been on PD - PD catheter removed on 06/22 - Per Surgery will place HD catheter tomorrow - Hyperkalemia resolved (3) Constipation Code(s): K59.00 - CONSTIPATION, UNSPECIFIED SNOMED Code(s): 72648191 Comment: - No BM for 3 days - Will start bowel medications (4) Type 2 diabetes mellitus Comment: - Well controlled, glucose 90-170's - Continue Lispro sliding scale (5) GERD (gastroesophageal reflux disease) Code(s): K21.9 - GASTRO-ESOPHAGEAL REFLUX DISEASE WITHOUT ESOPHAGITIS SNOMED Code(s): 288074712 Comment: - Continue Protonix (6) HLD (hyperlipidemia) Code(s): E78.5 - HYPERLIPIDEMIA, UNSPECIFIED SNOMED Code(s): 81981706 Comment: - Continue to hold home atorvastatin (7) CAD (coronary artery disease) Code(s): I25.10 - ATHSCL HEART DISEASE OF [place] CORONARY ARTERY W/O ANG PCTRS SNOMED Code(s): 41650645 Comment: - No signs of ACS, denies chest pain - Continue to hold Brilinta for a minimum of 1 week (last dose 06/21) in anticipation of having CVC cath placed next week - Continue metoprolol 25mg, ASA 81mg daily (8) Hypertension Code(s): I10 - ESSENTIAL (PRIMARY) HYPERTENSION SNOMED Code(s): 18414255 Comment: - SBP 130-150's - Continue metoprolol and amlodipine (9) DVT prophylaxis Code(s): HXV3983 - SNOMED Code(s): 875644705 Comment: - SQ heparin (10) DNR (do not resuscitate) Status and Disposition: Inpatient for peritonitis, DC home when medically stable. Attending: Lawrence Rosales
[2018-06-26] MEDS: HYDROcodone/ACETAMIN 5-325 MG* 1 TAB PO PRN ×2 (14:27→21:58)
[2018-06-26] MEDS: hydrOXYzine HCL TAB* 50 MG PO PRN (14:33)
[2018-06-26] MEDS: Metoprolol Tartrate TAB* 50 mg PO SCH (16:36)
[2018-06-26] MEDS ORDERED: Polyethylene Glycol 3350* 17 GM PACKET PO PRN (19:53)
[2018-06-26] MEDS: Atorvastatin* 10 MG TAB PO SCH (21:58)
[2018-06-26] MEDS: amLODIPine TAB* 5 MG PO SCH (21:59)
[2018-06-26] MEDS: Cinacalcet TAB* 30 MG PO SCH (21:59)
[2018-06-27] MEDS: hydrOXYzine HCL TAB* 50 MG PO PRN ×2 (04:37→20:06)
[2018-06-27 06:04] LABS: ABS Basophils 0.2 10^3/ul (0-0.2); ABS Eosinophils 0.3 10^3/ul (0-0.6); ABS Lymphocytes 3.2 10^3/ul (1.0-4.8); ABS Monocytes 1.2 10^3/ul (0-0.8); ABS Nucleated RBC 0 10^3/ul; Eosinophil % 2.2 %; Hematocrit 23 % (35-47); Hemoglobin 7.8 g/dl (12.0-16.0); Lymphocyte % 23.1 %; Mean Corpuscular HGB Conc 33 g/dl (31-36); Mean Corpuscular Hemoglobin 29 pg (27-31); Mean Corpuscular Volume 86 fL (80-97); Mean Platelet Volume 6.2 fL (7.4-10.4); Nucleated Red Blood Cells % 0.1; Platelet Count 471 10^3/ul (150-450); Red Blood Count 2.74 10^6/ul (4.00-5.40); Red Cell Distribution Width 13 % (10.5-15); White Blood Count 13.9 10^3/ul (3.5-10.8)
[2018-06-27] MEDS: PROCHLORPERAZINE INJ 5 MG/ML 2 ML VIAL IV PRN ×2 (06:11→20:05)
[2018-06-27] MEDS: Heparin VIAL(*) 5000 UNITS/ML VIAL (FIVE THOUSAND) SUBCUT SCH ×3 (06:12→21:54)
[2018-06-27] MEDS: diPHENhydraMINE PO* 25 MG PO PRN (06:12)
[2018-06-27 06:27] LABS: Calcium 7.7 mg/dL (8.6-10.3); EGFR African American 3.6 (>60)
[2018-06-27 06:30] LABS: Potassium 5.3 mmol/L (3.5-5.0)
[2018-06-27] MEDS ORDERED: Lidocain 1% EPI 1:100,000 * 30 ML MDV ONE ×2 (07:02→10:17)
[2018-06-27] MEDS: Insulin LISPRO* 1 UNITS UNIT SUBCUT SCH ×3 (08:04→17:27)
[2018-06-27] MEDS: Ondansetron INJ* 2 MG/ML VIAL IV PRN ×2 (09:31→19:22)
[2018-06-27] MEDS ORDERED: Ondansetron INJ* 2 MG/ML VIAL ONE ×2 (09:31→11:36)
[2018-06-27] MEDS ORDERED: Heparin DIALYSIS ONLY(*) 1,000 UNITS/ML VIAL ONE (10:17)
[2018-06-27] MEDS ORDERED: ceFAZolin 2 GM PREMIX in ORs 2 GM/50 ML BAG IVPB ONE (10:29)
[2018-06-27] MEDS ORDERED: Heparin VIAL(*) 5000 UNITS/ML VIAL (FIVE THOUSAND) ONE (10:41)
[2018-06-27] MEDS ORDERED: Midazolam* 1 MG/ML 10 ML VIAL (10 MG) ONE (10:46)
[2018-06-27] MEDS ORDERED: fentaNYL* 50 MCG/ML 2 ML VIAL (100 MCG VIAL) ONE (10:58)
[2018-06-27] MEDS ORDERED: Lidocaine 2% PF * 5 ML VIAL ONE (11:36)
[2018-06-27] MEDS ORDERED: Propofol* 10 MG/ML 20 ML BTL ONE (11:36)
--- NOTE | 2018-06-27 11:57 | BRIEFOPN ---
Brief Operative Note - Surgery Procedures: Procedures Pre-OP Diagnoses: ESRD Post-op Diagnosis: same Procedure: placement of bioflo duramax hemodialysis catheter Surgeon: Jasbir Asst: none Anethesia: local, MAC EBL: minimal IVF: minimal Specimen: none Drains: 28cm catheter placed via R IJ vein
[2018-06-27] MEDS ORDERED: Ondansetron INJ* 2 MG/ML VIAL IV PRN (12:00)
[2018-06-27] MEDS ORDERED: fentaNYL* 50 MCG/ML 2 ML VIAL (100 MCG VIAL) IV PRN (12:00)
[2018-06-27] MEDS ORDERED: Naloxone* 0.4 MG/ML 1 ML VIAL IV PRN (12:00)
--- NOTE | 2018-06-27 12:47 | OP ---
AMENDED REPORT NOW INCLUDE DATE OF OPERATION - ESIGNED BEFORE ADJUSTMENTS * CC: Primary Care Doctor; Dr. Abarca, Nephrology * DATE OF OPERATION: 06/27/18 DATE OF : 70 SURGEON: Wai Martell MD FISHING VESSEL CAPTAIN: None. ANESTHESIOLOGIST: Dr. Cartwright. ANESTHESIA: Local MAC. PRE-OP DIAGNOSIS: End-stage renal disease with failed peritoneal dialysis catheter. POST-OP DIAGNOSIS: End-stage renal disease with failed peritoneal dialysis catheter. OPERATIVE PROCEDURE: Insertion of a tunneled hemodialysis catheter. ESTIMATED BLOOD LOSS: Minimal. FLUIDS: Minimal crystalloid fluid given. SPECIMEN: None. DESCRIPTION OF PROCEDURE: The patient was identified in the preoperative area. I discussed the case with her going over the risks, benefits, and alternatives of the procedure. We spoke about the possible complications which included, but not limited to bleeding, infection, hemothorax, pneumothorax, infection, need for removal. The patient signed consent. She was marked, brought to the operating room, placed on the operating table in supine position. Preoperative antibiotics were given. Sequential devices were placed on the bilateral lower extremities. Gentle sedation was given. The patient's right upper chest and neck were prepped and draped in standard surgical fashion and time-out was performed. Injection of lidocaine along the proposed stick site was carried out. The right IJ vein was accessed and wire inserted. This was passed with some difficulty and I abandoned this. I stuck the vein again somewhat lateral to this and the wire would not thread and on all these attempts we got to the vessel. Glidewire was then inserted successfully. Fluoroscopy was utilized to see its positioning. We then dilated it with the given dilators. I tunneled a 28 cm BioFlo DuraMax catheter from a separate stab site on the right chest. We then inserted this through the split-away catheter and under fluoroscopy assured its positioning. The catheter was sutured to the skin with 3-0 Prolene sutures and the stick at the neck was closed with 4-0 Monocryl subcuticular suture. Sterile dressing was applied. Both lumens were aspirated, blood with ease and injectable saline was placed. I did not place heparin due to the fact that the patient will be going to dialysis shortly. [id number]/[facility] #: [id number] [facility]
[2018-06-27] MEDS: Docusate CAP* 100 MG PO SCH ×2 (13:14→20:42)
[2018-06-27] MEDS: Ropinirole TAB* 0.5 MG TAB PO SCH ×2 (13:25→21:24)
[2018-06-27] MEDS: Calcitriol CAP* 0.25 MCG PO SCH (13:25)
[2018-06-27] MEDS: Aspirin EC TAB* 81 MG TAB.EC PO SCH (13:25)
[2018-06-27] MEDS: Amoxicillin PO (*) 500 MG CAP PO SCH (13:25)
[2018-06-27] MEDS: Sodium Bicarbonate (ANTACID)* 650 MG TAB PO SCH ×2 (13:40→21:13)
[2018-06-27] MEDS: Mupirocin 2% OINT* TUBE TOPICAL SCH (13:40)
[2018-06-27] MEDS ORDERED: EPOETIN ALFA-EPBX * 10,000 UNIT/ML VIAL IV ONE (16:00)
[2018-06-27] MEDS: HYDROcodone/ACETAMIN 5-325 MG* 1 TAB PO PRN (17:24)
--- NOTE | 2018-06-27 18:17 | PN ---
Subjective Date of Service: 06/27/18 Interval History: patient reports that she is feeling well. denies chest pain or shortness of breath. denies abd pain n/v/d. denies fever or chills. Family History: Unchanged from Admission Social History: Unchanged from Admission Past Medical History: Unchanged from Admission Objective Active Medications: Acetaminophen (Tylenol Tab*) 650 mg PO Q6H PRN PRN Reason: FEVER/PAIN Last Admin: 06/25/18 23:10 Dose: 650 mg Hydrocodone Bitart/Acetaminophen ([place] 5-325 Tab*) 1 tab PO Q8HR PRN PRN Reason: PAIN Last Admin: 06/27/18 17:24 Dose: 1 tab Amlodipine Besylate (Norvasc Tab*) 5 mg PO BEDTIME [facility] Last Admin: 06/26/18 21:59 Dose: 5 mg Amoxicillin (Amoxicillin Po (*)) 500 mg PO DAILY [facility] Last Admin: 06/27/18 13:25 Dose: 500 mg Aspirin (Aspirin Ec Tab*) 81 mg PO DAILY [facility] Last Admin: 06/27/18 13:25 Dose: 81 mg Atorvastatin Calcium (Lipitor*) 10 mg PO BEDTIME [facility] Last Admin: 06/26/18 21:58 Dose: 10 mg Calcitriol (Rocaltrol Cap*) 0.25 mcg PO DAILY [facility] Last Admin: 06/27/18 13:25 Dose: 0.25 mcg Cinacalcet (Sensipar Tab*) 30 mg PO BEDTIME [facility] Last Admin: 06/26/18 21:59 Dose: 30 mg Dextrose (D50w Syringe 50 Ml*) 12.5 gm IV PUSH .FOR FS < 60 - SS PRN PRN Reason: FS < 60 Diphenhydramine HCl (Benadryl Po*) 25 mg PO Q6H PRN PRN Reason: ITCHING Last Admin: 06/27/18 06:12 Dose: 25 mg Docusate Sodium (Colace Cap*) 100 mg PO BID [facility] Last Admin: 06/27/18 13:14 Dose: Not Given Heparin Sodium (Porcine) (Heparin Vial(*)) 5,000 units SUBCUT Q8HR [facility] Last Admin: 06/27/18 14:19 Dose: 5,000 units Hydralazine HCl (Apresoline Iv*) 5 mg IV SLOW PU Q6H PRN PRN Reason: BLOOD PRESSURE Hydroxyzine HCl (Atarax Tab*) 50 mg PO Q6H PRN PRN Reason: pruritis Last Admin: 06/27/18 04:37 Dose: 50 mg Insulin Human Lispro (Humalog*) 0 units SUBCUT AC [facility]; Protocol Last Admin: 06/27/18 17:27 Dose: Not Given Loperamide HCl (Imodium Cap*) 2 mg PO TID PRN PRN Reason: LOOSE STOOLS Last Admin: 06/22/18 20:19 Dose: 2 mg Metoprolol Tartrate (Lopressor Tab*) 50 mg PO QPM [facility] Last Admin: 06/26/18 16:36 Dose: 50 mg Mupirocin (Bactroban 2 % Oint*) 1 applic TOPICAL DAILY [facility] Last Admin: 06/27/18 13:40 Dose: Not Given Ondansetron HCl (Zofran Inj*) 4 mg IV Q6H PRN PRN Reason: NAUSEA Last Admin: 06/27/18 09:31 Dose: 4 mg Polyethylene Glycol/Electrolytes (Miralax*) 17 gm PO DAILY PRN PRN Reason: CONSTIPATION Prochlorperazine Edisylate (Compazine Inj*) 5 mg IV Q6H PRN PRN Reason: NAUSEA/VOMITING Last Admin: 06/27/18 06:11 Dose: 5 mg Ropinirole HCl (Requip Tab*) 0.5 mg PO BEDTIME [facility] Last Admin: 06/26/18 21:58 Dose: 0.5 mg Ropinirole HCl (Requip Tab*) 0.25 mg PO DAILY [facility] Last Admin: 06/27/18 13:25 Dose: 0.25 mg Senna (Senokot Tab*) 1 tab PO BEDTIME PRN PRN Reason: CONSTIPATION Sodium Bicarbonate (Sodium Bicarbonate (Antacid)*) 650 mg PO BID [facility] Last Admin: 06/27/18 13:40 Dose: Not Given Tramadol HCl (Ultram*) 50 mg PO Q12H PRN PRN Reason: DISCOMFORT Last Admin: 06/26/18 00:44 Dose: 50 mg Zinc Acetate/Diphenhydramine (Banophen 2 % Cream (Nf)) 1 applic TOPICAL TID PRN ; Protocol PRN Reason: ITCHING Zolpidem Tartrate (Ambien Tab*) 5 mg PO BEDTIME PRN PRN Reason: INSOMNIA Last Admin: 06/26/18 23:19 Dose: 5 mg Vital Signs - 8 hr 06/27/18 06/27/18 06/27/18 11:50 11:52 11:55 Temperature Pulse Rate 87 87 84 Respiratory Rate Blood Pressure 123/65 126/68 (mmHg) O2 Sat by Pulse 97 98 98 Oximetry 06/27/18 06/27/18 06/27/18 12:00 12:05 12:15 Temperature Pulse Rate 83 81 81 Respiratory Rate Blood Pressure 127/68 129/67 128/70 (mmHg) O2 Sat by Pulse 99 97 95 Oximetry 06/27/18 06/27/18 06/27/18 13:09 14:31 15:09 Temperature 98.2 F 97.4 F Pulse Rate 79 101 Respiratory 16 16 16 Rate Blood Pressure 148/70 157/79 (mmHg) O2 Sat by Pulse 94 100 Oximetry 06/27/18 06/27/18 06/27/18 16:01 16:13 17:24 Temperature 97.1 F Pulse Rate 84 Respiratory 18 Rate Blood Pressure (mmHg) O2 Sat by Pulse 100 100 Oximetry Oxygen Devices in Use Now: None Appearance: appears comfortable sitting on the edge of the bed. Eyes: No Scleral Icterus Ears/Nose/Mouth/Throat: Clear Oropharnyx, Mucous Membranes Moist Neck: NL Appearance and Movements; NL JVP, Trachea Midline Respiratory: Symmetrical Chest Expansion and Respiratory Effort, Clear to Auscultation Cardiovascular: NL Sounds; No Murmurs; No JVD, No Edema Abdominal: NL Sounds; No Tenderness; No Distention Extremities: No Edema, No Clubbing, Cyanosis Skin: - - rigth chest cath site with drainage , steri strips noted to right neck Neurological: Alert and Oriented x 3 Nutrition: Taking PO's Result Diagrams: 06/27/18 05:37 06/27/18 05:46 Microbiology and Other Data: Microbiology 06/17/18 21:30 Gram Stain - Final Body Fluid - Peritoneal 06/17/18 14:50 Influenza Types A,B Antigen - Final Nasal Specimen received for Influenza A/B Molecular testing Assess/Plan/Problems-Billing Assessment: Ms. Chavez is a 47yo female with a PMHx of ESRD on peritoneal dialysis who presented from home with weakness and generalized malaise found to have SBP on Abx. - Patient Problems (1) End stage renal disease Current Visit: No Status: Chronic Code(s): N18.6 - END STAGE RENAL DISEASE SNOMED Code(s): 51055218 Comment: - ESRD secondary to poorly controlled DM, has been on PD - PD catheter removed on 06/22 - place HD catheter today - will have dialysis today - will be discahrged to hemo dialysis tomorrow - Hyperkalemia prior to dialysis (2) Anemia Current Visit: Yes Status: Acute Code(s): D64.9 - ANEMIA, UNSPECIFIED SNOMED Code(s): 101777883 Comment: H/H low but stable received EPO today - will consult Dr. Abarca in regards to further dosing (3) Peritonitis Current Visit: Yes Status: Acute Code(s): K65.9 - PERITONITIS, UNSPECIFIED SNOMED Code(s): 16115142 Comment: - Peritoneal fluid - Actinomyces - Peritoneal catheter removed on 06/22 - ID consult, input appreciated - Repeat CT abd/pelvis on 06/23/18 with no evidence of fluid collections or abscess - Discussed with ID and recommend Amoxicillin for 4 weeks (500 mg PO daily) - continue Amoxicillin (4) HLD (hyperlipidemia) Current Visit: No Status: Chronic Code(s): E78.5 - HYPERLIPIDEMIA, UNSPECIFIED SNOMED Code(s): 86729202 Comment: - Continue to hold home atorvastatin (5) Hypertension Current Visit: No Status: Chronic Code(s): I10 - ESSENTIAL (PRIMARY) HYPERTENSION SNOMED Code(s): 41702041 Comment: - SBP 120's-150's - Continue metoprolol and amlodipine (6) Type 2 diabetes mellitus Current Visit: No Status: Chronic Comment: - Well controlled, - Continue Lispro sliding scale (7) CAD (coronary artery disease) Current Visit: No Status: Chronic Code(s): I25.10 - ATHSCL HEART DISEASE OF [place] CORONARY ARTERY W/O ANG PCTRS SNOMED Code(s): 88724522 Comment: - No signs of ACS, denies chest pain - Continue to hold Brilinta for a minimum of 1 week (last dose 06/21) in anticipation of having CVC cath placed next week- will check with surgery in the Am as when brilinta can be restarted - Continue metoprolol 25mg, ASA 81mg daily (8) DVT prophylaxis Current Visit: No Status: Acute Code(s): PYT5865 - SNOMED Code(s): 328373345 Comment: - SQ heparin (9) DNR (do not resuscitate) Current Visit: Yes Status: Acute Status and Disposition: Inpatient for peritonitis, DC home when medically stable likely tomorrow
[2018-06-27] MEDS: Metoprolol Tartrate TAB* 50 mg PO SCH ×2 (19:22→19:26)
[2018-06-27] MEDS: traMADol TAB* 50 MG PO PRN (19:57)
[2018-06-27] MEDS: Loperamide CAP* 2 MG PO PRN (20:06)
[2018-06-27] MEDS: Zolpidem TAB* 5 MG PO PRN (21:23)
[2018-06-27] MEDS ORDERED: Morphine INJ* 2 MG/ML 1 ML SYRINGE (TWO MG - NEW SYRINGE VERSION) IV ONE (21:24)
[2018-06-27] MEDS: Cinacalcet TAB* 30 MG PO SCH (21:24)
[2018-06-27] MEDS: amLODIPine TAB* 5 MG PO SCH (21:51)
[2018-06-27] MEDS: Atorvastatin* 10 MG TAB PO SCH (21:51)
[2018-06-28] MEDS: HYDROcodone/ACETAMIN 5-325 MG* 1 TAB PO PRN (03:36)
[2018-06-28] MEDS: Ondansetron INJ* 2 MG/ML VIAL IV PRN (05:41)
[2018-06-28] MEDS: Heparin VIAL(*) 5000 UNITS/ML VIAL (FIVE THOUSAND) SUBCUT SCH (05:43)
[2018-06-28 07:44] VITALS: BP 151/77
[2018-06-28] MEDS: Aspirin EC TAB* 81 MG TAB.EC PO SCH (08:07)
[2018-06-28] MEDS: Calcitriol CAP* 0.25 MCG PO SCH (08:07)
[2018-06-28] MEDS: Ropinirole TAB* 0.5 MG TAB PO SCH (08:07)
[2018-06-28] MEDS: Sodium Bicarbonate (ANTACID)* 650 MG TAB PO SCH (08:07)
[2018-06-28] MEDS: Amoxicillin PO (*) 500 MG CAP PO SCH (08:07)
[2018-06-28] MEDS: traMADol TAB* 50 MG PO PRN (08:15)
[2018-06-28] MEDS: Insulin LISPRO* 1 UNITS UNIT SUBCUT SCH (08:21)
[2018-06-28] MEDS: diPHENhydraMINE PO* 25 MG PO PRN (08:32)
[2018-06-28] MEDS: Docusate CAP* 100 MG PO SCH (08:48)
[2018-06-28] MEDS ORDERED: Ticagrelor* 90 MG TAB PO SCH (09:00)
[2018-06-28] MEDS: Mupirocin 2% OINT* TUBE TOPICAL SCH (10:55)
--- NOTE | 2018-06-29 02:27 | DS ---
CC: Dr. Abarca; Dr. Howard; Dr. Jacob Pan* DISCHARGE SUMMARY: DATE OF ADMISSION: 06/17/18 DATE OF DISCHARGE: 06/28/18 PROVIDER: Vandana Mansfield NP ATTENDING PHYSICIAN WHILE IN THE HOSPITAL: Dr. Tangela Doan* (dictated by Vandana Mansfield NP). PRIMARY CARE PROVIDER: Dr. Jacob Pan. PRIMARY DIAGNOSIS: Peritonitis. SECONDARY DIAGNOSES: 1. Type 2 diabetes. 2. Gastroesophageal reflux disease. 3. Hyperlipidemia. 4. Coronary artery disease. 5. End-stage renal disease. 6. Hypertension. STUDIES COMPLETED WHILE IN THE HOSPITAL: She had a chest x-ray on 06/17/18, radiologist's impression: No evidence of acute disease. She had a liver ultrasound on 06/17/18, radiologist's impression: 1. Likely hepatic cirrhosis. 2. Moderate ascites in the right upper quadrant, likely related to hepatic cirrhosis. 3. Suspected nonobstructing right nephrolithiasis. She had an abdominal ultrasound on 06/21/18, radiologist's impression: No evidence of loculated fluid collection noted along the peritoneal dialysis catheter track. She had a CT of the abdomen and pelvis, near complete resolution of ascites since prior ultrasound, small amount of fluid seen only in the pelvis. No bowel obstruction, obstructive uropathy or inflammatory changes in the abdomen. DISCHARGE MEDICATIONS: New medications: Amoxicillin 500 mg p.o. daily x6 weeks , 40 more doses. Discontinued home medications: Brilinta. Continued home medications: 1. Aspirin 81 mg p.o. daily. 2. Nexium 40 mg p.o. daily. 3. Vitamin B12 1000 mcg p.o. daily. 4. Sensipar 30 mg p.o. at bedtime. 5. Rocaltrol 0.25 mcg p.o. daily. 6. Atorvastatin 10 mg p.o. at bedtime. 7. Zofran 4 mg p.o. q.8 hours as needed. 8. Metoprolol 50 mg p.o. q.p.m. 9. Hydrocodone/acetaminophen 1 tablet p.o. q.6 hours as needed. 10. Amlodipine 5 mg p.o. at bedtime. 11. Ambien 10 mg p.o. at bedtime as needed for insomnia. 12. Sodium bicarbonate antacid 650 mg p.o. b.i.d. 13. Requip 0.5 mg p.o. at bedtime. 14. Glipizide 2.5 mg p.o. daily. 15. Benadryl 50 mg p.o. q.6 hours as needed for itching. 16. Acetaminophen 650 mg q.6 hours as needed for pain. HISTORY OF PRESENT ILLNESS AND HOSPITAL COURSE: Ms. Chavez is a 47-year-old female with a history of type 2 diabetes; end-stage renal disease, initially on peritoneal dialysis since 2013; history of gastroparesis; CAD, status post stenting in 2013; history of hypertension, hyperlipidemia, restless leg syndrome ; history of recurrent pancreatitis, who presented to the emergency room with complaints of abdominal pain. She reports for the past 2 to 3 days, she has had tender, sore feeling in the epigastric area accompanied by mild nausea without vomiting. She has had several admissions in the last 6 weeks for nausea and vomiting, though it was related to her gastroparesis. At this time, she feels different because she states it is more epigastric abdominal pain with her initial complaint. During the hospitalization, she had a culture taken from her peritoneal dialysis catheter, which was found to have Actinomyces neuii bacteria present. Her wound was also found to have Streptococcus constellatus and Bifidobacterium species. Due to the infected bacteria noted in the peritoneal fluid, the patient had her peritoneal dialysis catheter removed. She received antibiotic therapy while in the hospital and was then converted to amoxicillin p.o. daily. She was seen in consultation by Infectious Disease, who has recommended that the patient continue on amoxicillin 500 mg p.o. daily x6 weeks for peritonitis. The patient subsequently had a hemodialysis catheter placed. She was started on hemodialysis and follows with Dr. Abarca. Dr. Westbrook placed the hemodialysis catheter in the right chest. At this time, the patient is stable for discharge home. Vital signs are as follows: Blood pressure was 151/77, heart rate was 97, respirations 18, O2 saturation 98% on room air, temperature of 98.0. REVIEW OF SYSTEMS: The patient denies any fever, chills, nausea, vomiting or diarrhea. Denies any abdominal pain. Denies any chest pain or shortness of breath. The patient reports that she is ready to return home. PHYSICAL EXAMINATION: General: At this time, Ms. Chavez is a 47-year-old female , she is sitting on the edge of the bed. Her color is pale. Her skin is warm and dry. She is alert and oriented x3. HEENT: Head is atraumatic and normocephalic. Eyes: EOMs are intact. Sclerae anicteric and not pale. Oral mucosa appeared to be moist. Neck is supple. Lungs are clear to auscultation bilaterally. No wheezes, rales, or rhonchi. Cardiac: S1 and S2. Regular rate and rhythm. No murmurs, rubs or gallops. Abdomen is soft and nontender. Bowel sounds are present x4. She does have a dressing noted to her abdomen that is dry and intact. Extremities: She is able to move all 4 extremities with 4/5 strength. Neurologic: She is awake, alert, and oriented x3. Speech is clear. Thought process is intact. There are no gross focal deficits. Skin: She has a dressing dry and intact to her abdomen. She has Steri-Strips intact to her right neck. She has dialysis catheter to the right chest with a dressing over top of this, again dry and intact. DISCHARGE PLAN: Ms. Chavez will be discharged home. Activity as tolerated. She should continue on a renal diet. 1. Peritonitis. The patient was diagnosed with peritonitis. She had a peritoneal dialysis catheter removed. She should continue on amoxicillin 500 mg p.o. daily times a total of 6 weeks, she needs 40 more doses. She should follow up with Dr. Howard from Infectious Disease in 1 to 2 weeks. She will need to repeat CBC, CMP, and CRP prior to following up with Dr. Howard. The patient was instructed to watch for any signs of increased drainage, increased redness, fever, chills, nausea, vomiting or any other concerning symptoms or drainage from the abdomen. 2. Diabetes. The patient should resume her glipizide medications as previously prescribed at home. 3. End-stage renal disease. The patient will continue with hemodialysis at this time with Dr. Abarca. She should follow up with Dr. Abarca as per his recommendations. 4. Anemia. The patient was anemic and did have blood counts that were trending down. She did receive Epogen as ordered by Dr. Abarca. She will continue to have lab work with a repeat CBC to trend her H and H and watch it closely. The patient denies any vomiting or bloody, black or tarry stools. There was no obvious acute blood loss. I suspect the anemia is related to her end-stage renal disease. 5. History of coronary artery disease. The patient has a history of a drug- eluting stent placed in 2013. She did follow up with Cardiology, but her last followup was in 2014. The patient has been on Brilinta 90 mg p.o. b.i.d. since 2013. I did discuss this with Dr. Dobson, who has recommended that we stop the Brilinta and continue her on aspirin 81 mg p.o. daily. It was also recommended that she follow up with Dr. Almendarez from Cardiology for further recommendations. The patient was instructed to follow up with her mold filler. She verbalized understanding. 6. Hypertension. She should continue on her Norvasc as previously prescribed. 7. Gastroesophageal reflux disease. She should continue on Nexium. 8. Hyperlipidemia. She will continue on Lipitor 10 mg p.o. daily. FOLLOWUP: 1. The patient should follow up with Dr. Abarca. As directed by Dr. Abarca, she will go for hemodialysis Monday, , and Monday. 2. She should follow up with Dr. Howard in 1 to 2 weeks. She should follow up with her primary care provider Dr. Jacob Pan in 4 to 7 days. She should follow up with Dr. Almendarez in 1 to 2 weeks. The patient was instructed to return to the emergency room for any increased shortness of breath, chest pain, nausea, vomiting, diarrhea, or any other concerning symptoms. This is a summarization of her hospitalization. If further details are needed, please see the entire medical record. TIME SPENT: Time spent on this discharge was 60 minutes, greater than half that time was spent at the bedside discussing discharge plans and instructions. CONDITION ON DISCHARGE: Stable. DISPOSITION: Home. I have discussed this with my attending, Dr. Tangela Doan; she is in agreement with my plan. VANDANA RANI, CHARGE RN [id number]/[facility] #: [id number] [facility]
== END 2018-06-28 10:20 | disposition home or self-care (01) | DRG 981 ==
LOC: ED 13:57 → MED 22:12
PROVIDERS: ADMIT Internal Medicine; ATTEND Internal Medicine
PROC: 0WPG03Z Removal of Infusion Device from Peritoneal Cavity, Open Approach (ICD-10-PCS; principal; 2018-06-22 12:00)
PROC: 0JH60XZ Insertion of Tunneled Vascular Access Device into Chest Subcutaneous Tissue and Fascia, Open Approach (ICD-10-PCS; 2018-06-27)
PROC: 02H633Z Insertion of Infusion Device into Right Atrium, Percutaneous Approach (ICD-10-PCS; 2018-06-27)
PROC: B214YZZ Fluoroscopy of Right Heart using Other Contrast (ICD-10-PCS; 2018-06-27)
PROC: 5A1D70Z Performance of Urinary Filtration, Intermittent, Less than 6 Hours Per Day (ICD-10-PCS; 2018-06-27)
DX: T82.7XXA Infection and inflammatory reaction due to other cardiac and vascular devices, implants and grafts, initial encounter (principal); N18.6 End stage renal disease; K65.2 Spontaneous bacterial peritonitis; I13.2 Hypertensive heart and chronic kidney disease with heart failure and with stage 5 chronic kidney disease, or end stage renal disease; E87.1 Hypo-osmolality and hyponatremia; R18.8 Other ascites; E87.2 Acidosis; K86.1 Other chronic pancreatitis; E11.22 Type 2 diabetes mellitus with diabetic chronic kidney disease; E11.51 Type 2 diabetes mellitus with diabetic peripheral angiopathy without gangrene; I50.9 Heart failure, unspecified; I25.10 Atherosclerotic heart disease of native coronary artery without angina pectoris; E11.40 Type 2 diabetes mellitus with diabetic neuropathy, unspecified; Y82.8 Other medical devices associated with adverse incidents; M19.90 Unspecified osteoarthritis, unspecified site; J42 Unspecified chronic bronchitis; F17.210 Nicotine dependence, cigarettes, uncomplicated; E11.21 Type 2 diabetes mellitus with diabetic nephropathy; E11.43 Type 2 diabetes mellitus with diabetic autonomic (poly)neuropathy; D64.9 Anemia, unspecified; E87.5 Hyperkalemia; K31.84 Gastroparesis; G25.81 Restless legs syndrome; E78.5 Hyperlipidemia, unspecified; B95.4 Other streptococcus as the cause of diseases classified elsewhere; B96.89 Other specified bacterial agents as the cause of diseases classified elsewhere; K21.9 Gastro-esophageal reflux disease without esophagitis; K59.00 Constipation, unspecified; Z66 Do not resuscitate; G43.909 Migraine, unspecified, not intractable, without status migrainosus; Z90.49 Acquired absence of other specified parts of digestive tract; Z95.5 Presence of coronary angioplasty implant and graft; Z88.1 Allergy status to other antibiotic agents; Z99.2 Dependence on renal dialysis; Z88.6 Allergy status to analgesic agent; I25.2 Old myocardial infarction; Q24.9 Congenital malformation of heart, unspecified; Z88.8 Allergy status to other drugs, medicaments and biological substances; Z82.49 Family history of ischemic heart disease and other diseases of the circulatory system; Z80.1 Family history of malignant neoplasm of trachea, bronchus and lung; Z83.3 Family history of diabetes mellitus; Z80.51 Family history of malignant neoplasm of kidney; Y92.9 Unspecified place or not applicable; Z79.82 Long term (current) use of aspirin; Z79.84 Long term (current) use of oral hypoglycemic drugs
CPT/HCPCS: 36415; 71045; 74177; 76000; 76705; 80048; 80053; 82728; 83540; 83550; 83605; 83630; 83690; 83735; 84484; 85014; 85018; 85025; 85610; 85730; 86140; 86706; 87040; 87045; 87046; 87070; 87076; 87077; 87186; 87205; 87340; 87640; 87641; 87899; 89051; 90935; 90945; 99284; 99406; A9270-GY; C1750; G0257; J0690; J0780; J1200; J1240; J1644; J1956; J2250; J2270; J2405; J2704; J3010; J3370; J3475; J3490; Q5106; Q9967

== ENCOUNTER → 2018-11-02 08:05 | Day surgery (SDC) | payer MEDICARE, MEDICAID ==
--- NOTE | 2018-10-31 12:37 | HP ---
HISTORY AND PHYSICAL: DATE OF ADMISSION: 11/02/18 DATE OF SURGERY: She is scheduled for surgery at [facility] on 11/02. DATE OF HISTORY AND PHYSICAL EXAM: 10/17/18 ATTENDING PHYSICIAN: Dr. Tyalor.* (DICTATED BY DAYAMI BELLE NP) CHIEF COMPLAINT: Brachiocephalic fistula of the left arm that is deep and has not totally matured. HISTORY OF PRESENT ILLNESS: Mali Chavez is a 48-year-old female, who underwent on 07/27/18 arteriovenous brachiocephalic fistula of the left arm. The fistula has a layer of fat on it and has not totally matured as there are branches that are stealing outflow from the fistula. Dr. Taylor has discussed the nature and course of ligating the branches and superficializing the fistula , has discussed the material risks and relevant alternatives to surgery. These are reviewed with the patient at her preoperative appointment including, but not limited to, infection, bleeding, clotting, failure of the graft. The patient will sign on admission an informed consent for left arm superficialization of the arteriovenous anastomosis. PAST MEDICAL HISTORY: End-stage renal disease, [id number] diabetes, hypertension, anemia, kidney disease, cholecystectomy in 2013, history of intermittent claudication, and tobacco use. MEDICATIONS: 1. Amlodipine besylate 5 mg, take 2 tablets once daily. 2. Atorvastatin calcium 10 mg 1 tablet daily. 3. Diphenhydramine HCl 50 mg 1 p.r.n. 4. Glipizide 5 mg daily. 5. Hydroxyzine HCl 25 mg. 6. Metoclopramide HCl 10 mg, take half a tablet every 6 hours as needed for nausea. 7. Metoprolol tartrate 25 mg 1 tablet twice a day. 8. Zofran 8 mg p.r.n. 9. 81 mg aspirin 1 tablet daily. 10. Ropinirole HCl 0.5 mg, take 1 tablet twice a day. 11. Sodium bicarbonate 650 mg. 12. Veltassa 8.4 g 1 packet as directed. 13. Zolpidem tartrate 10 mg p.r.n. ALLERGIES: VERAPAMIL, DOXYCYCLINE, and GLUCOPHAGE. FAMILY HISTORY: Parents and 2 sisters with a history of cancer that includes lung, brain, bone, and colon. SOCIAL HISTORY: The patient is disabled. She does have a history of tobacco use, approximately 2 packs a day. She has rare alcohol use. PHYSICAL EXAMINATION GENERAL: Mali Chavez is a 48-year-old female, well developed, well nourished , in no acute distress. VITAL SIGNS: Blood pressure 154/63, height 5 feet, weight 135, pulse 82, respirations 18. HEENT: Within normal limits. Teeth are in good repair. NECK: Supple. Full range of motion. Thyroid nonpalpable. SPINE: Normal curvature. CHEST: Lungs clear. HEART: S1, S2. Regular rate and rhythm. No extra heart sounds, murmurs, clicks, or rubs. ABDOMEN: Soft, nontender. Positive bowel sounds. Positive tympany. No masses or organomegaly. EXTREMITIES: +2 symmetrical radial pulses. Local exam shows left arm arteriovenous brachiocephalic fistula. NEURO: Alert and oriented x3. The rest of the exam was grossly intact. IMPRESSION: Immature arteriovenous brachiocephalic fistula of the left arm. PLAN: Same-day surgery admission to Dr. Taylor's service for left arm superficialization of the arteriovenous anastomosis. DAYAMI BELLE NP [id number]/CPS #: [id number] ZHENG
[~2018-11-02 08:05] MED LIST changes: +Buffered Lidocaine 1% SYRIN* 1 ML/SYRINGE INTRADERM ONE; +Bupivacaine 0.25% W/EPI* 10 ML SDV ONE; +DiMENhydriNATE IV* 50 MG/ML VIAL IV PUSH ONE; +DiMENhydriNATE IV* 50 MG/ML VIAL ONE; +EPHEDrine (Pressors)* 50 MG/ML VIAL ONE; +Famotidine IV* 10 MG/ML 2 ML (20 mg) IV ONE; +Famotidine IV* 10 MG/ML 2 ML (20 mg) ONE; +Heparin 2 UNITS/ML IVPREMIX* 1,000 ML IV ONE; +Heparin DIALYSIS ONLY(*) 1,000 UNITS/ML VIAL ONE; +Heparin VIAL(*) 5000 UNITS/ML VIAL (FIVE THOUSAND) ONE; +KETAMINE HCL* 50 MG/ML 10 ML VIAL ONE; +Lactated Ringers 1000 ML Bag* 1,000 ML IV SCH; +Lidocaine 1% INJ* 10 MG/ML 30 ML SDV ONE; +Midazolam* 1 MG/ML 5 ML VIAL (5 MG) ONE; +Morphine 4 MG/ML VIAL (1 ml) 4 MG/ML VIAL IV PRN; +NS 0.45% 1000 ML BAG* 1,000 ML IV SCH; +Naloxone* 0.4 MG/ML 1 ML VIAL IV PRN; +Ondansetron ODT TAB* 4 MG ONE; +PROCHLORPERAZINE INJ 5 MG/ML 2 ML VIAL IV PRN; +Phenylephrine 10 MG/ML VIAL* 1 ML VIAL ONE; +Propofol* 500 MG/50 ML BTL ONE; +ceFAZolin 2 GM in NS PREMIX(*) 2 GM/100 ML BAG IVPB ONE; -diPHENhydraMINE PO* 50 MG PO ONE; +fentaNYL* 50 MCG/ML 2 ML VIAL (100 MCG VIAL) IV PRN; +fentaNYL* 50 MCG/ML 2 ML VIAL (100 MCG VIAL) ONE; -hydrOXYzine IM* 50 MG/ML VIAL IM ONE; +oxyCODONE/Acetamin 5/325 MG* TAB PO PRN; -predniSONE TAB* 20 MG PO ONE
[2018-11-02 12:36] VITALS: BP 137/82
--- NOTE | 2018-11-02 14:05 | OP ---
DATE OF OPERATION: 11/02/18 - [facility] DATE OF : 70 SURGEON: Saurabh Taylor MD. MOTTLER MACHINE FEEDER: Jasmine Lynn NP. ANESTHESIA: Local plus MAC. PRE-OP DIAGNOSIS: Deep left brachiocephalic fistula. POST-OP DIAGNOSIS: Deep left brachiocephalic fistula. OPERATIVE PROCEDURE: Left arm superficialization (elevation) of the left brachiocephalic arteriovenous fistula. ESTIMATED BLOOD LOSS: None. INDICATIONS: The patient is a 48-year-old female with end-stage renal disease who underwent left brachiocephalic fistula approximately 10 weeks ago. The patient has had an increase in the size of the fistula. However, the fistula appears to be too deep with fatty tissue in between the skin and the subcutaneous tissue; therefore, not accessible for venipuncture. For this reason, the patient is being brought in for superficialization of the fistula and ligation of collaterals. DESCRIPTION OF PROCEDURE: The patient was taken to the procedure room. She underwent ultrasound mapping prior to the surgery. One large branch was noted 5 cm above the elbow crease. This was marked for ligation. The mapping of the tract of the vein was done as well, and after this was done and proper identification of the patient's site of surgery, the patient was placed in the supine position. A proper time-out was performed. She was under sedation. Lidocaine 1% was used to infiltrate approximately 5 cm proximal to the arteriovenous anastomosis on the left arm. A transverse incision was performed. The incision was carried down to the skin and subcutaneous tissue. Bleeders were controlled by electrocoagulation. Identification of the cephalic vein was done. This was then encircled in vessel loops. We then proceeded to continue infiltrating tumescent local anesthesia around the cephalic vein. After this was done, we then identified a large branch on the lateral aspect of the fistula. This was then ligated with 3-0 silk proximally and distally and divided. Other minor branches were identified along the way. They were clipped proximally and distally and divided. After the vein was encircled in vessel loops, then we proceeded to remove the fat between the skin and the fistula itself, until one could see a very thin layer of fat and this was done throughout the length of the fistula from the anastomosis up to the proximal arm for a distance of at least 15 cm. After this was done and the fat had been removed, we then proceeded to suture the edges of the fat behind the vein in order to lift the vein up even closer to the skin and this was done with interrupted 4-0 Vicryl sutures. At this point, one could feel very well the thrill and the vein to be superficial. We then proceeded to place a [place] drain because of the amount of fatty tissue that was removed in order to avoid seromas , and the [place] drain was brought out through a separate incision on the lower inner part of the arm. After this was completed, the incisions were closed with interrupted 4-0 Vicryl suture and the skin was closed with subcuticular Monocryl and interrupted 4-0 Prolene. The drain was fixed in place with 4-0 Prolene. The patient tolerated procedure well and she was taken in good condition to the recovery room. [id number]/CPS #: [id number] ZHENG
== END | disposition home or self-care (01) ==
LOC: OR 08:05
PROVIDERS: ATTEND Surgery
DX: T82.898A Other specified complication of vascular prosthetic devices, implants and grafts, initial encounter (principal); N18.6 End stage renal disease; E11.22 Type 2 diabetes mellitus with diabetic chronic kidney disease; I12.0 Hypertensive chronic kidney disease with stage 5 chronic kidney disease or end stage renal disease; F17.210 Nicotine dependence, cigarettes, uncomplicated; Z79.84 Long term (current) use of oral hypoglycemic drugs; D64.9 Anemia, unspecified; Z99.2 Dependence on renal dialysis
CPT/HCPCS: A9270-GY; J0690; J1240; J1644; J2250; J2704; J3010

== ENCOUNTER 2019-07-02 05:54 | Inpatient (IN) | payer MEDICARE, MEDICAID ==
--- OUTSIDE RECORDS SUMMARY | 2019-07-02 06:02 | XMS REPORT | Summary of Care ---
:1970 Author Organization [facility] Address [address] [place] [address] Care Team Providers Name Role Phone Jacob Pan Primary Care Provider Reason for Visit Reason Comments Follow Up pt presents for follow up Encounter Details Date Type Department Care Team Description 06/05/2019 Office Visit [facility] Jacob Pan MD Diabetic nephropathy associated with type 2 diabetes mellitus (HCC) (Primary Dx); Practice [address] [place] [address] Encounter for screening mammogram for breast cancer; [address] [place] [address] Essential hypertension; [place] [address] Tobacco use disorder; [phone] Chronic kidney disease, stage V (HCC); RLS (restless legs syndrome) Allergies Active Allergy Reactions Severity Noted Date Comments Metronidazole Other 07/14/2016 Thrush Metformin Hydrochloride Other 10/17/2007 Pancreatites Vancomycin Other 07/14/2016 Thrush Verapamil GI Reaction 02/22/2011 documented as of this encounter (statuses as of 06/05/2019) Medications Medication Sig Dispensed Refills Start Date End Date Status Pen [place] 09/06" 1 Each by Does 100 Each 0 07/15/2015 Active 30G X 8 MM Does not apply not apply Misc route EVERY BEDTIME. triamcinolone 1 g by Topical 454 g 0 11/12/2015 Active (KENALOG,ARISTOCOR route TWICE T) 0.1 % Apply DAILY. Apply externally Cream to itchy areas metoprolol Take 2 Tabs by 30 Tab 0 01/20/2018 Active succinate (TOPROL mouth DAILY. XL) 25 MG Oral TABLET SR 24 HR loperamide Take 1 Cap by 20 Cap 0 01/20/2018 Active (IMODIUM) 2 MG mouth Oral Cap NEEDED for diarrhea. esomeprazole Take 40 mg by 60 Cap 5 01/20/2018 Active magnesium (NEXIUM) mouth TWICE 40 MG Oral CAPSULE DAILY. DELAYED RELEASE pancrelipase, Take 1 Cap by 270 Cap 0 04/12/2018 Active [id number], mouth THREE (CREON) 6000 units TIMES DAILY Oral CAPSULE WITH MEALS. ENTERIC COATED PARTICLES Blood Glucose 1 Device by 1 Device 0 2018 Active Monitor Software Does not apply Does not apply route Device DIRECTED. . Brand: Insurance preferred E11.21 last OV 07/02/18 Lancets Does not by Does not 100 Each 3 07/06/2018 Active apply Misc apply route FOUR TIMES DAILY. Brand: one touch Mediafly 2 Dx:E11.9 Test Blood Glucose 4 time(s) A DAY Glucose Blood 1 Each by In 100 Strip 5 08/15/2018 Active (BLOOD GLUCOSE Vitro route TEST STRIPS) In THREE TIMES Vitro Strip DAILY. E11.21 Last OV 07/02/18 lisinopril Take 40 mg by 0 Active (PRINIVIL, mouth DAILY. ZESTRIL) 40 MG Oral Tab ropinirole TAKE 1 TABLET 90 Tab 5 03/01/2019 Active (REQUIP) 1 MG Oral BY MOUTH THREE TabIndications: TIMES DAILY Diabetic nephropathy associated with type 2 diabetes mellitus (HCC) glipiZIDE Take 0.5 Tabs 30 Tab 1 03/06/2019 Active (GLUCOTROL) 5 MG by mouth Oral Tab DAILY. HYDROcodone-acetam Take 1 Tab by 30 Tab 0 05/13/2019 Active inophen (NORCO) mouth EVERY 5-325 MG Oral Tab SIX HOURS NEEDED (chronic pain). Max Daily Amount: 4 Tabs. zolpidem (AMBIEN) Take 1 Tab by 30 Tab 0 05/13/2019 Active 10 MG Oral Tab mouth EVERY BEDTIME NEEDED (insomnia). Max Daily Amount: 10 mg. atorvastatin TAKE 1 TABLET 90 Tab 0 06/04/2019 Active (LIPITOR) 10 MG BY MOUTH ONCE Oral Tab DAILY. hydrOXYzine HCL Take 1 Tab by 60 Tab 1 06/04/2019 Active (ATARAX) 25 MG mouth EVERY Oral Tab EIGHT HOURS NEEDED (itching). NIFEdipine TK 1 T PO D IN 0 05/17/2019 Active (PROCARDIA XL) 60 THE MORNING MG Oral TABLET SR 24 HR ondansetron by Does not 0 05/20/2015 Active (ZOFRAN) 8 MG Oral apply route. Tab aspirin 81 MG Oral Take 1 Tab by 30 Tab 5 06/05/2019 Active Chew Tab mouth DAILY. nicotine Place 1 Patch 30 Patch 0 06/05/2019 Active transdermal onto skin patch-daily DAILY. (NICODERM) 21 MG/24HR Transdermal PATCH 24 HR amitriptyline Take 1 Tab by 30 Tab 0 06/05/2019 Active (ELAVIL, ENDEP) 10 mouth EVERY MG Oral Tab BEDTIME. amLodipine take 2 tablets 60 Tab 1 05/08/2018 Discontinued (NORVASC) 5 MG by mouth once 0 (Alternative Oral Tab daily Therapy) RA ALLERGY RELIEF TAKE 1 CAPSULE 60 Cap 0 09/03/2018 Discontinued 25 MG Oral Cap BY MOUTH TWICE 0 (Therapy A DAY Completed) RA ASPIRIN ADULT chew and 30 Tab 5 10/05/2018 Discontinued LOW STRENGTH 81 MG swallow 1 0 (Duplicate Oral Chew Tab tablet by Order) mouth once daily sodium bicarbonate TAKE 1 TABLET 56 Tab 0 01/31/2019 Discontinued 650 MG Oral Tab BY MOUTH TWICE 0 (Therapy A DAY Completed) ALPRAZolam (XANAX) Take 1 Tab by 15 Tab 0 02/06/2019 Discontinued (No 0.5 MG Oral Tab mouth EVERY 0 longer OTHER DAY. Max clinically Daily Amount: indicated) 0.5 mg. For dialysis aspirin 81 MG Oral CHEW AND 30 Tab 5 04/23/2019 Discontinued Chew Tab SWALLOW 1 0 (Reorder) TABLET BY MOUTH ONCE DAILY. documented as of this encounter (statuses as of 06/05/2019) Active Problems Problem Noted Date Combined forms of age-related cataract of both eyes 12/20/2017 Open angle with borderline findings, high risk, bilateral 12/20/2017 [place]usen of macula, left 12/20/2017 Optic disc hemorrhage, right 12/20/2017 Chronic pancreatitis 10/17/2017 Chronic kidney disease, stage V 01/16/2012 BMI 31.0-31.9,adult 11/01/2010 Overview: This patient's BMI has been calculated and is above average, and BMI management plan is completed. General patient education discussion including: weight loss link to reduction of risk factors for car diac and other diseases, importance of long-term maintenance treatment in weight loss and is managed by self. Essential hypertension 01/22/2010 Diabetic nephropathy 12/24/2009 Tobacco use disorder 02/11/2008 Type 2 diabetes mellitus with diabetic chronic kidney disease 10/17/2007 Overview: Not very well controlled gerd 10/17/2007 Dyslipidemia 10/17/2007 bilateral forearm pain 10/17/2007 Overview: Foot pain and also knee and ankle pain CAD (coronary artery disease) Overview: FL stent LAD documented as of this encounter (statuses as of 06/05/2019) Resolved Problems Problem Noted Date Resolved Date Pain in joint, ankle and foot 12/24/2009 12/24/2009 documented as of this encounter (statuses as of 06/05/2019) Immunizations Name Administration Dates Next Due Influenza (IM) Preservative Free 12/23/2016, 02/26/2010, 01/23/2009, 01/24/2008 Influenza Vaccine Whole 01/31/2018, 02/12/2007, 02/17/2006 PNEUMOCOCCAL POLYSACCHARIDE VACCINE 02/17/2006 documented as of this encounter Social History Tobacco Use Types Packs/Day Years Used Date Current Every Day Smoker Cigarettes 1 22 Smokeless Tobacco: Never Used Tobacco Cessation: Ready to Quit: No; Counseling Given: Yes Alcohol Use Drinks/Week oz/Week Comments No 0 Standard drinks or equivalent 0.0 Sex Assigned at Date Recorded Not on file documented as of this encounter Last Filed Vital Signs Vital Sign Reading Time Taken Comments Blood Pressure 128/78 06/05/2019 1:32 PM EST Pulse 76 06/05/2019 1:32 PM EST Temperature - - Respiratory Rate - - Oxygen Saturation 100% 06/05/2019 1:32 PM EST Inhaled Oxygen Concentration - - Weight 57 kg (125 lb 9.6 oz) 06/05/2019 1:32 PM EST Height 152.4 cm (5') 06/05/2019 1:32 PM EST Body Mass Index 24.53 06/05/2019 1:32 PM EST documented in this encounter Progress Notes Jacob Pan MD - 06/05/2019 1:20 PM EST PATIENT: Mali Chavez : 1970 DATE OF SERVICE: 06/05/2019 CHIEF COMPLAINT: Chief Complaint Patient presents with ? Follow Up pt presents for follow up Subjective HISTORY OF PRESENT ILLNESS: Mali Chavez is a 48-y.o. female. in for follow up of diabetes mellitus. /She has dialysis now and gets a1c there as she has a fistula /Reports foot complaints of burning pain Tried neurontin and lyrica in the past and not help Vicks helps Denies , chest pain, shortness of breath, or edema. She is no longer on insulin Her a1c was 6.8 in May Other labs I see recently K 4.2 GhGB 11.5 Phos 10 They think that is the cause of the itch . She is not taking the full dose of binders Her legs feel stronger and walking more but still takes norco 2 a day However still has RLS type symptoms at night despite requip In for follow up of hypertension. Is checking home BP at dialysis and was high till they changed her to procardia . She has not had her lipids checked Past Medical History: Diagnosis Date ? bilateral forearm pain 10/17/2007 ? circulatory ? CAD (coronary artery disease) FL stent LAD ? Cirrhosis of liver (HCC) ? CKD (chronic kidney disease) peritoneal dialysis change to hemodialysis 2018 ? Diabetic retinopathy (HCC) 07/05 ? Diarrhea ? DM 10/17/2007 ? Esophagitis 2015 found during EUS ? Gastritis 2011 egd mild BRYSON test negative 2011 ? gerd 10/17/2007 ? Hyperlipidemia 10/17/2007 intolerant to statin ? Hypoxia, sleep related qualifies 08/07 ? Left ventricular outflow obstruction dyschronized septum ? Leg pain ? statin ? Nephropathy, diabetic (HCC) ? Nephrotic syndrome ? Pain in joint, ankle and foot 12/24/2009 ? Postmenopausal ? Thyroid goiter ? Tobacco abuse ? Unspecified essential hypertension ? Uremic pericarditis 2013 ? Vitamin D deficiency Family History Problem Relation Age of Onset ? Diabetes Mother ? Hypertension Mother ? Stroke Mother ? Diabetes Father Current Outpatient Medications Medication Sig ? amitriptyline (ELAVIL, ENDEP) 10 MG Oral Tab Take 1 Tab by mouth EVERY BEDTIME. ? aspirin 81 MG Oral Chew Tab Take 1 Tab by mouth DAILY. ? atorvastatin (LIPITOR) 10 MG Oral Tab TAKE 1 TABLET BY MOUTH ONCE DAILY. ? Blood Glucose Monitor Software Does not apply Device 1 Device by Does not apply route DIRECTED. . Brand: Insurance preferred E11.21 last OV ? esomeprazole magnesium (NEXIUM) 40 MG Oral CAPSULE DELAYED RELEASE Take 40 mg by mouth TWICEDAILY. ? glipiZIDE (GLUCOTROL) 5 MG Oral Tab Take 0.5 Tabs by mouth DAILY. ? Glucose Blood (BLOOD GLUCOSE TEST STRIPS) In Vitro Strip 1 Each by In Vitro route THREE TIMES DAILY. E11.21 Last OV 07/02/18 ? HYDROcodone-acetaminophen (NORCO) 5-325 MG Oral Tab Take 1 Tab by mouth EVERY SIX HOURS NEEDED (chronic pain). Max Daily Amount: 4 Tabs. ? hydrOXYzine HCL (ATARAX) 25 MG Oral Tab Take 1 Tab by mouth EVERY EIGHT HOURS NEEDED (itching). ? Lancets Does not apply Misc by Does not apply route FOUR TIMES DAILY. Brand: one touch Mediafly 2 Dx:E11.9 Test Blood Glucose 4 time(s) A DAY ? lisinopril (PRINIVIL, ZESTRIL) 40 MG Oral Tab Take 40 mg by mouth DAILY. ? loperamide (IMODIUM) 2 MG Oral Cap Take 1 Cap by mouth NEEDED for diarrhea. ? metoprolol succinate (TOPROL XL) 25 MG Oral TABLET SR 24 HR Take 2 Tabs by mouth DAILY. ? nicotine transdermal patch-daily (NICODERM) 21 MG/24HR Transdermal PATCH [address] 1 Patchonto skin DAILY. ? NIFEdipine (PROCARDIA XL) 60 MG Oral TABLET SR 24 HR TK 1 T PO D IN THE MORNING ? ondansetron (ZOFRAN) 8 MG Oral Tab by Does not apply route. ? pancrelipase, [id number]-fzuw-[id number], (CREON) 6000 units Oral CAPSULE ENTERIC COATED PARTICLES Take 1Cap by mouth THREE TIMES DAILY WITH MEALS. ? Pen [place] 5/16" 30G X 8 MM Does not apply Misc 1 Each by Does not apply route EVERY BEDTIME. ? ropinirole (REQUIP) 1 MG Oral Tab TAKE 1 TABLET BY MOUTH THREE TIMES DAILY ? triamcinolone (KENALOG,ARISTOCORT) 0.1 % Apply externally Cream 1 g by Topical route TWICE DAILY. Apply to itchy areas ? zolpidem (AMBIEN) 10 MG Oral Tab Take 1 Tab by mouth EVERY BEDTIME NEEDED (insomnia). MaxDaily Amount: 10 mg. No current facility-administered medications for this visit. Allergies Allergen Reactions ? Flagyl [Metronidazole] Other Thrush ? Glucophage [Metformin Hydrochloride] Other Pancreatites ? Vancomycin Other Thrush ? Verapamil GI Reaction Social History Socioeconomic History ? Marital status: Single Spouse name: Not on file ? Number of children: Not on file ? Years of education: Not on file ? Highest education level: Not on file Occupational History ? Not on file Social Needs ? Financial resource strain: Not on file ? Food insecurity Worry: Not on file Inability: Not on file ? Transportation needs Medical: Not on file Non-medical: Not on file Tobacco Use ? Smoking status: Current Every Day Smoker Packs/day: 1.00 Years: 22.00 Pack years: 22.00 Types: Cigarettes ? Smokeless tobacco: Never Used Substance and Sexual Activity ? Alcohol use: No Alcohol/week: 0.0 standard drinks ? Drug use: No ? Sexual activity: Yes Partners: Male Lifestyle ? Physical activity Days per week: Not on file Minutes per session: Not on file ? Stress: Not on file Relationships ? Social connections Talks on phone: Not on file Gets together: Not on file Attends pentecostalism service: Not on file Active member of club or organization: Not on file Attends meetings of clubs or organizations: Not on file Relationship status: Not on file ? Intimate partner violence Fear of current or ex partner: Not on file Emotionally abused: Not on file Physically abused: Not on file Forced sexual activity: Not on file Other Topics Concern ? Back Care Not Asked ? Bike Helmet Not Asked ? Blood Transfusions Not Asked ? Caffeine Concern Not Asked ? Exercise Not Asked ? Hobby Hazards Not Asked ? International Travel Not Asked ? Service Not Asked ? Occupational Exposure Not Asked ? Seat Belt Not Asked ? Self-Exams Not Asked ? Sleep Concern Not Asked ? Special Diet Not Asked ? Stress Concern Not Asked ? Weight Concern Not Asked Social History Narrative ? Not on file REVIEW OF SYSTEMS: Review of Systems Gastrointestinal: Elaina is rare She thinks the dairy causes diarrhea Skin: Positive for itching (been bad ). Objective PHYSICAL EXAM: VITALS: BP 128/78 (BP Location: Right arm, Patient Position: Sitting) | Pulse 76 | Ht 5' (1.524 m) | Wt 125 lb 9.6 oz (57 kg) | LMP 09/12/2012 | SpO2 100 % | BMI 24.53 kg/m Body mass index is 24.53 kg/m. Physical Exam Vitals signs reviewed. Constitutional: General: She is not in acute distress. Appearance: She is ill-appearing. She is not toxic-appearing. Comments: Weight down further Cardiovascular: Rate and Rhythm: Normal rate and regular rhythm. Heart sounds: Murmur present. Pulmonary: Effort: Pulmonary effort is normal. Breath sounds: Normal breath sounds. Musculoskeletal: Right lower leg: No edema. Left lower leg: No edema. Psychiatric: Mood and Affect: Mood normal. ASSESSMENT / IMPRESSION: ICD-9-CM ICD-10-CM 1. Diabetic nephropathy associated with type 2 diabetes mellitus (HCC) a1c ok on minimal medicine . She not eat much, She needs lipids checked 250.40 E11.21 GLYCOHEMOGLOBIN A1C 583.81 LIPID PROFILE 2. Encounter for screening mammogram for breast cancer V76.12 Z12.31 MAMMO SCREENING TOMOSYNTHESIS BILATERAL 3. Essential hypertension BP ok , although norvasc and procardia same family 401.9 I10 4. Tobacco use disorder .she will try to quit smoking again with patches 305.1 F17.200 5. Chronic kidney disease, stage V (HCC) The phosphorous and maybe norco causing the itching 585.5 N18.5 6. RLS (restless legs syndrome) trying elavil for RLS and neuropathy hold on raising the requip 333.94 G25.81 Plan Author: Jacob Pan MD 06/05/2019 14:08 documented in this encounter Plan of Treatment Date Type Specialty Care Team Description 06/25/2019 Ancillary Procedure Radiology Name Type Priority Associated Diagnoses Order Schedule MAMMO SCREENING Imaging Routine Encounter for Expected: TOMOSYNTHESIS BILATERAL screening mammogram 06/05/2019, for breast cancer Expires: 09/02/2020 GLYCOHEMOGLOBIN A1C Lab Routine Diabetic nephropathy Ordered: 06/05/2019 associated with type 2 diabetes mellitus (HCC) LIPID PROFILE Lab Routine Diabetic nephropathy Expected: associated with type 2 06/05/2019 diabetes mellitus (Approximate), (HCC) Expires: 06/05/2020 Health Maintenance Due Date Last Done Comments MEDICARE ANNUAL WELLNESS 1970 VISIT DTaP/Tdap/Td Vaccines (1 - 1981 Tdap) PAP SMEAR 07/04/1991 PNEUMOCOCCAL 0-64 YRS (2 of 02/17/2007 02/17/2006 3 - PCV13) FOOT EXAM 10/17/2018 10/17/2017, 10/17/2017, 11/15/2016, Additional history exists MAMMOGRAM (SCREENING) 10/30/2018 10/30/2017, 11/22/2016, 09/12/2012 INFLUENZA VACCINE (#1) 2018 01/31/2018, 12/23/2016, 02/26/2010, Additional history exists HEMOGLOBIN A1C 2019 01/02/2019, 06/08/2018, 02/01/2018, Additional history exists Diabetic Eye Exam 12/21/2019 12/20/2017, 12/20/2017, 12/20/2017, Additional history exists DEPRESSION SCREENING 01/03/2020 01/02/2019 LIPID DISORDER SCREENING 06/04/2020 06/04/2019, 06/08/2018, 05/19/2017, Additional history exists HEPATITIS A IMMUNIZATION Aged Out No longer eligible SERIES based on patient's age to complete this topic HPV IMMUNIZATION SERIES Aged Out No longer eligible based on patient's age to complete this topic MENINGOCOCCAL VACCINE IMM Aged Out No longer eligible based on patient's age to complete this topic documented as of this encounter Goals Goal Patient Goal Associated Recent Patient-Stated? Author Type Problems Progress Blood Pressure Blood Pressure 128/78 No Viviane, < 140/90 (06/05/2019 MD Jacob 1:32 PM EST) Note: This is an individualized treatment (blood pressure) goal for Madoline A Chavez: Displayed above (on the left) is your goal for blood pressure control. Your most recent blood pressure is also shown above, on the right. You should try to achieve blood pressures that are lower than your goal listed above (on the left). Glycohemoglobin A1c < 7.0 Diabetes 6.5 (01/02/2019 1:39 PM Jacob Christianson MD EDT) Note: This is an individualized treatment (diabetes control, HgbA1C) goal for Madoline A Chavez: Displayed above is your progress towards your HgbA1C goal. Your goal is shown above (on the left); your most recent HgbA1C is shown on the right. Note that lower numbers are better. Weight loss vs. 18 mo Lifestyle 22.4 (06/05/2019 1:32 PM Jacob Christianson MD max (lbs) >= 10 EST) Note: This is an individualized lifestyle goal for Madoline A Chavez: Your body mass index (BMI) is more than 30. You should lose weight. A reasonable starting goal is to lose 10 pounds. Displayed above is how many pounds you have lost thus far towards your 10 pound weight loss goal. Keep immunizations current Lifestyle No Jacob Pan MD Note: This is an individualized lifestyle goal for Mali Chavez: Please be sure to keep up-to-date on recommended immunizations. For example, this would include a yearly influenza vaccine. Immunization status can be seen by looking at the Health Maintenance sections of your [facility], Plan of Care, and any After Visit Summaries. Take all prescribed medications as directed Self-management No Jacob Pan MD Note: This is an individualized self-management goal for Mali Chavez: Please take all prescribed medications as directed. 1. Do not skip doses. If you cannot afford your medications, talk with your doctor. 2. Use a pill reminder system such as a pill box if needed. Your pharmacist can help you with this. 3. Contact your Pharmacy 5 days before your medication runs out. If you cannot take your medications for any reasons, talk with your doctor. 4. Please bring all of your medication bottles and inhalers (or a list of all your medications/inhalers) with you to every visit. Potential barriers to meeting all of your care plan goals will continue to be addressed on an ongoing basis. documented as of this encounter Procedures Procedure Name Priority Date/Time Associated Diagnosis Comments DIABETES FOOT EXAM Routine 06/05/2019 GLYCO A1C (EXTERNAL) Routine 05/29/2019 documented in this encounter Results DIABETES FOOT EXAM (06/05/2019) FOOT EXAM abnormal [facility] PO[facility] Performing Organization Address [facility] Number [facility] [address] [address] GLYCO A1C (EXTERNAL) (05/29/2019) Glyco A1c (External) 6.8 [facility] PO[facility] Performing Organization Address [facility] Phone Number [facility] [address] [address] [place] [address] documented in this encounter Visit Diagnoses Diagnosis Encounter for screening mammogram for breast cancer Diabetic nephropathy associated with type 2 diabetes mellitus (HCC) Essential hypertension Unspecified essential hypertension Tobacco use disorder Chronic kidney disease, stage V (HCC) Chronic kidney disease, Stage V RLS (restless legs syndrome) Restless legs syndrome (RLS) documented in this encounter Insurance Payer Benefit Plan / Subscriber ID Effective Dates Phone Address Type Group MEDICARE MEDICARE PART A [id number] 2012-Present Medicare & B MEDICAID [facility] [id number] 2018-Present Medicaid [place] MEDICAID Guarantor Name Account Type Relation to Date of Phone Billing Address Patient Mali Chavez Personal/Famil 1970 [phone] [id number] [phone] [address] ([place]) [place] [address] documented as of this encounter Advance Directives Type Date Recorded Patient Converting Technician Explanation LORENZO 07/20/2018 9:03 AM GISELLA MEZA [facility]
[2019-07-02] MEDS ORDERED: methylPREDNISolone SOD 40 MG* 1 ML VIAL IV ONE (06:10)
[2019-07-02] MEDS ORDERED: Morphine 4 MG/ML VIAL (1 ml) 4 MG/ML VIAL IV ONE (06:10)
[2019-07-02] MEDS ORDERED: Nitroglycerin TAB 0.4 MG* 0.4 MG TAB SL ONE (06:10)
[2019-07-02] MEDS ORDERED: Albuterol/Ipratropium NEB.SOL* Albuterol 2.5 MG/Ipratropium 0.5 MG 3 ML INH ONE (06:16)
[2019-07-02 06:30] LABS: ABS Basophils 0.2 10^3/ul (0-0.2); ABS Eosinophils 0.3 10^3/ul (0-0.6); ABS Lymphocytes 2.7 10^3/ul (1.0-4.8); ABS Monocytes 0.8 10^3/ul (0-0.8); ABS Neutrophils 10.5 10^3/ul (1.5-7.7); Eosinophil % 2.1 %; Hematocrit 35 % (35-47); Lymphocyte % 18.5 %; Mean Corpuscular HGB Conc 34 g/dL (31-36); Mean Corpuscular Hemoglobin 30 pg (27-31); Mean Corpuscular Volume 87 fL (80-97); Mean Platelet Volume 7.2 fL (7.4-10.4); Nucleated Red Blood Cells % 0.1; Platelet Count 350 10^3/uL (150-450); Red Blood Count 4.07 10^6 /uL (3.70-4.87); Red Cell Distribution Width 14 % (10-15); White Blood Count 14.5 10^3/uL (3.5-10.8)
[2019-07-02 06:40] LABS: INR 0.9 (0.82-1.09)
[2019-07-02 06:47] LABS: ALT 40 U/L (7-52); AST 21 U/L (13-39); Albumin 4.2 g/dL (3.2-5.2); Albumin/Globulin Ratio 1.5 (1-3); Alkaline Phosphatase 115 U/L (34-104); Anion Gap 16 mmol/L (2-11); BUN/Creatinine Ratio 8.4 (8-20); Blood Urea Nitrogen 71 mg/dL (6-24); C Reactive Protein 5.22 mg/L (<8.01); CO2 Carbon Dioxide 26 mmol/L (22-32); Calcium 9.5 mg/dL (8.6-10.3); Chloride 93 mmol/L (101-111); EGFR African American 6.1 (>60); Globulin 2.8 g/dL (2-4); Glucose 151 mg/dL (70-100); Magnesium 2.9 mg/dL (1.9-2.7); Sodium 135 mmol/L (135-145)
[2019-07-02 06:54] LABS: Influenza A Molecular Negative (Negative); Influenza B Molecular Negative (Negative)
[2019-07-02 06:58] LABS: Troponin I 0.13 ng/mL (<0.03)
[2019-07-02] MEDS ORDERED: Aspirin 81 mg CHEW TAB* 81 MG TAB.CHEW PO ONE (06:59)
[2019-07-02] MEDS ORDERED: Labetalol IV* 5 MG/ML 20 ML VIAL IV PUSH ONE ×2 (07:04→08:59)
--- NOTE | 2019-07-02 07:30 | ED ---
Shortness of Breath - HPI Summary HPI Summary: Pt is a 48yo F with a hx of ESRD secondary to DMII and HTN presenting to the ED with acute onset SOB starting yesterday at 3pm. She has been more fatigued lately and states she went to be at 12:30pm in the afternoon, awoke with SOB at 3pm and her SOB continued to worsen despite placing herself on O2 at home (for the first time in over 1 year.) She has had similar complaint in the past, was found to have pulmonary edema, and on 1 occasion has needed ICU placement. Patient does not make urine. Unsure if she had weight gain. Pt arrives in respiratory distress and immediately placed on face mask 15L. 68 % noted at triage which increased to 74% and within 5 minutes to 95%. Pt denies any recent illness, cough or congestion. She did have a cough upon wakening this morning around 5am which prompted the worsening SOB. No cough currently. No back pain, urinary symptoms, N/V/D. Does endorse some constipation. She is currently on dialysis T// x 1 year. Previously 7 year hx of PD. She had too many complications with this as she had a low dialysate bag. Denies any CP. She has been in the ICU for same before. She is a patient of Dr. Hernandez's. Last stress test and ECHO 2013. - History of Current Complaint Chief Complaint: EDShortnessOfBreath Time Seen by Provider: 07/02/19 06:00 Hx Obtained From: Patient Onset/Duration: Sudden Onset Timing: Constant Alleviating Factors: Bronchodilators, Upright Position - Risk Factors Pulmonary Embolism: Negative Cardiac: Negative Pseudomonas: Negative Tuberculosis: Negative - Allergy/Home Medications Allergies/Adverse Reactions: Allergies Allergy/AdvReac Type Severity Reaction Status Date / Time doxycycline Allergy Severe Itching Verified 07/02/19 06:00 hydromorphone [From Dilaudid] Allergy Severe Itching Verified 07/02/19 06:00 metformin Allergy Severe Hives Verified 07/02/19 06:00 verapamil Allergy Severe Hives Verified 07/02/19 06:00 Home Medications: Home Medications Aspirin EC TAB* [Ecotrin EC Low Dose 81 MG*] 81 mg PO DAILY 09/26/13 [History Confirmed 07/02/19] Ropinirole TAB* [Requip TAB*] 1 mg PO TID 04/27/16 [History Confirmed 07/02/19] glipiZIDE TAB.XL* [Glucotrol Xl*] 2.5 mg PO DAILY 04/27/16 [History Confirmed ] Atorvastatin* [Lipitor 10 MG*] 10 mg PO DAILY 05/09/17 [History Confirmed ] Esomeprazole(NF) [Nexium(NF)] 40 mg PO BID 05/18/18 [History Confirmed 07/02/19] HYDROcodone/ACETAMIN 5-325 MG* [Gillett 5-325 TAB*] 1 tab PO Q6HR PRN MDD 4 tabs 05/28/18 [History Confirmed 07/02/19] Loperamide CAP* [Imodium CAP*] 2 mg PO QAM PRN 05/28/18 [History Confirmed 07/01] Zolpidem TAB* [Ambien*] 10 mg PO BEDTIME PRN MDD 1 tab 05/28/18 [History Confirmed 07/02/19] Amitriptyline TAB* [Elavil TAB*] 10 mg PO BEDTIME 07/02/19 [History Confirmed ] Metoprolol Succinate XL TAB* [Toprol XL TAB*] 50 mg PO DAILY 07/02/19 [History Confirmed 07/02/19] NIFEdipine ER TAB* [Procardia Xl TAB*] 60 mg PO QAM 07/02/19 [History Confirmed 07/02/19] Nicotine PATCH 21 MG/24 HR* 21 mg TRANSDERM DAILY 07/02/19 [History Confirmed ] Ondansetron ODT TAB* [Zofran 4 MG Odt TAB*] 8 mg PO Q8H PRN 07/02/19 [History Confirmed 07/02/19] Pancrelipase (NF) [Creon (NF)] 6,000 units PO TID WITH MEALS 07/02/19 [History Confirmed 07/02/19] Triamcinolone 0.1% CREAM (NF) [Kenalog 0.1% Cream (NF)] 1 applic TOPICAL BID 02/10 [History Confirmed 07/02/19] hydrOXYzine HCL TAB* [Atarax 25 MG TAB*] 25 mg PO Q8H PRN 07/02/19 [History Confirmed 07/02/19] lisinopriL [Lisinopril] 40 mg PO DAILY 07/02/19 [History Confirmed 07/02/19] PMH/Surg Hx/FS Hx/Imm Hx Previously Healthy: No - ESRD Endocrine/Hematology History: Reports: Hx Diabetes - on medication, Hx Anemia Denies: Hx Thyroid Disease - Denies Cardiovascular History: Reports: Hx Angina, Hx Congenital Heart Disease, Hx Congestive Heart Failure, Hx Coronary Artery Disease - Cardiac stent placed 2013 , Hx Hypercholesterolemia, Hx Hypertension - on medication, Hx Myocardial Infarction, Hx Peripheral Vascular Disease - Per H&P, Other Cardiovascular Problems/Disorders - Hyperlipidemia, Temporary dialysis catheter right internal jugular Denies: Hx Cardiac Arrest, Hx Pacemaker/ICD, Hx Valvular Heart Disease Respiratory History: Reports: Hx Chronic Bronchitis Denies: Hx Asthma, Hx Chronic Obstructive Pulmonary Disease (COPD), Other Respiratory Problems/Disorders GI History: Reports: Hx Gall Bladder Disease, Hx Gastroesophageal Reflux Disease - on medication, Hx Irritable Bowel - diarrhea with certain foods, Other GI Disorders - Gastroparesis Denies: Hx Diverticulosis History: Reports: Hx Chronic Renal Failure, Hx Dialysis - ESRD WITH PD, Hx Renal Disease Denies: Hx Kidney Stones, Other Problems/Disorders Musculoskeletal History: Reports: Hx Arthritis - generalized, Hx Back Problems Denies: Hx Tendonitis, Other Musculoskeletal History Sensory History: Reports: Hx Contacts or Glasses - Glasses Denies: Hx Eye Injury, Hx Glaucoma, Hx Vision Problem, Hx Hearing Aid Opthamlomology History: Reports: Hx Contacts or Glasses - Glasses Denies: Hx Eye Injury, Hx Glaucoma, Hx Vision Problem Neurological History: Reports: Hx Headaches - hasn't had recently, Hx Migraine - once in a while, Hx Nerve Disease - restless leg syndrome, peripheral neuropathy Denies: Hx Dementia, Hx Spinal Cord Injury, Hx Transient Ischemic Attacks ( TIA), Other Neuro Impairments/Disorders Psychiatric History: Denies: Hx Panic Disorder, Hx Suicide Attempt - Cancer History Hx Chemotherapy: No Hx Radiation Therapy: No Hx Palliative Cancer Treatment: No - Surgical History Surgery Procedure, Year, and Place: 05/2011- GALLBLADDER REMOVED. PD CATHETER PLACEMENT. CARDIAC STENT 06/07. [facility] 2019 Hx Anesthesia Reactions: No - Immunization History Date of Tetanus Vaccine: Up to date Date of Influenza Vaccine: 2012 Hx Pertussis Vaccination: No Immunizations Up to Date: Yes Infectious Disease History: Denies: Hx Clostridium Difficile, Hx Hepatitis, Hx of Known/Suspected MRSA, Hx Shingles, Hx Tuberculosis, Hx Known/Suspected VRSA, Traveled Outside the [place] in Last 30 Days - Family History Known Family History: Positive: Cardiac Disease - Social History Occupation: Employed Part-time Lives: With Family Alcohol Use: None Hx Substance Use: No Substance Use Type: Reports: None Substance Use Comment - Amount & Last Used: evening Hx Tobacco Use: Yes Smoking Status (MU): Heavy Every Day Tobacco Smoker Type: Cigarettes Amount Used/How Often: 1 PPD --- 1-2 PPD FOR 20 years Length of Time of Smoking/Using Tobacco: 23yrs Have You Smoked in the Last Year: Yes Review of Systems Negative: Fever, Chills, Fatigue, Skin Diaphoresis Negative: Dental Pain, Sore Throat Negative: Chest Pain Positive: Shortness Of Breath, Cough Negative: Abdominal Pain, Vomiting, Diarrhea, Nausea Negative: Arthralgia, Myalgia Negative: Rash, Bruising Positive: Headache All Other Systems Reviewed And Are Negative: Yes Physical Exam Triage Information Reviewed: Yes Vital Signs On Initial Exam: Initial Vitals Temp Pulse Resp BP Pulse Ox 96.4 F 103 37 253/117 96 07/02/19 05:58 07/02/19 05:58 07/02/19 05:58 07/02/19 05:58 07/02/19 05:58 Vital Signs Reviewed: Yes Appearance: Positive: Ill-Appearing Skin: Positive: Warm, Skin Color Reflects Adequate Perfusion Head/Face: Positive: Normal Head/Face Inspection Eyes: Positive: EOMI, PINA, Conjunctiva Clear Neck: Positive: Supple, Nontender Respiratory/Lung Sounds: Positive: Other - crackles Cardiovascular: Positive: RRR, Pulses are Symmetrical in both Upper and Lower Extremities. Negative: Leg Edema Left, Leg Edema Right Musculoskeletal: Positive: Strength/ROM Intact Neurological: Positive: Sensory/Motor Intact, Speech Normal Psychiatric: Positive: Affect/Mood Appropriate AVPU Assessment: Alert Procedures - Sedation Patient Received Moderate/Deep Sedation with Procedure: No Diagnostics - Vital Signs Vital Signs Temp Pulse Resp BP Pulse Ox 07/02/19 06:45 95 18 184/83 99 07/02/19 06:34 96 28 180/88 96 07/02/19 06:29 96 27 93 07/02/19 06:25 96 36 178/90 92 07/02/19 06:14 30 07/02/19 05:58 96.4 F 103 37 253/117 96 - Laboratory Lab Results: Lab Results 07/02/19 07/02/19 07/02/19 Range/Units 06:15 06:15 06:15 WBC 14.5 H (3.5-10.8) 10^3/uL RBC 4.07 (3.70-4.87) 10^6 /uL Hgb 12.0 (12.0-16.0) g/dL Hct 35 (35-47) % MCV 87 (80-97) fL MCH 30 (27-31) pg MCHC 34 (31-36) g/dL RDW 14 (10-15) % Plt Count 350 (150-450) 10^3/uL MPV 7.2 L (7.4-10.4) fL Neut % (Auto) 72.5 % Lymph % (Auto) 18.5 % F[place]ardo % (Auto) 5.8 % Eos % (Auto) 2.1 % Baso % (Auto) 1.1 % Absolute Neuts (auto) 10.5 H (1.5-7.7) 10^3/ul Absolute Lymphs (auto) 2.7 (1.0-4.8) 10^3/ul Absolute Monos (auto) 0.8 (0-0.8) 10^3/ul Absolute Eos (auto) 0.3 (0-0.6) 10^3/ul Absolute Basos (auto) 0.2 (0-0.2) 10^3/ul Absolute Nucleated RBC 0.0 10^3/ul Nucleated RBC % 0.1 INR (Anticoag Therapy) (0.82-1.09) D-Dimer, Quantitative (Less Than 230) ng/mL Sodium 135 (135-145) mmol/L Potassium 5.0 (3.5-5.0) mmol/L Chloride 93 L (101-111) mmol/L Carbon Dioxide 26 (22-32) mmol/L Anion Gap 16 H (2-11) mmol/L BUN 71 H (6-24) mg/dL Creatinine 8.50 H (0.51-0.95) mg/dL Est GFR ( Amer) 6.1 (>60) Est GFR (Non-Af Amer) 5.0 (>60) BUN/Creatinine Ratio 8.4 (8-20) Glucose 151 H (70-100) mg/dL Lactic Acid 2.0 (0.5-2.0) mmol/L Calcium 9.5 (8.6-10.3) mg/dL Magnesium 2.9 H (1.9-2.7) mg/dL Total Bilirubin 0.60 (0.2-1.0) mg/dL AST 21 (13-39) U/L ALT 40 (7-52) U/L Alkaline Phosphatase 115 H (34-104) U/L Troponin I 0.13 H* (<0.03) ng/mL C-Reactive Protein 5.22 (<8.01) mg/L B-Natriuretic Peptide (<=100) pg/mL Total Protein 7.0 (6.4-8.9) g/dL Albumin 4.2 (3.2-5.2) g/dL Globulin 2.8 (2-4) g/dL Albumin/Globulin Ratio 1.5 (1-3) Influenza A (Rapid) (Negative) Influenza B (Rapid) (Negative) 07/02/19 07/02/19 07/02/19 Range/Units 06:15 06:15 06:25 WBC (3.5-10.8) 10^3/uL RBC (3.70-4.87) 10^6 /uL Hgb (12.0-16.0) g/dL Hct (35-47) % MCV (80-97) fL MCH (27-31) pg MCHC (31-36) g/dL RDW (10-15) % Plt Count (150-450) 10^3/uL MPV (7.4-10.4) fL Neut % (Auto) % Lymph % (Auto) % [place]ardo % (Auto) % Eos % (Auto) % Baso % (Auto) % Absolute Neuts (auto) (1.5-7.7) 10^3/ul Absolute Lymphs (auto) (1.0-4.8) 10^3/ul Absolute Monos (auto) (0-0.8) 10^3/ul Absolute Eos (auto) (0-0.6) 10^3/ul Absolute Basos (auto) (0-0.2) 10^3/ul Absolute Nucleated RBC 10^3/ul Nucleated RBC % INR (Anticoag Therapy) 0.90 (0.82-1.09) D-Dimer, Quantitative 294 H (Less Than 230) ng/mL Sodium (135-145) mmol/L Potassium (3.5-5.0) mmol/L Chloride (101-111) mmol/L Carbon Dioxide (22-32) mmol/L Anion Gap (2-11) mmol/L BUN (6-24) mg/dL Creatinine (0.51-0.95) mg/dL Est GFR ( Amer) (>60) Est GFR (Non-Af Amer) (>60) BUN/Creatinine Ratio (8-20) Glucose (70-100) mg/dL Lactic Acid (0.5-2.0) mmol/L Calcium (8.6-10.3) mg/dL Magnesium (1.9-2.7) mg/dL Total Bilirubin (0.2-1.0) mg/dL AST (13-39) U/L ALT (7-52) U/L Alkaline Phosphatase (34-104) U/L Troponin I (<0.03) ng/mL C-Reactive Protein (<8.01) mg/L B-Natriuretic Peptide > 1300 H (<=100) pg/mL Total Protein (6.4-8.9) g/dL Albumin (3.2-5.2) g/dL Globulin (2-4) g/dL Albumin/Globulin Ratio (1-3) Influenza A (Rapid) Negative (Negative) Influenza B (Rapid) Negative (Negative) Result Diagrams: 07/02/19 06:15 07/02/19 06:15 Lab Statement: Any lab studies that have been ordered have been reviewed, and results considered in the medical decision making process. Course/Dx - Course Course Of Treatment: Pt arrives in respiratory distress and immediately placed on face mask 15L. 68% noted at triage which increased to 74% and within 5 minutes to 95%. Pt denies any recent illness, cough or congestion. She did have a cough upon wakening this morning around 5am which prompted the worsening SOB. No cough currently. Crackles in bases on lung exam. RRR. BP elevated at 253/117. She is given labetolol, nitro, morphine and solumedrol 40mg IV and a baby aspirin on arrival. BP recheck at 178/90. Pt states she feels improved. O2 titrated down to NC at 5L. Sat dropped to 85%. She was placed on 13L and now sat at 92%. Lung sounds improved. Troponin 0.13, Likely this is secondary to LV heart strain. This has been elevated during her previous pulmonary edema visits. BNP > 1300. BUN 71 and Cr 8.50. Glucose 151. Dimer 294. No hx of clots. WBC 14.5. Influenza negative. CXR shows likely pulmonary edema, read by QUAN Kruse in ED. Will await official read. Discussed with Dr. Trevino. Discussed with Dr. Hernandez. Will admit to ICU. Nephrology will consult. - Diagnoses Differential Diagnosis/HQI/PQRI: Positive: Other Provider Diagnoses: Shortness of breath, Elevated troponin, Hypertension, ESRD on peritoneal dialysis - Physician Notifications Discussed Care of Patient With: Adan Trevino - and Dr. Hernandez Instructed by Provider To: Admit As Inpatient - Critical Care Time Critical Care Time: 30-74 min Discharge ED - Sign-Out/Discharge Documenting (check all that apply): Patient Departure - Discharge Plan Condition: Fair Disposition: ADMITTED TO [facility] - Billing Disposition and Condition Condition: FAIR Disposition: Admitted to [facility] - Attestation Statements Provider Attestation: I agree w [facility] documentation, briefly this is a 48 y/o F w ESRD p/w volume overload and hypertensive emergency. On NC, defer BiPAP at this time. Needs dialysis. Admit to ICU. Kimani Quintero MD
[2019-07-02] MEDS ORDERED: hydrOXYzine HCL TAB* 25 MG PO ONE (09:59)
[2019-07-02 10:55] LABS: Troponin I 0.17 ng/mL (<0.03)
[2019-07-02] MEDS ORDERED: Zolpidem TAB* 10 MG PO PRN (11:45)
[2019-07-02] MEDS ORDERED: Pancrelipase (NF) 6,000 UNITS CAP.DR PO SCH (12:00)
[2019-07-02] MEDS ORDERED: Heparin DIALYSIS ONLY(*) 1,000 UNITS/ML VIAL DIALYSIS ONE (12:00)
--- NOTE | 2019-07-02 12:39 | HP ---
History of Present Illness - History of Present Illness Reason for Visit: Shortness of breath History of Present Illness: Mali Chavez is a 48 y/o female with history of ESRD on hemodialysis on , , Mon, past MS with one stent, HTN, DM, current smoker, presented with shortness of breath to ED yesterday. She had been progressively gaining weight despite usual dialysis. Her dry weight is 55kg, she didn't reach her dry weight for about 1-2 weeks due to intradialysis low BP according to [facility] staff. Her last dialysis is last Mon, on Monday she had this worsening SOB, she had to put on her home O2 that prepared for emergency. She denied any fluid indiscretion, compliant with medication, she had one episode of pulmonary edema in the past that needed ICU admission. She was on PD for 7 years before changing to HD, she is using her left AVF for dialysis without problems. She denied new cough, recent URTI, fever, chest pain, palpitation. She was found to be hypoxic with O2 sat 68% at triage when she arrived in ED. She was noted to have pulmonary edema in CXR, also she was found to have elevated trop at 0.13, BNP>1300 with no new ischemic changes in EKG . Therefore she was admitted to ICU and had been arranged to have a dialysis this morning by dry kiln feeder. Patient was 30min into hemodialysis when I saw her, she felt comfortable, no more SOB. She is 60kg today, which is 5kg above her dry weight. She is on oxy mask 5L with O2 sat 100%, she did have high BP 214/94mmhg, HR 85, but she is asymptomatic, no headache, no vision changes. She does have a goal of UF 4.4L today. - Past Medical History Past Medical History: 1. End stage renal disease 2. Non insulin dependent diabetes 3. Hypertension 4. MS s/p stent in 2013 5. hyperlipidemia 6. Tobacco use - Past Surgical History Past Surgical History: 1. Cholecystectomy in 2013 2. AVF creation in 2019 3. Past peritoneal dialysis catheter insertion - Past Family History Past Family History: Parents and 2 sisters with a history of cancer includes lung, brain, bone and colon. - Past Social History Past Social History: , disabled.d Using tobacco actively 2 pack per day for 20+ years. Occasional alcohol use. Medications: Home Medications Medication Instructions Recorded Confirmed Type Aspirin EC TAB* [Ecotrin EC Low 81 mg PO DAILY 09/26/13 07/02/19 History Dose 81 MG*] Ropinirole TAB* [Requip TAB*] 1 mg PO TID 04/27/16 07/02/19 History glipiZIDE TAB.XL* [Glucotrol Xl*] 2.5 mg PO DAILY 04/27/16 07/02/19 History Atorvastatin* [Lipitor 10 MG*] 10 mg PO DAILY 05/09/17 07/02/19 History Esomeprazole(NF) [Nexium(NF)] 40 mg PO BID 05/18/18 07/02/19 History HYDROcodone/ACETAMIN 5-325 MG* 1 tab PO Q6HR PRN MDD 4 tabs 05/28/18 07/02/19 History [[place] 5-325 TAB*] Loperamide CAP* [Imodium CAP*] 2 mg PO QAM PRN 05/28/18 07/02/19 History Zolpidem TAB* [Ambien*] 10 mg PO BEDTIME PRN MDD 1 tab 05/28/18 07/02/19 History Amitriptyline TAB* [Elavil TAB*] 10 mg PO BEDTIME 07/02/19 07/02/19 History Metoprolol Succinate XL TAB* 50 mg PO DAILY 07/02/19 07/02/19 History [Toprol XL TAB*] NIFEdipine ER TAB* [Procardia Xl 60 mg PO QAM 07/02/19 07/02/19 History TAB*] Nicotine PATCH 21 MG/24 HR* 21 mg TRANSDERM DAILY 07/02/19 07/02/19 History Ondansetron ODT TAB* [Zofran 4 MG 8 mg PO Q8H PRN 07/02/19 07/02/19 History Odt TAB*] Pancrelipase (NF) [Creon (NF)] 6,000 units PO TID WITH MEALS 07/02/19 07/02/19 History Triamcinolone 0.1% CREAM (NF) 1 applic TOPICAL BID 07/02/19 07/02/19 History [Kenalog 0.1% Cream (NF)] hydrOXYzine HCL TAB* [Atarax 25 MG 25 mg PO Q8H PRN 07/02/19 07/02/19 History TAB*] lisinopriL [Lisinopril] 40 mg PO DAILY 07/02/19 07/02/19 History Allergies/Adverse Reactions: Allergies Allergy/AdvReac Type Severity Reaction Status Date / Time doxycycline Allergy Severe Itching Verified 07/02/19 06:00 hydromorphone [From Dilaudid] Allergy Severe Itching Verified 07/02/19 06:00 metformin Allergy Severe Hives Verified 07/02/19 06:00 verapamil Allergy Severe Hives Verified 07/02/19 06:00 Review of Systems - Review of Systems Constitutional: Negative: Fever, Chills, Sweats, Weakness, Malaise, Other Eyes: Negative: Pain, Vision Change, Conjunctivae Inflammation, Eyelid Inflammation, Redness, Other ENT: Negative: Ear Pain, Ear Discharge, Nose Pain, Nose Discharge, Nose Congestion, Mouth Pain, Mouth Swelling, Throat Pain, Throat Swelling, Other Respiratory: Negative: Cough, Dry, Hemoptysis, SOB with Excertion, Pleuritic Pain, Sputum, Wheezing Cardiovascular: Positive: Orthopnea. Negative: Chest Pain, Palpitations, Paroxysmal Noc. Dyspnea, Edema, Light Headedness, Other Gastrointestinal: Negative: Nausea, Vomiting, Abdominal Pain, Diarrhea, Constipation, Melena, Hematochezia, Other Genitourinary: Negative: Dysuria, Frequency, Incontinence, Hematuria, Retention , Other Musculoskeletal: Negative: Neck Pain, Shoulder Pain, Arm Pain, Back Pain, Hand Pain, Leg Pain, Foot Pain, Other Skin: Negative: Rash, Lesions, Justin, Bruising, Other Neurological/Mental Status: Negative: Weakness, Numbness, Incoordination, Change in Speech, Confusion, Seizures, Other Exam Vital Signs: Vital Signs (72 hours) 07/02/19 07/02/19 07/02/19 05:58 06:14 06:25 Temperature 96.4 F Pulse Rate 103 96 Respiratory 37 30 36 Rate Blood Pressure 253/117 178/90 (mmHg) O2 Sat by Pulse 96 92 Oximetry 07/02/19 07/02/19 07/02/19 06:29 06:34 06:45 Temperature Pulse Rate 96 96 95 Respiratory 27 28 18 Rate Blood Pressure 180/88 184/83 (mmHg) O2 Sat by Pulse 93 96 99 Oximetry 07/02/19 07/02/19 07/02/19 06:57 07:00 07:27 Temperature Pulse Rate 91 94 90 Respiratory 33 22 9 Rate Blood Pressure 197/92 197/92 (mmHg) O2 Sat by Pulse 98 98 99 Oximetry 07/02/19 07/02/19 07/02/19 07:40 07:55 08:00 Temperature Pulse Rate 84 81 84 Respiratory 20 20 21 Rate Blood Pressure 189/86 187/85 (mmHg) O2 Sat by Pulse 99 95 95 Oximetry 07/02/19 07/02/19 07/02/19 08:10 08:25 08:40 Temperature Pulse Rate 85 84 84 Respiratory 19 17 22 Rate Blood Pressure 182/81 192/90 171/88 (mmHg) O2 Sat by Pulse 86 95 97 Oximetry 07/02/19 07/02/19 07/02/19 08:56 09:00 09:10 Temperature Pulse Rate 84 82 85 Respiratory 17 19 7 Rate Blood Pressure 199/94 192/93 (mmHg) O2 Sat by Pulse 100 99 100 Oximetry 07/02/19 07/02/19 07/02/19 09:26 10:00 10:22 Temperature Pulse Rate 83 83 84 Respiratory 19 18 Rate Blood Pressure 192/71 197/92 (mmHg) O2 Sat by Pulse 99 99 100 Oximetry 07/02/19 07/02/19 07/02/19 10:57 10:58 11:00 Temperature 98.3 F Pulse Rate 84 87 88 Respiratory 20 20 21 Rate Blood Pressure 184/141 184/141 201/92 (mmHg) O2 Sat by Pulse 99 96 100 Oximetry 07/02/19 07/02/19 07/02/19 11:08 11:15 11:30 Temperature 98.6 F Pulse Rate 89 83 84 Respiratory 22 14 18 Rate Blood Pressure 195/83 197/84 195/83 (mmHg) O2 Sat by Pulse 100 98 94 Oximetry 07/02/19 07/02/19 11:32 11:38 Temperature 99.2 F Pulse Rate Respiratory 20 Rate Blood Pressure (mmHg) O2 Sat by Pulse Oximetry Exam: Constitutional: awake, alert, no distress, wearing oxy mask Head: normocephalic, atraumatic Eyes: no pallor, no icterus ENT: moist mucous membranes Neck: soft, supple, no jvd, no stridor CVS: normal rate, regular, no murmur Chest/Resp: bilateral air entry, clear mostly, occ crackles Abdomen/GI: soft, nontender, nondistended, BS+ Ext/Msk: warm, pulses+, no edema Skin: intact, warm Neuro: awake, alert, orientedx 4, moving all extremities, no gross focal deficit Psych: normal affect Result Diagrams: 07/02/19 06:15 07/02/19 06:15 Additional Lab and Data: Lab Results 07/02/19 07/02/19 07/02/19 Range/Units 06:15 06:15 06:15 WBC 14.5 H (3.5-10.8) 10^3/uL RBC 4.07 (3.70-4.87) 10^6 /uL Hgb 12.0 (12.0-16.0) g/dL Hct 35 (35-47) % MCV 87 (80-97) fL MCH 30 (27-31) pg MCHC 34 (31-36) g/dL RDW 14 (10-15) % Plt Count 350 (150-450) 10^3/uL MPV 7.2 L (7.4-10.4) fL Neut % (Auto) 72.5 % Lymph % (Auto) 18.5 % Williams % (Auto) 5.8 % Eos % (Auto) 2.1 % Baso % (Auto) 1.1 % Absolute Neuts (auto) 10.5 H (1.5-7.7) 10^3/ul Absolute Lymphs (auto) 2.7 (1.0-4.8) 10^3/ul Absolute Monos (auto) 0.8 (0-0.8) 10^3/ul Absolute Eos (auto) 0.3 (0-0.6) 10^3/ul Absolute Basos (auto) 0.2 (0-0.2) 10^3/ul Absolute Nucleated RBC 0.0 10^3/ul Nucleated RBC % 0.1 INR (Anticoag Therapy) (0.82-1.09) D-Dimer, Quantitative (Less Than 230) ng/mL Sodium 135 (135-145) mmol/L Potassium 5.0 (3.5-5.0) mmol/L Chloride 93 L (101-111) mmol/L Carbon Dioxide 26 (22-32) mmol/L Anion Gap 16 H (2-11) mmol/L BUN 71 H (6-24) mg/dL Creatinine 8.50 H (0.51-0.95) mg/dL Est GFR ( Amer) 6.1 (>60) Est GFR (Non-Af Amer) 5.0 (>60) BUN/Creatinine Ratio 8.4 (8-20) Glucose 151 H (70-100) mg/dL Lactic Acid 2.0 (0.5-2.0) mmol/L Calcium 9.5 (8.6-10.3) mg/dL Magnesium 2.9 H (1.9-2.7) mg/dL Total Bilirubin 0.60 (0.2-1.0) mg/dL AST 21 (13-39) U/L ALT 40 (7-52) U/L Alkaline Phosphatase 115 H (34-104) U/L Troponin I 0.13 H* (<0.03) ng/mL C-Reactive Protein 5.22 (<8.01) mg/L B-Natriuretic Peptide (<=100) pg/mL Total Protein 7.0 (6.4-8.9) g/dL Albumin 4.2 (3.2-5.2) g/dL Globulin 2.8 (2-4) g/dL Albumin/Globulin Ratio 1.5 (1-3) Influenza A (Rapid) (Negative) Influenza B (Rapid) (Negative) 07/02/19 07/02/19 07/02/19 Range/Units 06:15 06:15 06:25 WBC (3.5-10.8) 10^3/uL RBC (3.70-4.87) 10^6 /uL Hgb (12.0-16.0) g/dL Hct (35-47) % MCV (80-97) fL MCH (27-31) pg MCHC (31-36) g/dL RDW (10-15) % Plt Count (150-450) 10^3/uL MPV (7.4-10.4) fL Neut % (Auto) % Lymph % (Auto) % Williams % (Auto) % Eos % (Auto) % Baso % (Auto) % Absolute Neuts (auto) (1.5-7.7) 10^3/ul Absolute Lymphs (auto) (1.0-4.8) 10^3/ul Absolute Monos (auto) (0-0.8) 10^3/ul Absolute Eos (auto) (0-0.6) 10^3/ul Absolute Basos (auto) (0-0.2) 10^3/ul Absolute Nucleated RBC 10^3/ul Nucleated RBC % INR (Anticoag Therapy) 0.90 (0.82-1.09) D-Dimer, Quantitative 294 H (Less Than 230) ng/mL Sodium (135-145) mmol/L Potassium (3.5-5.0) mmol/L Chloride (101-111) mmol/L Carbon Dioxide (22-32) mmol/L Anion Gap (2-11) mmol/L BUN (6-24) mg/dL Creatinine (0.51-0.95) mg/dL Est GFR ( Amer) (>60) Est GFR (Non-Af Amer) (>60) BUN/Creatinine Ratio (8-20) Glucose (70-100) mg/dL Lactic Acid (0.5-2.0) mmol/L Calcium (8.6-10.3) mg/dL Magnesium (1.9-2.7) mg/dL Total Bilirubin (0.2-1.0) mg/dL AST (13-39) U/L ALT (7-52) U/L Alkaline Phosphatase (34-104) U/L Troponin I (<0.03) ng/mL C-Reactive Protein (<8.01) mg/L B-Natriuretic Peptide > 1300 H (<=100) pg/mL Total Protein (6.4-8.9) g/dL Albumin (3.2-5.2) g/dL Globulin (2-4) g/dL Albumin/Globulin Ratio (1-3) Influenza A (Rapid) Negative (Negative) Influenza B (Rapid) Negative (Negative) Assessment/Plan - Assessment/Plan Assessment: Mali Chavez is 48 y/o female with history of ESRD on hemodialysis on , , Mon, past MS with one stent, HTN, DM, current smoker, presented with worsening shortness of breath after failing to reach dry weight for 2 weeks. She was found to have hypoxic respiratory failure, with 5kg above dry weight, pulmonary edema in CXR, and elevated trop and BNP. Plan: 1. Acute hypoxic respiratory failure in the setting of ESRF on HD - she definitely has pulmonary edema, whch is caused by fluid accumulation over time due to insufficient UF - Hemodialysis ongoing with a goal of UF 4.4L - we will watch her symptoms after hemodialysis - other differential including PE, COPD in an active smoker - PE is still concerning but less likely for now. If her SOB or O2 requirement not improving, with her elevated D-dimer, consider CTA to rule out PE 2. Hypertensive urgency - Result of fluid overload - will hold off antihypertensive during hemodialysis for now as we do want to reach high UF unless pt turns symptomatic - She is on quite a lot of antihypertensives, she does have intradialysis hypotension which affected her fluid removal. I feel it may be beneficial to lower down her antihypertensives to allow her reaching dry weight. I don't have access to her dialysis record, so I will leave this to dry kiln feeder to look into. - will restart her antihypertensives after dialysis 3.Elevated trop and bnp - will continue to trend - EKG no acute ischemic changes - not likely ACS - echocardiogram to look for structural abnormalities. 4. DM - restart old med glipizide 5. Current smoker - 1ppd for 30 years - nicotine patch 6. DVT prophylaxis - SCD - ambulate as tolerated Dispo: patient will be monitored in ICU for dialysis. She could be sent back to tele floor after dialysis when her blood pressure is better controlled and absence of respiratory or cardiac sx. Attestation Documenting Resident: Karissa Keene Supervising Physician: Adan Trevino Attending/Supervising Physician Comment: 48y F w/pmhx of ESRD on HD (t-th-sat), HTN, DM, current smoker, CAD/PCI; admitted 07/01 for shortness of breath x1 day, increasing weight gain. in ER she was hypoxic 60s, BP elevated. She denies fever/chills/sick contacts. CXR demonstrated bilateral pulm congestion. wbc 14, afebrile. nontoxic appearing. Physical Exam: Constitutional: awake, alert, no distress, no diaphoresis Head: normocephalic, atraumatic Eyes: no pallor, no icterus ENT: moist mucous membranes Neck: soft, supple, no jvd, no stridor CVS: normal rate, regular, no murmur Chest/Resp: bilateral air entry, mild scattered rhales+, no wheeze, no rhonchi, no acc muscle use Abdomen/GI: soft, nontender, nondistended, BS+ Ext/Msk: warm, pulses+, no edema Skin: intact, warm Neuro: awake, alert, orientedx3, moving all extremities, no gross focal deficit Psych: normal affect Labs - reviewed Assessment - acute hypoxic resp failure acute pulmonary edema acute decompensated LV diastolic heart failure Hypertensive urgency ESRD on HD Plan- patient for emergent HD session today. K okay. ongoing HD. on oximask 2-3L; no distress sats 100%, HR 80s, BP 170s. She is clinically improved. removing 4 L, her weight is 4-5kg over her dry weight. cont antihypertensive medications, BP imrpoved with HD and volume removal. At this time, she has imrpoved after HD since I last saw her in [place]. Sats holding on low NC requirements. Plan for possible repeat HD tomorrow for more volume removal. cont BG management. Plan for possible transfer to medical floor later today. I personally supervised the resident in evaluation, management of the patient. Total Critical Care time 40min, not including procedures/teaching. Adan Trevino MD Glass Pul[employer] Equipment Operator Attestation: This service has been performed in part by a resident under the direction of a teaching physician.I, Adan Trevino, performed the service, or was physically present during the critical, or johnson portions of the service, furnished by the resident. I participated in the management of the patient.
[2019-07-02] MEDS: Metoprolol Succinate XL TAB* 50 MG PO SCH (15:41)
[2019-07-02] MEDS: NIFEdipine ER TAB* 60 MG PO SCH (15:41)
[2019-07-02] MEDS: Lisinopril TAB* 10 MG PO SCH (15:42)
[2019-07-02] MEDS ORDERED: hydrOXYzine HCL TAB* 25 MG PO PRN (15:46)
[2019-07-02] MEDS: Ropinirole TAB* 0.5 MG TAB PO SCH ×2 (15:48→22:10)
--- NOTE | 2019-07-02 16:35 | ECHO ---
*[facility]* [place] [address] Fax #: [phone] Transthoracic Echocardiogram Patient: Mali Chavez : 1970 Study Date: 07/02/2019 Age: 48 Gender: F HR: 90 bpm Height: 60 in /152.4 cm BSA: 1.53 m^2 Weight: 124.7 lb /56.7 kg BMI: 24.4 kg/m^2 *Intermediate Teacher: * Renay Garnica [facility] *Referring Physician: * Karissa Keene *Reading Physician: * Nik Evans MD Indications: SOB. History: Coronary artery disease. Functional status: Dialysis-dependent renal failure. Risk factors: Current tobacco use. Hypertension. Diabetes mellitus. Conclusions Summary: - Left ventricle: Systolic function is normal. The estimated ejection fraction is 55-60%. Wall motion is normal; there are no regional wall motion abnormalities. - Right ventricle: Systolic function is normal. - Mitral valve: There is trace to mild regurgitation. - Aortic valve: There is no evidence of stenosis. - Tricuspid valve: There is physiologic regurgitation. - Pulmonary arteries: Systolic pressure can not be accurately estimated. - Compared to study of 01/13/14, there is little change. Study data: Transthoracic echocardiogram. Procedure: Transthoracic echocardiography was performed. Image quality was good. Complete 2D, spectral Doppler, and color flow Doppler. Location: ICU Patient status: Inpatient. Patient room number: ICU-04. Rhythm: Normal sinus rhythm. Findings Left ventricle: The cavity size is normal. Wall thickness is moderately increased. Systolic function is normal. The estimated ejection fraction is 55-60%. Wall motion is normal; there are no regional wall motion abnormalities. Doppler parameters are consistent with abnormal left ventricular relaxation (grade 1 diastolic dysfunction). Right ventricle: The cavity size is normal. Systolic function is normal. Left atrium: The atrium is mildly dilated. Right atrium: The atrium is normal in size. Mitral valve: The leaflets are mildly thickened. There is no evidence of stenosis. There is trace to mild regurgitation. Aortic valve: The valve is trileaflet. The leaflets are mildly thickened. There is no evidence of stenosis. There is trace regurgitation. Tricuspid valve: The leaflets are normal thickness. There is no evidence of stenosis. There is physiologic regurgitation. Pulmonic valve: The leaflets are normal thickness. There is no evidence of stenosis. There is trace regurgitation. Aorta: Aortic root: The aortic root is appears normal. Ascending aorta: The ascending aorta is appears normal. Aortic arch: The aortic arch is appears normal. Pericardium: There is no significant pericardial effusion. Pulmonary arteries: The main pulmonary artery is normal-sized. Systolic pressure can not be accurately estimated. Systemic veins: Inferior vena cava: The vessel is normal in size. There is (>= 50%) respiratory change in the IVC dimension. Measurements Left ventricle Value Ref Right atrium continued Value Ref MANJIT, LAX 4.1 cm 3.8 - 5.2 ML dim, ES, A4C 3.4 cm 2.6 - 4.4 ESD, LAX 3.0 cm 2.2 - 3.5 Estimated RAP 3 mm Hg --------- FS, LAX 28 % 27 - 45 PW, ED, LAX (H) 1.4 cm 0.6 - 0.9 Aortic valve Value Ref FS 28 % 27 - 45 Shruti diam, ED 1.9 cm --------- Mid-wall FS 10 % Peak v, S 1.57 m/sec --------- PW, ED (H) 1.4 cm 0.6 - 0.9 VTI, S 26.9 cm --------- E', lat shruti, TDI (L) 7.8 cm/sec >=10.0 Mean grad, S 4.0 mm Hg -- ------- E/e', lat shruti, 11 Peak grad, S 10.0 mm Hg ----- ---- TDI LVOT/AV, VTI ratio 0.67 --------- E', med shruti, TDI (L) 3.6 cm/sec >=7.0 E/e', med shruti, 24 Mitral valve Value Ref TDI Peak E 0.85 m/sec --------- E', avg, TDI 5.7 cm/sec Peak A 1.09 m/sec ----- ---- E/e', avg, TDI (H) 15 <=14 Decel time 92 ms -- ------- Peak grad, D 2.9 mm Hg --------- LVOT Value Ref Peak E/A ratio 0.8 --------- Peak olvin, S 1.12 m/sec VTI, S 18.0 cm Pulmonic valve Value Ref Peak grad, S 5 mm Hg Peak v, S 1.04 m/sec --------- Mean grad, S 3 mm Hg Peak grad, S 4.0 mm Hg --------- Ventricular septum Value Ref Aortic root Value Ref IVS, ED (H) 1.4 cm 0.6 - 0.9 Root diam 2.5 cm <3.8 Right ventricle Value Ref Ascending aorta Value Ref MANJIT, LAX 3.0 cm AAo AP diam, S 3.1 cm --------- MANJIT minor ax, A4C 3.2 cm 1.9 - 3.5 mid Aortic arch Value Ref Arch diam 1.9 cm --------- Left atrium Value Ref AP dim, ES (H) 4.00 cm 2.70 - Decending aorta Value Ref 3.80 Marti peak olvin 0.63 m/sec --------- ML dim, A4C 4.6 cm SI dim, A4C 4.8 cm Inferior vena cava Value Ref Vol/bsa, ES, 1-p (H) 41 ml/m^2 11 - 40 Diam 1.7 cm --------- A4C Vol/bsa, ES, A/L (H) 40 ml/m^2 16 - 34 Right atrium Value Ref SI dim, ES 4.1 cm 3.4 - 5.3 Legend: (L) and (H) silvia values outside specified reference range. Prepared and electronically signed by Nik Evans MD 07/02/2019 16:35
--- NOTE | 2019-07-02 18:46 | CONSULT ---
Consult Consult: Consult requested for: MOMO & Fluid overload. Consult requested by: Dr. Trevino, ICU Performed by Dr. Elle Hernandez, [facility] Nephrology 07/02/2019 48 yo WF Has ESRD on HD via Lt UE AVF, TTS. Known for Fluid overload and uncontrolled HTN. Admitted via ED with c/c of SOB. Had Hypoxia requiring large dose O2 by Face Mask. Last HD Monday. Admitted to MICU, and was dialyzed immediately, see separate HD note. PMH: HTN ESRD CAD s/p stent DM Active Smoker HomeMeds: Medication Instructions Recorded Confirmed Type Aspirin EC TAB* [Ecotrin EC Low 81 mg PO DAILY 09/26/13 07/02/19 History Dose 81 MG*] Ropinirole TAB* [Requip TAB*] 1 mg PO TID 04/27/16 07/02/19 History glipiZIDE TAB.XL* [Glucotrol Xl*] 2.5 mg PO DAILY 04/27/16 07/02/19 History Atorvastatin* [Lipitor 10 MG*] 10 mg PO DAILY 05/09/17 07/02/19 History Esomeprazole(NF) [Nexium(NF)] 40 mg PO BID 05/18/18 07/02/19 History HYDROcodone/ACETAMIN 5-325 MG* 1 tab PO Q6HR PRN MDD 4 tabs 05/28/18 07/02/19 History [[place] 5-325 TAB*] Loperamide CAP* [Imodium CAP*] 2 mg PO QAM PRN 05/28/18 07/02/19 History Zolpidem TAB* [Ambien*] 10 mg PO BEDTIME PRN MDD 1 tab 05/28/18 07/02/19 History Amitriptyline TAB* [Elavil TAB*] 10 mg PO BEDTIME 07/02/19 07/02/19 History Metoprolol Succinate XL TAB* 50 mg PO DAILY 07/02/19 07/02/19 History [Toprol XL TAB*] NIFEdipine ER TAB* [Procardia Xl 60 mg PO QAM 07/02/19 07/02/19 History TAB*] Nicotine PATCH 21 MG/24 HR* 21 mg TRANSDERM DAILY 07/02/19 07/02/19 History Ondansetron ODT TAB* [Zofran 4 MG 8 mg PO Q8H PRN 07/02/19 07/02/19 History Odt TAB*] Pancrelipase (NF) [Creon (NF)] 6,000 units PO TID WITH MEALS 07/02/19 07/02/19 History Triamcinolone 0.1% CREAM (NF) 1 applic TOPICAL BID 07/02/19 07/02/19 History [Kenalog 0.1% Cream (NF)] hydrOXYzine HCL TAB* [Atarax 25 MG 25 mg PO Q8H PRN 07/02/19 07/02/19 History TAB*] lisinopriL [Lisinopril] 40 mg PO DAILY 07/02/19 07/02/19 History Hospital Meds: Amitriptyline Aspirin Atorvastatin Glipizide Hydroxyzine Lisinopril Metoprolol Nicotine Nifedipine Pantoprazole Ropinirole Zolpidem Allergies: doxycycline hydromorphone metformin verapamil Social History: Denied Alcohol, active smoking. No IVDA. Family History: Negative for Dialysis, ESRD or Renal Transplant. Positive for HTN & DM Surgical History:AVF 12-Point Review of System obtained: Constitutional: Fatigue. 10 Lbs weight gain Eyes No blurry vision. No red eye CV: SOB at rest & exertion, no chest pain no syncope. Has LE edema & Face Puffiness Respiratory: SOB at rest & cough no wheezing G.I: no diarrhea no nausea no vomiting no pain no blood per rectum no burning no obstruction symptoms Skin no rash Neurology No seizures or neurologic deficit Endocrine diabetes, no heat or cold intolerance Hem/Lymphatic no bleeding no lymph nodes swelling Immune/Allergy no allergic reactions Musculoskeletal: No arthritis, no swelling Psych no anxiety no depression no hallucination Objective: Vital Signs Temp 98 F 07/02/19 17:10 Pulse 93 07/02/19 17:10 Resp 18 07/02/19 17:10 BP 136/76 07/02/19 17:10 Pulse Ox 100 07/02/19 17:10 Intake & Output 07/02/19 07/02/19 07/03/19 06:59 18:59 06:59 Intake Total 620 Balance 620 Weight 56.699 kg 60 kg Intake: Oral 620 Other: Date of Last Bowel 07/01/2019 Movement 10 Point multi system exam: Constitutional Alert Oriented x 3 HEENT: No Conjunctivitis Abdomen Soft Abdomen No Ascites Heart: NSR, Trace LE Edema, No murmur Lungs: Crackles Extremities: Trace edema, no rash Skin no rash Neurology No deficit. CN intact Hem/Lymph: no palpable lymph nodes Musculoskeletal: No joint swelling Laboratory Reviewed Sodium 135 mmol/L (135-145) 07/02/19 06:15 Potassium 5.0 mmol/L (3.5-5.0) 07/02/19 06:15 BUN 71 mg/dL (6-24) H 07/02/19 06:15 Creatinine 8.50 mg/dL (0.51-0.95) H 07/02/19 06:15 Calcium 9.5 mg/dL (8.6-10.3) 07/02/19 06:15 Magnesium 2.9 mg/dL (1.9-2.7) H 07/02/19 06:15 AST 21 U/L (13-39) 07/02/19 06:15 ALT 40 U/L (7-52) 07/02/19 06:15 Imaging: CXR: B/L Basal Patchy infiltrates. Assessment and Plan: ESRD Malignant HTN Fluid Overload HD today Reassess for HD tomorrow She was informed about lab/radiology results & prognosis. All questions were answered. She was made part of the treatment plan. Case discussed with ICU Team
--- NOTE | 2019-07-02 18:47 | PN ---
Progress Note - Progress Note Date of Service: 07/02/19 Note: Inpatient Acute Dialysis Note~ESRD Performed by Dr. Elle Hernandez, [facility] Nephrology 07/02/2019 ESRD on HD I saw her today on HD for ESRD. HD routine TTS. Admitted via ED for fluid overload, SOB, Hypoxia and uncontrolled HTN. Missed HD today as she showed up to ED. Has 4-5 Kg above target Wt with edema, facial puffiness and & very high BP 190- 200 She was seen and examined on HD. HD Routine: TTS HD Duration: 3.5 Hr UF Goal: 4 L/Rx Vitals: BP: 190-200/110 HR: 80 Blood Flow: 400 cc/min Dialysate Flow: 600 cc/min Bath: K: 2K Ca: 2.5Ca Na: 138 Hco3: 35 Temp: 36 C Dialyzer: Revaclear 300 Access: Lt Arm AVF good thrill and Bruit. No Access Related Issues Meds with HD: Heparin Loading & Maintenance: 2000 & 1000 IU/Hr except last Hr Tolerates HD well. No Intradialytic Hypotension.
[2019-07-02] MEDS ORDERED: Amitriptyline TAB* 10 MG PO SCH (21:00)
[2019-07-02 21:21] LABS: Troponin I 0.19 ng/mL (<0.03)
[2019-07-02] MEDS: Pantoprazole TAB * 40 MG TAB PO SCH (22:10)
[2019-07-02] MEDS: hydrOXYzine HCL TAB* 25 MG PO PRN (22:20)
[2019-07-03 06:16] LABS: Hematocrit 30 % (35-47); Hemoglobin 10.2 g/dL (12.0-16.0); Mean Corpuscular HGB Conc 34 g/dL (31-36); Mean Corpuscular Hemoglobin 30 pg (27-31); Mean Corpuscular Volume 86 fL (80-97); Mean Platelet Volume 7.5 fL (7.4-10.4); Platelet Count 285 10^3/uL (150-450); Red Blood Count 3.47 10^6 /uL (3.70-4.87); Red Cell Distribution Width 14 % (10-15); White Blood Count 11.9 10^3/uL (3.5-10.8)
[2019-07-03 06:33] LABS: BUN/Creatinine Ratio 9.5 (8-20); Calcium 8.8 mg/dL (8.6-10.3); EGFR African American 9.3 (>60); EGFR Non-African American 7.7 (>60); Potassium 4.3 mmol/L (3.5-5.0)
[2019-07-03] MEDS ORDERED: Atorvastatin* 10 MG TAB PO SCH (09:00)
[2019-07-03] MEDS ORDERED: Aspirin EC TAB* 81 MG TAB.EC PO SCH (09:00)
[2019-07-03] MEDS ORDERED: Nicotine PATCH 21 MG/24 HR* PATCH TRANSDERM SCH (09:00)
[2019-07-03] MEDS ORDERED: glipiZIDE TAB.XL* 2.5 MG PO SCH (09:00)
[2019-07-03] MEDS: NIFEdipine ER TAB* 60 MG PO SCH (09:21)
[2019-07-03] MEDS: Pantoprazole TAB * 40 MG TAB PO SCH (09:22)
[2019-07-03] MEDS: Metoprolol Succinate XL TAB* 50 MG PO SCH (09:22)
[2019-07-03] MEDS: Ropinirole TAB* 0.5 MG TAB PO SCH (09:22)
[2019-07-03] MEDS: Lisinopril TAB* 10 MG PO SCH (09:23)
[2019-07-03] MEDS: hydrOXYzine HCL TAB* 25 MG PO PRN (09:28)
[2019-07-03 11:38] VITALS: BP 147/72
--- NOTE | 2019-07-03 16:23 | PN ---
Progress Note - Progress Note Date of Service: 07/03/19 Note: Inpatient Nephrology f/u Note: Performed by Dr. Elle Hernandez, [facility] Nephrology 07/03/2019 48 yo WF ESRD on HD via Lt UE AVF, TTS. Known for Fluid overload and uncontrolled HTN. s/p Pulmonary edema and Hypoxia s/p HD yesterday with 4.5 L UF. Today back to the floor and feels great. No SOB. BP better. Hospital Meds: Reviewed Objective: Vital Signs Temp 97.5 F 07/03/19 11:10 Pulse 77 07/03/19 11:10 Resp 16 07/03/19 11:10 BP 147/72 07/03/19 11:10 Pulse Ox 100 07/03/19 11:10 Intake & Output 07/02/19 07/03/19 07/03/19 18:59 06:59 18:59 Intake Total 620 1656 Balance 620 1656 Weight 60 kg Intake: Oral 620 1656 Other: Estimated Void Large Date of Last Bowel 07/01/2019 Movement # Voids 3 10 Point multi system exam: Constitutional Alert Oriented x 3 HEENT: No Conjunctivitis Abdomen Soft Abdomen No Ascites Heart: NSR, No LE Edema, No murmur Lungs: Clear Extremities: No edema, no rash Skin no rash Neurology No deficit. CN intact Hem/Lymph: no palpable lymph nodes Musculoskeletal: No joint swelling Laboratory Reviewed Sodium 134 mmol/L (135-145) L 07/03/19 05:36 Potassium 4.3 mmol/L (3.5-5.0) 07/03/19 05:36 BUN 56 mg/dL (6-24) H 07/03/19 05:36 Creatinine 5.88 mg/dL (0.51-0.95) H 07/03/19 05:36 Calcium 8.8 mg/dL (8.6-10.3) 07/03/19 05:36 Magnesium 2.9 mg/dL (1.9-2.7) H 07/02/19 06:15 AST 21 U/L (13-39) 07/02/19 06:15 ALT 40 U/L (7-52) 07/02/19 06:15 Assessment and Plan: ESRD Malignant HTN & Fluid Overload resolved with HD and UF Educated thoroughly about Salt and water/fluid restriction as she has No Urine output. May go home if Ok with primary team She was informed about lab/radiology results & prognosis. All questions were answered. She was made part of the treatment plan.
--- NOTE | 2019-07-06 02:11 | DS ---
CC: Dr. Jacob Pan; Dr. Maricarmen Hernandez of Nephrology DISCHARGE SUMMARY: DATE OF ADMISSION: 07/02/19 DATE OF DISCHARGE: 07/03/19 FINAL DISCHARGE DIAGNOSES: 1. Acute respiratory failure secondary to pulmonary edema. 2. Hypertensive urgency secondary to pulmonary edema. 3. Pulmonary edema secondary to noncompliance with diet due to her endstage renal disease. 4. Endstage renal disease, on hemodialysis. 5. Troponinemia related to demand-mediated ischemia and underlying chronic kidney disease, endstage kidney disease 5. 6. Elevated D-dimer, nonspecific, minimally elevated. Low suspicious for pulmonary embolism. HOSPITAL COURSE: The patient presented to [facility] Emergency Room on 07/02/19 for sudde n rapidly progressive shortness of breath while she was on her way to the dialysis on the morning of Monday. The patient's last dialysis was the Monday before. Over the weekend, she was in the [facility]. She was admitted for nonadherence to diet with liquid and solid food. She finally came into the ER to be evaluated. In the emergency room, she was in respiratory distress, hypoxic, O2 saturation 68% on triage. BNP was greater than 1300, troponin elevated, flash pulmonary edema on chest x-ray. She was admitted to the ICU. She was placed on rescue BiPAP. Nephrology was consulted and she underwent dialysis. She was seen and evaluated by and russell perez to the ICU on the following morning. She was seen by me on 07/03/19, she seemed much improved clin ically, did not appear to be in any distress. She had about 4.4 L of fluids removed during her dialy sis. Also, during her hospital stay, she did have blood work that was concerning for positive tropon in, initial was 0.13 and it peaked to 0.20 and she also had a positive D- dimer 294. However, given her significant improvement post dialysis in her oxygen saturation, which was 100% on room air the morning, the patient was deemed low suspicious for PE, hence I did not proceed with CT angiog sharda. Her blood pressure significantly improved with 147/72 and given normal pulse 77, temperature 97 .5, I deemed her stable for discharge home in stable condition. PHYSICAL EXAM: Temperature 97.5, pulse 77, respirations 16, satting 100%, blood pressure 147/72. Ge neral: She is awake, alert, pleasant, in no distress. Head and Neck: Normocephalic, atraumatic. L ungs: Good air flow. Diminished at the bases. Abdomen: Positive bowel sounds. Soft, nontender, n ondistended. Extremities: No edema. DIAGNOSTIC STUDIES/LAB DATA: CBC: White count was 14,000 on presentation, down to 11.9. Hemoglobin 35, down to 30. D-dimer 294. Chemistry: Sodium 134, potassium 4.3, BUN 56, creatinine 5.8 down fr om 8 and her troponin was 0.13, 0.17, 0.20, 0.19. BNP greater than 1300. Influenza A and B negative . Imaging: She had a chest x-ray, which showed no acute pulmonary disease on 07/03/19 and on 07/02/19, her chest x-ray on presentation shows bibasilar atelectasis and increased interstitial marking consi stent with pulmonary edema. Echocardiogram revealed ejection fraction 55%-60%, no valvular disease, no significant change when co mpared to 01/11/14. DISCHARGE MEDICATIONS: Resume home meds as follows: 1. Aspirin 81 daily. 2. ReQuip 1 mg 3 times a day. 3. Glipizide 2.5 every day. 4. Lipitor 10 daily. 5. Nexium 40 mg twice a day. 6. [place] [employer] 5/325 every 6 hours as needed. 7. Ambien 10 mg at bedtime. 8. Imodium p.r.n.. 9. Creon 6000 units t.i.d. 10. Procardia 60 daily. 11. Nicotine patch. 12. Metoprolol XL 50 daily. 13. Lisinopril 40 daily. 14. Atarax 25 every 8 hours. 15. Amitriptyline 10 mg at bedtime. 17. Kenalog cream. 18. Zofran 4 mg every 8 hours as needed. DISCHARGE RECOMMENDATIONS: 1. Follow up with Dialysis, Dr. Maricarmen Hernandez for the dialysis scheduled, , tomorrow, as an outpatient. 2. Follow up with primary care, Dr. Jacob Pan. DISCHARGE CONDITION: Stable. DISCHARGE DISPOSITION: Home. [id number]/[id number] #: [id number]
== END 2019-07-03 13:37 | disposition home or self-care (01) | DRG 291 ==
LOC: ED 05:54 → ICU 10:37 → MEDTELE 15:30
PROVIDERS: ADMIT Internal Medicine Critical Care Medicine; ATTEND Internal Medicine
PROC: 5A1D70Z Performance of Urinary Filtration, Intermittent, Less than 6 Hours Per Day (ICD-10-PCS; principal; 2019-07-02)
DX: I13.2 Hypertensive heart and chronic kidney disease with heart failure and with stage 5 chronic kidney disease, or end stage renal disease (principal); I50.31 Acute diastolic (congestive) heart failure; J96.01 Acute respiratory failure with hypoxia; N18.6 End stage renal disease; I16.0 Hypertensive urgency; E87.70 Fluid overload, unspecified; E11.43 Type 2 diabetes mellitus with diabetic autonomic (poly)neuropathy; E11.22 Type 2 diabetes mellitus with diabetic chronic kidney disease; K31.84 Gastroparesis; I25.10 Atherosclerotic heart disease of native coronary artery without angina pectoris; E78.00 Pure hypercholesterolemia, unspecified; E78.5 Hyperlipidemia, unspecified; K21.9 Gastro-esophageal reflux disease without esophagitis; F17.210 Nicotine dependence, cigarettes, uncomplicated; Z99.2 Dependence on renal dialysis; Z88.8 Allergy status to other drugs, medicaments and biological substances; Z79.82 Long term (current) use of aspirin; Z79.899 Other long term (current) drug therapy; Z79.84 Long term (current) use of oral hypoglycemic drugs; Z95.5 Presence of coronary angioplasty implant and graft; I25.2 Old myocardial infarction; Z80.1 Family history of malignant neoplasm of trachea, bronchus and lung; Z80.0 Family history of malignant neoplasm of digestive organs; Z80.8 Family history of malignant neoplasm of other organs or systems
CPT/HCPCS: 36415; 71045; 71046; 80048; 80053; 83605; 83735; 83880; 84484; 85025; 85027; 85379; 85610; 86140; 87040; 87641; 93005; 93306; 96374; 96375; 96376; 99284; A9270-GY; J1644; J2270; J2920

== ENCOUNTER 2019-09-16 09:00 | Observation (INO) ==
[2019-09-16 09:35] LABS: ABS Basophils 0.1 10^3/ul (0-0.2); ABS Eosinophils 0.2 10^3/ul (0-0.6); ABS Lymphocytes 1.6 10^3/ul (1.0-4.8); ABS Monocytes 0.8 10^3/ul (0-0.8); Eosinophil % 1.6 %; Hematocrit 38 % (35-47); Hemoglobin 12.9 g/dL (12.0-16.0); Lymphocyte % 14.5 %; Mean Corpuscular HGB Conc 34 g/dL (31-36); Mean Corpuscular Hemoglobin 31 pg (27-31); Mean Corpuscular Volume 92 fL (80-97); Mean Platelet Volume 7.2 fL (7.4-10.4); Platelet Count 328 10^3/uL (150-450); Red Blood Count 4.14 10^6 /uL (3.70-4.87); Red Cell Distribution Width 14 % (10-15); White Blood Count 10.7 10^3/uL (3.5-10.8)
[2019-09-16] MEDS ORDERED: HYDROcodone/ACETAMIN 5/325 mg TAB PO ONE (09:37)
[2019-09-16 09:52] LABS: ALT 93 U/L (7-52); AST 78 U/L (13-39); Albumin 4.3 g/dL (3.2-5.2); Albumin/Globulin Ratio 1.7 (1-3); Alkaline Phosphatase 92 U/L (34-104); Anion Gap 15 mmol/L (2-11); BUN/Creatinine Ratio 7.6 (8-20); Blood Urea Nitrogen 55 mg/dL (6-24); C Reactive Protein 1.65 mg/L (<8.01); CO2 Carbon Dioxide 25 mmol/L (22-32); Calcium 8.9 mg/dL (8.6-10.3); Chloride 92 mmol/L (101-111); EGFR African American 7.2 (>60); Globulin 2.6 g/dL (2-4); Glucose 366 mg/dL (70-100); Magnesium 2.7 mg/dL (1.9-2.7); Potassium 4.7 mmol/L (3.5-5.0); Sodium 132 mmol/L (135-145); Total Protein 6.9 g/dL (6.4-8.9)
[2019-09-16] MEDS ORDERED: ACETAMINOPHEN 650 MG PO PRN (11:59)
[2019-09-16] MEDS ORDERED: HYDROcodone/ACETAMIN 5/325 mg TAB PO PRN (11:59)
[2019-09-16] MEDS ORDERED: Pancrelipase 5,000 units CAP PO SCH (12:00)
[2019-09-16 13:06] LABS: Troponin I 0.03 ng/mL (<0.03)
[2019-09-16] MEDS ORDERED: Dextrose 50% Syringe 50 ml 25 GM/50 ML SYRINGE IV PUSH PRN (13:18)
[2019-09-16 13:25] VITALS: BP 133/64
[2019-09-16] MEDS ORDERED: Nitro 2% OINT (Nitroglycerin) 1 INCH/PAK TOPICAL ONE (14:10)
[2019-09-16 15:20] LABS: Troponin I 0.04 ng/mL (<0.03)
[2019-09-17] MEDS ORDERED: Aspirin EC 81 mg TAB.EC (enteric coated) PO SCH (09:00)
== END 2019-09-16 17:03 | disposition left against medical advice (07) ==
LOC: MEDTELE 09:00 → ED 09:00
PROVIDERS: ADMIT Internal Medicine; ATTEND Internal Medicine

== ENCOUNTER 2019-11-11 10:41 | Inpatient (IN) ==
[2019-11-11 11:14] LABS: ABS Basophils 0.1 10^3/ul (0-0.2); ABS Eosinophils 0.1 10^3/ul (0-0.6); ABS Lymphocytes 1.1 10^3/ul (1.0-4.8); ABS Monocytes 0.7 10^3/ul (0-0.8); ABS Neutrophils 8.7 10^3/ul (1.5-7.7); Eosinophil % 1.1 %; Hematocrit 32 % (35-47); Hemoglobin 10.9 g/dL (12.0-16.0); Lymphocyte % 10.2 %; Mean Corpuscular HGB Conc 34 g/dL (31-36); Mean Corpuscular Hemoglobin 29 pg (27-31); Mean Corpuscular Volume 87 fL (80-97); Mean Platelet Volume 7.7 fL (7.4-10.4); Platelet Count 327 10^3/uL (150-450); Red Blood Count 3.73 10^6 /uL (3.70-4.87); Red Cell Distribution Width 14 % (10-15); White Blood Count 10.7 10^3/uL (3.5-10.8)
[2019-11-11 11:30] LABS: ALT 53 U/L (7-52); AST 37 U/L (13-39); Albumin 3.7 g/dL (3.2-5.2); Albumin/Globulin Ratio 1.4 (1-3); Alkaline Phosphatase 112 U/L (34-104); Anion Gap 14 mmol/L (2-11); BUN/Creatinine Ratio 6.3 (8-20); Blood Urea Nitrogen 38 mg/dL (6-24); CO2 Carbon Dioxide 25 mmol/L (22-32); Calcium 7.9 mg/dL (8.6-10.3); Chloride 86 mmol/L (101-111); EGFR Non-African American 7.5 (>60); Globulin 2.6 g/dL (2-4); Potassium 3.7 mmol/L (3.5-5.0); Sodium 125 mmol/L (135-145); Total Protein 6.3 g/dL (6.4-8.9)
[2019-11-11 11:32] LABS: Glucose 687 mg/dL (70-100); Troponin I 0.03 ng/mL (<0.03)
[2019-11-11] MEDS ORDERED: NS 0.9% 1000 ml BAG 1,000 ML IV ONE (11:46)
[2019-11-11 14:00] LABS: Magnesium 2.1 mg/dL (1.9-2.7)
[2019-11-11] MEDS ORDERED: Dextrose 50% Syringe 50 ml 25 GM/50 ML SYRINGE IV PUSH PRN (14:13)
[2019-11-11] MEDS ORDERED: Patiromer POWDER 8.4 GM PAK PO PRN (14:14)
[2019-11-11] MEDS ORDERED: Ondansetron ODT 4 mg TAB 4 MG TAB PO PRN (14:14)
[2019-11-11] MEDS: Pancrelipase 5,000 units CAP PO SCH (17:35)
[2019-11-11] MEDS: Insulin GLARGINE 100 un/ml 10 ml VIAL SUBCUT SCH (22:33)
[2019-11-12 07:09] LABS: BUN/Creatinine Ratio 6.5 (8-20); Calcium 7.7 mg/dL (8.6-10.3); EGFR African American 7.5 (>60); EGFR Non-African American 6.2 (>60); Potassium 3.5 mmol/L (3.5-5.0)
[2019-11-12] MEDS: hydrALAZINE 20 mg/ml 1 ML Vial IV IV SLOW PU PRN ×2 (07:36→14:43)
[2019-11-12] MEDS ORDERED: NS 0.9% IV PRN (07:54)
[2019-11-12] MEDS ORDERED: Potassium Chlor 20 meq TAB.ER PO ONE (08:00)
[2019-11-12] MEDS: Aspirin EC 81 mg TAB.EC (enteric coated) PO SCH (08:51)
[2019-11-12] MEDS: Heparin *DIALYSIS* ONLY 1,000 UNITS/ML VIAL DIALYSIS ONE ×3 (09:35→11:47)
[2019-11-12] MEDS: Pancrelipase 5,000 units CAP PO SCH ×3 (09:59→17:19)
[2019-11-12 10:02] LABS: Hepatitis B Surface Antigen Nonreactive (Nonreactive)
[2019-11-12 10:19] LABS: Hepatitis B Surface Ab Not Immune (Immune)
[2019-11-12] MEDS: Labetalol IV 5 MG/ML 20 ml VIAL IV PUSH PRN (16:46)
[2019-11-12] MEDS: HYDROcodone/ACETAMIN 5/325 mg TAB PO PRN (16:46)
[2019-11-12] MEDS: Insulin GLARGINE 100 un/ml 10 ml VIAL SUBCUT SCH (22:30)
[2019-11-13] MEDS: HYDROcodone/ACETAMIN 5/325 mg TAB PO PRN (04:05)
[2019-11-13 04:15] LABS: Calcium 7.9 mg/dL (8.6-10.3); Potassium 3.7 mmol/L (3.5-5.0)
[2019-11-13 04:20] LABS: BUN/Creatinine Ratio 5.7 (8-20); EGFR Non-African American 9.1 (>60)
[2019-11-13] MEDS ORDERED: Potassium Chlor 10 meq TAB PO ONE (07:00)
[2019-11-13] MEDS: Heparin *DIALYSIS* ONLY 1,000 UNITS/ML VIAL DIALYSIS ONE ×3 (08:03→10:07)
[2019-11-13] MEDS: Aspirin EC 81 mg TAB.EC (enteric coated) PO SCH (08:49)
[2019-11-13] MEDS: Pancrelipase 5,000 units CAP PO SCH ×2 (08:50→12:09)
[2019-11-13] MEDS: hydrALAZINE 20 mg/ml 1 ML Vial IV IV SLOW PU PRN (09:22)
[2019-11-13] MEDS: Labetalol IV 5 MG/ML 20 ml VIAL IV PUSH PRN (10:11)
[2019-11-13 14:29] VITALS: BP 165/71
[2019-11-17] MEDS ORDERED: cloNIDine 0.3 MG PATCH 0.3 MG/24 HR 7 DAY PATCH TRANSDERM SCH (09:00)
== END 2019-11-13 16:20 | disposition home or self-care (01) | DRG 291 ==
LOC: MED 10:41 → ED 10:41 → OBSVTOIN 14:10 → INTOOBSV 14:10 → MED 15:05 → MEDTELE 11-12 06:11
PROVIDERS: ADMIT Internal Medicine; ATTEND Internal Medicine